=== PATIENT | female | born 1985 | race Caucasian/White ===

== ENCOUNTER 2022-05-12 16:43 | Emergency (ER) | payer OTHER, SELFPAY ==
[2022-05-12 16:43] VITALS: BP 129/74; PULSE 103; RESP 17; TEMP 36.9; O2SAT 97
--- NOTE | 2022-05-12 16:49 | ED.EXTPRO ---
HPI - Extremity Problem General Chief complaint: Extremity Problem,Nontraumatic Stated complaint: right leg pain Time Seen by Provider: 05/12/22 16:48 Source: patient and RN notes reviewed Mode of arrival: ambulatory Limitations: no limitations History of Present Illness HPI Narrative: patient states pain started on Wednesday when she was getting out of the car at [email or web address]. Also happened again yesterday her right calf became very tight and then she felt a pop while she was walking. She denies any numbness or tingling. She denies any swelling in her right leg. She denies any chest pain or shortness of breath. MD Complaint: extremity pain Onset (ago): day(s) (4) Pain Consistency: constant Location: right and lower extremity Quality: stabbing, aching and sharp Radiation: none Relieving factors: rest Exacerbating factors: walking Associated symptoms: denies other symptoms Related Data Home Medications Medication Instructions Recorded Confirmed atorvastatin 20 mg tablet 20 mg PO DAILY 05/12/22 05/12/22 cyanocobalamin (vitamin B-12) 1,000 mcg IM WEEKLY 05/12/22 05/12/22 1,000 mcg/mL injection solution fluticasone propionate 50 2 spray intranasal DAILY 05/12/22 05/12/22 mcg/actuation nasal spray,suspension insulin glargine 100 unit/mL (3 48 unit subcut HS 05/12/22 05/12/22 mL) subcutaneous pen (Lantus Solostar U-100 Insulin) insulin lispro 200 unit/mL (3 mL) See Rx Instructions .Route .COMPLEX 05/12/22 05/12/22 subcutaneous pen (Humalog KwikPen U-200 Insulin) losartan 100 mg tablet 100 mg PO DAILY 05/12/22 05/12/22 metformin 500 mg tablet,extended 1,000 mg PO BID 05/12/22 05/12/22 release 24 hr omeprazole 20 mg capsule,delayed 20 mg PO DAILY 05/12/22 05/12/22 release prazosin 1 mg capsule 1 mg PO DAILY 05/12/22 05/12/22 trazodone 150 mg tablet 150 mg PO HS 05/12/22 05/12/22 Allergies Allergy/AdvReac Type Severity Reaction Status Date / Time topiramate [From Topamax] Allergy Severe Vomiting Verified 05/12/22 16:59 latex Allergy Unknown Rash Verified 05/12/22 16:59 morphine Allergy Unknown Rash Verified 05/12/22 16:59 Review of Systems Review of Systems: All systems reviewed & are unremarkable except as noted in HPI and below PMFSH Past Medical History Medical History (Updated 05/12/22 @ 17:43 by Alexis Gutierrez MD) Anxiety and depression Morbid obesity Type 2 diabetes mellitus Surgical History Surgical History (Updated 05/12/22 @ 17:03 by Alexis Gutierrez MD) H/O knee surgery Exam Const: General: healthy appearing, no acute distress and alert Nutritional Appearance: well nourished and obese Orientation/consciousness: patient oriented x3 Limitations: no limitations HENMT: Head: normal to inspection Ears: external ears normal Face/Nose/Sinus: Normal external nose present Eyes: Conjunctivae: conjunctivae normal Pupils: Equal, round and reactive pupils present EOM: EOMs intact bilaterally Neck: Neck: normal visual inspection Resp: Effort & Inspection: normal respiratory effort Auscultation: clear to auscultation bilaterally Cardio: Rate: regular rate Rhythm: regular rhythm GI: GI Palp: Yes Soft to palpation and No Tenderness to palpation present (GI) Auscultation: normal bowel sounds Back/Spine/Pelvis: Cervical Spine: cervical ROM normal Thoracic/Lumbar Spine: thoraco-lumbar ROM normal Skin: General skin exam: normal color Rashes: no rashes Neuro: General: patient oriented x3, moves all extremities, no focal motor deficits and CN's II-XI intact bilaterally Speech: normal speech Extrem: General: normal exam except as noted and no clubbing, cyanosis or edema Right lower extremity: lower leg Details: tenderness Location: of the posterior calf and other ( Guajardo's test is normal bilaterally); no erythema, no palpable cords and edema noted Psych: Mental Status: mental status grossly normal Affect: normal affect Attitude: cooperative Course Vital Signs Vital
[2022-05-12 16:53] VITALS: BP 129/74; PULSE 103; RESP 17; TEMP 36.9; O2SAT 97
[2022-05-12 17:18] LABS: Basophils Absolute Auto 0.06 K/mm3 (0.00-0.10); Basophils Percent Auto 0.5 % (0.0-1.0); Eosinophils Absolute Auto 0.13 K/mm3 (0.02-0.50); Hematocrit 32.3 % (35.0-49.0); Hemoglobin 9.6 g/dL (12.0-15.0); Immature Granulocyte Absolute 0.05 K/mm3 (0.00-0.00); Immature Granulocyte Percent A 0.4 % (0.0-0.0); Lymphocytes Absolute Auto 3.73 K/mm3 (1.10-4.50); Lymphocytes Percent Auto 29.9 % (18.0-42.0); Mean Corpuscular HGB Conc 29.7 g/dL (32.0-36.0); Mean Corpuscular Hemoglobin 21.7 pg (27.0-31.0); Mean Corpuscular Volume 72.9 fL (78.0-102.0); Mean Platelet Volume 8.9 fl (9.2-11.8); Monocytes Absolute Auto 0.72 K/mm3 (0.10-0.90); Monocytes Percent Auto 5.8 % (2.0-11.0); Neutrophils Absolute Auto 7.8 K/mm3 (1.7-7.2); Neutrophils Percent Auto 62.4 % (50.0-70.0); Platelet Count Result 466 K/mm3 (150-420); Red Blood Count 4.43 M/mm3 (4.20-5.40); Red Cell Distribution Width 18.8 % (11.6-14.4); White Blood Count 12.5 K/mm3 (4.8-10.8)
[2022-05-12 17:32] LABS: D Dimer 0.28 mg/L (0.19-0.50)
[2022-05-12 17:34] LABS: Alanine Aminotransferase 45 U/L (14-59); Albumin Level 3.5 g/dL (3.4-5.0); Alkaline Phosphatase 68 U/L (46-116); Anion Gap 9 mmol/L (8-16); Aspartate Amino Transferase 27 U/L (15-37); Bilirubin,Total 0.3 mg/dL (0.00-1.00); Blood Urea Nitrogen 12 mg/dL (7-18); Calcium 9.5 mg/dL (8.5-10.1); Carbon Dioxide 28 mmol/L (21-32); Chloride 102 mmol/L (98-108); Estimated CRCL calculation 106 ml/min; Estimated Glomerular Filt Rate > 60; Glucose 71 mg/dL (70-99); Osmolality Calculated 285 mOsm/kg (285-295); Potassium 3.6 mmol/L (3.5-5.1); Sodium 139 mmol/L (136-145); Total Protein 8.2 g/dL (6.4-8.2)
[2022-05-12 17:54] VITALS: BP 152/89; PULSE 89; RESP 16; TEMP 36.9; O2SAT 100
== END 2022-05-12 17:56 | disposition home or self-care (01) ==
PROVIDERS: Emergency Provider Emergency Medicine
DX: S86.111A Strain of other muscle(s) and tendon(s) of posterior muscle group at lower leg level, right leg, initial encounter (principal); E11.9 Type 2 diabetes mellitus without complications; Z79.4 Long term (current) use of insulin; X58.XXXA Exposure to other specified factors, initial encounter; Y92.512 Supermarket, store or market as the place of occurrence of the external cause
CPT/HCPCS: 36415; 80053; 85025; 85380; 99283

== ENCOUNTER 2022-05-28 16:53 | Outpatient (RCR) | payer OTHER, SELFPAY ==
--- NOTE | 2022-05-28 18:01 | PTOPEVAL1 ---
Assessment and note entered by Ashli Tejada, PT Evaluation Information Assessment Status Evaluation Diagnosis R knee pain Subjective Information Deepa Steve reports she tore her right ACL and MCL in high school and underwent surgery. She did not heal correctly from the surgery and she was unable to regain full range of motion in it. About 3 weeks ago, she states she had been in the car a lot and when she got out, her right hamstring cramped up and she had trouble walking. She went to the ER a couple days later because she still could not walk. She had x-rays that showed bone on bone deformity in the right knee. 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 She notes the injection has decreased pain so that she can walk easier. She continues to feel tight in her hamstring. Reported Pain Level Pain Score 4: Self Report Assessment PT Clinical Summary Deepa Steve presents with right knee pain. She has difficulty with walking, stairs, and extending the right knee which leads to deficits in standing tolerance for work and navigating her home. She objectively demonstrates decreased right knee flexion and extension AROM, decreased right > left hamstring flexibility, tenderness in the right semitendonosus muscle and tendon, decreased right knee and hip strength, impaired gait, and impaired functional abilities. She will benefit from skilled PT to address these physical and functional limitations and return her to her PLOF. Plan of Care Interventions Electrical Stimulation,Hot Pack/Cold Pack, Intermittent Compression,Manual Therapy,Neuro Re- education,Patient/Caregiver Educati,Therapeutic Activities,Therapeutic Exercise PT Services Indicated Yes Treatment Frequency and 2 times a week for 12 visits. Duration These treatments will address the objective and functional deficits as defined above. The patient will be advanced safely and appropriately in order for the patient to progress towards his/her prior level of function. Additional exercises will be introduced and as well as a comprehensive home exercise program upon discharge, if needed, ?to ensure carryover of functional gains achieved in the clinic. This treatment plan has been reviewed and agreement upon by the patient.
--- NOTE | 2022-07-07 17:32 | PTOPDC ---
Assessment and note entered by Ashli Tejada, PT Evaluation Information Assessment Status Discharge Diagnosis R knee pain Subjective Information Deepa Steve reports her right knee is improved overall. 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 She does have arthritis and feels part of the pain is from that. She rates pain at worst a 5/10. She feels she has improved 80% overall since initiating PT. Reported Pain Level Pain Score 0: Self Report Assessment PT Clinical Summary Deepa Steve has completed 10 skilled PT visits for right knee pain. She is reporting an 80% overall improvement since initiating PT. She still gets some pain with repetitive lifting and squatting. She demonstrates improved right knee and hip strength, improved right hamstring flexibility and less palpable tenderness, improved gait, and improved functional abilities. She will be discharged to an independent home program. Plan of Care PT Services Indicated Yes
== END 2022-07-07 13:47 | disposition home or self-care (01) ==
LOC: CHSPT 16:53
PROVIDERS: Visit Provider Orthopaedic Surgery
DX: M17.31 Unilateral post-traumatic osteoarthritis, right knee (principal); M25.361 Other instability, right knee; M76.891 Other specified enthesopathies of right lower limb, excluding foot
CPT/HCPCS: 97110; 97140; 97161; 97530

== ENCOUNTER 2023-02-24 20:37 | Emergency (ER) | payer OTHER, SELFPAY ==
[2023-02-24 20:41] VITALS: BP 170/92; PULSE 111; RESP 18; TEMP 37.6; O2SAT 99
[2023-02-24 20:48] VITALS: BP 170/92; PULSE 111; RESP 20; TEMP 37.6; O2SAT 96
--- NOTE | 2023-02-24 20:48 | ED.ABDPAIN ---
HPI - Abdominal Pain General Chief Complaint: Nausea/Vomiting/Diarrhea Stated Complaint: abdominal pain Time Seen by Provider: 02/24/23 20:47 Source: patient Mode of arrival: ambulatory Limitations: no limitations History of Present Illness HPI narrative: 27-year-old female with obesity, MARY on CPAPanxiety / depression, hypertension, diabetes mellitus, dyslipidemia, kidney stones presents to the ER with a 5 hour history of -- lower abdominal pain which is nonradiating. No exacerbating or relieving factors .-- Nausea with multiple episodes of vomiting. Vomitus is brown in color .-- Multiple episodes of loose stools. The patient has chronic diarrhea secondary to metformin. No fever or chills. MD elicited complaint: abdominal pain Pertinent past history: kidney stones Onset (ago): hour(s) ( Started 5 hours ago) Pain Consistency: constant and intermittent Location: suprapubic Severity: moderate Quality: aching Radiation: none Migration to: no migration Exacerbating factors: nothing Relieving factors: nothing Associated symptoms: denies other symptoms, nausea, vomiting and diarrhea Related Data Date of Last Menstrual Period: 02/10/23 Home Medications Medication Instructions Recorded Confirmed atorvastatin 20 mg tablet 20 mg PO DAILY 05/12/22 05/12/22 cyanocobalamin (vitamin B-12) 1,000 mcg IM WEEKLY 05/12/22 05/12/22 1,000 mcg/mL injection solution fluticasone propionate 50 2 spray intranasal DAILY 05/12/22 05/12/22 mcg/actuation nasal spray,suspension insulin glargine 100 unit/mL (3 48 unit subcut HS 05/12/22 05/12/22 mL) subcutaneous pen (Lantus Solostar U-100 Insulin) insulin lispro 200 unit/mL (3 mL) See Rx Instructions .Route .COMPLEX 05/12/22 05/12/22 subcutaneous pen (Humalog KwikPen U-200 Insulin) losartan 100 mg tablet 100 mg PO DAILY 05/12/22 05/12/22 metformin 500 mg tablet,extended 1,000 mg PO BID 05/12/22 05/12/22 release 24 hr omeprazole 20 mg capsule,delayed 20 mg PO DAILY 05/12/22 05/12/22 release prazosin 1 mg capsule 1 mg PO DAILY 05/12/22 05/12/22 trazodone 150 mg tablet 150 mg PO HS 05/12/22 05/12/22 Allergies Allergy/AdvReac Type Severity Reaction Status Date / Time topiramate [From Topamax] Allergy Severe Vomiting Verified 02/24/23 20:45 latex Allergy Unknown Rash Verified 02/24/23 20:45 morphine Allergy Unknown Rash Verified 02/24/23 20:45 Review of Systems Review of Systems: All systems reviewed & are unremarkable except as noted in HPI and below Constitutional: Constitutional: Reports as per HPI and Reports no additional constitutional complaints Eyes: Eyes: Reports as per HPI and Reports no additional eye complaints ENT: Reports system reviewed and no additional complaints, except as documented and Reports as per HPI Cardiovascular: Cardiovascular: Reports as per HPI and Reports no additional cardiovascular complaints Respiratory: Respiratory: Reports as per HPI and Reports no additional respiratory complaints Gastrointestinal: Gastrointestinal: Reports as per HPI, Reports no additional gastrointestinal complaints, Reports abdominal pain, Reports diarrhea, Reports nausea and Reports vomiting Genitourinary: Genitourinary: Reports no additional female genitourinary complaints and Reports as per HPI Musculoskeletal: Musculoskeletal: Reports no additional musculoskeletal complaints and Reports as per HPI Integumentary/Breasts: Skin/Breast: Reports system reviewed and no additional complaints, except as docu and Reports as per HPI Neurologic: Reports system reviewed and no additional complaints, except as documented and Reports as per HPI Psychiatric: Psychiatric: Reports no additional psychiatric complaints and Reports as per HPI Endocrine: Endocrine: Reports no additional endocrine complaints and Reports as per HPI Hematologic/Lymphatic: Hematologic/Lymphatic: Reports no additional hematologic/lymphatic complaints and Reports as per HPI Allergic/Immunolo
[2023-02-24 21:12] LABS: Basophils Absolute Auto 0.01 K/mm3 (0.00-0.10); Basophils Percent Auto 0.1 % (0.0-1.0); Eosinophils Absolute Auto 0.07 K/mm3 (0.02-0.50); Eosinophils Percent Auto 0.7 % (1.0-6.0); Hematocrit 38.2 % (35.0-49.0); Hemoglobin 11.9 g/dL (12.0-15.0); Immature Granulocyte Absolute 0.04 K/mm3 (0.00-0.00); Immature Granulocyte Percent A 0.4 % (0.0-0.0); Lymphocytes Absolute Auto 0.78 K/mm3 (1.10-4.50); Lymphocytes Percent Auto 8.1 % (18.0-42.0); Mean Corpuscular HGB Conc 31.2 g/dL (32.0-36.0); Mean Corpuscular Hemoglobin 23.3 pg (27.0-31.0); Mean Corpuscular Volume 74.8 fL (78.0-102.0); Mean Platelet Volume 9.3 fl (9.2-11.8); Monocytes Absolute Auto 0.45 K/mm3 (0.10-0.90); Monocytes Percent Auto 4.7 % (2.0-11.0); Neutrophils Absolute Auto 8.3 K/mm3 (1.7-7.2); Platelet Count Result 394 K/mm3 (150-420); Red Blood Count 5.11 M/mm3 (4.20-5.40); Red Cell Distribution Width 17.8 % (11.6-14.4); White Blood Count 9.7 K/mm3 (4.8-10.8)
[2023-02-24 21:25] LABS: Appearance Urine Clear (Clear); Bilirubin Urine Negative (Negative); Blood Urine 1+ (Negative); Color Urine Light Yellow (Yellow); Glucose Urine UA 3+ (Negative); Ketones Urine 2+ (Negative); Leukocyte Esterase Ur Negative LEU/UL (Negative); Nitrate Urine Negative (Negative); Protein Urine 3+ (Negative); Specific Grav Ur >= 1.030 (1.010-1.020); Urobilinogen Urine 0.2 mg/dL (0.2-1.0)
[2023-02-24 21:26] LABS: Partial Thromboplastin Time 24.7 SEC (23.90-30.70); Prothrombin Time 10.7 Seconds (9.50-12.10)
[2023-02-24 21:27] LABS: Alanine Aminotransferase 40 U/L (14-59); Albumin Level 3.4 g/dL (3.4-5.0); Alkaline Phosphatase 69 U/L (46-116); Anion Gap 5 mmol/L (8-16); Aspartate Amino Transferase 18 U/L (15-37); Bilirubin,Total 0.6 mg/dL (0.00-1.00); Blood Urea Nitrogen 15 mg/dL (7-18); Calcium 9.1 mg/dL (8.5-10.1); Carbon Dioxide 30 mmol/L (21-32); Chloride 97 mmol/L (98-108); Estimated CRCL calculation 92 ml/min; Estimated Glomerular Filt Rate > 60; Glucose 301 mg/dL (70-99); Lipase 39 U/L (16-77); Osmolality Calculated 285 mOsm/kg (285-295); Sodium 132 mmol/L (136-145); Total Protein 7.9 g/dL (6.4-8.2)
[2023-02-24 21:31] LABS: Add Urine Microscopic? YES; Squamous Epithelial Cell Urine Few /hpf (Few); WBC Urine 0-3 /hpf (0-3)
[2023-02-24 21:32] LABS: Bacteria Urine 1+ /hpf
[2023-02-24 21:32] LABS: Lactic Acid Reflex 1.6 mmol/L (0.4-2.0)
[2023-02-24 21:33] LABS: Pregnancy On Board Control Positive; Urine Pregnancy Test Negative
[2023-02-24 22:02] VITALS: BP 156/84; PULSE 96; RESP 18; O2SAT 97
--- NOTE | 2023-03-03 12:26 | PC.NURSE ---
FINAL BLOOD CULTURE RESULTS X2: NO GROWTH AFTER 5 DAYS
== END 2023-02-24 22:10 | disposition left against medical advice (07) ==
PROVIDERS: Emergency Provider Internal Medicine Critical Care Medicine; PCP Family Medicine
DX: K52.9 Noninfective gastroenteritis and colitis, unspecified (principal); I10 Essential (primary) hypertension; E11.9 Type 2 diabetes mellitus without complications; E78.5 Hyperlipidemia, unspecified; F41.9 Anxiety disorder, unspecified; F32.A Depression, unspecified
CPT/HCPCS: 36415; 80053; 81001; 81025; 83605; 83690; 85025; 85610; 85730; 99283

== ENCOUNTER 2023-02-24 23:23 | Emergency (ER) | payer OTHER, SELFPAY ==
--- NOTE | ~2023-02-24 | CT_ITS ---
EXAMINATION: CT abdomen pelvis wo con DATE: 02/24/2023 23:49 INDICATION: Lt. sided abdominal pain/nausea/vomiting/hematuria x1 day TECHNIQUE: Computed tomography (CT) of the abdomen and pelvis was performed without intravenous contr ast. Automated exposure control and iterative reconstruction technique were employed. The dose-length product was 1345.60 mGy-cm. COMPARISON: None. FINDINGS: Lower thorax: Unremarkable Liver: Normal. Biliary/Gallbladder: Gallbladder is normal. No bile duct dilation. Pancreas: No mass or duct dilation. Spleen: Normal. Adrenals:No mass. Kidneys: No suspicious mass, obstructing stone, or hydronephrosis. Nonobstructing 3 and 4 mm right mi dpole stones. GI tract: No small or large bowel dilation. Normal appendix. Mesentery/Peritoneum: No ascites, mass, or free air. Retroperitoneum: No mass. Pelvis: Fibroid uterus. Normal ovaries. 2.7 cm left ovarian cyst which requires no additional evaluat ion. Tiny 1 mm hyperdensity at the entrance of the left UVJ may represent a punctate stone at the qureshi its of detectability. Soft Tissues: Soft tissues and body wall unremarkable. Bones: No acute osseous finding. IMPRESSION: Possible 1 mm left UPJ stone. No significant obstructive uropathy. Right nephrolithiasis. No left renal stones detected. Fibroid uterus. Reviewed, dictated and finalized at location [facility]. 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
[2023-02-24 23:26] VITALS: BP 184/89; PULSE 118; RESP 18; O2SAT 94
[2023-02-24 23:27] VITALS: BP 184/89; PULSE 106; RESP 20; TEMP 37.5; O2SAT 95
--- NOTE | 2023-02-25 00:12 | ED.ABDPAIN ---
HPI - Abdominal Pain General Chief Complaint: Abdominal Pain Stated Complaint: abdominal pain Source: patient Mode of arrival: ambulatory Limitations: no limitations History of Present Illness HPI narrative: 37-year-old female with a history of anxiety / depression, morbid obesity, MARY, diabetes mellitus type 2, kidney stones presented to the ER at 8 40 8:00 p.m. for nausea/vomiting/ diarrhea along with abdominal pain. The patient was noted to have tenderness in the suprapubic region. The patient was afebrile. The patient was worked up and noted to have a normal white cell count. She had blood and red blood cells in the urine for which she was advised a CT of the abdomen and pelvis. The patient left AMA. She return to the ER with worsening left lower quadrant and suprapubic abdominal pain. MD elicited complaint: abdominal pain Pertinent past history: kidney stones Onset (ago): hour(s) ( Pain started 9 hours ago.) Pain Consistency: intermittent Location: LLQ and suprapubic Severity: severe Quality: aching Radiation: none Migration to: no migration Exacerbating factors: nothing Relieving factors: nothing Associated symptoms: denies other symptoms ( On the previous visit 4 hours ago the patient had nausea/ vomiting and diarrhea. Currently the patient does not have any of the symptoms.) Related Data Patient : No Home Medications Medication Instructions Recorded Confirmed atorvastatin 20 mg tablet 20 mg PO DAILY 05/12/22 05/12/22 cyanocobalamin (vitamin B-12) 1,000 mcg IM WEEKLY 05/12/22 05/12/22 1,000 mcg/mL injection solution fluticasone propionate 50 2 spray intranasal DAILY 05/12/22 05/12/22 mcg/actuation nasal spray,suspension insulin glargine 100 unit/mL (3 48 unit subcut HS 05/12/22 05/12/22 mL) subcutaneous pen (Lantus Solostar U-100 Insulin) insulin lispro 200 unit/mL (3 mL) See Rx Instructions .Route .COMPLEX 05/12/22 05/12/22 subcutaneous pen (Humalog KwikPen U-200 Insulin) losartan 100 mg tablet 100 mg PO DAILY 05/12/22 05/12/22 metformin 500 mg tablet,extended 1,000 mg PO BID 05/12/22 05/12/22 release 24 hr omeprazole 20 mg capsule,delayed 20 mg PO DAILY 05/12/22 05/12/22 release prazosin 1 mg capsule 1 mg PO DAILY 05/12/22 05/12/22 trazodone 150 mg tablet 150 mg PO HS 05/12/22 05/12/22 Allergies Allergy/AdvReac Type Severity Reaction Status Date / Time topiramate [From Topamax] Allergy Severe Vomiting Verified 02/25/23 00:33 latex Allergy Unknown Rash Verified 02/25/23 00:33 morphine Allergy Unknown Rash Verified 02/25/23 00:33 Review of Systems Review of Systems: All systems reviewed & are unremarkable except as noted in HPI and below Constitutional: Constitutional: Reports as per HPI and Reports no additional constitutional complaints Eyes: Eyes: Reports as per HPI and Reports no additional eye complaints ENT: Reports system reviewed and no additional complaints, except as documented and Reports as per HPI Cardiovascular: Cardiovascular: Reports as per HPI and Reports no additional cardiovascular complaints Respiratory: Respiratory: Reports as per HPI and Reports no additional respiratory complaints Gastrointestinal: Gastrointestinal: Reports as per HPI, Reports no additional gastrointestinal complaints and Reports abdominal pain Genitourinary: Genitourinary: Reports no additional female genitourinary complaints Musculoskeletal: Musculoskeletal: Reports no additional musculoskeletal complaints and Reports as per HPI Integumentary/Breasts: Skin/Breast: Reports system reviewed and no additional complaints, except as docu and Reports as per HPI Neurologic: Reports system reviewed and no additional complaints, except as documented and Reports as per HPI Psychiatric: Psychiatric: Reports no additional psychiatric complaints and Reports as per HPI Endocrine: Endocrine: Reports no additional endocrine complaints and Reports as per HPI Hematologic/Lymphatic: Hemat
[2023-02-25] MEDS: SODIUM CHLORIDE 0.9% IV 1,000 ML 999 ML (00:17)
[2023-02-25] MEDS: KETOROLAC 30 MG/ML VIAL (*BKC) (00:17)
[2023-02-25] MEDS: TAMSULOSIN HCL 0.4 MG CAPSULE (00:18)
[2023-02-25 00:53] VITALS: TEMP 37.7
[2023-02-25] MEDS: ONDANSETRON INJ 4 MG/2 ML VIAL IV PUSH (01:06)
[2023-02-25] MEDS: fentaNYL CITRATE INJ (*CRX) 100 MCG/2 ML VIAL 50 MCG IV PUSH (01:06)
[2023-02-25 01:19] VITALS: BP 139/75; PULSE 106; RESP 18; O2SAT 94
[2023-02-25 01:54] VITALS: TEMP 37.2
[2023-02-25 02:14] VITALS: BP 137/69; PULSE 111; RESP 16; TEMP 37.2; O2SAT 93
== END 2023-02-25 02:18 | disposition home or self-care (01) ==
PROVIDERS: Emergency Provider Internal Medicine Critical Care Medicine
DX: N20.0 Calculus of kidney (principal); E11.9 Type 2 diabetes mellitus without complications
CPT/HCPCS: 74176; 87040; 96361; 96374; 96375; 99284; A9270; J1885; J2405; J3010; J7030

== ENCOUNTER 2023-04-06 06:52 | Emergency (ER) | payer OTHER, SELFPAY ==
--- NOTE | ~2023-04-06 | US_ITS ---
Pelvic ultrasound. Clinical History: Left lower quadrant pain Technique: Realtime transabdominal and transvaginal scanning of the pelvis was performed. Color flow Doppler and Doppler spectral analysis were performed. Findings: The uterus is anteverted. The endometrial stripe has a thickness of 7 mm. No focal mass is identified. The right ovary measures 3.1 x 2.8 x 1.8 cm. There is a 3.6 cm right adnexal cyst with single thin se ptation, possibly paraovarian cyst. The left ovary measures 2.7 x 1.5 x 1.7 cm. No significant left ovarian or adnexal mass is seen. Vascular flow present in both ovaries on Doppler spectral analysis. There is no evidence of free fluid in the cul de sac. Impression: 3.6 cm right adnexal cyst, possibly paraovarian, with single thin septation. Reviewed, dictated and finalized at [facility]. 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
--- NOTE | ~2023-04-06 | CT_ITS ---
EXAMINATION: CT abdomen pelvis w con DATE: 04/06/2023 08:44 INDICATION: Left lower quadrant pain, nausea and vomiting for 2 months TECHNIQUE: Computed tomography (CT) of the abdomen and pelvis was performed with 100 cc Omnipaque 350 intravenous contrast. The dose-length product was 1335.63 mGy-cm. Automated exposure control and ite rative reconstruction technique were employed. COMPARISON: CT dated 02/24/2023. FINDINGS: There are groundglass opacities of the lower lungs. Borderline heart size. No significant p leural or pericardial effusion. There is subcutaneous infiltration/edema in the periumbilical abdomin al soft tissues. Fatty infiltration of the liver. The spleen, pancreas, adrenal glands are unremarkable. There are low density lesions in both kidneys, most likely benign cysts. There are nonobstructing right renal ston es. Gallbladder is present. There are air-fluid levels with fluid throughout the small bowel. No obst ruction. Findings suspicious for enteritis. There is 3.2 x 2 cm right adnexal cyst, likely ovarian. N o significant vascular abnormality. No lymphadenopathy. Mild lumbar spondylosis. IMPRESSION: 1. Groundglass opacities of the lower lungs, suspicious for pneumonia. 2: Right nephrolithiasis. 3: Fluid throughout the small bowel with air-fluid levels, suspicious for enteritis. No obstruction. Reviewed, dictated and finalized at location [facility]. D EFFECTS SUPERVISOR IMPRESSION: 1. Groundglass opacities of the lower lungs, suspicious for pneumonia. 2: Right nephrolithiasis. 3: Fluid throughout the small bowel with air-fluid levels, suspicious for enter itis. No obstruction.
[2023-04-06 06:52] VITALS: BP 123/75; PULSE 108; RESP 18; TEMP 36.6; O2SAT 96
--- NOTE | 2023-04-06 07:14 | ED.GENADULT ---
HPI - General Adult General Chief complaint: Abdominal Pain Stated complaint: vomiting; abdominal pain Time Seen by Provider: 04/06/23 07:11 History of Present Illness HPI narrative: 37yo woman presents with acute left lower quad abd pain, onset last night, with nausea and nonbilious vomiting. No fevers, chills, diarrhea, black or bloody stools. Had same symptoms 2 months ago and it lasted several days. Related Data Home Medications Medication Instructions Recorded Confirmed cyanocobalamin (vitamin B-12) 1,000 mcg IM WEEKLY 05/12/22 04/06/23 1,000 mcg/mL injection solution insulin glargine 100 unit/mL (3 48 unit subcut HS 05/12/22 04/06/23 mL) subcutaneous pen (Lantus Solostar U-100 Insulin) insulin lispro 200 unit/mL (3 mL) See Rx Instructions .Route .COMPLEX 05/12/22 04/06/23 subcutaneous pen (Humalog KwikPen U-200 Insulin) metformin 500 mg tablet,extended 1,000 mg PO BID 05/12/22 04/06/23 release 24 hr omeprazole 20 mg capsule,delayed 20 mg PO DAILY 05/12/22 04/06/23 release prazosin 1 mg capsule 1 mg PO DAILY 05/12/22 04/06/23 trazodone 150 mg tablet 150 mg PO HS 05/12/22 04/06/23 amlodipine 2.5 mg tablet 2.5 mg PO DAILY 04/06/23 04/06/23 atorvastatin 20 mg tablet 20 mg PO DAILY 04/06/23 04/06/23 hydrochlorothiazide 12.5 mg capsule 12.5 mg PO DAILY 04/06/23 04/06/23 hydroxyzine HCl 10 mg tablet 10 mg PO TID 04/06/23 04/06/23 lamotrigine 200 mg tablet 200 mg PO DAILY 04/06/23 04/06/23 losartan 100 mg tablet 100 mg PO DAILY 04/06/23 04/06/23 lurasidone 20 mg tablet 20 mg PO DAILY 04/06/23 04/06/23 montelukast 10 mg tablet 10 mg PO DAILY 04/06/23 04/06/23 oxybutynin chloride 10 mg 10 mg PO DAILY 04/06/23 04/06/23 tablet,extended release 24 hr vilazodone 40 mg tablet 40 mg PO DAILY 04/06/23 04/06/23 Allergies Allergy/AdvReac Type Severity Reaction Status Date / Time topiramate [From Topamax] Allergy Severe Vomiting Verified 04/06/23 07:11 latex Allergy Unknown Rash Verified 04/06/23 07:11 morphine Allergy Unknown Rash Verified 04/06/23 07:11 Review of Systems Review of Systems: All systems reviewed & are unremarkable except as noted in HPI and below Constitutional: Constitutional: Denies fever(s) ENT: Denies dysphagia Cardiovascular: Cardiovascular: Denies chest pain Respiratory: Respiratory: Denies dyspnea Gastrointestinal: Gastrointestinal: Reports abdominal pain PMFSH Past Medical History Medical History Anxiety and depression Morbid obesity MARY (obstructive sleep apnea) Type 2 diabetes mellitus Surgical History Surgical History H/O knee surgery Exam Const: General: healthy appearing and no acute distress Nutritional Appearance: well nourished Orientation/consciousness: patient oriented x3 Eyes: Conjunctivae: conjunctivae normal Resp: Effort & Inspection: normal respiratory effort Cardio: Rate: regular rate GI: Inspection: non-distended GI Palp: Yes Soft to palpation and No Tenderness to palpation present (GI) Skin: General skin exam: normal color, no jaundice and no pallor Neuro: General: patient oriented x3 Gait exam (Neuro): Normal gait present Extrem: General: no clubbing, cyanosis or edema Course Vital Signs Vital signs: Vital Signs Temperature 36.6 C 04/06/23 06:52 Pulse Rate 108 H 04/06/23 06:52 Respiratory Rate 18 04/06/23 06:52 Blood Pressure 123/75 04/06/23 06:52 Pulse Oximetry 96 04/06/23 06:52 Oxygen Delivery Room Air 04/06/23 06:52 Temperature 36.6 C 04/06/23 06:52 Pulse Rate 108 H 04/06/23 06:52 Respiratory Rate 18 04/06/23 06:52 Blood Pressure 123/75 04/06/23 06:52 Pulse Oximetry 96 04/06/23 06:52 Oxygen Delivery Room Air 04/06/23 06:52 Medical Decision Making MDM Narrative Medical decision making narrative: Acute LLQ pain DDx enteritis, gastroenteritis, coliti
[2023-04-06 07:32] LABS: Basophils Absolute Auto 0.01 K/mm3 (0.00-0.10); Basophils Percent Auto 0.1 % (0.0-1.0); Eosinophils Absolute Auto 0.04 K/mm3 (0.02-0.50); Eosinophils Percent Auto 0.5 % (1.0-6.0); Hematocrit 39.2 % (35.0-49.0); Hemoglobin 11.9 g/dL (12.0-15.0); Immature Granulocyte Absolute 0.02 K/mm3 (0.00-0.00); Immature Granulocyte Percent A 0.2 % (0.0-0.0); Lymphocytes Absolute Auto 0.64 K/mm3 (1.10-4.50); Lymphocytes Percent Auto 7.5 % (18.0-42.0); Mean Corpuscular HGB Conc 30.4 g/dL (32.0-36.0); Mean Corpuscular Hemoglobin 23.4 pg (27.0-31.0); Mean Corpuscular Volume 77.2 fL (78.0-102.0); Mean Platelet Volume 9.6 fl (9.2-11.8); Monocytes Absolute Auto 0.29 K/mm3 (0.10-0.90); Monocytes Percent Auto 3.4 % (2.0-11.0); Neutrophils Absolute Auto 7.5 K/mm3 (1.7-7.2); Neutrophils Percent Auto 88.3 % (50.0-70.0); Platelet Count Result 280 K/mm3 (150-420); Red Blood Count 5.08 M/mm3 (4.20-5.40); Red Cell Distribution Width 17.7 % (11.6-14.4); White Blood Count 8.5 K/mm3 (4.8-10.8)
[2023-04-06 07:34] LABS: Appearance Urine Clear (Clear); Bilirubin Urine Negative (Negative); Blood Urine 2+ (Negative); Color Urine Yellow (Yellow); Glucose Urine UA 3+ (Negative); Ketones Urine Trace (Negative); Leukocyte Esterase Ur Negative LEU/UL (Negative); Nitrate Urine Negative (Negative); Protein Urine 2+ (Negative); Specific Grav Ur 1.025 (1.010-1.020); Urobilinogen Urine 0.2 mg/dL (0.2-1.0)
[2023-04-06 07:42] LABS: Add Urine Microscopic? YES; Bacteria Urine Trace /hpf; Mucus Urine Moderate /lpf; Squamous Epithelial Cell Urine Moderate /hpf (Few); WBC Urine 0-3 /hpf (0-3)
[2023-04-06] MEDS: METOCLOPRAMIDE HCL INJ 10 MG/2 ML VIAL IV PUSH (07:47)
[2023-04-06] MEDS: KETOROLAC 30 MG/ML VIAL (*BKC) IV PUSH (07:47)
[2023-04-06] MEDS: diphenhydrAMINE HCl INJ 50 MG/ML VIAL IV PUSH (07:47)
[2023-04-06] MEDS: SODIUM CHLORIDE 0.9% IV 1,000 ML 999 ML IV CONT ×2 (07:48→09:03)
[2023-04-06 07:50] LABS: Alanine Aminotransferase 29 U/L (14-59); Albumin Level 3.1 g/dL (3.4-5.0); Alkaline Phosphatase 60 U/L (46-116); Anion Gap 11 mmol/L (8-16); Aspartate Amino Transferase 18 U/L (15-37); Bilirubin,Total 0.6 mg/dL (0.00-1.00); Blood Urea Nitrogen 13 mg/dL (7-18); Calcium 8.1 mg/dL (8.5-10.1); Carbon Dioxide 26 mmol/L (21-32); Chloride 97 mmol/L (98-108); Estimated CRCL calculation 103 ml/min; Estimated Glomerular Filt Rate > 60; Glucose 236 mg/dL (70-99); Osmolality Calculated 286 mOsm/kg (285-295); Potassium 4.2 mmol/L (3.5-5.1); Sodium 134 mmol/L (136-145); Total Protein 7.5 g/dL (6.4-8.2)
[2023-04-06 07:53] LABS: Lactic Acid Reflex 2.7 mmol/L (0.4-2.0)
[2023-04-06 07:58] LABS: Lipase 23 U/L (16-77); Magnesium 1.4 mg/dL (1.8-2.4)
--- NOTE | 2023-04-06 08:14 | PC.NURSE ---
PT IS LYING ON STRETCHER IN EXAM ROOM AT THIS TIME WITH AT BEDSIDE. NAD NOTED. IVF INFUSING AT ORDERED WITHOUT DIFFICULTY. WILL CONTINUE TO MONITOR. PT DENIES ANY NEEDS OR COMPLAINTS.
[2023-04-06 08:24] LABS: Pregnancy On Board Control Positive; Urine Pregnancy Test Negative
[2023-04-06] MEDS: MAGNESIUM SULF 2 GM/WATER 50ML 2 GM/50 ML BAG IVPB (09:05)
--- NOTE | 2023-04-06 09:22 | PC.NURSE ---
PT IS SLEEPING ON STRETCHER IN EXAM ROOM WITH AT BEDSIDE. IV MEDICATION AND FLUIDS ARE INFUSING ORDERED WITHOUT DIFFICULTY. PT REPORTS SHE IS FEELING MUCH BETTER, PAIN FREE AT THIS TIME. WILL CONTINUE TO MONITOR.
[2023-04-06 10:09] VITALS: BP 164/91; PULSE 82; RESP 20; TEMP 36.8; O2SAT 98
[2023-04-06 10:30] LABS: Reflex Lactic Acid Yes or No Add Lactic
== END 2023-04-06 10:05 | disposition home or self-care (01) ==
PROVIDERS: Emergency Provider Emergency Medicine
DX: K52.9 Noninfective gastroenteritis and colitis, unspecified (principal); E11.9 Type 2 diabetes mellitus without complications; F32.A Depression, unspecified; F41.9 Anxiety disorder, unspecified; Z79.899 Other long term (current) drug therapy; Z79.4 Long term (current) use of insulin
CPT/HCPCS: 36415; 74177; 76830; 80053; 81001; 81025; 83605; 83690; 83735; 85025; 96361; 96365; 96375; 99284; J1200; J1885; J2765; J3475; J7030; Q9967

== ENCOUNTER 2023-09-03 20:36 | Emergency (ER) | payer OTHER, SELFPAY ==
--- NOTE | ~2023-09-03 | CT_ITS ---
CT abdomen pelvis w con Ordering provider: Misael Adhikari MD History: . n/v/d. bariatric surgery 6 WEEKS AGO. UPPER ABD PAIN. . Comparison: April 06, 2023 Technique: CT abdomen with IV and without oral contrast. Radiation reduction technique utilized. DLP is 941.77 mGy. 100 mL Omnipaque 350 was given. Findings: VISUALIZED LOWER CHEST: Dependent atelectatic changes. UPPER ABDOMINAL ORGANS: Liver: Tiny hypodensity in segment #8 most likely a tiny cyst. Mild hepatomegaly with The liver measu res 19.8. Gallbladder: Normal. Spleen: Normal. Stomach/duodenum: Postoperative changes in the stomach. Pancreas: Normal. Adrenals: Normal. Kidneys: Too small stones are seen adjacent in the midpole which measures 4 mm. Tiny stone also seen in the lower pole. A small cyst is seen in the right kidney right lower pole and mid pole. No hydrone phrotic changes. A small cyst in the left kidney midpole measuring 1 cm. Left kidney lower pole cyst is seen measuring 1 cm. Urinary bladder: Normal. Right ovarian cyst measuring 2.8 cm.Hypodensity in the uterus which may indicate a fibroid.measuring 2.2 cm. VISUALIZED BOWEL AND MESENTERY: No evidence of diverticulitis. Normal appendix. Postoperative changes seen in the proximal jejunal loops. The bowel is otherwise normal. No free air or free fluid. No mes enteric lymphadenopathy. RETROPERITONEUM: Normal aorta. No retroperitoneal lymphadenopathy. Small para-aortic lymph nodes are noted. MUSCULOSKELETAL: The superficial soft tissues are normal. Age appropriate degenerative changes of the spine. IMPRESSION: Hepatomegaly. 2 small stones in the right kidney midpole and one in the lower pole. Bilateral small renal cysts. Postoperative changes in the stomach and small bowel. Hypodensity in the uterus which may indicate a fibroid. Reviewed, dictated and finalized at location A.
[2023-09-03 20:38] VITALS: BP 127/71; PULSE 70; RESP 18; TEMP 36.8; O2SAT 98
[2023-09-03 21:26] LABS: Basophils Absolute Auto 0.03 K/mm3 (0.00-0.10); Basophils Percent Auto 0.3 % (0.0-1.0); Eosinophils Absolute Auto 0.11 K/mm3 (0.02-0.50); Eosinophils Percent Auto 1.1 % (1.0-6.0); Hematocrit 33.5 % (35.0-49.0); Hemoglobin 10.7 g/dL (12.0-15.0); Immature Granulocyte Absolute 0.03 K/mm3 (0.00-0.00); Immature Granulocyte Percent A 0.3 % (0.0-0.0); Lymphocytes Absolute Auto 4.04 K/mm3 (1.10-4.50); Lymphocytes Percent Auto 39.2 % (18.0-42.0); Mean Corpuscular HGB Conc 31.9 g/dL (32-36); Mean Corpuscular Hemoglobin 25.7 pg (27.0-31.0); Mean Corpuscular Volume 80.3 fL (78.0-102.0); Mean Platelet Volume 9.7 fl (9.2-11.8); Monocytes Absolute Auto 0.65 K/mm3 (0.10-0.90); Monocytes Percent Auto 6.3 % (2.0-11.0); Neutrophils Absolute Auto 5.45 K/mm3 (1.70-7.20); Neutrophils Percent Auto 52.8 % (50.0-70.0); Platelet Count Result 355 K/mm3 (150-420); Red Blood Count 4.17 M/mm3 (4.20-5.40); Red Cell Distribution Width 16.8 % (11.6-14.4); White Blood Count 10.3 K/mm3 (4.8-10.8)
[2023-09-03 21:33] LABS: Alanine Aminotransferase 24 U/L (14-59); Albumin Level 3.1 g/dL (3.4-5.0); Alkaline Phosphatase 61 U/L (46-116); Anion Gap 7 mmol/L (4-12); Aspartate Amino Transferase 18 U/L (15-37); Bilirubin,Total 0.3 mg/dL (0.00-1.00); Blood Urea Nitrogen 12 mg/dL (7-18); Calcium 8.6 mg/dL (8.5-10.1); Carbon Dioxide 27 mmol/L (21-32); Chloride 105 mmol/L (98-108); Estimated CRCL calculation 96 ml/min; Estimated Glomerular Filt Rate > 60; Glucose 81 mg/dL (70-99); Lipase 24 U/L (16-77); Osmolality Calculated 286 mOsm/kg (285-295); Potassium 3.7 mmol/L (3.5-5.1); Sodium 139 mmol/L (136-145); Total Protein 7.1 g/dL (6.4-8.2)
[2023-09-03] MEDS: ONDANSETRON INJ 4 MG/2 ML VIAL IV PUSH (21:41)
[2023-09-03] MEDS: FAMOTIDINE 20 MG/2 ML VIAL IV PUSH (21:41)
[2023-09-03] MEDS: SODIUM CHLORIDE 0.9% IV 2,000 ML 999 ML IV CONT (21:41)
[2023-09-03 21:48] LABS: Pregnancy On Board Control Positive; Urine Pregnancy Test Negative
--- NOTE | 2023-09-03 21:49 | PC.NURSE ---
patient reports that her glucose on her cgm is 72. ER provider notified. juice given per instructions
--- NOTE | 2023-09-03 21:55 | PC.NURSE ---
patient transported to ct via wheelchair
--- NOTE | 2023-09-03 22:09 | ED.GENADULT ---
HPI - General Adult General Chief complaint: Abdominal Pain Time Seen by Provider: 09/03/23 20:45 History of Present Illness HPI narrative: this is a 38-year-old female with a history of bariatric surgery presenting 2 months after operation with nausea vomiting diarrhea. Her symptoms started 5 days ago. There is associated with some epigastric discomfort. She denies fevers, URI symptoms chest pain difficulty breathing or urinary symptoms. She has seen her primary care physician received some IV fluids. She has been taking Zofran with relief. Related Data Home Medications Medication Instructions Recorded Confirmed cyanocobalamin (vitamin B-12) 1,000 mcg IM WEEKLY 05/12/22 04/06/23 1,000 mcg/mL injection solution insulin glargine 100 unit/mL (3 48 unit subcut HS 05/12/22 04/06/23 mL) subcutaneous pen (Lantus Solostar U-100 Insulin) insulin lispro 200 unit/mL (3 mL) See Rx Instructions .Route .COMPLEX 05/12/22 04/06/23 subcutaneous pen (Humalog KwikPen U-200 Insulin) metformin 500 mg tablet,extended 1,000 mg PO BID 05/12/22 04/06/23 release 24 hr omeprazole 20 mg capsule,delayed 20 mg PO DAILY 05/12/22 04/06/23 release prazosin 1 mg capsule 1 mg PO DAILY 05/12/22 04/06/23 trazodone 150 mg tablet 150 mg PO HS 05/12/22 04/06/23 amlodipine 2.5 mg tablet 2.5 mg PO DAILY 04/06/23 04/06/23 atorvastatin 20 mg tablet 20 mg PO DAILY 04/06/23 04/06/23 hydrochlorothiazide 12.5 mg capsule 12.5 mg PO DAILY 04/06/23 04/06/23 hydroxyzine HCl 10 mg tablet 10 mg PO TID 04/06/23 04/06/23 lamotrigine 200 mg tablet 200 mg PO DAILY 04/06/23 04/06/23 losartan 100 mg tablet 100 mg PO DAILY 04/06/23 04/06/23 lurasidone 20 mg tablet 20 mg PO DAILY 04/06/23 04/06/23 montelukast 10 mg tablet 10 mg PO DAILY 04/06/23 04/06/23 oxybutynin chloride 10 mg 10 mg PO DAILY 04/06/23 04/06/23 tablet,extended release 24 hr vilazodone 40 mg tablet 40 mg PO DAILY 04/06/23 04/06/23 Allergies Allergy/AdvReac Type Severity Reaction Status Date / Time topiramate [From Topamax] Allergy Severe Vomiting Verified 04/06/23 07:11 latex Allergy Unknown Rash Verified 04/06/23 07:11 morphine Allergy Unknown Rash Verified 04/06/23 07:11 [facility] Past Medical History Medical History Anxiety and depression Morbid obesity MARY (obstructive sleep apnea) Type 2 diabetes mellitus Surgical History Surgical History H/O knee surgery Exam Narrative: APPEARANCE: No apparent distress. Head: atraumatic. EYES: EOMI, NOSE: Atraumatic NECK: Trachea midline RESPIRATORY: No increased rate of breathing, CTAB CARDIOVASCULAR: RRR, ABDOMINAL: Non-distended Soft nontender CVA tenderness MUSCULOSKELETAl: No obvious deformities NEURO: Alert. Moving 4/4 extremities SKIN:: Warm, dry. Normal color PSYCHIATRIC: Normal affect Course Vital Signs Vital signs: Vital Signs Temperature 98.2 F 09/03/23 20:38 Pulse Rate 70 09/03/23 20:38 Respiratory Rate 18 09/03/23 20:38 Blood Pressure 127/71 09/03/23 20:38 Pulse Oximetry 98 09/03/23 20:38 Oxygen Delivery Room Air 09/03/23 20:38 Temperature 98.2 F 09/03/23 20:38 Pulse Rate 70 09/03/23 20:38 Respiratory Rate 18 09/03/23 20:38 Blood Pressure 127/71 09/03/23 20:38 Pulse Oximetry 98 09/03/23 20:38 Oxygen Delivery Room Air 09/03/23 20:38 Medical Decision Making MDM Narrative Medical decision making narrative: -Course: 38-year-old female presenting with 5 days of nausea vomiting and diarrhea. VS Stable. Abdominal exam benign. Laboratory studies reviewed and within normal limits. CT abdomen pelvis unremarkable. Patient has been able to tolerate p.o. in the emergency department. Vital signs stable and she is well-appearing. She has been sipping juice throughout her stay here without nausea and vomiting. Patient will be discharged follow-up with her primary
[2023-09-03 22:13] LABS: Influenza A QL RT-PCR Negative (Negative); Influenza B QL RT-PCR Negative (Negative); RSV RNA, RT-PCR Negative (Negative); SARS-CoV-2 RNA PCR Negative (Negative)
--- NOTE | 2023-09-03 22:41 | PC.NURSE ---
resting on stretcher. denies any needs at this time. sipping on juice. no vomiting at this time. call light in reach
--- NOTE | 2023-09-03 23:13 | PC.NURSE ---
patient ambulated to the bathroom. encouraged patient to keep right arm straight so iv fluids could infuse. patient verbalized understanding.
[2023-09-04] VITALS: BP 127/66; PULSE 56; RESP 18; O2SAT 97
== END 2023-09-04 00:02 | disposition home or self-care (01) ==
PROVIDERS: Emergency Provider Emergency Medicine; PCP Registered Nurse
DX: K52.9 Noninfective gastroenteritis and colitis, unspecified (principal); E11.9 Type 2 diabetes mellitus without complications; Z20.822 Contact with and (suspected) exposure to COVID-19; Z98.84 Bariatric surgery status
CPT/HCPCS: 36415; 74177; 80053; 81025; 83690; 85025; 87637; 96361; 96374; 96375; 99284; J2405; J7030; Q9967

== ENCOUNTER 2024-06-24 14:21 | Emergency (ER) | payer OTHER, SELFPAY ==
--- NOTE | ~2024-06-24 | CT_ITS ---
CT cervical spine wo con Ordering provider: Ronni Ellis MD History: . headache/ cervical pain x1 week, NKI . Comparison: None. Technique: CT of the cervical spine was performed without contrast. Sagittal and coronal reformatted images were also obtained and reviewed. Automated exposure control and iterative reconstruction melinda hnique were employed. The dose-length product was 303.73 mGy-cm. FINDINGS: VERTEBRAE: No subluxation or acute fracture. The occipital condyles are intact. Degenerative changes of the spine. DISC SPACES: Normal. PARASPINOUS SOFT TISSUES: Normal. Small hypodensity in the right lobe of the thyroid suggestive of ti ny cyst. Bilateral parapharyngeal lymph nodes are noted with the largest measures 1 cm. IMPRESSION: No acute osseous abnormality cervical spine. Reviewed, dictated and finalized at location A.
--- NOTE | ~2024-06-24 | CT_ITS ---
CT brain wo con Ordering provider: Ronni Ellis MD History: 39 years Female with . headache/ cervical pain x1 week, NKI . Comparison: March 26, 2015 Technique: CT of the head without contrast. Radiation reduction technique utilized.The dose-length pr oduct was 605.33 mGy-cm. FINDINGS: BRAIN PARENCHYMA AND CSF SPACES: No midline shift, mass effect or hemorrhage. The brain parenchyma a nd CSF spaces are otherwise normal. VISUALIZED PARANASAL SINUSES: Well aerated. MASTOIDS: Well aerated. BONES: The bones appear intact. SOFT TISSUES: Visualized nasopharynx is normal. Superficial soft tissues are normal. IMPRESSION: No acute intracranial findings. Reviewed, dictated and finalized at location A.
[2024-06-24 14:23] VITALS: BP 131/85; PULSE 89; RESP 18; TEMP 36.8; O2SAT 96
--- OUTSIDE RECORDS SUMMARY | 2024-06-24 14:24 | XMS_ITS ---
Author Organization Unknown Address [address] [place] [address] [phone] Phone Care Team Providers Care Sales Service Executive Name Role Phone HI BEDOYA CNP PHYSICAL EDUCATION SPECIALIST Attending Unavailable JOSÉ LUIS DELCID Primary Unavailable Immunization Immunization Date Status Additional Notes Code Code System Influenza, split virus, trivalent, PF 12/09/2014 Completed 140 CVX Influenza, split virus, trivalent, preservative 12/10/2017 Completed 141 CVX COVID-19, mRNA, LNP-S, PF, 3 0 mcg/0.3 mL dose 05/30/2020 Completed 208 CVX Social History Type Status Start Date End Date Code Code Syst em Smoking History Never smoker (Never Smoked) 499545430 SNOMED CT Sex Female Vital Signs Vital Sign Value Unit [place] [facility] [place] Date/Time Recent/Initial? Code Code System Body Mass Index 31.71 kg/m2 03/27/2024 10:45 Initial 42068 -5 LOINC Systolic Blood Pressure 95 mm[Hg] 03/27/2024 10:44 Initial 8480- 6 LOINC Diastolic Blood Pressure 63 mm[Hg] 03/27/2024 10:44 Initial 8462- 4 LOINC Body Surface Area 1.90 m2 03/27/2024 10:45 Initial 3140- 1 LOINC Height 160.020 0 cm 63.00 in 03/27/2024 10:45 Initial 8302- 2 LOINC O2 Saturation 99 % 2024 10:44 Initial 45578 -5 LOINC Pulse 68.0 /min 03/27/2024 10:44 Initial 8867- 4 LOINC Respiration 22 /min 03/27/19 25 10:44 Initial 9279- 1 LOINC Temperature 35.8 Gema 96.4 F 03/27/19 10:44 Initial 8310- 5 [facility] Weight 81.19 kg 179.00 lbs 03/27/2024 10:45 Initial 22503 -7 [facility] Medications Medication Start Date End Date Route Frequency Dose Code Code System Medication Instructions Home Meds vilazodone hydrochloride 10MG Oral Tablet 04/30/2022 Unknown ORAL ONCE A DAY 10 MILLIGRAMS 5043796 RxNorm TAKE 10 MILLIGRAMS ORAL ONCE A DAY HumaLOG 100U/1ML Injection Solution 04/30/2022 Unknown INJECT ION 1 unit(s) 422375 RxNorm 1 EACH INJECTION Cozaar 100MG Oral Tablet 04/30/2022 Unknown ORAL ONCE A DAY 100 MILLIGRAMS 657897 RxNorm TAKE 100 MILLIGRAMS ORAL ONCE A DAY Lantus 100U/1ML Subcutaneous Solution 04/30/2022 Unknown SUBCUT ANEOUS AT BEDTIM E 48 unit(s) 702020 RxNorm INJECT INTO 48 EACH SUBCUTANEOUS AT BEDTIME Lipitor 20MG Oral Tablet 04/30/2022 Unknown ORAL ONCE A DAY 20 MILLIGRAMS 831933 RxNorm TAKE 20 MILLIGRAMS ORAL ONCE A DAY Omeprazole 20MG Oral Capsule, Delayed Release 04/30/2022 Unknown ORAL ONCE A DAY 20 MILLIGRAMS 594444 RxNorm TAKE 20 MILLIGRAMS ORAL ONCE A DAY Oxybutynin Chloride 5MG Oral Tablet, Extended Release 04/30/2022 Unknown ORAL ONCE A DAY 5 MILLIGRAMS 260598 RxNorm TAKE 5 MILLIGRAMS ORAL ONCE A DAY ProAir HFA 0.09MG/1Actuatio n Inhalation Suspension 04/30/2022 Unknown INHALA TION NEEDED EVERY 4 HOURS 1 unit(s) 194231 RxNorm 1 EACH INHALATION NEEDED EVERY 4 HOURS Singulair 10MG Oral Tablet 04/30/2022 Unknown ORAL AT BEDTIM E 10 MILLIGRAMS 632034 RxNorm TAKE 10 MILLIGRAMS ORAL AT BEDTIME ZyrTEC 10MG Oral Tablet 04/30/2022 Unknown ORAL ONCE A DAY 10 MILLIGRAMS RxNorm TAKE 10 MILLIGRAMS ORAL ONCE A DAY hydroCHLOROthiaz zulema 12.5MG Oral Tablet 04/30/2022 Unknown ORAL ONCE A DAY 12.5 MILLIGRAMS 296271 RxNorm TAKE 12.5 MILLIGRAMS ORAL ONCE A DAY metFORMIN HCl 500MG Oral Tablet 04/30/2022 Unknown ORAL TWICE A DAY 1000 MILLIGRAMS 411525 RxNorm TAKE 1000 MILLIGRAMS ORAL TWICE A DAY traZODone hydrochloride 150MG Oral Tablet 04/30/2022 Unknown ORAL AT BEDTIM E 150 MILLIGRAMS 739298 RxNorm TAKE 150 MILLIGRAMS ORAL AT BEDTIME LAMOTRIGINE 04/30/2022 Unknown BY MOUTH 1 RxNorm TAKE 1 BY MOUTH Assessment You had the following problems:SECONDARY AMENORRHEAIRON DEFICIENCY ANEMIA, UNSPECIFIEDDIARRHEAGERDENCOUNTER FOR GYNECOLOGICAL EXAMINATION (GENERAL) (ROUTINE) WITHOUT ABNORMAL FINHIGH RISK HETEROSEXUAL BEHAVIORBARIATRIC SURGERY STATUS Hospital Discharge Instructions Should you have any questions prior to discharge, please contact a member of your healthcare team. If you have left the hospital and have any questions, please contact your primary care physician. Reason For Referral No Data Found Problems Problem Start Date Resolved Date Status Code Code System SECONDARY AMENORRHEA active 05158208 SNOMED-CT IRON DEFICIENCY ANEMIA, UNSPECIFIED active 95869905 SNOMED-CT DIARRHEA active 55011666 SNOMED-CT GERD active 426782246 SNOMED-CT ENCOUNTER FOR GYNECOLOGICAL EXAMINATION (GENERAL) (ROUTINE) WITHOUT ABNORMAL FIN active 14901269 SNOMED- CT HIGH RISK HETEROSEXUAL BEHAVIOR active 946263765773237 SNOMED-CT BARIATRIC SURGERY STATUS active 97702 8006 SNOMED-CT Allergies and Adverse Reactions Allergy Substance Reaction Severity Start Date Concern Status Co de Code System MORPHINE Active 7052 RxNorm ADHESIVE Active LATEX Active 3149636 RxNorm HUMALOG Active 253635 RxNorm Plan of Treatment Split Night, CPAP/BIPAP/ASV (05707) EGD/Colonoscopy 04/30/2022 US Pelvis/Transvaginal (68626) 04/06/19 24 Pharynx Esophagus Cine 04/01/2023 Encounters Encounter Diagnosis Start Date Code Code Sys tem Dehydration 03/27/2024 SNOMED-CT Personal Care Team Section Performer Name Performer Role Active Date Inactive SHAHEED Patricia PCP - Primary care physician 8 2021-07-04 Jean-Pierre Ferrari PCP - Primary care physician 2022-03-13
--- OUTSIDE RECORDS SUMMARY | 2024-06-24 14:24 | XMS_ITS ---
Author Organization Unknown Address [address] [place] [address] [phone] Phone Care Team Providers Care Steel Erecting Pusher Name Role Phone TERRI BEDOYA Attending Unavailable JOSÉ LUIS DELCID Primary Unavailable [...] em Smoking History Never smoker (Never Smoked) 082420730 SNOMED CT Sex Female Medications Medication Start Date End Date Route Frequency Dose Code Code System Medication Instructions Home Meds vilazodone hydrochloride 10MG Oral Tablet 04/30/2022 Unknown ORAL ONCE A DAY 10 MILLIGRAMS 4867500 RxNorm TAKE 10 MILLIGRAMS ORAL ONCE A DAY HumaLOG 100U/1ML Injection Solution 04/30/2022 Unknown INJECT ION 1 unit(s) 113778 RxNorm 1 EACH INJECTION Cozaar 100MG Oral Tablet 04/30/2022 Unknown ORAL ONCE A DAY 100 MILLIGRAMS 062862 RxNorm TAKE 100 MILLIGRAMS ORAL ONCE A DAY Lantus 100U/1ML Subcutaneous Solution 04/30/2022 Unknown SUBCUT ANEOUS AT BEDTIM E 48 unit(s) 640961 RxNorm INJECT INTO 48 EACH SUBCUTANEOUS AT BEDTIME Lipitor 20MG Oral Tablet 04/30/2022 Unknown ORAL ONCE A DAY 20 MILLIGRAMS 673008 RxNorm TAKE 20 MILLIGRAMS ORAL ONCE A DAY Omeprazole 20MG Oral Capsule, Delayed Release 04/30/2022 Unknown ORAL ONCE A DAY 20 MILLIGRAMS 705393 RxNorm TAKE 20 MILLIGRAMS ORAL ONCE A DAY Oxybutynin Chloride 5MG Oral Tablet, Extended Release 04/30/2022 Unknown ORAL ONCE A DAY 5 MILLIGRAMS 594507 RxNorm TAKE 5 MILLIGRAMS ORAL ONCE A DAY ProAir HFA 0.09MG/1Actuatio n Inhalation Suspension 04/30/2022 Unknown INHALA TION NEEDED EVERY 4 HOURS 1 unit(s) 373860 RxNorm 1 EACH INHALATION NEEDED EVERY 4 HOURS Singulair 10MG Oral Tablet 04/30/2022 Unknown ORAL AT BEDTIM E 10 MILLIGRAMS 006293 RxNorm TAKE 10 MILLIGRAMS ORAL AT BEDTIME ZyrTEC 10MG Oral Tablet 04/30/2022 Unknown ORAL ONCE A DAY 10 MILLIGRAMS RxNorm TAKE 10 MILLIGRAMS ORAL ONCE A DAY hydroCHLOROthiaz zulema 12.5MG Oral Tablet 04/30/2022 Unknown ORAL ONCE A DAY 12.5 MILLIGRAMS 276293 RxNorm TAKE 12.5 MILLIGRAMS ORAL ONCE A DAY metFORMIN HCl 500MG Oral Tablet 04/30/2022 Unknown ORAL TWICE A DAY 1000 MILLIGRAMS 716356 RxNorm TAKE 1000 MILLIGRAMS ORAL TWICE A DAY traZODone hydrochloride 150MG Oral Tablet 04/30/2022 Unknown ORAL AT BEDTIM E 150 MILLIGRAMS 685303 RxNorm TAKE 150 MILLIGRAMS ORAL AT BEDTIME [...] Status Code Code System SECONDARY AMENORRHEA active 51196951 SNOMED-CT IRON DEFICIENCY ANEMIA, UNSPECIFIED active 63277792 SNOMED-CT DIARRHEA active 73995813 SNOMED-CT GERD active 806553045 SNOMED-CT ENCOUNTER FOR GYNECOLOGICAL EXAMINATION (GENERAL) (ROUTINE) WITHOUT ABNORMAL FIN active 26812381 SNOMED- CT HIGH RISK HETEROSEXUAL BEHAVIOR active 835558545890838 SNOMED-CT BARIATRIC SURGERY STATUS active 85364 8826 SNOMED-CT Allergies and Adverse Reactions Allergy Substance Reaction Severity Start Date Concern Status Co de Code System MORPHINE Active 7052 RxNorm ADHESIVE Active LATEX Active 0754448 RxNorm HUMALOG Active 229529 RxNorm Plan of Treatment Split Night, CPAP/BIPAP/ASV (81388) EGD/Colonoscopy 04/30/2022 US Pelvis/Transvaginal (22138) 04/06/19 24 Pharynx Esophagus Cine 04/01/2023 Encounters Encounter Diagnosis Start Date Code Code Sys tem Painful micturition, unspecified 08/21/2023 SNOMED-CT Personal Care Team Section Performer Name Performer Role Active Date Inactive SHAHEED Patricia PCP - Primary care physician 8 2021-07-04 Jean-Pierre Ferrari PCP - Primary care physician 2022-03-13
--- OUTSIDE RECORDS SUMMARY | 2024-06-24 14:25 | XMS_ITS ---
Author Organization Unknown Address [address] [place] [address] [phone] Phone Care Team Providers Care Manager Servicing Name Role Phone JOSÉ LUIS DELCID Attending Unavailable Immunization Immunization Date Status Additional Notes Code Code System Influenza, split virus, trivalent, PF 12/09/2014 Completed 140 CVX Influenza, split virus, trivalent, preservative 12/10/2017 Completed 141 CVX COVID-19, mRNA, LNP-S, PF, 3 0 mcg/0.3 mL dose 05/30/2020 Completed 208 CVX Social History Type Status Start Date End Date Code Code Syst em Smoking History Never smoker (Never Smoked) 742248564 SNOMED CT Sex Female Vital Signs Vital Sign Value Unit [place] Value [place] [facility] Date/Time Recent/Initial? Code Code System Body Mass Index 33.48 kg/m2 11/09/2023 13:36 Initial 67579 -5 LOINC Systolic Blood Pressure 111 mm[Hg] 11/09/2023 13:36 Initial 8480- 6 LOINC Diastolic Blood Pressure 73 mm[Hg] 11/09/2023 13:36 Initial 8462- 4 LOINC Body Surface Area 1.95 m2 11/09/2023 13:36 Initial 3140- 1 LOINC Height 160.020 0 cm 63.00 in 11/09/2023 13:36 Initial 8302- 2 LOINC O2 Saturation 95 % 2023 13:36 Initial 63988 -5 LOINC Pulse 68.0 /min 11/09/2023 13:36 Initial 8867- 4 LOINC Respiration 22 /min 11/09/19 13:36 Initial 9279- 1 LOINC Temperature 37.0 Gema 98.6 F 11/09/19 13:36 Initial 8310- 5 [facility] Weight 85.73 kg 189.00 lbs 11/09/2023 13:36 Initial 51664 -7 [facility] Medications Medication Start Date End Date Route Frequency Dose Code Code System Medication Instructions Home Meds vilazodone hydrochloride 10MG Oral Tablet 04/30/2022 Unknown ORAL ONCE A DAY 10 MILLIGRAMS 7107660 RxNorm TAKE 10 MILLIGRAMS ORAL ONCE A DAY HumaLOG 100U/1ML Injection Solution 04/30/2022 Unknown INJECT ION 1 unit(s) 007838 RxNorm 1 EACH INJECTION Cozaar 100MG Oral Tablet 04/30/2022 Unknown ORAL ONCE A DAY 100 MILLIGRAMS 834712 RxNorm TAKE 100 MILLIGRAMS ORAL ONCE A DAY Lantus 100U/1ML Subcutaneous Solution 04/30/2022 Unknown SUBCUT ANEOUS AT BEDTIM E 48 unit(s) 761239 RxNorm INJECT INTO 48 EACH SUBCUTANEOUS AT BEDTIME Lipitor 20MG Oral Tablet 04/30/2022 Unknown ORAL ONCE A DAY 20 MILLIGRAMS 070217 RxNorm TAKE 20 MILLIGRAMS ORAL ONCE A DAY Omeprazole 20MG Oral Capsule, Delayed Release 04/30/2022 Unknown ORAL ONCE A DAY 20 MILLIGRAMS 298928 RxNorm TAKE 20 MILLIGRAMS ORAL ONCE A DAY Oxybutynin Chloride 5MG Oral Tablet, Extended Release 04/30/2022 Unknown ORAL ONCE A DAY 5 MILLIGRAMS 319113 RxNorm TAKE 5 MILLIGRAMS ORAL ONCE A DAY ProAir HFA 0.09MG/1Actuatio n Inhalation Suspension 04/30/2022 Unknown INHALA TION NEEDED EVERY 4 HOURS 1 unit(s) 519888 RxNorm 1 EACH INHALATION NEEDED EVERY 4 HOURS Singulair 10MG Oral Tablet 04/30/2022 Unknown ORAL AT BEDTIM E 10 MILLIGRAMS 388529 RxNorm TAKE 10 MILLIGRAMS ORAL AT BEDTIME ZyrTEC 10MG Oral Tablet 04/30/2022 Unknown ORAL ONCE A DAY 10 MILLIGRAMS RxNorm TAKE 10 MILLIGRAMS ORAL ONCE A DAY hydroCHLOROthiaz zulema 12.5MG Oral Tablet 04/30/2022 Unknown ORAL ONCE A DAY 12.5 MILLIGRAMS 920018 RxNorm TAKE 12.5 MILLIGRAMS ORAL ONCE A DAY metFORMIN HCl 500MG Oral Tablet 04/30/2022 Unknown ORAL TWICE A DAY 1000 MILLIGRAMS 957592 RxNorm TAKE 1000 MILLIGRAMS ORAL TWICE A DAY traZODone hydrochloride 150MG Oral Tablet 04/30/2022 Unknown ORAL AT BEDTIM E 150 MILLIGRAMS 019847 RxNorm TAKE 150 MILLIGRAMS ORAL AT BEDTIME [...] Status Code Code System SECONDARY AMENORRHEA active 55003284 SNOMED-CT IRON DEFICIENCY ANEMIA, UNSPECIFIED active 33523739 SNOMED-CT DIARRHEA active 78913799 SNOMED-CT GERD active 167943783 SNOMED-CT ENCOUNTER FOR GYNECOLOGICAL EXAMINATION (GENERAL) (ROUTINE) WITHOUT ABNORMAL FIN active 89908889 SNOMED- CT HIGH RISK HETEROSEXUAL BEHAVIOR active 151401908380594 SNOMED-CT BARIATRIC SURGERY STATUS active 37967 8006 SNOMED-CT Allergies and Adverse Reactions Allergy Substance Reaction Severity Start Date Concern Status Co de Code System MORPHINE Active 7052 RxNorm ADHESIVE Active LATEX Active 4602670 RxNorm HUMALOG Active 135432 RxNorm Plan of Treatment Split Night, CPAP/BIPAP/ASV (72161) EGD/Colonoscopy 04/30/2022 US Pelvis/Transvaginal (75251) 04/06/19 24 Pharynx Esophagus Cine 04/01/2023 Encounters Encounter Diagnosis Start Date Code Code Sys tem Bariatric surgery status 11/09/2023 SNO MED-CT Personal Care Team Section Performer Name Performer Role Active Date Inactive SHAHEED Patricia PCP - Primary care physician 8 2021-07-04 Jean-Pierre Ferrari PCP - Primary care physician 2022-03-13
--- OUTSIDE RECORDS SUMMARY | 2024-06-24 14:25 | XMS_ITS ---
Author Organization Unknown Address [address] [place] [address] [phone] Phone Care Team Providers Care Thrill Performer Name Role Phone RAYMOND TOMAS Attending Unavailable JOSÉ LUIS DELCID Primary Unavailable [...] em Smoking History Never smoker (Never Smoked) 684214867 SNOMED CT Sex Female Medications Medication Start Date End Date Route Frequency Dose Code Code System Medication Instructions Home Meds vilazodone hydrochloride 10MG Oral Tablet 04/30/2022 Unknown ORAL ONCE A DAY 10 MILLIGRAMS 4300941 RxNorm TAKE 10 MILLIGRAMS ORAL ONCE A DAY HumaLOG 100U/1ML Injection Solution 04/30/2022 Unknown INJECT ION 1 unit(s) 864640 RxNorm 1 EACH INJECTION Cozaar 100MG Oral Tablet 04/30/2022 Unknown ORAL ONCE A DAY 100 MILLIGRAMS 871474 RxNorm TAKE 100 MILLIGRAMS ORAL ONCE A DAY Lantus 100U/1ML Subcutaneous Solution 04/30/2022 Unknown SUBCUT ANEOUS AT BEDTIM E 48 unit(s) 725729 RxNorm INJECT INTO 48 EACH SUBCUTANEOUS AT BEDTIME Lipitor 20MG Oral Tablet 04/30/2022 Unknown ORAL ONCE A DAY 20 MILLIGRAMS 728601 RxNorm TAKE 20 MILLIGRAMS ORAL ONCE A DAY Omeprazole 20MG Oral Capsule, Delayed Release 04/30/2022 Unknown ORAL ONCE A DAY 20 MILLIGRAMS 450229 RxNorm TAKE 20 MILLIGRAMS ORAL ONCE A DAY Oxybutynin Chloride 5MG Oral Tablet, Extended Release 04/30/2022 Unknown ORAL ONCE A DAY 5 MILLIGRAMS 953329 RxNorm TAKE 5 MILLIGRAMS ORAL ONCE A DAY ProAir HFA 0.09MG/1Actuatio n Inhalation Suspension 04/30/2022 Unknown INHALA TION NEEDED EVERY 4 HOURS 1 unit(s) 770078 RxNorm 1 EACH INHALATION NEEDED EVERY 4 HOURS Singulair 10MG Oral Tablet 04/30/2022 Unknown ORAL AT BEDTIM E 10 MILLIGRAMS 992078 RxNorm TAKE 10 MILLIGRAMS ORAL AT BEDTIME ZyrTEC 10MG Oral Tablet 04/30/2022 Unknown ORAL ONCE A DAY 10 MILLIGRAMS RxNorm TAKE 10 MILLIGRAMS ORAL ONCE A DAY hydroCHLOROthiaz zulema 12.5MG Oral Tablet 04/30/2022 Unknown ORAL ONCE A DAY 12.5 MILLIGRAMS 717250 RxNorm TAKE 12.5 MILLIGRAMS ORAL ONCE A DAY metFORMIN HCl 500MG Oral Tablet 04/30/2022 Unknown ORAL TWICE A DAY 1000 MILLIGRAMS 562660 RxNorm TAKE 1000 MILLIGRAMS ORAL TWICE A DAY traZODone hydrochloride 150MG Oral Tablet 04/30/2022 Unknown ORAL AT BEDTIM E 150 MILLIGRAMS 413004 RxNorm TAKE 150 MILLIGRAMS ORAL AT BEDTIME [...] Status Code Code System SECONDARY AMENORRHEA active 98423663 SNOMED-CT IRON DEFICIENCY ANEMIA, UNSPECIFIED active 83838032 SNOMED-CT DIARRHEA active 60568810 SNOMED-CT GERD active 247541577 SNOMED-CT ENCOUNTER FOR GYNECOLOGICAL EXAMINATION (GENERAL) (ROUTINE) WITHOUT ABNORMAL FIN active 61131549 SNOMED- CT HIGH RISK HETEROSEXUAL BEHAVIOR active 354951449654416 SNOMED-CT BARIATRIC SURGERY STATUS active 04309 8306 SNOMED-CT Allergies and Adverse Reactions Allergy Substance Reaction Severity Start Date Concern Status Co de Code System MORPHINE Active 7052 RxNorm ADHESIVE Active LATEX Active 7348215 RxNorm HUMALOG Active 118026 RxNorm Plan of Treatment Split Night, CPAP/BIPAP/ASV (59316) EGD/Colonoscopy 04/30/2022 US Pelvis/Transvaginal (08942) 04/06/19 24 Pharynx Esophagus Cine 04/01/2023 Encounters Encounter Diagnosis Start Date Code Code Sys tem Urinary tract infectious disease 11/09/2023 06879952 SNOMED-CT Personal Care Team Section Performer Name Performer Role Active Date Inactive SHAHEED Patricia PCP - Primary care physician 8 2021-07-04 Jean-Pierre Ferrari PCP - Primary care physician 2022-03-13
--- OUTSIDE RECORDS SUMMARY | 2024-06-24 14:25 | XMS_ITS ---
Author Organization Unknown Address [address] [place] [address] [phone] Phone Care Team Providers Care Electronic Induction Hardener Name Role Phone SAIDA MARIO Attending Unavailable JOSÉ LUIS DELCID Primary Unavailable Immunization Immunization Date Status Additional Notes Code Code System Influenza, split virus, trivalent, PF 12/09/2014 Completed 140 CVX Influenza, split virus, trivalent, preservative 12/10/2017 Completed 141 CVX COVID-19, mRNA, LNP-S, PF, 3 0 mcg/0.3 mL dose 05/30/2020 Completed 208 CVX Results LIPID PANEL - Collect Date/T douglas: 10/11/2023 10:21 [facility] ID: [id number] [place] [address], [phone] LOINC: 13836-2 Test Value Unit Reference Range Code Code System Flag FASTING YES CHOLESTEROL 101 mg/dL L=0 H=200 2093-3 LOINC TRIGLYCERIDE 117 mg/dL L=0 H=150 2571-8 LOINC HDL 34 mg/dL L=40 H=60 2085-9 LOINC L LDL 54 mg/dL 9-1 LOINC Social History Type Status Start Date End Date Code Code Syst em Smoking History Never smoker (Never Smoked) 839470714 SNOMED CT Sex Female Medications Medication Start Date End Date Route Frequency Dose Code Code System Medication Instructions Home Meds vilazodone hydrochloride 10MG Oral Tablet 04/30/2022 Unknown ORAL ONCE A DAY 10 MILLIGRAMS 3009096 RxNorm TAKE 10 MILLIGRAMS ORAL ONCE A DAY HumaLOG 100U/1ML Injection Solution 04/30/2022 Unknown INJECT ION 1 unit(s) 003850 RxNorm 1 EACH INJECTION Cozaar 100MG Oral Tablet 04/30/2022 Unknown ORAL ONCE A DAY 100 MILLIGRAMS 690204 RxNorm TAKE 100 MILLIGRAMS ORAL ONCE A DAY Lantus 100U/1ML Subcutaneous Solution 04/30/2022 Unknown SUBCUT ANEOUS AT BEDTIM E 48 unit(s) 514321 RxNorm INJECT INTO 48 EACH SUBCUTANEOUS AT BEDTIME Lipitor 20MG Oral Tablet 04/30/2022 Unknown ORAL ONCE A DAY 20 MILLIGRAMS 845453 RxNorm TAKE 20 MILLIGRAMS ORAL ONCE A DAY Omeprazole 20MG Oral Capsule, Delayed Release 04/30/2022 Unknown ORAL ONCE A DAY 20 MILLIGRAMS 562136 RxNorm TAKE 20 MILLIGRAMS ORAL ONCE A DAY Oxybutynin Chloride 5MG Oral Tablet, Extended Release 04/30/2022 Unknown ORAL ONCE A DAY 5 MILLIGRAMS 687839 RxNorm TAKE 5 MILLIGRAMS ORAL ONCE A DAY ProAir HFA 0.09MG/1Actuatio n Inhalation Suspension 04/30/2022 Unknown INHALA TION NEEDED EVERY 4 HOURS 1 unit(s) 992368 RxNorm 1 EACH INHALATION NEEDED EVERY 4 HOURS Singulair 10MG Oral Tablet 04/30/2022 Unknown ORAL AT BEDTIM E 10 MILLIGRAMS 005529 RxNorm TAKE 10 MILLIGRAMS ORAL AT BEDTIME ZyrTEC 10MG Oral Tablet 04/30/2022 Unknown ORAL ONCE A DAY 10 MILLIGRAMS RxNorm TAKE 10 MILLIGRAMS ORAL ONCE A DAY hydroCHLOROthiaz zulema 12.5MG Oral Tablet 04/30/2022 Unknown ORAL ONCE A DAY 12.5 MILLIGRAMS 964541 RxNorm TAKE 12.5 MILLIGRAMS ORAL ONCE A DAY metFORMIN HCl 500MG Oral Tablet 04/30/2022 Unknown ORAL TWICE A DAY 1000 MILLIGRAMS 919314 RxNorm TAKE 1000 MILLIGRAMS ORAL TWICE A DAY traZODone hydrochloride 150MG Oral Tablet 04/30/2022 Unknown ORAL AT BEDTIM E 150 MILLIGRAMS 946021 RxNorm TAKE 150 MILLIGRAMS ORAL AT BEDTIME [...] Status Code Code System SECONDARY AMENORRHEA active 45139598 SNOMED-CT IRON DEFICIENCY ANEMIA, UNSPECIFIED active 46686134 SNOMED-CT DIARRHEA active 40750048 SNOMED-CT GERD active 480700184 SNOMED-CT ENCOUNTER FOR GYNECOLOGICAL EXAMINATION (GENERAL) (ROUTINE) WITHOUT ABNORMAL FIN active 91480801 SNOMED- CT HIGH RISK HETEROSEXUAL BEHAVIOR active 248943358368459 SNOMED-CT BARIATRIC SURGERY STATUS active 97839 8006 SNOMED-CT Allergies and Adverse Reactions Allergy Substance Reaction Severity Start Date Concern Status Co de Code System MORPHINE Active 7052 RxNorm ADHESIVE Active LATEX Active 2080518 RxNorm HUMALOG Active 059086 RxNorm Plan of Treatment Split Night, CPAP/BIPAP/ASV (78012) EGD/Colonoscopy 04/30/2022 US Pelvis/Transvaginal (64497) 04/06/19 24 Pharynx Esophagus Cine 04/01/2023 Encounters Encounter Diagnosis Start Date Code Code Sys tem Hyperlipidemia, unspecified 10/11/2023 SNOMED-CT Personal Care Team Section Performer Name Performer Role Active Date Inactive SHAHEED Patricia PCP - Primary care physician 8 2021-07-04 Jean-Pierre Ferrari PCP - Primary care physician 2022-03-13
--- OUTSIDE RECORDS SUMMARY | 2024-06-24 14:25 | XMS_ITS ---
Author Organization Unknown Address [address] [place] [address] [phone] Phone Care Team Providers Care Turner Machine Operator Name Role Phone YECENIA OLIVIA Attending Unavailable JOSÉ LUIS DELCID Primary Unavailable [...] em Smoking History Never smoker (Never Smoked) 441849779 SNOMED CT Sex Female Medications Medication Start Date End Date Route Frequency Dose Code Code System Medication Instructions Home Meds vilazodone hydrochloride 10MG Oral Tablet 04/30/2022 Unknown ORAL ONCE A DAY 10 MILLIGRAMS 5094813 RxNorm TAKE 10 MILLIGRAMS ORAL ONCE A DAY HumaLOG 100U/1ML Injection Solution 04/30/2022 Unknown INJECT ION 1 unit(s) 766383 RxNorm 1 EACH INJECTION Cozaar 100MG Oral Tablet 04/30/2022 Unknown ORAL ONCE A DAY 100 MILLIGRAMS 657207 RxNorm TAKE 100 MILLIGRAMS ORAL ONCE A DAY Lantus 100U/1ML Subcutaneous Solution 04/30/2022 Unknown SUBCUT ANEOUS AT BEDTIM E 48 unit(s) 121057 RxNorm INJECT INTO 48 EACH SUBCUTANEOUS AT BEDTIME Lipitor 20MG Oral Tablet 04/30/2022 Unknown ORAL ONCE A DAY 20 MILLIGRAMS 526611 RxNorm TAKE 20 MILLIGRAMS ORAL ONCE A DAY Omeprazole 20MG Oral Capsule, Delayed Release 04/30/2022 Unknown ORAL ONCE A DAY 20 MILLIGRAMS 709705 RxNorm TAKE 20 MILLIGRAMS ORAL ONCE A DAY Oxybutynin Chloride 5MG Oral Tablet, Extended Release 04/30/2022 Unknown ORAL ONCE A DAY 5 MILLIGRAMS 094920 RxNorm TAKE 5 MILLIGRAMS ORAL ONCE A DAY ProAir HFA 0.09MG/1Actuatio n Inhalation Suspension 04/30/2022 Unknown INHALA TION NEEDED EVERY 4 HOURS 1 unit(s) 605619 RxNorm 1 EACH INHALATION NEEDED EVERY 4 HOURS Singulair 10MG Oral Tablet 04/30/2022 Unknown ORAL AT BEDTIM E 10 MILLIGRAMS 223842 RxNorm TAKE 10 MILLIGRAMS ORAL AT BEDTIME ZyrTEC 10MG Oral Tablet 04/30/2022 Unknown ORAL ONCE A DAY 10 MILLIGRAMS RxNorm TAKE 10 MILLIGRAMS ORAL ONCE A DAY hydroCHLOROthiaz zulema 12.5MG Oral Tablet 04/30/2022 Unknown ORAL ONCE A DAY 12.5 MILLIGRAMS 529858 RxNorm TAKE 12.5 MILLIGRAMS ORAL ONCE A DAY metFORMIN HCl 500MG Oral Tablet 04/30/2022 Unknown ORAL TWICE A DAY 1000 MILLIGRAMS 252605 RxNorm TAKE 1000 MILLIGRAMS ORAL TWICE A DAY traZODone hydrochloride 150MG Oral Tablet 04/30/2022 Unknown ORAL AT BEDTIM E 150 MILLIGRAMS 313200 RxNorm TAKE 150 MILLIGRAMS ORAL AT BEDTIME [...] Status Code Code System SECONDARY AMENORRHEA active 97259606 SNOMED-CT IRON DEFICIENCY ANEMIA, UNSPECIFIED active 67542715 SNOMED-CT DIARRHEA active 09902935 SNOMED-CT GERD active 652128581 SNOMED-CT ENCOUNTER FOR GYNECOLOGICAL EXAMINATION (GENERAL) (ROUTINE) WITHOUT ABNORMAL FIN active 57303161 SNOMED- CT HIGH RISK HETEROSEXUAL BEHAVIOR active 245762801352345 SNOMED-CT BARIATRIC SURGERY STATUS active 65287 7786 SNOMED-CT Allergies and Adverse Reactions Allergy Substance Reaction Severity Start Date Concern Status Co de Code System MORPHINE Active 7052 RxNorm ADHESIVE Active LATEX Active 5341605 RxNorm HUMALOG Active 053028 RxNorm Plan of Treatment Split Night, CPAP/BIPAP/ASV (21176) EGD/Colonoscopy 04/30/2022 US Pelvis/Transvaginal (06180) 04/06/19 Pharynx Esophagus Cine 04/01/2023 Encounters Encounter Diagnosis Start Date Code Code Sys tem Frequency of micturition 01/06/2024 [facility]-CT Personal Care Team Section Performer Name Performer Role Active Date Inactive SHAHEED Patricia PCP - Primary care physician 8 2021-07-04 Jean-Pierre Ferrari PCP - Primary care physician 2022-03-13
--- OUTSIDE RECORDS SUMMARY | 2024-06-24 14:25 | XMS_ITS ---
Author Organization Unknown Address [address] [place] [address] [phone] Phone Care Team Providers Care Pool Manager Name Role Phone JOSÉ LUIS DELCID Attending Unavailable Immunization Immunization Date Status Additional Notes Code Code System Influenza, split virus, trivalent, PF 12/09/2014 Completed 140 CVX Influenza, split virus, trivalent, preservative 12/10/2017 Completed 141 CVX COVID-19, mRNA, LNP-S, PF, 3 0 mcg/0.3 mL dose 05/30/2020 Completed 208 CVX Results LIPID PANEL - Collect Date/T douglas: 12/30/2023 09:32 [facility] ID: [id number] [place] [address], [phone] LOINC: 51931-5 Test Value Unit Reference Range Code Code System Flag FASTING YES CHOLESTEROL 122 mg/dL L=0 H=200 2093-3 LOINC TRIGLYCERIDE 103 mg/dL L=0 H=150 2571-8 LOINC HDL 41 mg/dL L=40 H=60 2085-9 LOINC LDL 58 mg/dL 9-1 INC COMPREHENSIVE METABOLIC PANE L - Collect Date/Time: 12/30/2023 09:32 [facility] ID: [id number] [place] [address], [phone] LOINC: 64853-4 Test Value Unit Reference Range Code Code System Flag FASTING YES BUN 8 mg/dL L=7 H=20 3094-0 LOINC CREATININE 0.60 mg/dL L=0.52 H=1.04 2160-0 LOINC GLUCOSE 110 mg/dL L=74 H=106 2345-7 LOINC H SODIUM 138 mmol/L L=132 H=144 2951-2 LOINC POTASSIUM 4.4 mmol/L L=3.5 H=5.1 2823-3 LOINC CHLORIDE 100 mmol/L L=98 H=107 2075-0 LOINC CO2 28.0 mmol/L L=22.0 H=30.0 2028-9 LOINC ANION GAP 14 L=10 H=20 38129-5 LOINC OSMOLALITY 285 mOs/kG L=280 H=296 67318-0 LOINC BUN/CREAT 13.3 3097-3 LOINC CALCIUM 10.1 mg/dL L=8.3 H=10.5 82332-4 LOINC AST 27 U/L L=15 H=46 1920-8 LOINC ALT 24 U/L L=9 H=72 1742-6 LOINC ALKALINE PHOS 89 U/L L=38 H=126 6768-6 LOINC TOTAL BILI 0.6 mg/dL L=0.2 H=1.3 1975-2 LOINC ALBUMIN 4.3 G/dL L=3.5 H=5.0 1751-7 LOINC TOTAL PROTEIN 8.2 g/L L=6.3 H=8.2 2885-2 LOINC A/G RATIO 1.1 78965-5 LOINC AGE 38 16078-0 LOINC eGFR NON-AFR 118 ml/min eGFR AFR AMER 143 ml/min HEMOGLOBIN A1C WITH eAG - Co llect Date/Time: 12/30/2023 09:32 [facility] ID: [id number] [address] [place], [place], [phone] LOINC: 4548-4 Test Value Unit Reference Range Code Code System Flag HGBA1C 6.3 % 4548-4 LOINC eAG 134.1 mg/dL 4548-4 LOINC Social History Type Status Start Date End Date Code Code Syst em Smoking History Never smoker (Never Smoked) 271001640 SNOMED CT Sex Female Medications Medication Start Date End Date Route Frequency Dose Code Code System Medication Instructions Home Meds vilazodone hydrochloride 10MG Oral Tablet 04/30/2022 Unknown ORAL ONCE A DAY 10 MILLIGRAMS 1447345 RxNorm TAKE 10 MILLIGRAMS ORAL ONCE A DAY HumaLOG 100U/1ML Injection Solution 04/30/2022 Unknown INJECT ION 1 unit(s) 280068 RxNorm 1 EACH INJECTION Cozaar 100MG Oral Tablet 04/30/2022 Unknown ORAL ONCE A DAY 100 MILLIGRAMS 663024 RxNorm TAKE 100 MILLIGRAMS ORAL ONCE A DAY Lantus 100U/1ML Subcutaneous Solution 04/30/2022 Unknown SUBCUT ANEOUS AT BEDTIM E 48 unit(s) 868011 RxNorm INJECT INTO 48 EACH SUBCUTANEOUS AT BEDTIME Lipitor 20MG Oral Tablet 04/30/2022 Unknown ORAL ONCE A DAY 20 MILLIGRAMS 948911 RxNorm TAKE 20 MILLIGRAMS ORAL ONCE A DAY Omeprazole 20MG Oral Capsule, Delayed Release 04/30/2022 Unknown ORAL ONCE A DAY 20 MILLIGRAMS 621244 RxNorm TAKE 20 MILLIGRAMS ORAL ONCE A DAY Oxybutynin Chloride 5MG Oral Tablet, Extended Release 04/30/2022 Unknown ORAL ONCE A DAY 5 MILLIGRAMS 191153 RxNorm TAKE 5 MILLIGRAMS ORAL ONCE A DAY ProAir HFA 0.09MG/1Actuatio n Inhalation Suspension 04/30/2022 Unknown INHALA TION NEEDED EVERY 4 HOURS 1 unit(s) 940303 RxNorm 1 EACH INHALATION NEEDED EVERY 4 HOURS Singulair 10MG Oral Tablet 04/30/2022 Unknown ORAL AT BEDTIM E 10 MILLIGRAMS 479946 RxNorm TAKE 10 MILLIGRAMS ORAL AT BEDTIME ZyrTEC 10MG Oral Tablet 04/30/2022 Unknown ORAL ONCE A DAY 10 MILLIGRAMS RxNorm TAKE 10 MILLIGRAMS ORAL ONCE A DAY hydroCHLOROthiaz zulema 12.5MG Oral Tablet 04/30/2022 Unknown ORAL ONCE A DAY 12.5 MILLIGRAMS 716648 RxNorm TAKE 12.5 MILLIGRAMS ORAL ONCE A DAY metFORMIN HCl 500MG Oral Tablet 04/30/2022 Unknown ORAL TWICE A DAY 1000 MILLIGRAMS 776336 RxNorm TAKE 1000 MILLIGRAMS ORAL TWICE A DAY traZODone hydrochloride 150MG Oral Tablet 04/30/2022 Unknown ORAL AT BEDTIM E 150 MILLIGRAMS 426631 RxNorm TAKE 150 MILLIGRAMS ORAL AT BEDTIME [...] Status Code Code System SECONDARY AMENORRHEA active 42812451 SNOMED-CT IRON DEFICIENCY ANEMIA, UNSPECIFIED active 35112538 SNOMED-CT DIARRHEA active 77846323 SNOMED-CT GERD active 880824204 SNOMED-CT ENCOUNTER FOR GYNECOLOGICAL EXAMINATION (GENERAL) (ROUTINE) WITHOUT ABNORMAL FIN active 16463133 SNOMED- CT HIGH RISK HETEROSEXUAL BEHAVIOR active 402563915464892 SNOMED-CT BARIATRIC SURGERY STATUS active 73546 8006 SNOMED-CT Allergies and Adverse Reactions Allergy Substance Reaction Severity Start Date Concern Status Co de Code System MORPHINE Active 7052 RxNorm ADHESIVE Active LATEX Active 8033127 RxNorm HUMALOG Active 279658 RxNorm Plan of Treatment Split Night, CPAP/BIPAP/ASV (61372) EGD/Colonoscopy 04/30/2022 US Pelvis/Transvaginal (57567) 04/06/19 24 Pharynx Esophagus Cine 04/01/2023 Encounters Encounter Diagnosis Start Date Code Code Sys tem Type 2 diabetes mellitus without complications 024 SNOMED-CT Personal Care Team Section Performer Name Performer Role Active Date Inactive SHAHEED Patricia PCP - Primary care physician 8 2021-07-04 Jean-Pierre Ferrari PCP - Primary care physician 2022-03-13
--- OUTSIDE RECORDS SUMMARY | 2024-06-24 14:25 | XMS_ITS ---
Author Organization Unknown Address [address] [place] [address] [phone] Phone Care Team Providers Care Nurse Instructor Name Role Phone AWAIS PALMA APRN Attending Unavailable JOSÉ LUIS DELCID Primary Unavailable Immunization Immunization Date Status Additional Notes Code Code System Influenza, split virus, trivalent, PF 12/09/2014 Completed 140 CVX Influenza, split virus, trivalent, preservative 12/10/2017 Completed 141 CVX COVID-19, mRNA, LNP-S, PF, 3 0 mcg/0.3 mL dose 05/30/2020 Completed 208 CVX Results COPPER PLASMA - Collect Date /Time: 12/30/2023 09:59 [facility] ID: [id number] [place] [address], [phone] LOINC: 5631-7 Test Value Unit Reference Range Code Code System Flag Copper, Serum or Plasma 114 80-158 5631-7 LOINC IRON PANEL - Collect Date/Ti me: 12/30/2023 09:59 [facility] ID: [id number] [place] [address], [phone] LOINC: Test Value Unit Reference Range Code Code System Flag IRON 51 ug/dL L=37 H=170 2498-4 LOINC TIBC 428 ug/dL L=265 H=497 2500-7 LOINC %SATURATION 12 % L=13 H=45 2708-6 LOINC L ZINC PLASMA OR SERUM - Colle ct Date/Time: 12/30/2023 09:59 [facility] ID: [id number] [address] [place], [place], [phone] LOINC: 5763-8 Test Value Unit Reference Range Code Code System Flag Zinc, Plasma or Serum 68 44-329 5763-8 LOINC Social History Type Status Start Date End Date Code Code Syst em Smoking History Never smoker (Never Smoked) 679042378 SNOMED CT Sex Female Medications Medication Start Date End Date Route Frequency Dose Code Code System Medication Instructions Home Meds vilazodone hydrochloride 10MG Oral Tablet 04/30/2022 Unknown ORAL ONCE A DAY 10 MILLIGRAMS 7578158 RxNorm TAKE 10 MILLIGRAMS ORAL ONCE A DAY HumaLOG 100U/1ML Injection Solution 04/30/2022 Unknown INJECT ION 1 unit(s) 350098 RxNorm 1 EACH INJECTION Cozaar 100MG Oral Tablet 04/30/2022 Unknown ORAL ONCE A DAY 100 MILLIGRAMS 367331 RxNorm TAKE 100 MILLIGRAMS ORAL ONCE A DAY Lantus 100U/1ML Subcutaneous Solution 04/30/2022 Unknown SUBCUT ANEOUS AT BEDTIM E 48 unit(s) 191351 RxNorm INJECT INTO 48 EACH SUBCUTANEOUS AT BEDTIME Lipitor 20MG Oral Tablet 04/30/2022 Unknown ORAL ONCE A DAY 20 MILLIGRAMS 445875 RxNorm TAKE 20 MILLIGRAMS ORAL ONCE A DAY Omeprazole 20MG Oral Capsule, Delayed Release 04/30/2022 Unknown ORAL ONCE A DAY 20 MILLIGRAMS 514538 RxNorm TAKE 20 MILLIGRAMS ORAL ONCE A DAY Oxybutynin Chloride 5MG Oral Tablet, Extended Release 04/30/2022 Unknown ORAL ONCE A DAY 5 MILLIGRAMS 568063 RxNorm TAKE 5 MILLIGRAMS ORAL ONCE A DAY ProAir HFA 0.09MG/1Actuatio n Inhalation Suspension 04/30/2022 Unknown INHALA TION NEEDED EVERY 4 HOURS 1 unit(s) 135033 RxNorm 1 EACH INHALATION NEEDED EVERY 4 HOURS Singulair 10MG Oral Tablet 04/30/2022 Unknown ORAL AT BEDTIM E 10 MILLIGRAMS 641574 RxNorm TAKE 10 MILLIGRAMS ORAL AT BEDTIME ZyrTEC 10MG Oral Tablet 04/30/2022 Unknown ORAL ONCE A DAY 10 MILLIGRAMS RxNorm TAKE 10 MILLIGRAMS ORAL ONCE A DAY hydroCHLOROthiaz zulema 12.5MG Oral Tablet 04/30/2022 Unknown ORAL ONCE A DAY 12.5 MILLIGRAMS 340993 RxNorm TAKE 12.5 MILLIGRAMS ORAL ONCE A DAY metFORMIN HCl 500MG Oral Tablet 04/30/2022 Unknown ORAL TWICE A DAY 1000 MILLIGRAMS 021744 RxNorm TAKE 1000 MILLIGRAMS ORAL TWICE A DAY traZODone hydrochloride 150MG Oral Tablet 04/30/2022 Unknown ORAL AT BEDTIM E 150 MILLIGRAMS 995287 RxNorm TAKE 150 MILLIGRAMS ORAL AT BEDTIME [...] Status Code Code System SECONDARY AMENORRHEA active 28636725 SNOMED-CT IRON DEFICIENCY ANEMIA, UNSPECIFIED active 02929642 SNOMED-CT DIARRHEA active 31757106 SNOMED-CT GERD active 412144438 SNOMED-CT ENCOUNTER FOR GYNECOLOGICAL EXAMINATION (GENERAL) (ROUTINE) WITHOUT ABNORMAL FIN active 88171506 SNOMED- CT HIGH RISK HETEROSEXUAL BEHAVIOR active 332525309706378 SNOMED-CT BARIATRIC SURGERY STATUS active 65409168 4017 SNOMED-CT Allergies and Adverse Reactions Allergy Substance Reaction Severity Start Date Concern Status Co de Code System MORPHINE Active 7052 RxNorm ADHESIVE Active LATEX Active 4151988 RxNorm HUMALOG Active 693092 RxNorm Plan of Treatment Split Night, CPAP/BIPAP/ASV (73321) EGD/Colonoscopy 04/30/2022 US Pelvis/Transvaginal (50139) 04/06/19 24 Pharynx Esophagus Cine 04/01/2023 Encounters Encounter Diagnosis Start Date Code Code Sys tem Encounter for general adult medical examination without abnormal findings 12/30/2023 SNOMED-CT Personal Care Team Section Performer Name Performer Role Active Date Inactive SHAHEED Patricia PCP - Primary care physician 8 2021-07-04 Jean-Pierre Ferrari PCP - Primary care physician 2022-03-13
--- OUTSIDE RECORDS SUMMARY | 2024-06-24 14:26 | XMS_ITS ---
Author Organization Unknown Address [address] [place] [phone] Phone Care Team Providers Care Security Inspector Name Role Phone GISELL CALDWELL Attending Unavailable JOSÉ LUIS DELCID Primary Unavailable Immunization Immunization Date Status Additional Notes Code Code System Influenza, split virus, trivalent, PF 12/09/2014 Completed 140 CVX Influenza, split virus, trivalent, preservative 12/10/2017 Completed 141 CVX COVID-19, mRNA, LNP-S, PF, 3 0 mcg/0.3 mL dose 05/30/2020 Completed 208 CVX Results MAGNESIUM - Collect Date/Ronnie e: 01/25/2024 09:45 [facility] ID: [id number] [place] [address], [phone] LOINC: 41308-4 Test Value Unit Reference Range Code Code System Flag MAGNESIUM 1.8 mg/dL L=1.6 H=2.3 99843-0 LOINC 25 HYDROXY VITAMIN D - Colle ct Date/Time: 01/25/2024 09:45 [facility] ID: [id number] [place] [address], [phone] LOINC: Test Value Unit Reference Range Code Code System Flag VITAMIN D 37.9 ng/ml L=30.0 H=100 84140-4 LOINC VITAMIN B-12 - Collect Date/ Time: 01/25/2024 09:45 [facility] ID: [id number] [place] [address], [phone] LOINC: 2132-9 Test Value Unit Reference Range Code Code System Flag VITAMIN B12 245 pq/mL L=239 H=931 IRON PANEL - Collect Date/Ti me: 01/25/2024 09:45 [facility] ID: [id number] [address] [place], [place], [phone] LOINC: Test Value Unit Reference Range Code Code System Flag IRON 44 ug/dL L=37 H=170 2498-4 LOINC TIBC 402 ug/dL L=265 H=497 2500-7 LOINC %SATURATION 11 % L=13 H=45 2708-6 LOINC L FERRITIN - Collect Date/Time : 01/25/2024 09:45 [facility] ID: [id number] [address] [place], [place], [phone] LOINC: 2276-4 Test Value Unit Reference Range Code Code System Flag FERRITIN 5.0 ng/mL L=6.2 H=137 2276-4 LOINC L CBC W/ DIFF - Collect Date/T douglas: 01/25/2024 09:45 [facility] ID: [id number] [address] [place], [place], [phone] LOINC: 75886-2 Test Value Unit Reference Range Code Code System Flag WBC 5.9 10^3uL L=4.8 H=10.8 RBC 4.45 10^6uL L=4.20 H=5.40 HEMOGLOBIN 10.3 g/dL L=12.0 H=16.0 718-7 LOINC L HEMATOCRIT 35.0 VOL% L=37.0 H=47.0 4544-3 LOINC L MCV 78.7 fL L=81.0 H=99.0 L MCH 23.1 pg L=27.0 H=32.0 L MCHC 29.4 g/dL L=32.0 H=36.0 L PLATELETS 416 10^3uL L=100 H=400 11407-4 LOINC H RDW 14.2 % L=11.7 H=15.5 %GRAN 47.2 % L=40.0 H=70.0 44519-8 LOINC %LYMPH 44.2 % L=20.0 H=45.0 736-9 LOINC %MONO 6.5 % L=2.0 H=10.0 28279-4 LOINC %EOS 1.2 % L=0.0 H=6.0 713-8 LOINC %BASO 0.7 % L=0.0 H=3.0 706-2 LOINC #NEUT 2.8 10^3uL L=1.9 H=7.6 42331-9 LOINC #LYMPH 2.6 10^3uL L=0.9 H=4.9 18349-8 LOINC #MONO 0.4 10^3uL L=0.1 H=0.9 51025-9 LOINC #EOS 0.1 10^3uL L=0.0 H=0.6 712-0 LOINC #BASO 0.04 10^3uL L=0.00 H=0.10 24307-3 LOINC #IM GRANS 0.0 10^3uL L=0.0 H=7.0 56960-7 LOINC %IM GRANS 0.2 % L=0.0 H=5.0 55051-5 LOINC %NRB 0.0 L=0.0 H=0.2 50760-7 LOINC #NRB 0.000 L=0.000 H=0.012 08218-2 LOINC MANUAL DIFF NOT INDICATED RBC MORPH NOT INDICATED COMPREHENSIVE METABOLIC PANE L - Collect Date/Time: 01/25/2024 09:45 [facility] ID: [id number] [address] [place], [place], [phone] LOINC: 33122-9 Test Value Unit Reference Range Code Code System Flag FASTING NO BUN 8 mg/dL L=7 H=20 3094-0 LOINC CREATININE 0.60 mg/dL L=0.52 H=1.04 2160-0 LOINC GLUCOSE 95 mg/dL L=74 H=106 2345-7 LOINC SODIUM 140 mmol/L L=132 H=144 2951-2 LOINC POTASSIUM 4.6 mmol/L L=3.5 H=5.1 2823-3 LOINC CHLORIDE 102 mmol/L L=98 H=107 2075-0 LOINC CO2 27.0 mmol/L L=22.0 H=30.0 2028-9 LOINC ANION GAP 16 L=10 H=20 86965-6 LOINC OSMOLALITY 288 mOs/kG L=280 H=296 64704-3 LOINC BUN/CREAT 13.3 3097-3 LOINC CALCIUM 9.6 mg/dL L=8.3 H=10.5 72245-3 LOINC AST 26 U/L L=15 H=46 1920-8 LOINC ALT 17 U/L L=9 H=72 1742-6 LOINC ALKALINE PHOS 83 U/L L=38 H=126 6768-6 LOINC TOTAL BILI 0.7 mg/dL L=0.2 H=1.3 1975-2 LOINC ALBUMIN 4.3 G/dL L=3.5 H=5.0 1751-7 LOINC TOTAL PROTEIN 7.7 g/L L=6.3 H=8.2 2885-2 LOINC A/G RATIO 1.3 87303-3 LOINC AGE 38 66048-6 LOINC eGFR NON-AFR 118 ml/min eGFR AFR AMER 143 ml/min TSH / REFLEX FT4 - Collect D ate/Time: 01/25/2024 09:45 [facility] ID: [id number] [address] [place], [place], [phone] LOINC: Test Value Unit Reference Range Code Code System Flag TSH 0.654 uIU/L L=0.470 H=4.680 89373-3 LOINC Social History Type Status Start Date End Date Code Code Syst em Smoking History Never smoker (Never Smoked) 874771579 SNOMED CT Sex Female Medications Medication Start Date End Date Route Frequency Dose Code Code System Medication Instructions Home Meds vilazodone hydrochloride 10MG Oral Tablet 04/30/2022 Unknown ORAL ONCE A DAY 10 MILLIGRAMS 1070393 RxNorm TAKE 10 MILLIGRAMS ORAL ONCE A DAY HumaLOG 100U/1ML Injection Solution 04/30/2022 Unknown INJECT ION 1 unit(s) 830271 RxNorm 1 EACH INJECTION Cozaar 100MG Oral Tablet 04/30/2022 Unknown ORAL ONCE A DAY 100 MILLIGRAMS 297649 RxNorm TAKE 100 MILLIGRAMS ORAL ONCE A DAY Lantus 100U/1ML Subcutaneous Solution 04/30/2022 Unknown SUBCUT ANEOUS AT BEDTIM E 48 unit(s) 126736 RxNorm INJECT INTO 48 EACH SUBCUTANEOUS AT BEDTIME Lipitor 20MG Oral Tablet 04/30/2022 Unknown ORAL ONCE A DAY 20 MILLIGRAMS 815150 RxNorm TAKE 20 MILLIGRAMS ORAL ONCE A DAY Omeprazole 20MG Oral Capsule, Delayed Release 04/30/2022 Unknown ORAL ONCE A DAY 20 MILLIGRAMS 076693 RxNorm TAKE 20 MILLIGRAMS ORAL ONCE A DAY Oxybutynin Chloride 5MG Oral Tablet, Extended Release 04/30/2022 Unknown ORAL ONCE A DAY 5 MILLIGRAMS 336489 RxNorm TAKE 5 MILLIGRAMS ORAL ONCE A DAY ProAir HFA 0.09MG/1Actuatio n Inhalation Suspension 04/30/2022 Unknown INHALA TION NEEDED EVERY 4 HOURS 1 unit(s) 143514 RxNorm 1 EACH INHALATION NEEDED EVERY 4 HOURS Singulair 10MG Oral Tablet 04/30/2022 Unknown ORAL AT BEDTIM E 10 MILLIGRAMS 175933 RxNorm TAKE 10 MILLIGRAMS ORAL AT BEDTIME ZyrTEC 10MG Oral Tablet 04/30/2022 Unknown ORAL ONCE A DAY 10 MILLIGRAMS RxNorm TAKE 10 MILLIGRAMS ORAL ONCE A DAY hydroCHLOROthiaz zulema 12.5MG Oral Tablet 04/30/2022 Unknown ORAL ONCE A DAY 12.5 MILLIGRAMS 338417 RxNorm TAKE 12.5 MILLIGRAMS ORAL ONCE A DAY metFORMIN HCl 500MG Oral Tablet 04/30/2022 Unknown ORAL TWICE A DAY 1000 MILLIGRAMS 841168 RxNorm TAKE 1000 MILLIGRAMS ORAL TWICE A DAY traZODone hydrochloride 150MG Oral Tablet 04/30/2022 Unknown ORAL AT BEDTIM E 150 MILLIGRAMS 581124 RxNorm TAKE 150 MILLIGRAMS ORAL AT BEDTIME [...] Status Code Code System SECONDARY AMENORRHEA active 91165228 SNOMED-CT IRON DEFICIENCY ANEMIA, UNSPECIFIED active 55412370 SNOMED-CT DIARRHEA active 78937633 SNOMED-CT GERD active 432358236 SNOMED-CT ENCOUNTER FOR GYNECOLOGICAL EXAMINATION (GENERAL) (ROUTINE) WITHOUT ABNORMAL FIN active 09090928 SNOMED- CT HIGH RISK HETEROSEXUAL BEHAVIOR active 822175588418691 SNOMED-CT BARIATRIC SURGERY STATUS active 15490 8006 SNOMED-CT Allergies and Adverse Reactions Allergy Substance Reaction Severity Start Date Concern Status Co de Code System MORPHINE Active 7052 RxNorm ADHESIVE Active LATEX Active 4749772 RxNorm HUMALOG Active 015537 RxNorm Plan of Treatment Split Night, CPAP/BIPAP/ASV (14197) EGD/Colonoscopy 04/30/2022 US Pelvis/Transvaginal (56235) 04/06/19 24 Pharynx Esophagus Cine 04/01/2023 Encounters Encounter Diagnosis Start Date Code Code Sys tem Iron deficiency anemia, unspecified 01/25/2024 SNOMED-CT Personal Care Team Section Performer Name Performer Role Active Date Inactive SHAHEED Patricia PCP - Primary care physician 8 2021-07-04 Jean-Pierre Ferrari PCP - Primary care physician 2022-03-13
--- OUTSIDE RECORDS SUMMARY | 2024-06-24 14:26 | XMS_ITS ---
Author Organization Unknown Address [address] [place] [phone] Phone Care Team Providers Care Electric Motor Tester Name Role Phone LOGAN OLGUIN Attending Unavailable JOSÉ LUIS DELCID Primary Unavailable Immunization Immunization Date Status Additional Notes Code Code System Influenza, split virus, trivalent, PF 12/09/2014 Completed 140 CVX Influenza, split virus, trivalent, preservative 12/10/2017 Completed 141 CVX COVID-19, mRNA, LNP-S, PF, 3 0 mcg/0.3 mL dose 05/30/2020 Completed 208 CVX Results URINALYSIS w/Microscopy/C&S if indicated - Collect Date/Time: 01/26/2024 12:[address] [facility] ID: [id number] [place] [address], [phone] LOINC: 16372-1 Test Value Unit Reference Range Code Code System Flag UR SOURCE VOIDED 71546-3 LOINC COLOR YELLOW YELLOW 5778-6 LOINC CLARITY SL CLOUDY CLEAR 94448-7 LOINC SPEC GRAVITY >=1.030 1.000-1.030 5811-5 LOINC A PH 6.0 5.0 - 6.5 5803-2 LOINC LEUK EST NEGATIVE NEGATIVE 5799-2 LOINC NITRATE NEGATIVE NEGATIVE PROTEIN 2+ NEGATIVE 5804-0 LOINC A GLUCOSE 1+ NEGATIVE 20793-7 LOINC KETONES NEGATIVE NEGATIVE 64747-1 LOINC UROBILINOGEN 1.0 NEGATIVE 5818-0 LOINC BILIRUBIN NEGATIVE NEGATIVE 17779-7 LOINC BLOOD TRACE-INT NEGATIVE 44089-3 LOINC WBC 0-2 0 - 2 76998-4 LOINC RBC 2-5 0 - 2 49360-8 LOINC EPITHELIAL OCCASIONA RARE-FEW 80586-9 LOINC BACTERIA NONE SEEN NONE SEEN 57024-6 LOINC MUCUS 1+ NONE SEEN 8247-9 LOINC YEAST NOT PRESENT NOT PRESENT 03422-0 LOINC CASTS NONE SEEN 83926-9 LOINC CRYSTALS SEE BELOW 18742-1 LOINC CULTURE? NO 8251-1 LOINC DIAGNOSIS N/A Social History Type Status Start Date End Date Code Code Syst em Smoking History Never smoker (Never Smoked) 554385541 SNOMED CT Sex Female Medications Medication Start Date End Date Route Frequency Dose Code Code System Medication Instructions Home Meds vilazodone hydrochloride 10MG Oral Tablet 04/30/2022 Unknown ORAL ONCE A DAY 10 MILLIGRAMS 5282797 RxNorm TAKE 10 MILLIGRAMS ORAL ONCE A DAY HumaLOG 100U/1ML Injection Solution 04/30/2022 Unknown INJECT ION 1 unit(s) 353218 RxNorm 1 EACH INJECTION Cozaar 100MG Oral Tablet 04/30/2022 Unknown ORAL ONCE A DAY 100 MILLIGRAMS 497632 RxNorm TAKE 100 MILLIGRAMS ORAL ONCE A DAY Lantus 100U/1ML Subcutaneous Solution 04/30/2022 Unknown SUBCUT ANEOUS AT BEDTIM E 48 unit(s) 658752 RxNorm INJECT INTO 48 EACH SUBCUTANEOUS AT BEDTIME Lipitor 20MG Oral Tablet 04/30/2022 Unknown ORAL ONCE A DAY 20 MILLIGRAMS 112779 RxNorm TAKE 20 MILLIGRAMS ORAL ONCE A DAY Omeprazole 20MG Oral Capsule, Delayed Release 04/30/2022 Unknown ORAL ONCE A DAY 20 MILLIGRAMS 126076 RxNorm TAKE 20 MILLIGRAMS ORAL ONCE A DAY Oxybutynin Chloride 5MG Oral Tablet, Extended Release 04/30/2022 Unknown ORAL ONCE A DAY 5 MILLIGRAMS 423089 RxNorm TAKE 5 MILLIGRAMS ORAL ONCE A DAY ProAir HFA 0.09MG/1Actuatio n Inhalation Suspension 04/30/2022 Unknown INHALA TION NEEDED EVERY 4 HOURS 1 unit(s) 436647 RxNorm 1 EACH INHALATION NEEDED EVERY 4 HOURS Singulair 10MG Oral Tablet 04/30/2022 Unknown ORAL AT BEDTIM E 10 MILLIGRAMS 802764 RxNorm TAKE 10 MILLIGRAMS ORAL AT BEDTIME ZyrTEC 10MG Oral Tablet 04/30/2022 Unknown ORAL ONCE A DAY 10 MILLIGRAMS RxNorm TAKE 10 MILLIGRAMS ORAL ONCE A DAY hydroCHLOROthiaz zulema 12.5MG Oral Tablet 04/30/2022 Unknown ORAL ONCE A DAY 12.5 MILLIGRAMS 522216 RxNorm TAKE 12.5 MILLIGRAMS ORAL ONCE A DAY metFORMIN HCl 500MG Oral Tablet 04/30/2022 Unknown ORAL TWICE A DAY 1000 MILLIGRAMS 586412 RxNorm TAKE 1000 MILLIGRAMS ORAL TWICE A DAY traZODone hydrochloride 150MG Oral Tablet 04/30/2022 Unknown ORAL AT BEDTIM E 150 MILLIGRAMS 081197 RxNorm TAKE 150 MILLIGRAMS ORAL AT BEDTIME [...] Status Code Code System SECONDARY AMENORRHEA active 04135787 SNOMED-CT IRON DEFICIENCY ANEMIA, UNSPECIFIED active 04793838 SNOMED-CT DIARRHEA active 90191535 SNOMED-CT GERD active 363772563 SNOMED-CT ENCOUNTER FOR GYNECOLOGICAL EXAMINATION (GENERAL) (ROUTINE) WITHOUT ABNORMAL FIN active 27420063 SNOMED- CT HIGH RISK HETEROSEXUAL BEHAVIOR active 258654108574673 SNOMED-CT BARIATRIC SURGERY STATUS active 73561 8006 SNOMED-CT Allergies and Adverse Reactions Allergy Substance Reaction Severity Start Date Concern Status Co de Code System MORPHINE Active 7052 RxNorm ADHESIVE Active LATEX Active 0689094 RxNorm HUMALOG Active 723601 RxNorm Plan of Treatment Split Night, CPAP/BIPAP/ASV (47282) EGD/Colonoscopy 04/30/2022 US Pelvis/Transvaginal (04125) 04/06/19 24 Pharynx Esophagus Cine 04/01/2023 Encounters Encounter Diagnosis Start Date Code Code Sys tem Urinary tract infection, site not specified 01/26/2024 SNOMED-CT Personal Care Team Section Performer Name Performer Role Active Date Inactive SHAHEED Patricia PCP - Primary care physician 8 2021-07-04 Jean-Pierre Ferrari PCP - Primary care physician 2022-03-13
--- OUTSIDE RECORDS SUMMARY | 2024-06-24 14:26 | XMS_ITS ---
Author Organization Unknown Address [address] [place] [phone] Phone Care Team Providers Care Crane Hoist Or Lift Operator Name Role Phone PORFIRIO CLARKE Attending Unavailable JOSÉ LUIS DELCID Primary Unavailable Immunization Immunization Date Status Additional Notes Code Code System Influenza, split virus, trivalent, PF 12/09/2014 Completed 140 CVX Influenza, split virus, trivalent, preservative 12/10/2017 Completed 141 CVX COVID-19, mRNA, LNP-S, PF, 3 0 mcg/0.3 mL dose 05/30/2020 Completed 208 CVX Results CBC W/ DIFF - Collect Date/T douglas: 03/16/2023 10:28 [facility] ID: [id number] [place] [address], [phone] LOINC: 22487-6 Test Value Unit Reference Range Code Code System Flag WBC 9.0 10^3uL L=4.8 H=10.8 RBC 4.80 10^6uL L=4.20 H=5.40 HEMOGLOBIN 10.8 g/dL L=12.0 H=16.0 718-7 LOINC L HEMATOCRIT 36.2 VOL% L=37.0 H=47.0 4544-3 LOINC L MCV 75.4 fL L=81.0 H=99.0 L MCH 22.5 pg L=27.0 H=32.0 L MCHC 29.8 g/dL L=32.0 H=36.0 L PLATELETS 404 10^3uL L=100 H=400 67072-4 LOINC H RDW 17.2 % L=11.7 H=15.5 H %GRAN 53.6 % L=40.0 H=70.0 53710-1 LOINC %LYMPH 38.6 % L=20.0 H=45.0 736-9 LOINC %MONO 5.9 % L=2.0 H=10.0 04049-6 LOINC %EOS 1.2 % L=0.0 H=6.0 713-8 LOINC %BASO 0.4 % L=0.0 H=3.0 706-2 LOINC #NEUT 4.8 10^3uL L=1.9 H=7.6 86560-9 LOINC #LYMPH 3.5 10^3uL L=0.9 H=4.9 28878-5 LOINC #MONO 0.5 10^3uL L=0.1 H=0.9 48676-7 LOINC #EOS 0.1 10^3uL L=0.0 H=0.6 712-0 LOINC #BASO 0.04 10^3uL L=0.00 H=0.10 05291-2 LOINC #IM GRANS 0.0 10^3uL L=0.0 H=7.0 80640-7 LOINC %IM GRANS 0.3 % L=0.0 H=5.0 13189-9 LOINC %NRB 0.0 L=0.0 H=0.2 04416-9 LOINC #NRB 0.000 L=0.000 H=0.012 11567-5 LOINC MANUAL DIFF NOT INDICATED RBC MORPH NOT INDICATED COMPREHENSIVE METABOLIC PANE L - Collect Date/Time: 03/16/2023 10:28 [facility] ID: [id number] [address] [place], [place], [phone] LOINC: 96953-2 Test Value Unit Reference Range Code Code System Flag FASTING NO BUN 11 mg/dL L=7 H=20 3094-0 LOINC CREATININE 0.60 mg/dL L=0.52 H=1.04 2160-0 LOINC GLUCOSE 177 mg/dL L=74 H=106 2345-7 LOINC H SODIUM 139 mmol/L L=132 H=144 2951-2 LOINC POTASSIUM 4.1 mmol/L L=3.5 H=5.1 2823-3 LOINC CHLORIDE 102 mmol/L L=98 H=107 2075-0 LOINC CO2 27.0 mmol/L L=22.0 H=30.0 2028-9 LOINC ANION GAP 14 L=10 H=20 60744-0 LOINC OSMOLALITY 292 mOs/kG L=280 H=296 06928-7 LOINC BUN/CREAT 18.3 3097-3 LOINC CALCIUM 9.6 mg/dL L=8.3 H=10.5 36296-0 LOINC AST 25 U/L L=15 H=46 1920-8 LOINC ALT 28 U/L L=9 H=72 1742-6 LOINC ALKALINE PHOS 61 U/L L=38 H=126 6768-6 LOINC TOTAL BILI 0.4 mg/dL L=0.2 H=1.3 1975-2 LOINC ALBUMIN 4.2 G/dL L=3.5 H=5.0 1751-7 LOINC TOTAL PROTEIN 8.1 g/L L=6.3 H=8.2 2885-2 LOINC A/G RATIO 1.1 81218-2 LOINC AGE 37 33500-2 LOINC eGFR NON-AFR 118 ml/min eGFR AFR AMER 143 ml/min Social History Type Status Start Date End Date Code Code Syst em Smoking History Never smoker (Never Smoked) 736933865 SNOMED CT Sex Female Medications Medication Start Date End Date Route Frequency Dose Code Code System Medication Instructions Home Meds vilazodone hydrochloride 10MG Oral Tablet 04/30/2022 Unknown ORAL ONCE A DAY 10 MILLIGRAMS 7495998 RxNorm TAKE 10 MILLIGRAMS ORAL ONCE A DAY HumaLOG 100U/1ML Injection Solution 04/30/2022 Unknown INJECT ION 1 unit(s) 363043 RxNorm 1 EACH INJECTION Cozaar 100MG Oral Tablet 04/30/2022 Unknown ORAL ONCE A DAY 100 MILLIGRAMS 517492 RxNorm TAKE 100 MILLIGRAMS ORAL ONCE A DAY Lantus 100U/1ML Subcutaneous Solution 04/30/2022 Unknown SUBCUT ANEOUS AT BEDTIM E 48 unit(s) 867524 RxNorm INJECT INTO 48 EACH SUBCUTANEOUS AT BEDTIME Lipitor 20MG Oral Tablet 04/30/2022 Unknown ORAL ONCE A DAY 20 MILLIGRAMS 698192 RxNorm TAKE 20 MILLIGRAMS ORAL ONCE A DAY Omeprazole 20MG Oral Capsule, Delayed Release 04/30/2022 Unknown ORAL ONCE A DAY 20 MILLIGRAMS 174962 RxNorm TAKE 20 MILLIGRAMS ORAL ONCE A DAY Oxybutynin Chloride 5MG Oral Tablet, Extended Release 04/30/2022 Unknown ORAL ONCE A DAY 5 MILLIGRAMS 715043 RxNorm TAKE 5 MILLIGRAMS ORAL ONCE A DAY ProAir HFA 0.09MG/1Actuatio n Inhalation Suspension 04/30/2022 Unknown INHALA TION NEEDED EVERY 4 HOURS 1 unit(s) 738595 RxNorm 1 EACH INHALATION NEEDED EVERY 4 HOURS Singulair 10MG Oral Tablet 04/30/2022 Unknown ORAL AT BEDTIM E 10 MILLIGRAMS 235484 RxNorm TAKE 10 MILLIGRAMS ORAL AT BEDTIME ZyrTEC 10MG Oral Tablet 04/30/2022 Unknown ORAL ONCE A DAY 10 MILLIGRAMS RxNorm TAKE 10 MILLIGRAMS ORAL ONCE A DAY hydroCHLOROthiaz zulema 12.5MG Oral Tablet 04/30/2022 Unknown ORAL ONCE A DAY 12.5 MILLIGRAMS 503656 RxNorm TAKE 12.5 MILLIGRAMS ORAL ONCE A DAY metFORMIN HCl 500MG Oral Tablet 04/30/2022 Unknown ORAL TWICE A DAY 1000 MILLIGRAMS 751088 RxNorm TAKE 1000 MILLIGRAMS ORAL TWICE A DAY traZODone hydrochloride 150MG Oral Tablet 04/30/2022 Unknown ORAL AT BEDTIM E 150 MILLIGRAMS 541548 RxNorm TAKE 150 MILLIGRAMS ORAL AT BEDTIME [...] Status Code Code System SECONDARY AMENORRHEA active 41229633 SNOMED-CT IRON DEFICIENCY ANEMIA, UNSPECIFIED active 53576029 SNOMED-CT DIARRHEA active 76671490 SNOMED-CT GERD active 321713397 SNOMED-CT ENCOUNTER FOR GYNECOLOGICAL EXAMINATION (GENERAL) (ROUTINE) WITHOUT ABNORMAL FIN active 47112183 SNOMED- CT HIGH RISK HETEROSEXUAL BEHAVIOR active 001235856940613 SNOMED-CT BARIATRIC SURGERY STATUS active 99120 8006 SNOMED-CT Allergies and Adverse Reactions Allergy Substance Reaction Severity Start Date Concern Status Co de Code System MORPHINE Active 7052 RxNorm ADHESIVE Active LATEX Active 9484838 RxNorm HUMALOG Active 499023 RxNorm Plan of Treatment Split Night, CPAP/BIPAP/ASV (23339) EGD/Colonoscopy 04/30/2022 US Pelvis/Transvaginal (23283) 04/06/19 24 Pharynx Esophagus Cine 04/01/2023 Encounters Encounter Diagnosis Start Date Code Code Sys tem Left lower quadrant pain 03/16/2023 [facility] MED-CT Personal Care Team Section Performer Name Performer Role Active Date Inactive SHAHEED Patricia PCP - Primary care physician 8 2021-07-04 Jean-Pierre Ferrari PCP - Primary care physician 2022-03-13
--- OUTSIDE RECORDS SUMMARY | 2024-06-24 14:27 | XMS_ITS ---
Author Organization Unknown Address [address] [place] [phone] Phone Care Team Providers Care Flag Maker Name Role Phone RAFAELA Larry Attending Unavailable JOSÉ LUIS DELCID Primary Unavailable Immunization Immunization Date Status Additional Notes Code Code System Influenza, split virus, trivalent, PF 12/09/2014 Completed 140 CVX Influenza, split virus, trivalent, preservative 12/10/2017 Completed 141 CVX COVID-19, mRNA, LNP-S, PF, 3 0 mcg/0.3 mL dose 05/30/2020 Completed 208 CVX Results RESPIRATORY 4 PLEX COVID FLU RSV PCR - Collect Date/Time: 01/11/2023 15:35 [facility] ID: [id number] [address] [place] [address], [phone] LOINC: 68898-1 Test Value Unit Reference Range Code Code System Flag SARS CoV2 PCR NEGATIVE FLU A PCR NEGATIVE FLU B PCR NEGATIVE RSV PCR NEGATIVE SEND TO [facility]? YES A Social History Type Status Start Date End Date Code Code Syst em Smoking History Never smoker (Never Smoked) 666070242 SNOMED CT Sex Female Medications Medication Start Date End Date Route Frequency Dose Code Code System Medication Instructions Home Meds vilazodone hydrochloride 10MG Oral Tablet 04/30/2022 Unknown ORAL ONCE A DAY 10 MILLIGRAMS 5527051 RxNorm TAKE 10 MILLIGRAMS ORAL ONCE A DAY HumaLOG 100U/1ML Injection Solution 04/30/2022 Unknown INJECT ION 1 unit(s) 507691 RxNorm 1 EACH INJECTION Cozaar 100MG Oral Tablet 04/30/2022 Unknown ORAL ONCE A DAY 100 MILLIGRAMS 043424 RxNorm TAKE 100 MILLIGRAMS ORAL ONCE A DAY Lantus 100U/1ML Subcutaneous Solution 04/30/2022 Unknown SUBCUT ANEOUS AT BEDTIM E 48 unit(s) 201211 RxNorm INJECT INTO 48 EACH SUBCUTANEOUS AT BEDTIME Lipitor 20MG Oral Tablet 04/30/2022 Unknown ORAL ONCE A DAY 20 MILLIGRAMS 714089 RxNorm TAKE 20 MILLIGRAMS ORAL ONCE A DAY Omeprazole 20MG Oral Capsule, Delayed Release 04/30/2022 Unknown ORAL ONCE A DAY 20 MILLIGRAMS 919382 RxNorm TAKE 20 MILLIGRAMS ORAL ONCE A DAY Oxybutynin Chloride 5MG Oral Tablet, Extended Release 04/30/2022 Unknown ORAL ONCE A DAY 5 MILLIGRAMS 645765 RxNorm TAKE 5 MILLIGRAMS ORAL ONCE A DAY ProAir HFA 0.09MG/1Actuatio n Inhalation Suspension 04/30/2022 Unknown INHALA TION NEEDED EVERY 4 HOURS 1 unit(s) 547303 RxNorm 1 EACH INHALATION NEEDED EVERY 4 HOURS Singulair 10MG Oral Tablet 04/30/2022 Unknown ORAL AT BEDTIM E 10 MILLIGRAMS 666774 RxNorm TAKE 10 MILLIGRAMS ORAL AT BEDTIME ZyrTEC 10MG Oral Tablet 04/30/2022 Unknown ORAL ONCE A DAY 10 MILLIGRAMS RxNorm TAKE 10 MILLIGRAMS ORAL ONCE A DAY hydroCHLOROthiaz zulema 12.5MG Oral Tablet 04/30/2022 Unknown ORAL ONCE A DAY 12.5 MILLIGRAMS 681555 RxNorm TAKE 12.5 MILLIGRAMS ORAL ONCE A DAY metFORMIN HCl 500MG Oral Tablet 04/30/2022 Unknown ORAL TWICE A DAY 1000 MILLIGRAMS [id number] RxNorm TAKE 1000 MILLIGRAMS ORAL TWICE A DAY traZODone hydrochloride 150MG Oral Tablet 04/30/2022 Unknown ORAL AT BEDTIM E 150 MILLIGRAMS [id number] RxNorm TAKE 150 MILLIGRAMS ORAL AT BEDTIME [...] Status Code Code System SECONDARY AMENORRHEA active 28713554 SNOMED-CT IRON DEFICIENCY ANEMIA, UNSPECIFIED active 48060894 SNOMED-CT DIARRHEA active 87221923 SNOMED-CT GERD active 418633284 SNOMED-CT ENCOUNTER FOR GYNECOLOGICAL EXAMINATION (GENERAL) (ROUTINE) WITHOUT ABNORMAL FIN active 58802575 SNOMED- CT HIGH RISK HETEROSEXUAL BEHAVIOR active 323055318164241 SNOMED-CT BARIATRIC SURGERY STATUS active 97031 8006 SNOMED-CT Allergies and Adverse Reactions Allergy Substance Reaction Severity Start Date Concern Status Co de Code System MORPHINE Active 7052 RxNorm ADHESIVE Active LATEX Active 9377906 RxNorm HUMALOG Active 774022 RxNorm Plan of Treatment Split Night, CPAP/BIPAP/ASV (83024) EGD/Colonoscopy 04/30/2022 US Pelvis/Transvaginal (21025) 04/06/19 24 Pharynx Esophagus Cine 04/01/2023 Encounters Encounter Diagnosis Start Date Code Code Sys tem Allergic rhinitis, unspecified 01/11/2023 SNOMED-CT Personal Care Team Section Performer Name Performer Role Active Date Inactive SHAHEED Patricia PCP - Primary care physician 8 2021-07-04 Jean-Pierre Ferrari PCP - Primary care physician 2022-03-13
--- OUTSIDE RECORDS SUMMARY | 2024-06-24 14:27 | XMS_ITS ---
Author Organization Unknown Address [address] [place] [address] [phone] Phone Care Team Providers Care Cabinet Maker Name Role Phone RAFAELA Larry Attending [...] em Smoking History Never smoker (Never Smoked) [id number] SNOMED CT Sex Female Medications Medication Start Date End Date Route Frequency Dose Code Code System Medication Instructions Home Meds vilazodone hydrochloride 10MG Oral Tablet 04/30/2022 Unknown ORAL ONCE A DAY 10 MILLIGRAMS 5861277 RxNorm TAKE 10 MILLIGRAMS ORAL ONCE A DAY HumaLOG 100U/1ML Injection Solution 04/30/2022 Unknown INJECT ION 1 unit(s) 522643 RxNorm 1 EACH INJECTION Cozaar 100MG Oral Tablet 04/30/2022 Unknown ORAL ONCE A DAY 100 MILLIGRAMS 611438 RxNorm TAKE 100 MILLIGRAMS ORAL ONCE A DAY Lantus 100U/1ML Subcutaneous Solution 04/30/2022 Unknown SUBCUT ANEOUS AT BEDTIM E 48 unit(s) 841769 RxNorm INJECT INTO 48 EACH SUBCUTANEOUS AT BEDTIME Lipitor 20MG Oral Tablet 04/30/2022 Unknown ORAL ONCE A DAY 20 MILLIGRAMS 481467 RxNorm TAKE 20 MILLIGRAMS ORAL ONCE A DAY Omeprazole 20MG Oral Capsule, Delayed Release 04/30/2022 Unknown ORAL ONCE A DAY 20 MILLIGRAMS 356558 RxNorm TAKE 20 MILLIGRAMS ORAL ONCE A DAY Oxybutynin Chloride 5MG Oral Tablet, Extended Release 04/30/2022 Unknown ORAL ONCE A DAY 5 MILLIGRAMS 945044 RxNorm TAKE 5 MILLIGRAMS ORAL ONCE A DAY ProAir HFA 0.09MG/1Actuatio n Inhalation Suspension 04/30/2022 Unknown INHALA TION NEEDED EVERY 4 HOURS 1 unit(s) 889630 RxNorm 1 EACH INHALATION NEEDED EVERY 4 HOURS Singulair 10MG Oral Tablet 04/30/2022 Unknown ORAL AT BEDTIM E 10 MILLIGRAMS 593442 RxNorm TAKE 10 MILLIGRAMS ORAL AT BEDTIME ZyrTEC 10MG Oral Tablet 04/30/2022 Unknown ORAL ONCE A DAY 10 MILLIGRAMS RxNorm TAKE 10 MILLIGRAMS ORAL ONCE A DAY hydroCHLOROthiaz zulema 12.5MG Oral Tablet 04/30/2022 Unknown ORAL ONCE A DAY 12.5 MILLIGRAMS 013867 RxNorm TAKE 12.5 MILLIGRAMS ORAL ONCE A DAY metFORMIN HCl 500MG Oral Tablet 04/30/2022 Unknown ORAL TWICE A DAY 1000 MILLIGRAMS 678056 RxNorm TAKE 1000 MILLIGRAMS ORAL TWICE A DAY traZODone hydrochloride 150MG Oral Tablet 04/30/2022 Unknown ORAL AT BEDTIM E 150 MILLIGRAMS 113501 RxNorm TAKE 150 MILLIGRAMS ORAL AT BEDTIME [...] Status Code Code System SECONDARY AMENORRHEA active 72260336 SNOMED-CT IRON DEFICIENCY ANEMIA, UNSPECIFIED active 89951375 SNOMED-CT DIARRHEA active 39637481 SNOMED-CT GERD active 869766748 SNOMED-CT ENCOUNTER FOR GYNECOLOGICAL EXAMINATION (GENERAL) (ROUTINE) WITHOUT ABNORMAL FIN active 18351134 SNOMED- CT HIGH RISK HETEROSEXUAL BEHAVIOR active 508403018694802 SNOMED-CT BARIATRIC SURGERY STATUS active 78126 6276 SNOMED-CT Allergies and Adverse Reactions Allergy Substance Reaction Severity Start Date Concern Status Co de Code System MORPHINE Active 7052 RxNorm ADHESIVE Active LATEX Active 8951497 RxNorm HUMALOG Active 371806 RxNorm Plan of Treatment Split Night, CPAP/BIPAP/ASV (51310) EGD/Colonoscopy 04/30/2022 US Pelvis/Transvaginal (57086) 04/06/19 24 Pharynx Esophagus Cine 04/01/2023 Encounters Encounter Diagnosis Start Date Code Code Sys tem Frequency of micturition 09/27/2023 [facility] MED-CT Personal Care Team Section Performer Name Performer Role Active Date Inactive SHAHEED Patricia PCP - Primary care physician 8 2021-07-04 Jean-Pierre Ferrari PCP - Primary care physician 2022-03-13
--- OUTSIDE RECORDS SUMMARY | 2024-06-24 14:27 | XMS_ITS ---
Author Organization Unknown Address [address] [place] [address] [phone] Phone Care Team Providers Care Ad Trafficker Name Role Phone JOSÉ LUIS DELCID Attending Unavailable Immunization Immunization Date Status Additional Notes Code Code System Influenza, split virus, trivalent, PF 12/09/2014 Completed 140 CVX Influenza, split virus, trivalent, preservative 12/10/2017 Completed 141 CVX COVID-19, mRNA, LNP-S, PF, 3 0 mcg/0.3 mL dose 05/30/2020 Completed 208 CVX Results MICROALBUMIN - Collect Date/ Time: 06/24/2023 10:20 [facility] ID: [id number] [address] [place] [address], [phone] LOINC: 17630-4 Test Value Unit Reference Range Code Code System Flag MICROALBUMIN 368.5 mg/L L=0.0 H=16.7 60538-3 LOINC H UR CREATININE 90.00 mg/dL L=30.00 H=125 2161-8 LOINC MA/CR 409.4 mg/gCR HEMOGLOBIN A1C WITH eAG - Co llect Date/Time: 06/24/2023 10:16 [facility] ID: [id number] [address] [place] [address], [id number] LOINC: 4548-4 Test Value Unit Reference Range Code Code System Flag HGBA1C 6.8 % 4548-4 LOINC eAG 148.5 mg/dL 4548-4 LOINC LIPID PANEL - Collect Date/T douglas: 06/24/2023 10:16 [facility] ID: [id number] [address] [place], [place], [phone] LOINC: 02732-9 Test Value Unit Reference Range Code Code System Flag FASTING NO CHOLESTEROL 102 mg/dL L=0 H=200 3-3 LOINC TRIGLYCERIDE 156 mg/dL L=0 H=150 2571-8 LOINC H HDL 32 mg/dL L=40 H=60 5-9 LOINC L LDL 52 mg/dL 2088-1 LOINC CBC W/ DIFF - Collect Date/T douglas: 06/24/2023 10:16 [facility] ID: [id number] [address] [place], [place], [phone] LOINC: 33063-6 Test Value Unit Reference Range Code Code System Flag WBC 6.9 10^3uL L=4.8 H=10.8 RBC 5.02 10^6uL L=4.20 H=5.40 HEMOGLOBIN 12.1 g/dL L=12.0 H=16.0 718-7 LOINC HEMATOCRIT 38.9 VOL% L=37.0 H=47.0 4544-3 LOINC MCV 77.5 fL L=81.0 H=99.0 L MCH 24.1 pg L=27.0 H=32.0 L MCHC 31.1 g/dL L=32.0 H=36.0 L PLATELETS 376 10^3uL L=100 H=400 52867-1 LOINC RDW 15.9 % L=11.7 H=15.5 H %GRAN 50.6 % L=40.0 H=70.0 27138-5 LOINC %LYMPH 43.2 % L=20.0 H=45.0 736-9 LOINC %MONO 5.1 % L=2.0 H=10.0 90411-4 LOINC %EOS 0.6 % L=0.0 H=6.0 713-8 LOINC %BASO 0.4 % L=0.0 H=3.0 706-2 LOINC #NEUT 3.5 10^3uL L=1.9 H=7.6 95194-3 LOINC #LYMPH 3.0 10^3uL L=0.9 H=4.9 10461-5 LOINC #MONO 0.4 10^3uL L=0.1 H=0.9 49735-8 LOINC #EOS 0.0 10^3uL L=0.0 H=0.6 712-0 LOINC #BASO 0.03 10^3uL L=0.00 H=0.10 28069-3 LOINC #IM GRANS 0.0 10^3uL L=0.0 H=7.0 70151-1 LOINC %IM GRANS 0.1 % L=0.0 H=5.0 70177-8 LOINC %NRB 0.0 L=0.0 H=0.2 01770-6 LOINC #NRB 0.000 L=0.000 H=0.012 64472-7 LOINC MANUAL DIFF NOT INDICATED RBC MORPH NOT INDICATED COMPREHENSIVE METABOLIC PANE L - Collect Date/Time: 06/24/2023 10:16 [facility] ID: [id number] [address] [place], [place], [id number] LOINC: 19994-1 Test Value Unit Reference Range Code Code System Flag FASTING NO BUN 11 mg/dL L=7 H=20 3094-0 LOINC CREATININE 0.70 mg/dL L=0.52 H=1.04 2160-0 LOINC GLUCOSE 63 mg/dL L=74 H=106 2345-7 LOINC L SODIUM 143 mmol/L L=132 H=144 2951-2 LOINC POTASSIUM 3.6 mmol/L L=3.5 H=5.1 2823-3 LOINC CHLORIDE 103 mmol/L L=98 H=107 2075-0 LOINC CO2 29.0 mmol/L L=22.0 H=30.0 8-9 LOINC ANION GAP 15 L=10 H=20 10216-6 LOINC OSMOLALITY 293 mOs/kG L=280 H=296 13714-5 LOINC BUN/CREAT 15.7 3097-3 LOINC CALCIUM 10.0 mg/dL L=8.3 H=10.5 97637-1 LOINC AST 40 U/L L=15 H=46 1920-8 LOINC ALT 39 U/L L=9 H=72 1742-6 LOINC ALKALINE PHOS 62 U/L L=38 H=126 6768-6 LOINC TOTAL BILI 0.5 mg/dL L=0.2 H=1.3 1975-2 LOINC ALBUMIN 4.4 G/dL L=3.5 H=5.0 1751-7 LOINC TOTAL PROTEIN 9.0 g/L L=6.3 H=8.2 2885-2 LOINC H A/G RATIO 1.0 48175-4 LOINC AGE 38 67020-5 LOINC eGFR NON-AFR 99 ml/min eGFR AFR AMER 120 ml/min TSH / REFLEX FT4 - Collect D ate/Time: 06/24/2023 10:16 [facility] ID: [id number] [address] [place], [place], [phone] LOINC: Test Value Unit Reference Range Code Code System Flag TSH 1.540 uIU/L L=0.470 H=4.680 34501-0 LOINC Social History Type Status Start Date End Date Code Code Syst em Smoking History Never smoker (Never Smoked) [id number] SNOMED CT Sex Female Medications Medication Start Date End Date Route Frequency Dose Code Code System Medication Instructions Home Meds vilazodone hydrochloride 10MG Oral Tablet 04/30/2022 Unknown ORAL ONCE A DAY 10 MILLIGRAMS 0267097 RxNorm TAKE 10 MILLIGRAMS ORAL ONCE A DAY HumaLOG 100U/1ML Injection Solution 04/30/2022 Unknown INJECT ION 1 unit(s) 752816 RxNorm 1 EACH INJECTION Cozaar 100MG Oral Tablet 04/30/2022 Unknown ORAL ONCE A DAY 100 MILLIGRAMS 648478 RxNorm TAKE 100 MILLIGRAMS ORAL ONCE A DAY Lantus 100U/1ML Subcutaneous Solution 04/30/2022 Unknown SUBCUT ANEOUS AT BEDTIM E 48 unit(s) 975193 RxNorm INJECT INTO 48 EACH SUBCUTANEOUS AT BEDTIME Lipitor 20MG Oral Tablet 04/30/2022 Unknown ORAL ONCE A DAY 20 MILLIGRAMS 285748 RxNorm TAKE 20 MILLIGRAMS ORAL ONCE A DAY Omeprazole 20MG Oral Capsule, Delayed Release 04/30/2022 Unknown ORAL ONCE A DAY 20 MILLIGRAMS 040148 RxNorm TAKE 20 MILLIGRAMS ORAL ONCE A DAY Oxybutynin Chloride 5MG Oral Tablet, Extended Release 04/30/2022 Unknown ORAL ONCE A DAY 5 MILLIGRAMS 684655 RxNorm TAKE 5 MILLIGRAMS ORAL ONCE A DAY ProAir HFA 0.09MG/1Actuatio n Inhalation Suspension 04/30/2022 Unknown INHALA TION NEEDED EVERY 4 HOURS 1 unit(s) 870173 RxNorm 1 EACH INHALATION NEEDED EVERY 4 HOURS Singulair 10MG Oral Tablet 04/30/2022 Unknown ORAL AT BEDTIM E 10 MILLIGRAMS 069372 RxNorm TAKE 10 MILLIGRAMS ORAL AT BEDTIME ZyrTEC 10MG Oral Tablet 04/30/2022 Unknown ORAL ONCE A DAY 10 MILLIGRAMS RxNorm TAKE 10 MILLIGRAMS ORAL ONCE A DAY hydroCHLOROthiaz zulema 12.5MG Oral Tablet 04/30/2022 Unknown ORAL ONCE A DAY 12.5 MILLIGRAMS 870536 RxNorm TAKE 12.5 MILLIGRAMS ORAL ONCE A DAY metFORMIN HCl 500MG Oral Tablet 04/30/2022 Unknown ORAL TWICE A DAY 1000 MILLIGRAMS 678508 RxNorm TAKE 1000 MILLIGRAMS ORAL TWICE A DAY traZODone hydrochloride 150MG Oral Tablet 04/30/2022 Unknown ORAL AT BEDTIM E 150 MILLIGRAMS 276567 RxNorm TAKE 150 MILLIGRAMS ORAL AT BEDTIME [...] Status Code Code System SECONDARY AMENORRHEA active 26446904 SNOMED-CT IRON DEFICIENCY ANEMIA, UNSPECIFIED active 10887041 SNOMED-CT DIARRHEA active 89217281 SNOMED-CT GERD active 139482284 SNOMED-CT ENCOUNTER FOR GYNECOLOGICAL EXAMINATION (GENERAL) (ROUTINE) WITHOUT ABNORMAL FIN active 55795362 SNOMED- CT HIGH RISK HETEROSEXUAL BEHAVIOR active 004095799915270 SNOMED-CT BARIATRIC SURGERY STATUS active 21178 8006 SNOMED-CT Allergies and Adverse Reactions Allergy Substance Reaction Severity Start Date Concern Status Co de Code System MORPHINE Active 7052 RxNorm ADHESIVE Active LATEX Active 5953321 RxNorm HUMALOG Active 787737 RxNorm Plan of Treatment Split Night, CPAP/BIPAP/ASV (50020) EGD/Colonoscopy 04/30/2022 US Pelvis/Transvaginal (74695) 04/06/19 24 Pharynx Esophagus Cine 04/01/2023 Encounters Encounter Diagnosis Start Date Code Code Sys tem Type 2 diabetes mellitus without complications 024 SNOMED-CT Personal Care Team Section Performer Name Performer Role Active Date Inactive SHAHEED Patricia PCP - Primary care physician 8 2021-07-04 Jean-Pierre Ferrari PCP - Primary care physician 2022-03-13
--- OUTSIDE RECORDS SUMMARY | 2024-06-24 14:27 | XMS_ITS ---
Author Organization Unknown Address [address] [place] [address] [phone] Phone Care Team Providers Care Senior Chemical Engineer Name Role Phone BLU Estrada Attending Unavailable JOSÉ LUIS DELCID Primary Unavailable [...] em Smoking History Never smoker (Never Smoked) [id number] SNOMED CT Sex Female Medications Medication Start Date End Date Route Frequency Dose Code Code System Medication Instructions Home Meds vilazodone hydrochloride 10MG Oral Tablet 04/30/2022 Unknown ORAL ONCE A DAY 10 MILLIGRAMS 0383894 RxNorm TAKE 10 MILLIGRAMS ORAL ONCE A DAY HumaLOG 100U/1ML Injection Solution 04/30/2022 Unknown INJECT ION 1 unit(s) 348903 RxNorm 1 EACH INJECTION Cozaar 100MG Oral Tablet 04/30/2022 Unknown ORAL ONCE A DAY 100 MILLIGRAMS 496082 RxNorm TAKE 100 MILLIGRAMS ORAL ONCE A DAY Lantus 100U/1ML Subcutaneous Solution 04/30/2022 Unknown SUBCUT ANEOUS AT BEDTIM E 48 unit(s) 425982 RxNorm INJECT INTO 48 EACH SUBCUTANEOUS AT BEDTIME Lipitor 20MG Oral Tablet 04/30/2022 Unknown ORAL ONCE A DAY 20 MILLIGRAMS 601474 RxNorm TAKE 20 MILLIGRAMS ORAL ONCE A DAY Omeprazole 20MG Oral Capsule, Delayed Release 04/30/2022 Unknown ORAL ONCE A DAY 20 MILLIGRAMS 916688 RxNorm TAKE 20 MILLIGRAMS ORAL ONCE A DAY Oxybutynin Chloride 5MG Oral Tablet, Extended Release 04/30/2022 Unknown ORAL ONCE A DAY 5 MILLIGRAMS 746339 RxNorm TAKE 5 MILLIGRAMS ORAL ONCE A DAY ProAir HFA 0.09MG/1Actuatio n Inhalation Suspension 04/30/2022 Unknown INHALA TION NEEDED EVERY 4 HOURS 1 unit(s) 037005 RxNorm 1 EACH INHALATION NEEDED EVERY 4 HOURS Singulair 10MG Oral Tablet 04/30/2022 Unknown ORAL AT BEDTIM E 10 MILLIGRAMS 019512 RxNorm TAKE 10 MILLIGRAMS ORAL AT BEDTIME ZyrTEC 10MG Oral Tablet 04/30/2022 Unknown ORAL ONCE A DAY 10 MILLIGRAMS RxNorm TAKE 10 MILLIGRAMS ORAL ONCE A DAY hydroCHLOROthiaz zulema 12.5MG Oral Tablet 04/30/2022 Unknown ORAL ONCE A DAY 12.5 MILLIGRAMS 497172 RxNorm TAKE 12.5 MILLIGRAMS ORAL ONCE A DAY metFORMIN HCl 500MG Oral Tablet 04/30/2022 Unknown ORAL TWICE A DAY 1000 MILLIGRAMS 422938 RxNorm TAKE 1000 MILLIGRAMS ORAL TWICE A DAY traZODone hydrochloride 150MG Oral Tablet 04/30/2022 Unknown ORAL AT BEDTIM E 150 MILLIGRAMS 724590 RxNorm TAKE 150 MILLIGRAMS ORAL AT BEDTIME [...] Status Code Code System SECONDARY AMENORRHEA active 57171388 SNOMED-CT IRON DEFICIENCY ANEMIA, UNSPECIFIED active 87810550 SNOMED-CT DIARRHEA active 02103365 SNOMED-CT GERD active 373185659 SNOMED-CT ENCOUNTER FOR GYNECOLOGICAL EXAMINATION (GENERAL) (ROUTINE) WITHOUT ABNORMAL FIN active 13031135 SNOMED- CT HIGH RISK HETEROSEXUAL BEHAVIOR active 677057043805555 SNOMED-CT BARIATRIC SURGERY STATUS active 27450 2146 SNOMED-CT Allergies and Adverse Reactions Allergy Substance Reaction Severity Start Date Concern Status Co de Code System MORPHINE Active 7052 RxNorm ADHESIVE Active LATEX Active 2609018 RxNorm HUMALOG Active 186306 RxNorm Plan of Treatment Split Night, CPAP/BIPAP/ASV (30310) EGD/Colonoscopy 04/30/2022 US Pelvis/Transvaginal (45784) 04/06/19 24 Pharynx Esophagus Cine 04/01/2023 Encounters Encounter Diagnosis Start Date Code Code Sys tem Gastro-esophageal reflux disease without esophagitis 0 06/28/2023 SNOMED-CT Personal Care Team Section Performer Name Performer Role Active Date Inactive SHAHEED Patricia PCP - Primary care physician 8 2021-07-04 Jean-Pierre Ferrari PCP - Primary care physician 2022-03-13
--- OUTSIDE RECORDS SUMMARY | 2024-06-24 14:27 | XMS_ITS ---
Author Organization Unknown Address [address] [place] [address] [phone] Phone Care Team Providers Care Computer Information Science Professor Name Role Phone TERRI BEDOYA Attending Unavailable JOSÉ LUIS DELCID Primary Unavailable Immunization Immunization Date Status Additional Notes Code Code System Influenza, split virus, trivalent, PF 12/09/2014 Completed 140 CVX Influenza, split virus, trivalent, preservative 12/10/2017 Completed 141 CVX COVID-19, mRNA, LNP-S, PF, 3 0 mcg/0.3 mL dose 05/30/2020 Completed 208 CVX Results URINALYSIS w/Microscopy/C&S if indicated - Collect Date/Time: 04/02/2024 09:18 [facility] ID: [id number] [place] [address], [phone] LOINC: 12775-1 Test Value Unit Reference Range Code Code System Flag UR SOURCE VOIDED 48179-0 LOINC COLOR YELLOW YELLOW 5778-6 LOINC CLARITY CLOUDY CLEAR 42617-3 LOINC SPEC GRAVITY 1.025 1.000-1.030 5811-5 LOINC PH 6.5 5.0 - 6.5 5803-2 LOINC LEUK EST NEGATIVE NEGATIVE 5799-2 LOINC NITRATE NEGATIVE NEGATIVE PROTEIN 2+ NEGATIVE 5804-0 LOINC A GLUCOSE NEGATIVE NEGATIVE 60507-3 LOINC KETONES NEGATIVE NEGATIVE 34237-3 LOINC UROBILINOGEN 1.0 0.2 - 1.0 5818-0 LOINC BILIRUBIN NEGATIVE NEGATIVE 59375-1 LOINC BLOOD NEGATIVE NEGATIVE 86436-1 LOINC WBC 0-2 0 - 2 25712-0 LOINC RBC 0-2 0 - 2 00462-8 LOINC SQ EPITHELIAL MODERATE RARE-FEW BACTERIA NONE SEEN NONE SEEN 82979-1 LOINC MUCUS 2+ NONE SEEN 8247-9 LOINC A YEAST NOT PRESENT NOT PRESENT 90596-7 LOINC TRICHOMONAS NOT PRESENT NOT PRESENT 54924-6 LOINC SPERMATOZOA NOT PRESENT NOT PRESENT 97703-2 LOINC CASTS NOT PRESENT 67934-0 LOINC CRYSTALS PRESENT 06671-3 LOINC AMORPH URATE NONE SEEN 43952-5 LOINC AMORPH PHOS NONE SEEN 68079-2 LOINC CA OXALATE 1+ NONE SEEN 90224-6 LOINC TRIPLE PHOS NONE SEEN 42490-4 LOINC URIC ACID NONE SEEN 5817-2 LOINC AMM BIURATE NONE SEEN 5766-1 LOINC CA CARBONATE NONE SEEN 35856-9 LOINC CA PHOSPHATE NONE SEEN 93499-8 LOINC CULTURE? NO 8251-1 LOINC DIAGNOSIS N/A BASIC METABOLIC PANEL - Thanh ect Date/Time: 04/02/2024 09:15 [facility] ID: [id number] [address] [place], [place], [phone] LOINC: 45166-0 Test Value Unit Reference Range Code Code System Flag FASTING YES BUN 6 mg/dL L=7 H=20 3094-0 LOINC L CREATININE 0.60 mg/dL L=0.52 H=1.04 2160-0 LOINC GLUCOSE 120 mg/dL L=74 H=106 2345-7 LOINC H CALCIUM 9.1 mg/dL L=8.3 H=10.5 10941-6 LOINC SODIUM 139 mmol/L L=132 H=144 2951-2 LOINC POTASSIUM 4.0 mmol/L L=3.5 H=5.1 2823-3 LOINC CHLORIDE 103 mmol/L L=98 H=107 2075-0 LOINC CO2 28.0 mmol/L L=22.0 H=30.0 2028-9 LOINC ANION GAP 12 L=10 H=20 29554-6 LOINC BUN/CREAT 10.0 3097-3 LOINC AGE 38 92020-6 LOINC eGFR NON-AFR 118 ml/min eGFR AFR AMER 143 ml/min CBC W/ DIFF - Collect Date/T douglas: 04/02/2024 09:15 [facility] ID: [id number] [address] [place], [place], [phone] LOINC: 55816-2 Test Value Unit Reference Range Code Code System Flag WBC 6.5 10^3uL L=4.8 H=10.8 RBC 4.34 10^6uL L=4.20 H=5.40 HEMOGLOBIN 9.5 g/dL L=12.0 H=16.0 718-7 LOINC L HEMATOCRIT 32.7 VOL% L=37.0 H=47.0 4544-3 LOINC L MCV 75.3 fL L=81.0 H=99.0 L MCH 21.9 pg L=27.0 H=32.0 L MCHC 29.1 g/dL L=32.0 H=36.0 L PLATELETS 376 10^3uL L=100 H=400 32711-6 LOINC RDW 15.7 % L=11.7 H=15.5 H %GRAN L=40.0 H=70.0 32082-0 LOINC %LYMPH L=20.0 H=45.0 736-9 LOINC %MONO L=2.0 H=10.0 54493-1 LOINC %EOS L=0.0 H=6.0 713-8 LOINC %BASO L=0.0 H=3.0 706-2 LOINC #NEUT L=1.9 H=7.6 78371-1 LOINC #LYMPH L=0.9 H=4.9 84667-5 LOINC #MONO L=0.1 H=0.9 78542-5 LOINC #EOS L=0.0 H=0.6 712-0 LOINC #BASO L=0.00 H=0.10 65732-8 LOINC #IM GRANS L=0.0 H=7.0 56928-4 LOINC %IM GRANS L=0.0 H=5.0 87364-5 LOINC %NRB L=0.0 H=0.2 58418-2 LOINC #NRB L=0.000 H=0.012 38596-0 LOINC MANUAL DIFF SEE BELOW A SEG 40 % L=40 H=70 BANDS 0 % L=0 H=6 LYMPH 54 % L=20 H=45 H MONO 4.0 % L=2.0 H=10.0 EOS 2 % L=0 H=6 713-8 LOINC BASO 0 % L=0 H=3 IM GRANS 0 % L=0 H=5 METAS 0 % L=0 H=0 MYELOS 0 % L=0 H=0 PROMYELOS 0 % L=0 H=0 BLASTS L=0 H=0 28650-5 LOINC THAIS LYMPHS 0 % L=0.00 H=5.00 SMUDGE CELLS L=0 H=0 NRBC L=0.0 H=0.0 PLTS APPEAR NORMAL NEUT # 2.6 10^3uL L=1.9 H=7.6 LYMPH # 3.5 10^3uL L=0.9 H=4.9 MONO # 0.3 10^3uL L=0.1 H=0.9 EOS # 0.1 10^3uL L=0.0 H=0.6 712-0 LOINC BASO # 0.0 10^3uL L=0.0 H=0.1 71586-1 LOINC RBC MORPH NOT INDICATED Social History Type Status Start Date End Date Code Code Syst em Smoking History Never smoker (Never Smoked) 850756735 SNOMED CT Sex Female Medications Medication Start Date End Date Route Frequency Dose Code Code System Medication Instructions Home Meds vilazodone hydrochloride 10MG Oral Tablet 04/30/2022 Unknown ORAL ONCE A DAY 10 MILLIGRAMS 7003116 RxNorm TAKE 10 MILLIGRAMS ORAL ONCE A DAY HumaLOG 100U/1ML Injection Solution 04/30/2022 Unknown INJECT ION 1 unit(s) 451783 RxNorm 1 EACH INJECTION Cozaar 100MG Oral Tablet 04/30/2022 Unknown ORAL ONCE A DAY 100 MILLIGRAMS 380544 RxNorm TAKE 100 MILLIGRAMS ORAL ONCE A DAY Lantus 100U/1ML Subcutaneous Solution 04/30/2022 Unknown SUBCUT ANEOUS AT BEDTIM E 48 unit(s) 222656 RxNorm INJECT INTO 48 EACH SUBCUTANEOUS AT BEDTIME Lipitor 20MG Oral Tablet 04/30/2022 Unknown ORAL ONCE A DAY 20 MILLIGRAMS 540919 RxNorm TAKE 20 MILLIGRAMS ORAL ONCE A DAY Omeprazole 20MG Oral Capsule, Delayed Release 04/30/2022 Unknown ORAL ONCE A DAY 20 MILLIGRAMS 188372 RxNorm TAKE 20 MILLIGRAMS ORAL ONCE A DAY Oxybutynin Chloride 5MG Oral Tablet, Extended Release 04/30/2022 Unknown ORAL ONCE A DAY 5 MILLIGRAMS 908239 RxNorm TAKE 5 MILLIGRAMS ORAL ONCE A DAY ProAir HFA 0.09MG/1Actuatio n Inhalation Suspension 04/30/2022 Unknown INHALA TION NEEDED EVERY 4 HOURS 1 unit(s) 995188 RxNorm 1 EACH INHALATION NEEDED EVERY 4 HOURS Singulair 10MG Oral Tablet 04/30/2022 Unknown ORAL AT BEDTIM E 10 MILLIGRAMS 141065 RxNorm TAKE 10 MILLIGRAMS ORAL AT BEDTIME ZyrTEC 10MG Oral Tablet 04/30/2022 Unknown ORAL ONCE A DAY 10 MILLIGRAMS RxNorm TAKE 10 MILLIGRAMS ORAL ONCE A DAY hydroCHLOROthiaz zulema 12.5MG Oral Tablet 04/30/2022 Unknown ORAL ONCE A DAY 12.5 MILLIGRAMS 070593 RxNorm TAKE 12.5 MILLIGRAMS ORAL ONCE A DAY metFORMIN HCl 500MG Oral Tablet 04/30/2022 Unknown ORAL TWICE A DAY 1000 MILLIGRAMS 155843 RxNorm TAKE 1000 MILLIGRAMS ORAL TWICE A DAY traZODone hydrochloride 150MG Oral Tablet 04/30/2022 Unknown ORAL AT BEDTIM E 150 MILLIGRAMS 367813 RxNorm TAKE 150 MILLIGRAMS ORAL AT BEDTIME [...] Status Code Code System SECONDARY AMENORRHEA active 04509237 SNOMED-CT IRON DEFICIENCY ANEMIA, UNSPECIFIED active 47276854 SNOMED-CT DIARRHEA active 87250829 SNOMED-CT GERD active 457557935 SNOMED-CT ENCOUNTER FOR GYNECOLOGICAL EXAMINATION (GENERAL) (ROUTINE) WITHOUT ABNORMAL FIN active 03306065 SNOMED- CT HIGH RISK HETEROSEXUAL BEHAVIOR active 809486267297514 SNOMED-CT BARIATRIC SURGERY STATUS active 36890 8006 SNOMED-CT Allergies and Adverse Reactions Allergy Substance Reaction Severity Start Date Concern Status Co de Code System MORPHINE Active 7052 RxNorm ADHESIVE Active LATEX Active 7225210 RxNorm HUMALOG Active 774471 RxNorm Plan of Treatment Split Night, CPAP/BIPAP/ASV (96150) EGD/Colonoscopy 04/30/2022 US Pelvis/Transvaginal (33045) 04/06/19 24 Pharynx Esophagus Cine 04/01/2023 Encounters Encounter Diagnosis Start Date Code Code Sys tem Essential (primary) hypertension 04/02/2024 SNOMED-CT Personal Care Team Section Performer Name Performer Role Active Date Inactive SHAHEED Patricia PCP - Primary care physician 8 2021-07-04 Jean-Pierre Ferrari PCP - Primary care physician 2022-03-13
--- OUTSIDE RECORDS SUMMARY | 2024-06-24 14:27 | XMS_ITS | Clinical Summary ---
Author Organization [facility] Address [address] [place] [address] Care Team Providers Care Director Business Travel Name Role Phone KarleecelesteJean-Pierre Primary Care Provider [phone] Allergies Active Allergy Reactions Criticality Noted Date Comments Tape Rash Low 07/07/2023 Latex Rash Low 07/07/2023 Morphine Rash Low 07/07/2023 Dulaglutide Nausea and Vomiting 07/07/2023 Medications montelukast (SINGULAIR) 10 MG tablet Take 1 tablet (10 mg total) by mouth nightly at bedtime. Active insulin lispro (HUMALOG) 100 UNIT/ML injection (VIAL) Inject into the skin 3 (three) times daily before meals. Active insulin glargine (LANTUS SOLOSTAR) 100 UNIT/ML injection (PEN) Inject 30 Units into the skin nightly at bedtime. Active cetirizine (ZYRTEC) 10 MG tablet Take 1 tablet (10 mg total) by mouth daily. Active albuterol sulfate HFA (PROAIR HFA) 108 (90 Base) MCG/ACT inhaler Inhale 2 puffs into the lungs every 6 (six) hours as needed for Wheezing. Active ferrous sulfate, 65 mg elemental, 325 (65 FE) MG tablet Take 1 tablet (325 mg total) by mouth daily with breakfast. Active omeprazole (PRILOSEC) 20 MG capsule Take 1 capsule (20 mg total) by mouth daily. Active sulfamethoxazole-tr imethoprim (BACTRIM DS) 800-160 MG tablet take 1 tablet by mouth once daily for 90 days Active metoclopramide (REGLAN) 10 MG tablet Take 1 tablet (10 mg total) by mouth 2 (two) times daily as needed. 4 Active sucralfate (CARAFATE) 1 GM/10ML suspension TAKE 5ML BY MOUTH 4 TIMES DAILY 30 MINUTES PRIOR TO EACH MEAL AND 30 MINUTES PRIOR TO BEDTIME Active ondansetron (ZOFRAN-ODT) 4 MG disintegrating tablet Take 1 tablet (4 mg total) by mouth every 8 (eight) hours as needed for Nausea. 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 Diarrhea 09/06/2023 ADHD 09/06/2023 PTSD (post-traumatic stress disorder) 09/06/2023 Anxiety 09/06/2023 LLQ abdominal pain 09/06/2023 Left ovarian cyst 09/06/2023 Bladder spasms 09/06/2023 Folliculitis 09/06/2023 Chronic allergic rhinitis 09/06/2023 Eustachian tube dysfunction 09/06/2023 MARY on CPAP 09/06/2023 Panic attack 09/06/2023 Obesity, morbid 09/06/2023 Iron deficiency 09/06/2023 Anemia 09/06/2023 Type 2 diabetes mellitus ([facility]) 07/06 Hypertension 07/07/2023 Hyperlipidemia 07/07/2023 Proteinuria 07/07/2023 Iron deficiency anemia, unspecified 07/07/2023 Vitamin D deficiency 07/07/2023 Encounters Date Type Department Care Team Description 04/19/2024 Orders Only [facility] [address] [place] [address] Nelson Vivar MD 04/17/2024 2:00 PM SUPERVISOR BROADLOOM Office Visit [facility] [place] [address] Nelson Vivar MD Kidney Stones 04/17/2024 1:10 PM SUPERVISOR BROADLOOM - 04/17/2024 11:59 PM SUPERVISOR BROADLOOM Hospital Encounter [facility] [address] [place] [address] Nelson Vivar MD Discharge Disposition: Home or Self Care (Routine Discharge) 04/17/2024 Travel from Last 3 Months Social History Tobacco Use Types Packs/Day Years Used Date Smoking Tobacco: Never Smokeless Tobacco: Never Tobacco Cessation:Counseling Given: Not Answered Alcohol Use Standard Drinks/Week Comments Never 0 (1 standard drink = 0.6 oz pur e alcohol) Comments No Sex and Gender Information Value Date Recorded Sex Assigned at Female 04/17/2024 1:10 PM SUPERVISOR BROADLOOM Legal Sex Female 7:17 PM CDT Gender Identity Not on file Sexual Orientation Not on file Last Filed Vital Signs Vital Sign Reading Time Taken Comments Blood Pressure 119/76 04/17/2024 1:49 PM SUPERVISOR BROADLOOM Pulse 74 04/17/2024 1:49 PM SUPERVISOR BROADLOOM Temperature 36.4 C (97.5 F) 03/14/2024 12:39 PM SUPERVISOR BROADLOOM Respiratory Rate 16 03/14/2024 1:36 PM SUPERVISOR BROADLOOM Oxygen Saturation 94% 03/14/2024 3:00 PM SUPERVISOR BROADLOOM Inhaled Oxygen Concentration - - Weight 82.1 kg (181 lb) 04/17/2024 1:49 PM SUPERVISOR BROADLOOM Height 162.6 cm (5' 4 ) 04/17/2024 1:49 PM SUPERVISOR BROADLOOM Body Mass Index 31.07 04/17/2024 1:49 PM SUPERVISOR BROADLOOM Plan of Treatment Upcoming Encounters Date Type Department Care Team (Late st Contact Info) Description 08/14/2024 1:30 PM CDT Office Visit [facility] [address] [place] [address] Nelson Vivar MD [address] [place] [address] Health Maintenance Due Date Last Done Comments Cervical Cancer Screening Pap Smear (Age 30 to 64) Every 3 Years 1983 Kidney Health Evaluation 1983 Annual Physical 1986 Pneumococcal Vaccine: Pediatrics (0 to 5 Years) and At-Risk Patients (6 to 64 Years) (1 of 2 - PCV) 1989 Diabetes: Retinopathy Eye Exam 2001 DTaP, Tdap and Td Vaccines (1 - Tdap) 2002 Hepatitis B Vaccines (1 of 3 - 19+ 3-dose series) 2002 Cervical Cancer Screening Pap with HPV Testing (Age 30 to 64) Every 5 Years 2013 Cervical Cancer Screening with HPV 2013 Lipid Panel 07/10/2018 07/10/2017, 07/10/2017 Hemoglobin A1C 10/28/2021 07/28/2021, 01/13, 07/10/2017, Additional history exists Mammogram Screening 2023 COVID-19 Vaccine ( season) 2023 05/30/2020 Hepatitis C Completed 09/13/2023 HPV Vaccines Aged Out No longer eligi ble based on patient's age to complete this topic Meningococcal B Vaccine Aged Out No l onger eligible based on patient's age to complete this topic Meningococcal Vaccine Aged Out No yaritza keegan eligible based on patient's age to complete this topic RSV Immunizations Under 20 Months Aged Out No longer eligible based on patient's age to complete this topic Procedures Procedure Name Priority Date/Time Associated Diagnosis Comments HC URINALYSIS AUTO W/MICRO Routine 04/17/2024 1:39 PM SUPERVISOR BROADLOOM Proteinuria, unspecified type Hypertension, essential CKD (chronic kidney disease) stage 1, GFR 90 ml/min or greater PROTEIN TOTAL URINE RANDOM Routine 04/17/2024 1:39 PM SUPERVISOR BROADLOOM Proteinuria, unspecified type Hypertension, essential CKD (chronic kidney disease) stage 1, GFR 90 ml/min or greater CREATININE URINE RANDOM Routine 04/17/2024 1:39 PM SUPERVISOR BROADLOOM Proteinuria, unspecified type Hypertension, essential CKD (chronic kidney disease) stage 1, GFR 90 ml/min or greater RENAL FUNCTION PANEL Routine 04/17/2024 1:37 PM SUPERVISOR BROADLOOM Proteinuria, unspecified type Hypertension, essential CKD (chronic kidney disease) stage 1, GFR 90 ml/min or greater CBC W/DIFF AUTOMATED Routine 04/17/2024 1:37 PM SUPERVISOR BROADLOOM Proteinuria, unspecified type Hypertension, essential CKD (chronic kidney disease) stage 1, GFR 90 ml/min or greater HEPATITIS PANEL,ACUTE Routine 09/13/2023 3:12 PM CDT Primary hypertension Fatigue, unspecified type Proteinuria, unspecified type CKD (chronic kidney disease) stage 1, GFR 90 ml/min or greater LIPID PANEL Routine 07/10/2017 7:02 AM CDT HEMOGLOBIN, GLYCOSYLATED Routine 07/10/2017 7:02 AM CDT from Last 3 Months or Most Recently Relevant to Health Maintenance Results * (ABNORMAL) PROTEIN TOTAL URINE RANDOM (04/17/2024 1:39 PM SUPERVISOR BROADLOOM) PROTEIN URINE TOTAL RANDOM 245.0(H) <11.9 MG/DL 04/17/2024 1:57 PM SUPERVISOR BROADLOOM [facility] URINE SPECIMEN / Unknown 04/17/2024 1:39 PM SUPERVISOR BROADLOOM us Nelson Vivar MD URINE ORDERABLES Final Result Performing Organization Address [facility]/ZIP Co de Phone Number [facility] [address] [place] [address], * CREATININE URINE RANDOM (04/17/2024 1:39 PM SUPERVISOR BROADLOOM) CREATININE RANDOM (U) 163.6 MG/DL 04/17/2024 1:57 PM SUPERVISOR BROADLOOM [facility] Comment:REFERENCE RANGE NOT ESTABLISHED URINE SPECIMEN / Unknown 04/17/2024 1:39 PM SUPERVISOR BROADLOOM us Nelson Vivar MD URINE ORDERABLES Final Result Performing Organization Address [facility] Co de Phone Number [facility] [address] [place] [address], * (ABNORMAL) URINALYSIS (04/17/2024 1:39 PM SUPERVISOR BROADLOOM) COLOR (U) YELLOW 04/17/2024 1:55 PM SUPERVISOR BROADLOOM [facility] TRANSPARENCY SLIGHTLY CLOUDY 04/17/2024 1:55 PM SUPERVISOR BROADLOOM [facility] SPECIFIC GRAVITY (U) 1.030(H) 1.000 - 1.025 04/17/2024 1:55 PM SUPERVISOR BROADLOOM [facility] Comment:EQUAL TO OR GREATER THAN U PH 7.0 5.0 - 8.0 04/17/2024 1:55 PM SUPERVISOR BROADLOOM [facility] LEUKOCYTES (U) 1+(A) NEGATIVE 04/17/2024 1:55 PM SUPERVISOR BROADLOOM [facility] NITRITES NEGATIVE NEGATIVE 04/17/2024 1:55 PM SUPERVISOR BROADLOOM [facility] PROTEIN RANDOM (U) 3+(A) NEGATIVE 04/17/2024 1:55 PM SUPERVISOR BROADLOOM [facility] GLUCOSE (U) TRACE(A) NEGATIVE 04/17/2024 1:55 PM SUPERVISOR BROADLOOM [facility] KETONES MG/DL (U) NEGATIVE NEGATIVE 04/17/2024 1:55 PM SUPERVISOR BROADLOOM [facility] UROBILINOGEN 0.2 <1.0 EU/DL 04/17/2024 1:55 PM SUPERVISOR BROADLOOM [facility] BILIRUBIN (U) NEGATIVE NEGATIVE 04/17/2024 1:55 PM SUPERVISOR BROADLOOM [facility] BLOOD (U) 3+(A) NEGATIVE 04/17/2024 1:55 PM SUPERVISOR BROADLOOM [facility] WBC/HPF 50-100(A) 0 - 5 /HPF 04/17/2024 1:55 PM SUPERVISOR BROADLOOM [facility] RBC/HPF FILLED FIELD(A) 0 - 5 /HPF 04/17/2024 1:55 PM SUPERVISOR BROADLOOM [facility] EPI/LPF RARE /LPF 04/17/2024 1:55 PM SUPERVISOR BROADLOOM [facility] BACTERIA (U) 3+ /HPF 04/17/2024 1:55 PM SUPERVISOR BROADLOOM [facility] MUCUS PRESENT 04/17/2024 1:55 PM SUPERVISOR BROADLOOM [facility] URINE SPECIMEN OBTAINED BY CLEAN CATCH PROCEDURE / Unknown 04/17/2024 1:39 PM SUPERVISOR BROADLOOM us Nelson Vivar MD URINE ORDERABLES Final Result [facility] [address] [place] [address], * (ABNORMAL) RENAL FUNCTION PANEL (04/17/2024 1:37 PM SUPERVISOR BROADLOOM) SODIUM S/P/B 140 136 - 145 MMOL/L 04/17/2024 1:58 PM [facility] POTASSIUM S/P/B 3.9 3.5 - 5.1 MMOL/L 04/17/2024 1:58 PM [facility] CHLORIDE S/P/B 105 98 - 107 MMOL/L 04/17/2024 1:58 PM [facility] CO2 25.2 21.0 - 32.0 MMOL/L 04/17/2024 1:58 PM [facility] GLUCOSE 93 70 - 99 MG/DL 04/17/2024 1:58 PM [facility] Comment: FASTING GLUCOSE 100 TO 125 MG/DL IS CONSISTENT WITH IMPAIRED FASTING GLUCOSE. FASTING GLUCOSE >125 MG/DL IS CONSISTENT WITH DIABETES. RANDOM GLUCOSE >200 MG/DL WITH HYPERGLYCEMIC SYMPTOMS IS CONSISTENT WITH DIABETES. PER ADA GUIDELINES BUN 10 6 - 24 MG/DL 04/17/2024 1:58 PM [facility] CREATININE S/P/B 0.72 0.55 - 1.02 MG/DL 04/17/2024 1:58 PM [facility] CALCIUM S/P/B 8.7 8.4 - 10.5 MG/DL 04/17/2024 1:58 PM [facility] ALBUMIN S/P/B 3.2(L) 3.4 - 5.0 G/DL 04/17/2024 1:58 PM [facility] PHOSPHORUS 3.2 2.6 - 4.7 MG/DL 04/17/2024 1:58 PM [facility] ANION GAP 9.8 5.0 - 15.0 MMOL/L 04/17/2024 1:58 PM [facility] OSMOLALITY (CALC) 289 MOSM/KG 025 1:58 PM [facility] Comment:REFERENCE RANGE NOT ESTABLISHED GFR ESTIMATE >90 >89 ML/MIN/1. 73 M2 04/17/2024 1:58 PM SUPERVISOR BROADLOOM [facility] GFR NOTES GFR REFERENCE S: 04/17/2024 1:58 PM SUPERVISOR BROADLOOM [facility] Comment: THE ESTIMATED GFR IS CALCULATED USING THE 2020 CKD-EPI EQUATION. THE FOLLOWING CATEGORIES FOR GRADING RENAL FUNCTION ARE RECOMMENDED BY THE INTERNATIONAL SOCIETY OF NEPHROLOGY (KDIGO 2012 CLINICAL PRACTICE GUIDELINE). G1,NORMAL OR HIGH: >89 ml/min/1.73 m2 G2,MILDLY DECREASED: 60-89 ml/min/1.73 m2 G3A,MILDLY TO MODERATELY DECREASED: 45-59 ml/min/1.73 m2 G3B,MODERATELY TO SEVERELY DECREASED: 30-44 ml/min/1.73 m2 G4,SEVERELY DECREASED: 15-29 ml/min/1.73 m2 G5,KIDNEY FAILURE: <15 ml/min/1.73 m2 04/17/2024 1:37 PM SUPERVISOR BROADLOOM us Nelson Vivar MD LABORATORY Final Result [facility] [place] [address], * (ABNORMAL) CBC W/DIFF AUTOMATED (04/17/2024 1:37 PM SUPERVISOR BROADLOOM) WBC 8.87 4.00 - 10.80 x10'3/uL 04/17/2024 1:45 PM SUPERVISOR BROADLOOM [facility] RBC 4.19 4.10 - 5.40 x10'6/uL 04/17/2024 1:45 PM SUPERVISOR BROADLOOM [facility] HGB 9.3(L) 12.0 - 16.0 G/DL 04/17/2024 1:45 PM SUPERVISOR BROADLOOM [facility] HCT 30.8(L) 36.0 - 47.0 % 04/17/2024 1:45 PM SUPERVISOR BROADLOOM [facility] MCV 73.5(L) 78.0 - 100.0 FL 04/17/2024 1:45 PM SUPERVISOR BROADLOOM [facility] MCH 22.2(L) 27.0 - 31.0 PG 04/17/2024 1:45 PM SUPERVISOR BROADLOOM [facility] MCHC 30.2(L) 33.0 - 36.0 G/DL 04/17/2024 1:45 PM SUPERVISOR BROADLOOM [facility] RDW 16.2(H) 11.5 - 14.5 % 04/17/2024 1:45 PM [facility] PLT 420(H) 150 - 350 x10'3/uL 04/17/2024 1:45 PM [facility] MPV 9.0 7.4 - 10.4 FL 04/17/2024 1:45 PM SUPERVISOR BROADLOOM [facility] CBC COMMENT NORMAL REFERENCE RANGE NOT ESTABLISHED FOR THE PROPORTIONAL LEUKOCYTE DIFFERENTIAL. 04/17/2024 1:45 PM SUPERVISOR BROADLOOM [facility] NEUTROPHILS % 52.0 % 04/17/2024 1:45 PM [facility] LYMPHOCYTES % 36.8 % 04/17/2024 1:45 PM [facility] MONOCYTES % 8.1 % 04/17/2024 1:45 PM SUPERVISOR BROADLOOM [facility] EOSINOPHILS % 2.5 % 04/17/2024 1:45 PM SUPERVISOR BROADLOOM [facility] BASOPHILS % 0.5 % 04/17/2024 1:45 PM SUPERVISOR BROADLOOM [facility] IMMATURE GRANS % 0.1 % 04/17/19 1:45 PM SUPERVISOR BROADLOOM [facility] NRBC % 0.0 % 04/17/2024 1:45 PM SUPERVISOR BROADLOOM [facility] ABS. NEUTROPHILS 4.62 1.60 - 8.30 x10'3/uL 04/17/2024 1:45 PM SUPERVISOR BROADLOOM [facility] ABS. LYMPHOCYTES 3.26 0.80 - 4.70 x10'3/uL 04/17/2024 1:45 PM SUPERVISOR BROADLOOM [facility] ABS. MONOCYTES 0.72 0.00 - 1.50 x10'3/uL 04/17/2024 1:45 PM SUPERVISOR BROADLOOM [facility] ABS. EOSINOPHILS 0.22 0.00 - 0.40 x10'3/uL 04/17/2024 1:45 PM SUPERVISOR BROADLOOM [facility] ABS. BASOPHILS 0.04 0.00 - 0.20 x10'3/uL 04/17/2024 1:45 PM SUPERVISOR BROADLOOM [facility] ABS. IMMATURE GRANULOCYTES 0.01 0.00 - 0.03 x10'3/uL 04/17/2024 1:45 PM SUPERVISOR BROADLOOM [facility] ABS. NUCLEATED RBC'S 0.00 0.00 - 0.01 x10'3/uL 04/17/2024 1:45 PM SUPERVISOR BROADLOOM [facility] 04/17/2024 1:37 PM SUPERVISOR BROADLOOM us Nelson Vivar MD LABORATORY Final Result [facility] [address] [employer] [place] [address], * HEPATITIS PANEL,ACUTE (09/13/2023 3:12 PM CDT) HEPATITIS B SURFACE AG NON-REACT DE NON-REACT ED 09/15/2023 12:39 AM CDT [facility] Comment:HBsAg NOT DETECTED. HEP B CORE IGM NON-REACT DE NON-REACT DE 09/15/2023 12:39 AM CDT [facility] Comment: IgM ANTI HBc NOT DETECTED. DOES NOT EXCLUDE THE POSSIBILITY OF EXPOSURE TO OR INFECTION WITH HBV. NO RETEST REQUIRED. HIGH DOSES OF BIOTIN MAY INTERFERE WITH THIS TEST RESULT. CORRELATION TO CLINICAL HISTORY AND PRESENTATION RECOMMENDED. HAV IGM NON-REACT DE NON-REACT DE 09/15/2023 12:39 AM CDT [facility] Comment: IgM ANTI HAV NOT DETECTED. DOES NOT EXCLUDE THE POSSIBILITY OF EXPOSURE TO OR INFECTION WITH HAV. LEVELS OF IgM ANTI HAV MAY BE BELOW THE CUTOFF IN EARLY INFECTION. HEPATITIS C AB NON-REACT DE NON-REACT DE 09/15/2023 12:39 AM CDT [facility] Comment: ANTIBODIES TO HCV NOT DETECTED. DOES NOT EXCLUDE THE POSSIBILITY OF EXPOSURE TO HCV. 09/13/2023 3:12 PM CDT us Nelson Vivar MD LABORATORY Final Result [facility] [address] [place] [address], [place] [phone] [id number] * (ABNORMAL) HEMOGLOBIN, GLYCOSYLATED (07/10/2017 7:02 AM CDT) HGB A1C 9.9(H) 4.5 - 6.0 % 07/10/2017 7:18 AM CDT [facility] Comment: ADA GUIDELINES 16814.7 TO 6.4% INCREASED RISK OF DIABETES> OR = 6.5% CONSISTENT WITH DIABETES ESTIMATED AVG GLUCOSE 237(H) 70 - 99 MG/DL 07/10/2017 7:18 AM CDT [facility] 07/10/2017 7:02 AM CDT 07/10/2017 7:04 AM CDT us Generic Conversion Md [facility] LABORAT[facility] Final R esult Performing Organization Address City/[facility]/ZIP Co de Phone Number [facility] [address] [place] [address], [place] [phone] * (ABNORMAL) LIPID PANEL (07/10/2017 7:02 AM CDT) CHOLESTEROL 232(H) <200 MG/DL 07/10/2017 7:25 AM CDT [facility] TRIGLYCERIDES 395(H) <150 MG/DL 07/10/2017 7:25 AM CDT [facility] HDL 42 >40 MG/DL 07/10/2017 7:25 AM CDT [facility] LDL (CALCULATED) TRIGLYCERIDES >200 MG/DL, SEE DIRECT LDL REPORT <130 MG/DL 07/10/2017 7:25 AM CDT [facility] Comment: AN LDL OF <100 IS OPTIMAL; HOWEVER, ELEVATED IS DEFINED >130.BY ATP III GUIDELINES, LDL GOALS ARE DEPENDENT UPON THE PATIENT'S OTHER RISK FACTORS. CHOL/HDL RATIO 5.5(H) 0.0 - 5.0 07/10/2017 7:25 AM CDT [facility] OTHER (type in comments) 07/10/2017 7:02 AM CDT 07/10/2017 7:04 AM CDT Comment:SERUM SPECIMEN~ACELL ULAR BLOOD (SERUM OR PLASMA) SPECIMEN us Generic Conversion Md [facility] Final R esult [facility] [address] [employer] [place] [address], from Last 3 Months or Most Recently Relevant to Health Maintenance Insurance [facility] Care Teams Director Business Travel Relationship Specialty [place] [address] [place] [address] PCP - General FAMILY PRACTICE 07/06/23
--- OUTSIDE RECORDS SUMMARY | 2024-06-24 14:27 | XMS_ITS | Encounter Summary ---
Author Organization [facility] Address [address] [place] [address] Care Team Providers Care Stone Derrickman And Rigger Name Role Phone Jean-Pierre Ferrari DO Primary Care Provider [phone] Encounter Details Date Type Department Care Team (Late st Contact Info) Description 08/20/2018 Abstract [facility] [place] [address] , Generic ConversionMD Social History Tobacco Use Types Packs/Day Years Used Date Smoking Tobacco: Never Assessed Comments Unknown Sex and Gender Information Value Date Recorded Sex Assigned at Female 04/17/2024 1:10 PM CLIENT SALES AND SERVICE OFFICER Legal Sex Female 7:17 PM CDT Gender Identity Not on file Sexual Orientation Not on file documented as of this encounter Plan of Treatment Upcoming Encounters Date Type Department Care Team (Late Contact Info) Description 08/14/2024 1:30 PM CDT Office Visit [facility] [address] [place] [address] [place] [address] [place] [address] [phone] documented as of this encounter Visit Diagnoses Not on filedocumented in this encounter Additional Health Concerns Infection Onset Date Last Indicated Resolved Time COVID-19 Rule Out 03/14/2024 03/14/2024 03/14/2024 1:37 PM CLIENT SALES AND SERVICE OFFICER documented as of this encounter Care Teams Stone Derrickman And Rigger Relationship Specialty [place] [address] [place] [phone] PCP - General FAMILY PRACTICE 07/06/23 documented as of this encounter
--- OUTSIDE RECORDS SUMMARY | 2024-06-24 14:28 | XMS_ITS ---
Author Organization Unknown Address [address] [place] [address] [phone] Phone Care Team Providers Care Geotechnical Field Technician Name Role Phone YECENIA OLIVIA Attending Unavailable [...] em Smoking History Never smoker (Never Smoked) 787047324 SNOMED CT Sex Female Medications Medication Start Date End Date Route Frequency Dose Code Code System Medication Instructions Home Meds vilazodone hydrochloride 10MG Oral Tablet 04/30/2022 Unknown ORAL ONCE A DAY 10 MILLIGRAMS 6044096 RxNorm TAKE 10 MILLIGRAMS ORAL ONCE A DAY HumaLOG 100U/1ML Injection Solution 04/30/2022 Unknown INJECT ION 1 unit(s) 432006 RxNorm 1 EACH INJECTION Cozaar 100MG Oral Tablet 04/30/2022 Unknown ORAL ONCE A DAY 100 MILLIGRAMS 286256 RxNorm TAKE 100 MILLIGRAMS ORAL ONCE A DAY Lantus 100U/1ML Subcutaneous Solution 04/30/2022 Unknown SUBCUT ANEOUS AT BEDTIM E 48 unit(s) 124202 RxNorm INJECT INTO 48 EACH SUBCUTANEOUS AT BEDTIME Lipitor 20MG Oral Tablet 04/30/2022 Unknown ORAL ONCE A DAY 20 MILLIGRAMS 285243 RxNorm TAKE 20 MILLIGRAMS ORAL ONCE A DAY Omeprazole 20MG Oral Capsule, Delayed Release 04/30/2022 Unknown ORAL ONCE A DAY 20 MILLIGRAMS 099284 RxNorm TAKE 20 MILLIGRAMS ORAL ONCE A DAY Oxybutynin Chloride 5MG Oral Tablet, Extended Release 04/30/2022 Unknown ORAL ONCE A DAY 5 MILLIGRAMS 925468 RxNorm TAKE 5 MILLIGRAMS ORAL ONCE A DAY ProAir HFA 0.09MG/1Actuatio n Inhalation Suspension 04/30/2022 Unknown INHALA TION NEEDED EVERY 4 HOURS 1 unit(s) 868730 RxNorm 1 EACH INHALATION NEEDED EVERY 4 HOURS Singulair 10MG Oral Tablet 04/30/2022 Unknown ORAL AT BEDTIM E 10 MILLIGRAMS 117104 RxNorm TAKE 10 MILLIGRAMS ORAL AT BEDTIME ZyrTEC 10MG Oral Tablet 04/30/2022 Unknown ORAL ONCE A DAY 10 MILLIGRAMS RxNorm TAKE 10 MILLIGRAMS ORAL ONCE A DAY hydroCHLOROthiaz zulema 12.5MG Oral Tablet 04/30/2022 Unknown ORAL ONCE A DAY 12.5 MILLIGRAMS 244736 RxNorm TAKE 12.5 MILLIGRAMS ORAL ONCE A DAY metFORMIN HCl 500MG Oral Tablet 04/30/2022 Unknown ORAL TWICE A DAY 1000 MILLIGRAMS 665397 RxNorm TAKE 1000 MILLIGRAMS ORAL TWICE A DAY traZODone hydrochloride 150MG Oral Tablet 04/30/2022 Unknown ORAL AT BEDTIM E 150 MILLIGRAMS 295544 RxNorm TAKE 150 MILLIGRAMS ORAL AT BEDTIME [...] Status Code Code System SECONDARY AMENORRHEA active 88642375 SNOMED-CT IRON DEFICIENCY ANEMIA, UNSPECIFIED active 25496924 SNOMED-CT DIARRHEA active 78216201 SNOMED-CT GERD active 623137131 SNOMED-CT ENCOUNTER FOR GYNECOLOGICAL EXAMINATION (GENERAL) (ROUTINE) WITHOUT ABNORMAL FIN active 17226923 SNOMED- CT HIGH RISK HETEROSEXUAL BEHAVIOR active [id number] SNOMED-CT BARIATRIC SURGERY STATUS active 19183 3906 SNOMED-CT Allergies and Adverse Reactions Allergy Substance Reaction Severity Start Date Concern Status Co de Code System MORPHINE Active 7052 RxNorm ADHESIVE Active LATEX Active 2800061 RxNorm HUMALOG Active 184308 RxNorm Plan of Treatment Split Night, CPAP/BIPAP/ASV (59135) EGD/Colonoscopy 04/30/2022 US Pelvis/Transvaginal (96101) 04/06/19 24 Pharynx Esophagus Cine 04/01/2023 Encounters Encounter Diagnosis Start Date Code Code Sys tem Dysuria 01/02/2023 [id number] SNOMED-CT Personal Care Team Section Performer Name Performer Role Active Date Inactive SHAHEED Patricia PCP - Primary care physician 8 2021-07-04 Jean-Pierre Ferrari PCP - Primary care physician 2022-03-13
--- OUTSIDE RECORDS SUMMARY | 2024-06-24 14:28 | XMS_ITS ---
Author Organization Unknown Address [address] [place] [phone] Phone Care Team Providers Care Library Serials Assistant Name Role Phone KATHERYN Raquel FITO Attending Unavailable JOSÉ LUIS DELCID Primary Unavailable Immunization Immunization Date Status Additional Notes Code Code System Influenza, split virus, trivalent, PF 12/09/2014 Completed 140 CVX Influenza, split virus, trivalent, preservative 12/10/2017 Completed 141 CVX COVID-19, mRNA, LNP-S, PF, 3 0 mcg/0.3 mL dose 05/30/2020 Completed 208 CVX Results CBC W/ DIFF - Collect Date/T douglas: 01/10/2024 14:20 [facility] ID: [id number] [place] [address], [id number] LOINC: 55764-5 Test Value Unit Reference Range Code Code System Flag WBC 10.0 10^3uL L=4.8 H=10.8 RBC 4.55 10^6uL L=4.20 H=5.40 HEMOGLOBIN 10.9 g/dL L=12.0 H=16.0 718-7 LOINC L HEMATOCRIT 35.4 VOL% L=37.0 H=47.0 4544-3 LOINC L MCV 77.8 fL L=81.0 H=99.0 L MCH 24.0 pg L=27.0 H=32.0 L MCHC 30.8 g/dL L=32.0 H=36.0 L PLATELETS 398 10^3uL L=100 H=400 35335-6 LOINC RDW 13.6 % L=11.7 H=15.5 %GRAN 63.5 % L=40.0 H=70.0 77734-1 LOINC %LYMPH 31.0 % L=20.0 H=45.0 736-9 LOINC %MONO 4.5 % L=2.0 H=10.0 26401-9 LOINC %EOS 0.4 % L=0.0 H=6.0 713-8 LOINC %BASO 0.3 % L=0.0 H=3.0 706-2 LOINC #NEUT 6.3 10^3uL L=1.9 H=7.6 07667-1 LOINC #LYMPH 3.1 10^3uL L=0.9 H=4.9 78730-3 LOINC #MONO 0.5 10^3uL L=0.1 H=0.9 48821-8 LOINC #EOS 0.0 10^3uL L=0.0 H=0.6 712-0 LOINC #BASO 0.03 10^3uL L=0.00 H=0.10 67708-6 LOINC #IM GRANS 0.0 10^3uL L=0.0 H=7.0 79445-3 LOINC %IM GRANS 0.3 % L=0.0 H=5.0 27116-7 LOINC %NRB 0.0 L=0.0 H=0.2 61881-2 LOINC #NRB 0.000 L=0.000 H=0.012 74419-8 LOINC MANUAL DIFF NOT INDICATED RBC MORPH NOT INDICATED COMPREHENSIVE METABOLIC PANE L - Collect Date/Time: 01/10/2024 14:20 [facility] ID: [id number] [address] [place], [place], [id number] LOINC: 19359-1 Test Value Unit Reference Range Code Code System Flag FASTING UNKNOWN BUN 8 mg/dL L=7 H=20 3094-0 LOINC CREATININE 0.60 mg/dL L=0.52 H=1.04 2160-0 LOINC GLUCOSE 85 mg/dL L=74 H=106 2345-7 LOINC SODIUM 140 mmol/L L=132 H=144 2951-2 LOINC POTASSIUM 3.6 mmol/L L=3.5 H=5.1 2823-3 LOINC CHLORIDE 104 mmol/L L=98 H=107 2075-0 LOINC CO2 24.0 mmol/L L=22.0 H=30.0 8-9 LOINC ANION GAP 16 L=10 H=20 81043-4 LOINC OSMOLALITY 288 mOs/kG L=280 H=296 29971-0 LOINC BUN/CREAT 13.3 3097-3 LOINC CALCIUM 9.6 mg/dL L=8.3 H=10.5 43522-0 LOINC AST 26 U/L L=15 H=46 1920-8 LOINC ALT 19 U/L L=9 H=72 1742-6 LOINC ALKALINE PHOS 90 U/L L=38 H=126 6768-6 LOINC TOTAL BILI 0.5 mg/dL L=0.2 H=1.3 1975-2 LOINC ALBUMIN 4.6 G/dL L=3.5 H=5.0 1751-7 LOINC TOTAL PROTEIN 8.7 g/L L=6.3 H=8.2 2885-2 LOINC H A/G RATIO 1.1 80848-1 LOINC AGE 38 09795-3 LOINC eGFR NON-AFR 118 ml/min eGFR AFR AMER 143 ml/min LIPASE - Collect Date/Time: 01/10/2024 14:20 [facility] ID: [id number] [place], [place], [phone] LOINC: 3040-3 Test Value Unit Reference Range Code Code System Flag LIPASE 55 U/L L=23 H=300 3040-3 LOINC URINALYSIS w/Microscopy/C&S if indicated - Collect Date/Time: 01/10/2024 13:55 [facility] ID: [id number] [place], [place], [id number] LOINC: 24834-6 Test Value Unit Reference Range Code Code System Flag UR SOURCE VOIDED 39249-6 LOINC COLOR LT YELLOW YELLOW 5778-6 LOINC CLARITY CLEAR CLEAR 14933-4 LOINC SPEC GRAVITY <=1.005 1.000-1.030 5811-5 LOINC PH 7.0 5.0 - 6.5 5803-2 LOINC LEUK EST NEGATIVE NEGATIVE 5799-2 LOINC NITRATE NEGATIVE NEGATIVE PROTEIN NEGATIVE NEGATIVE 5804-0 LOINC GLUCOSE NEGATIVE NEGATIVE 74685-0 LOINC KETONES NEGATIVE NEGATIVE 52786-1 LOINC UROBILINOGEN 0.2 NEGATIVE 5818-0 LOINC BILIRUBIN NEGATIVE NEGATIVE 84912-5 LOINC BLOOD NEGATIVE NEGATIVE 21419-7 LOINC WBC 0-2 0 - 2 92222-8 LOINC RBC 0-2 0 - 2 38970-5 LOINC EPITHELIAL FEW RARE-FEW 16742-6 LOINC BACTERIA FEW NONE SEEN 64047-6 LOINC MUCUS NONE SEEN NONE SEEN 8247-9 LOINC YEAST NOT PRESENT NOT PRESENT 63947-4 LOINC CASTS NONE SEEN 90429-7 LOINC CRYSTALS NONE SEEN 97492-1 LOINC CULTURE? 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 Reconstructed coronal and sagittal MPR images reviewed. All images stored on PACS. Automated exposure control was used as a dose optimization technique for this examination. COMPARISON: CT dated July 04, 2021 FINDINGS: The sensitivity for detection of visceral lesions is diminished without the use of intravenous contrast. LOWER CHEST: No significant pulmonary abnormalities. No effusion. LIVER: Normal size. No identified cystic or solid masses. GALLBLADDER: Choose 1 BILE DUCTS: No intrahepatic or extrahepatic ductal dilatation. SPLEEN: Normal size. No focal lesions. PANCREAS: No identified cystic or solid masses. No significant calcifications. No adjacent inflammation or peripancreatic fluid collections. Pancreatic duct not dilated. ADRENALS: Normal. KIDNEYS/URINARY TRACT: No identified significant cystic or solid masses. 0.5 cm stone is present within the lower pole right kidney. There is a 0.5 cm stone is present within the right kidney lower pole alexia. No hydronephrosis or hydroureter. Urinary bladder is unremarkable. GI: No dilated bowel loops. No obvious wall thickening. Postsurgical changes along the greater curvature of the stomach and duodenum likely related to the patient's duodenal switch procedure.. PERITONEUM: No ascites or free air. RETROPERITONEUM: No mass or adenopathy. REPRODUCTIVE: No significant abnormality. VASCULATURE: No abdominal aortic aneurysm. MUSCULOSKELETAL: No significant abnormality. Nonspecific cutaneous thickening and subcutaneous stranding anterior abdomen surrounding the umbilicus. OTHER: No other abnormality. IMPRESSION: ? ? Right kidney stones as above. No ureteral stones.. ? ? 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 THIS IS AN ELECTRONICALLY VERIFIED FINAL REPORT 01/10/2024 2:47 PM - Electronically signed by Layton Antunez M.D. JA: ARIAS Report ID: [id number] Reading Location: [place] [address] Social History Type Status Start Date End Date Code Code Syst em Smoking History Never smoker (Never Smoked) 447873146 SNOMED CT Sex Female Medications Medication Start Date End Date Route Frequency Dose Code Code System Medication Instructions Home Meds vilazodone hydrochloride 10MG Oral Tablet 04/30/2022 Unknown ORAL ONCE A DAY 10 MILLIGRAMS 2117481 RxNorm TAKE 10 MILLIGRAMS ORAL ONCE A DAY HumaLOG 100U/1ML Injection Solution 04/30/2022 Unknown INJECT ION 1 unit(s) 928057 RxNorm 1 EACH INJECTION Cozaar 100MG Oral Tablet 04/30/2022 Unknown ORAL ONCE A DAY 100 MILLIGRAMS 308974 RxNorm TAKE 100 MILLIGRAMS ORAL ONCE A DAY Lantus 100U/1ML Subcutaneous Solution 04/30/2022 Unknown SUBCUT ANEOUS AT BEDTIM E 48 unit(s) 189616 RxNorm INJECT INTO 48 EACH SUBCUTANEOUS AT BEDTIME Lipitor 20MG Oral Tablet 04/30/2022 Unknown ORAL ONCE A DAY 20 MILLIGRAMS 598151 RxNorm TAKE 20 MILLIGRAMS ORAL ONCE A DAY Omeprazole 20MG Oral Capsule, Delayed Release 04/30/2022 Unknown ORAL ONCE A DAY 20 MILLIGRAMS 249028 RxNorm TAKE 20 MILLIGRAMS ORAL ONCE A DAY Oxybutynin Chloride 5MG Oral Tablet, Extended Release 04/30/2022 Unknown ORAL ONCE A DAY 5 MILLIGRAMS 421091 RxNorm TAKE 5 MILLIGRAMS ORAL ONCE A DAY ProAir HFA 0.09MG/1Actuatio n Inhalation Suspension 04/30/2022 Unknown INHALA TION NEEDED EVERY 4 HOURS 1 unit(s) 026675 RxNorm 1 EACH INHALATION NEEDED EVERY 4 HOURS Singulair 10MG Oral Tablet 04/30/2022 Unknown ORAL AT BEDTIM E 10 MILLIGRAMS 637852 RxNorm TAKE 10 MILLIGRAMS ORAL AT BEDTIME ZyrTEC 10MG Oral Tablet 04/30/2022 Unknown ORAL ONCE A DAY 10 MILLIGRAMS RxNorm TAKE 10 MILLIGRAMS ORAL ONCE A DAY hydroCHLOROthiaz zulema 12.5MG Oral Tablet 04/30/2022 Unknown ORAL ONCE A DAY 12.5 MILLIGRAMS 334540 RxNorm TAKE 12.5 MILLIGRAMS ORAL ONCE A DAY metFORMIN HCl 500MG Oral Tablet 04/30/2022 Unknown ORAL TWICE A DAY 1000 MILLIGRAMS 321424 RxNorm TAKE 1000 MILLIGRAMS ORAL TWICE A DAY traZODone hydrochloride 150MG Oral Tablet 04/30/2022 Unknown ORAL AT BEDTIM E 150 MILLIGRAMS 694808 RxNorm TAKE 150 MILLIGRAMS ORAL AT BEDTIME [...] Status Code Code System SECONDARY AMENORRHEA active 23244704 SNOMED-CT IRON DEFICIENCY ANEMIA, UNSPECIFIED active 15490713 SNOMED-CT DIARRHEA active 16780179 SNOMED-CT GERD active 625296960 SNOMED-CT ENCOUNTER FOR GYNECOLOGICAL EXAMINATION (GENERAL) (ROUTINE) WITHOUT ABNORMAL FIN active 34352075 SNOMED- CT HIGH RISK HETEROSEXUAL BEHAVIOR active 528295617986064 SNOMED-CT BARIATRIC SURGERY STATUS active 62256 8006 SNOMED-CT Allergies and Adverse Reactions Allergy Substance Reaction Severity Start Date Concern Status Co de Code System MORPHINE Active 7052 RxNorm ADHESIVE Active LATEX Active 1123248 RxNorm HUMALOG Active 211217 RxNorm Plan of Treatment Split Night, CPAP/BIPAP/ASV (14118) EGD/Colonoscopy 04/30/2022 US Pelvis/Transvaginal (11868) 04/06/19 Pharynx Esophagus Cine 04/01/2023 Encounters Encounter Diagnosis Start Date Code Code Sys tem Calculus of kidney 01/10/2024 SNOMED-CT Personal Care Team Section Performer Name Performer Role Active Date Inactive SHAHEED Patricia PCP - Primary care physician 8 2021-07-04 Jean-Pierre Ferrari PCP - Primary care physician 2022-03-13 Imaging Narrative Notes
--- OUTSIDE RECORDS SUMMARY | 2024-06-24 14:28 | XMS_ITS | Data Portability ---
Author Organization [facility], [address] [facility] ([place]) Address [address] 4th [place] [address] Care Team Providers Care Economic Developer Name Role Phone FARHANA ORDONEZ Primary Care Provider [phone] SHARIF FORD Urologist Assessment Encounter Date Assessment Date Assessment LastModified by Organization Details LastModified Time 01/26/2024 01/26/2024 IMPRESSION: 1. Three right renal stones. Will proceed with right ureteroscopy, laser lithotripsy, stone extraction. I carefully discussed the risks of sepsis and the importance of a negative culture 2 weeks prior. 2. Recurrent urinary tract infections. 3. Recurrent stone disease. PLAN: Litholink, daily Macrodantin. Will treat the stones. Cultures every 2 weeks. Macrodantin 50 mg a day. I spent an extended amount of time with this patient. Complications of ureteroscopy: We discussed the treatment options for nephrolithiasis , specifically the risks of ureteroscopy discussed including bleeding, infection, injury to the ureter, ureteral stricture formation, ureteral avulsion, injury to adjacent structures. We also discussed the need for a stent and risks associated with stent placement and cystoscopy (urethral stricture, stent discomfort, reflux, retained stent). ils lsines Not available 01/26/2024 15:22:47 05/02/2024 05/02/2024 HISTORY OF PRESENT ILLNESS: A 39-year-old who underwent right ureteroscopy for 3 mm and 4 mm upper and lower pole stones. Stones were 90% calcium oxalate monohydrate, 10% calcium oxalate dihydrate. She has been on Macrodantin for recurrent UTI. She comes in to discuss Litholink. LITHOLINK RESULT: 1. Urine Volume (L/day): 1.14 [Nl: 0.5-4] 2. SS CaOx: 16.1 [Nl: 6-10] 3. Urine Calcium (mg/day): 207 [Nl: Male <250, Female <200] 4. UrineOxalate (mg/day): 60 [Nl: 20-40] 5. Urine Citrate (mg/day): 1140 [Nl: Male >450, Female >550] 6. SS CaP: 3.01 [Nl: 0.5-2] 7. 24 Hr Urine pH: 6.4 [Nl: 5.8-6.2] 8. SS UricAcid: 0.47 [Nl: 0-1] 9. Urine Uric Acid (g/day): [Nl: Male <0.8, Female <0.75] 10. Urine Na: 187 [Nl 50-150, ideal <100] IMPRESSION: Recommended high fluid, low salt, low oxalate diet. Macrodantin for recurrent UTIs. With the sleeve, it is hard for her to take fluid. PLAN: Return to clinic in [address] and Litholink. ils lsines Not available 05/05/2024 16:17:30 Plan of Treatment Reminders Order Date Submit Date Provider Last Modified By Organization Details Last Modified Time Details Appointments Establish ed Patient 20.EST 2024 02:00P M Joie Gloria Not available Not available Not available Lab kidney stone, 24-hour urine panel - 24 hour litholink 2023 024 [facility], [address], [id number], 01/26/2024 15:18:37 urinalysi s complete, reflex culture [address] Lab, [address] [place], [address], 02/23/2024 15:25:25 urinalysi s complete, reflex culture [address] [facility] [place] [facility] - Lab, [address] [place], [address], 01/26/2024 15:29:37 urinalysi s complete, reflex culture [address] Lab, [address] [place] [address], [id number], 02/23/2024 15:22:23 urinalysi s complete, reflex culture [address] [facility] [place] [facility] - Lab, [address] [place] [address], [id number], 03/03/2024 16:10:10 urinalysi s complete, reflex culture [address] Lab, [address] [place] [address], [id number], 03/20/2024 20:30:50 urinalysi s complete, reflex culture [address] Lab, [address] [place] [address], [id number], 04/03/2024 11:55:27 urinalysi s complete, reflex culture [address] Lab, [address] [place] [address], [address], 04/19/2024 08:53:00 urinalysi s complete, reflex culture [address] - Lab, [address] [place] [address], [id number], 05/03/2024 14:09:32 urinalysi s complete, reflex culture [address] Lab, [address] [place] [address], [id number], 05/19/2024 08:33:23 urinalysi s complete, reflex culture [address] - Lab, [address] [place] [address], [id number], 06/07/2024 07:40:43 urinalysi s complete, reflex culture [address] Lab, [address] [place] [address], [address], 06/22/2024 09:48:51 urinalysi s complete, reflex culture [address] Lab, [address] [place] [address], [id number], 06/22/2024 09:48:51 Referral None recorded. Procedures None recorded. Surgeries None recorded. Imaging None recorded. Medication Orders Bactrim DS 800 mg-160 mg tablet [address] [facility], [address] [place], [address], 05/02/2024 21:53:12 Macrodant in 50 mg capsule 2023 024 [facility], [address] [place], [address], 02/14/2024 15:42:36 Patient TargetsNo targets recorded. Patient InstructionsNo instructions recorded. Reason for Referral None Reported. Results Created Date Observation Date Name Description Value Unit Range Abnormal Flag Note LastModifiedBy Organization Detail LastModifiedTime 01/26/20 24 01/26/2024 kidne y stone , 24-ho ur urine panel stonerisk diagnostic prof Not Available [facility] [address] [place] [address], [id number], 01/26/2024 15:18:37 01/26/20 24 01/26/2024 kidne y stone , 24-ho ur urine panel comments (sr) * Kit krissy d to patie nt home. Resul ts will be scann ed into chart when compl eted. Not Available Md Only - [facility] [address] [place] [address], [id number], 01/26/2024 15:18:37 04/10/19 25 04/14/2024 STONE composition See Note Calcu li compo sed prima rily of: 90% calci um oxala te monoh ydrat e, and 10% calci um oxala te dihyd rate. INTER PRETI VE INFOR MATIO N: Calcu li (Ston e) kiah sis Calcu li are the produ cts of physi ologi bianka proce sses that yield cryst allin e compo unds in a matri x of biolo gical compo unds and blood . Matri x compo nents are not repor chari. The clini trina signi fican t cryst allin e compo nents ident ified in calcu li speci mens are repor chari. Gross descr iptio n may not be consi stent with compo sitio n deter mined by FTIR kiah sis. Perfo rmed By: [facility] [address] [place] [address] Labor atory Dire tor: Batsheva delgado MD, PhD GUS Evangelista r: [id number] Not Available Md Only - [facility] [address] [place] [address], [id number], 04/14/2024 13:48:47 04/10/19 25 04/14/2024 STONE mass 3 mg Not Available Md Only - [facility] [address] [place] [address], [address], 04/14/2024 13:48:47 04/10/19 25 04/14/2024 STONE calculi description See Note Speci men consi sts of two brown and navarro calcu li fragm ents. The total weigh t is 3 mg. Not Available Md Only - [facility] [address] [place] [address], [address], 04/14/2024 13:48:47 Result Notes None recorded. Problems Name Problem SNOMED Code Status Onset Date Resolution Date Notes Provider Name and Address Organization Details Recorded Time Recurrent urinary tract infection 938988141 Active 024 Caitlyn Piña [facility] 4 13:23:14 Kidney stone 68527449 Active 024 Makayla Albrecht [facility] 4 15:45:12 Problem Notes None recorded. Procedures Surgical History Date Name Laterality Status Provider Name and Address Organization Details Recorded Time Colonoscopy with biopsy completed Not Available Health Note 02/23/2024 17:21:18 Imaging Results None recorded. Procedure Notes None recorded. Medical Equipment None Reported. Allergies Allergen ID Allergen Name Allergen Category Reaction Reaction Severity Criticality Documentation Date Start Date Code Code System Note Provider Name and Address Organization Details Recorded Time 1543846 insulin lispro medicatio n rash Not available Not available 12/22/20232019 30751 RxNorm React ion: Rash; Not Available Not Available Not Available 262844 Product containin g penicilli n (product) medicatio n Not available Not available Not available 04/12/20232006 96680 8001 SNOMED Not Available Not Available Not Available 422823 morphine medicatio n rash Not available Not available 04/12/20232016 7052 RxNorm React ion: Rash; Not Available Not Available Not Available 419339 latex gloves medicatio n rash Not available Not available 04/12/20232016 52055 UNK React ion: Rash; Not Available Not Available Not Available 612180 adhesive tape environme nt,medica tion rash Not available Not available 04/12/20232020 40687 UNK React ion: Rash; Comme nt: Adhes radha Tape ; Not Available Not Available Not Available Medications Name Sig Start Date Stop Date Status Note LastModified by Organization Details LastModified Time losartan 50 mg tablet active Not Available Not Available Not Available celecoxib 200 mg capsule TAKE 1 CAPSULE BY MOUTH ONCE DAILY 02/06 completed Not Available Not Available Not Available cyclobenz aprine 10 mg tablet TAKE 1 TABLET BY MOUTH TWICE DAILY NEEDED FOR PAIN active Not Available Not Available No t Available amoxicill in 500 mg capsule TAKE 1 CAPSULE BY MOUTH THREE TIMES DAILY FOR 10 DAYS 02/06 completed Not Available Not Available Not Available nitrofura ntoin macrocrys kaur 50 mg capsule TAKE 1 CAPSULE BY MOUTH ONCE DAILY FOR PROPHYLA CTIC FOR UTI 02/13 completed changing to Bactrim as cannot take capsule form Not Available Not Available Not Available atorvasta tin 20 mg tablet TAKE 1 TABLET BY MOUTH ONCE DAILY active Not Available Not Available No t Available lamotrigi ne 200 mg tablet TAKE 1 TABLET BY MOUTH ONCE DAILY active Not Available Not Available No t Available tizanidin e 2 mg tablet TAKE 1 TABLET BY MOUTH TWICE DAILY NEEDED FOR MUSCLE SPASM active Not Available Not Available No t Available oxybutyni n chloride ER 10 mg tablet,ex tended release 24 hr TAKE 1 TABLET BY MOUTH ONCE DAILY active Not Available Not Available No t Available azithromy kalin 250 mg tablet TAKE 2 TABLETS BY MOUTH ON DAY 1, AND THEN TAKE 1 TABLET BY MOUTH ONCE A DAY ON DAY 2 THROUGH DAY 5 02/06 completed Not Available Not Available Not Available fluconazo le 150 mg tablet TAKE ONE TALBET BY MOUTH AFTER ANTIBIOT ICS FINISHES THEN ANOTHER 72 HOURS LATER active Not Available Not Available No t Available hydrocodo ne 5 mg-acetam inophen 325 mg tablet TAKE 1 TABLET BY MOUTH EVERY 8 HOURS NEEDED FOR PAIN active Not Available Not Available No t Available prazosin 1 mg capsule TAKE 1 CAPSULE BY MOUTH AT BEDTIME active Not Available Not Available No t Available sucralfat e 100 mg/mL oral suspensio n TAKE 5ML BY MOUTH 4 TIMES DAILY 30 MINUTES PRIOR TO EACH MEAL AND 30 MINUTES PRIOR TO BEDTIME active Not Available Not Available No t Available fluconazo le 200 mg tablet TAKE 1 TABLET BY MOUTH ON DAY 1, THEN REPEAT IN 4 DAYS active Not Available Not Available No t Available sucralfat e 1 gram tablet TAKE 1/2 (ONE-OBEY F) TABLET BY MOUTH 4 TIMES DAILY 30 MINUTES BEFORE EACH MEAL AND 30 MINUTES BEFORE BEDTIME. MIX WITH ONE OUNCE WATER TO MAKE A SLURRY active Not Available Not Available No t Available venlafaxi ne 25 mg tablet TAKE 1 TABLET BY MOUTH THREE TIMES DAILY active Not Available Not Available No t Available ondansetr on HCl 4 mg tablet TAKE 1 TABLET BY MOUTH EVERY 8 HOURS NEEDED FOR NAUSEA active Not Available Not Available No t Available amlodipin e 2.5 mg tablet TAKE 1 TABLET BY MOUTH ONCE DAILY active Not Available Not Available No t Available metronida zole 500 mg tablet TAKE 1 TABLET BY MOUTH THREE TIMES DAILY 02/06 completed Not Available Not Available Not Available ciproflox acin 500 mg tablet TAKE 1 TABLET BY MOUTH TWICE DAILY 02/06 completed Not Available Not Available Not Available triamcino lone acetonide 0.1 % topical cream APPLY CREAM EXTERNAL LY TO AFFECTED AREA TWICE DAILY NEEDED active Not Available Not Available No t Available ketorolac 10 mg tablet TAKE 1 TABLET BY MOUTH 4 TIMES DAILY NEEDED FOR SEVERE PAIN FOR 5 DAYS active Not Available Not Available No t Available ofloxacin 0.3 % ear drops INSTILL 2 DROPS INTO THE AFFECTED EAR(S) 2 TIMES DAILY FOR 7 DAYS active Not Available Not Available No t Available metoclopr amide 5 mg tablet TAKE 1 TABLET BY MOUTH EVERY 8 HOURS NEEDED FOR NAUSEA AND VOMITING active Not Available Not Available No t Available tamsulosi n 0.4 mg capsule Take 1 capsule every day by oral route for 30 days. 04/13 completed will use oxybutin instead, due to needing to crush med. Not Available Not Available Not Available phenazopy ridine 100 mg tablet TAKE 1 TABLET BY MOUTH THREE TIMES DAILY FOR 3 DAYS active Not Available Not Available No t Available cephalexi n 500 mg capsule TAKE 1 CAPSULE BY MOUTH TWICE DAILY FOR 7 DAYS 02/06 completed Not Available Not Available Not Available Humulin R Regular U-100 Insulin 100 unit/mL injection solution active Not Available Not Available Not Available pantopraz ole 40 mg tablet,de layed release TAKE 1 TABLET BY MOUTH ONCE DAILY active Not Available Not Available No t Available cyanocoba cristian (vit B-12) 1,000 mcg/mL injection solution INJECT 1 ML INTRAMUS CULARLY ONCE EVERY MONTH active Not Available Not Available No t Available trazodone 150 mg tablet TAKE 1 TABLET BY MOUTH AT BEDTIME active Not Available Not Available No t Available nitrofura ntoin macrocrys kaur 100 mg capsule TAKE 1 CAPSULE BY MOUTH TWICE DAILY WITH FOOD 02/06 completed Not Available Not Available Not Available dexametha sone 4 mg tablet TAKE 2 TABLETS BY MOUTH A ONE TIME DOSE active Not Available Not Available No t Available Concerta 36 mg tablet,ex tended release TAKE 1 TABLET BY MOUTH ONCE DAILY active Not Available Not Available No t Available promethaz ine 25 mg tablet TAKE 1 TABLET BY MOUTH EVERY 6 HOURS NEEDED FOR NAUSEA/A BDOMINAL PAIN active Not Available Not Available No t Available hydrochlo rothiazid e 12.5 mg capsule TAKE 1 CAPSULE BY MOUTH ONCE DAILY active Not Available Not Available No t Available BD Luer-Drew Syringe 3 mL 25 gauge x 1 DIRECTED FOR MONTHLY B-12 INJECTIO NS active Not Available Not Available No t Available buspirone 7.5 mg tablet TAKE 1 TABLET BY MOUTH ONCE DAILY 02/06 completed Not Available Not Available Not Available omeprazol e 20 mg capsule,d elayed release TAKE 1 CAPSULE BY MOUTH TWICE DAILY active Not Available Not Available No t Available monteluka st 10 mg tablet TAKE 1 TABLET BY MOUTH AT BEDTIME active Not Available Not Available No t Available levofloxa kalin 500 mg tablet TAKE 1 TABLET BY MOUTH ONCE DAILY FOR 5 DAYS active Not Available Not Available No t Available albuterol sulfate HFA 90 mcg/actua tion aerosol inhaler INHALE 2 PUFFS BY MOUTH EVERY 4 HOURS NEEDED active Not Available Not Available No t Available oxybutyni n chloride 5 mg tablet TAKE 1 TABLET BY MOUTH THREE TIMES DAILY NEEDED FOR URINARY DISCOMFO RT active Not Available Not Available No t Available hydroxyzi ne HCl 10 mg tablet TAKE 1 TABLET BY MOUTH THREE TIMES DAILY NEEDED FOR ANXIETY active Not Available Not Available No t Available ondansetr on 4 mg disintegr ating tablet DISSOLVE 1 TABLET IN MOUTH EVERY 8 HOURS NEEDED FOR NAUSEA active Not Available Not Available No t Available losartan 100 mg tablet TAKE 1 TABLET BY MOUTH ONCE DAILY active Not Available Not Available No t Available fluticaso ne propionat e 50 mcg/actua tion nasal spray,yumiko pension USE 1 TO 2 SPRAY(S) IN EACH NOSTRIL TWICE DAILY NEEDED FOR 7 DAYS active Not Available Not Available No t Available metformin ER 500 mg tablet,ex tended release 24 hr TAKE TWO TABLETS BY MOUTH WITH BREAKFAS T AND TAKE TWO TABLETS BY MOUTH WITH SUPPER active Not Available Not Available No t Available clotrimaz ole 1 % topical cream APPLY A THIN FILM OF CREAM TO AFFECTED AREA THREE TIMES DAILY NEEDED. active Not Available Not Available No t Available metoclopr amide 10 mg tablet TAKE 1 TABLET BY MOUTH TWICE DAILY NEEDED active Not Available Not Available No t Available Concerta 27 mg tablet,ex tended release TAKE 1 TABLET BY MOUTH ONCE DAILY active Not Available Not Available No t Available Bactrim DS 800 mg-160 mg tablet just 1 pill prophyla ctic after procedur e 2024 active Not Available Not Available Not Avai lable enoxapari n 40 mg/0.4 mL subcutane ous syringe INJECT 40MG SUBCUTAN EOUSLY DAILY FOR 7 DAYS active Not Available Not Available No t Available insulin lispro (U-100) 100 unit/mL subcutane ous pen INJECT UNITS SUBCUTAN EOUSLY THREE TIMES DAILY PER SLIDING SCALE WITH MEALS, INJECT 1 UNIT PER EVERY 2 CARBS-MA X OF 40 UNITS PER MEAL THREE TIMES DAILY. active Not Available Not Available No t Available cholestyr amine (with sugar) 4 gram powder for susp in a packet MIX THE CONTENTS OF 1 POWDER PACKET WITH 2 TO 6 OUNCES OF NONCARBO NATED BEVERAGE AND DRINK 3 TIMES DAILY active Not Available Not Available No t Available hydrochlo rothiazid e 12.5 mg tablet TAKE 1 TABLET BY MOUTH ONCE DAILY active Not Available Not Available No t Available Vyvanse 30 mg capsule TAKE 1 CAPSULE BY MOUTH ONCE DAILY active Not Available Not Available No t Available Vyvanse 50 mg capsule TAKE 1 CAPSULE BY MOUTH ONCE DAILY active Not Available Not Available No t Available Lantus Solostar U-100 Insulin 100 unit/mL (3 mL) subcutane ous pen INJECT 50 UNITS SUBCUTAN EOUSLY AT BEDTIME active Not Available Not Available No t Available Vyvanse 40 mg capsule TAKE 1 CAPSULE BY MOUTH ONCE DAILY active Not Available Not Available No t Available lurasidon e 40 mg tablet TAKE 1 TABLET BY MOUTH ONCE DAILY WITH FOOD OR AT LEAST 350 CALORIES active Not Available Not Available No t Available vilazodon e 40 mg tablet TAKE 1 TABLET BY MOUTH ONCE DAILY active Not Available Not Available No t Available vilazodon e 20 mg tablet TAKE 1 TABLET BY MOUTH ONCE DAILY active Not Available Not Available No t Available lurasidon e 20 mg tablet TAKE 1 TABLET BY MOUTH ONCE DAILY WITH FOOD OR AT LEAST 350 CALORIES active Not Available Not Available No t Available TRUEplus Insulin 0.3 mL 31 gauge x 516 syringe active Not Available Not Available Not Available desvenlaf axine ER 50 mg tablet,ex tended release 24 hr TAKE 1 TABLET BY MOUTH IN THE MORNING active Not Available Not Available No t Available Humalog KwikPen U-200 Insulin 200 unit/mL (3 mL) subcutane ous INJECT INSULIN WITH MEALS AT AN ICR OF 1:1 FOR BREAKFAS T, LUNCH, AND DINNER MAXIMUM DAILY DOSE 120 active Not Available Not Available No t Available TRUEplus Pen Needle 32 gauge x 5/32 USE ONE PEN NEEDLE DAILY active Not Available Not Available No t Available Dexcom G6 Sensor device CHANGE SENSOR EVERY 10 DAYS active Not Available Not Available No t Available Dexcom G6 Transmitt er device CHANGE TRANSMIT TER EVERY 3 MONTHS active Not Available Not Available No t Available Rybelsus 14 mg tablet TAKE 1 TABLET BY MOUTH ONCE DAILY active Not Available Not Available No t Available Rybelsus 3 mg tablet TAKE 1 TABLET BY MOUTH ONCE DAILY active Not Available Not Available No t Available Vitals Date Recorded Body height Body mass index (BMI) Body weight Body temperature Heart rate Respiratory rate Oxygen saturation Oxygen saturation in Arterial blood by Pulse oximetry Provider Name and Address Organization Details Last Updated DateTime 4 160.02 cm 32.8 kg/m2 90677.5 9 g 97.7 [degF] 83 /min 18 /min 98 % 98 % Caitlyn Wang [facility] 4 12:56:07 Date Recorded Body height Provider Name an d Address Organization Details Last Updated DateTime 05/02/2024 [address] [facility] 05/02/2024 14:46:48 Social History Question Answer Notes LastModified by Organizat ion Details LastModified Time Tobacco Smoking Status Never Smoker Not Available Health Note 02/23/2024 17:21:19 Do You Have An Advance Directive? No [email or web address] Information not available 02/23/2024 What Is Your Level Of Alcohol Consumption? None [email or web address] Information not available 02/23/2024 What Is Your Level Of Caffeine Consumption? Occasional [email or web address] Information not available 02/23/2024 Are You Currently Employed? 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 3-4 Times Per Week [email or web address] Information not available 02/23/2024 What Was The Date Of Your Most Recent Tobacco Screening? 02/28/2024 [email or web address] Information not available 02/23/2024 What Is Your Relationship Status? [email or web address] Information not available 02/23/2024 Do You Use Any Illicit Or Recreational Drugs? No [email or web address] Information not available 02/23/2024 Sex: Unknown Functional Status Question Answer Note LastModified by Organization D etails LastModified Time What is your exercise level? Moderate [email or web address] Information not available 02/23/2024 Mental Status None recorded. Family History Relationship Description Onset Age of this Age Resolved Age Notes LastModified by Organization Details LastModified Time Sister Attention deficit hyperactivit y disorder [email or web address] Not available 02/22 17:21:17 Sister Asthma [email or web address] Not available 17:21:17 Sister Diabetes mellitus [email or web address] Not available 2023 17:21:17 Sister Hypertensive disorder [email or web address] Not available 2023 17:21:17 Brother Attention deficit hyperactivit y disorder [email or web address] Not available 02/22 17:21:17 Brother Asthma [email or web address] Not available 1 2023 17:21:17 Brother Diabetes mellitus [email or web address] Not available 2023 17:21:17 Brother Hypertensive disorder [email or web address] Not available 2023 17:21:17 Mother Arthritis [email or web address] Not available 02/23/2024 17:21:17 Mother Diabetes mellitus [email or web address] Not available 2023 17:21:17 Mother Hypertensive disorder [email or web address] Not available 2023 17:21:17 Mother Kidney disease [email or web address] Not available 2023 17:21:17 Maternal Grandfather Family history of malignant neoplasm [email or web address] Not available 2023 17:21:17 Maternal Grandfather Diabetes mellitus [email or web address] Not available 2023 17:21:17 Maternal Grandfather Hypertensive disorder [email or web address] Not available 2023 17:21:17 Father Heart disease [email or web address] Not available 2023 17:21:17 Father Hypertensive disorder [email or web address] Not available 2023 17:21:17 Paternal Grandfather Heart disease [email or web address] Not available 2023 17:21:17 Paternal Grandfather Hypertensive disorder [email or web address] Not available 2023 17:21:17 Medical History Condition Response Diabetes Y Anxiety Disorder Y Bleeding Disorder N Attention-deficit Hyperactivity Disorder N High Blood Pressure N Arthritis N Hyperlipidemia N Cancer N Stroke N Thyroid Problems N Asthma N Depression Y COPD N Anemia N Seizures N Heart Disease N Fibromyalgia N Osteoporosis N Kidney Disease N Gynecological HistoryNo gynecological history recorded. Obstetrics History GPAL:G 0 P 0 0 0 0 Past Encounters Encounter ID Performer Location Encounter Start Date Encounter Closed Date Diagnosis/Indication Diagnosis SNOMED-CT Code Diagnosis ICD10 Code Diagnosis Note [id number] Sharif Ford MD [facility] ([place]) [address] [place] [address] 01/26/2024 12:18:34 01/26/2024 13:38:58 Recurrent urinary tract infection 616431253 N39.0 Kidney stone 68170183 N2 0.0 [id number] Sharif Ford MD [address] [facility] ([place]) [address] [place] [address] 05/02/2024 14:10:38 05/02/2024 15:00:20 Kidney stone 60090734 N20.0 Health Concerns Section Related Observation LastModified by Organization Detai ls LastModified Time None Recorded Concern Status LastModified by Organization Details LastModified Time None Recorded Advance Directives Directive N: Payers Encounter Date Sequence Insurance Name Policy Number Policy Hernandez Covered Member ID Hernandez Member ID Guarantor Name 01/26/2024 1 [employer] [facility] ON OR AFTER 02/13/2020 (MEDICAID REPLACEMENT - HMO) Deepa Steve [id number] Deepa Duran 05/02/2024 1 [facility] [employer]EFITS [employer]NAGEMENT [id number] Deepa Duran [id number] Deepa Duran 05/02/2024 2 [place] DEPARTMENT OF PUBLIC AID Deepa Steve [id number] Deepa Duran Notes Date Note Type Note Provider Name and Address Organization Details Recorded Time 01/26/2024 text/html A 38-year-old previously followed at [facility] with recurrent stones, recurrent UTIs, diabetes, obesity. She underwent a gastric sleeve earlier this year and has lost 75 pounds. Past medical history: Morbid obesity status post gastric sleeve, hyperlipidemia, hypertension, polycystic ovarian syndrome, obstructive sleep apnea, fibromyalgia, end-stage renal disease, recurrent urinary tract infections. Recurrent urinary tract infections, E. coli 01/06/2024, pansensitive; Enterococcus faecalis 11/09/2023; Enterococcus faecalis 09/27/2023; Enterococcus faecalis 08/21/2023. I reviewed CT from the recent ER visit which showed 3 stones in the right kidney, 3 to 4 mm each. One sort of interpolar, second interpolar and other lower pole. These should be amenable to ureteroscopy with laser lithotripsy and stone extraction.[facility] Sharif Ford MD [address] [facility], [place], [address], [facility] 01/31/2024 11:04:46 OBGyn Episode No OBEpisode recorded.
--- OUTSIDE RECORDS SUMMARY | 2024-06-24 14:28 | XMS_ITS | Clinical Summary ---
Author Organization [facility] Address [address] [place] [id number] Care Team Providers Care Watch And Clock Repair Clerk Name Role Phone Destini Dexter MD Unavailable [phone] Jean-Pierre Ferrari DO Primary Care Provider [phone] Allergies Active Allergy Reactions Criticality Noted Date Comments Adhesive Unknown 10/12/2023 Adhesive Tape-Silicones Rash,Blisters Reaction: Rash, Blisters, Insulin Lispro Rash,Other (See comments) Medium 11/06/2019 Pt has some burning when taking the Rx -she does not want to use humalog. Latex Rash Reaction: Rash, , , Reaction: Rash, Morphine Rash Reaction: Rash, Opioids - Morphine Analogues Rash Reaction: Rash, Topiramate Vomiting Medium 05/13/2018 Medications lancets (ONETOUCH DELICA LANCETS) 33 gauge misc Use to check glucose 4 X daily 200 each 02/25/20 17 Active pen needle, diabetic (BD ULTRA-FINE JAVAN PEN NEEDLES) 32 gauge x 5/32 needle Use with insulin 1 x daily 100 each 02/25/20 17 Active insulin syringe-needle U-100 (BD INSULIN SYRINGE ULTRA-FINE) 0.5 mL 31 gauge x 5/16 syringe Use with 3 x daily 300 each 3 03/09/20 17 Active PROAIR HFA 90 mcg/actuation inhaler TAKE 2 PUFFS BY MOUTH EVERY 4 HOURS NEEDED 5 03/23/19 19 Active metFORMIN (GLUCOPHAGE) 500 mg tablet Take 1 tablet (500 mg total) by mouth daily 2 03/23/19 19 Active blood-glucose sensor device Use one sensor every 10 day 9 Device 3 10/04/19 19 Active blood-glucose meter,continuous (DEXCOM G6 FISH CLEANER MACHINE TENDER) [facility] [place] Use to test blood glucose 1 each 10/04/19 Active DEXCOM G6 TRANSMITTER device USE 1 TRANSMITTER EVERY 90 DAYS 3 10/05/19 19 Active blood glucose diagnostic (CONTOUR NEXT TEST STRIPS) strip Check sugars 6 x per day 200 each 5 11/12/19 19 Active traZODone (DESYREL) 50 mg tablet TAKE 2 TABLETS BY MOUTH NEEDED FOR INSOMNIA AT BEDTIME. 0 12/01/19 19 Active insulin glargine (Lantus Solostar U-100 Insulin) 100 unit/mL (3 mL) insulin pen Inject 48 Units under the skin daily 15 mL 5 03/27/19 Active Apidra SoloStar U-100 Insulin 100 unit/mL inj syringe 10/30/[address] (CYMBALTA) 60 mg capsule Take 1 capsule (60 mg total) by mouth daily Active losartan (COZAAR) 50 mg tablet Take 1 tablet (50 mg total) by mouth daily Active montelukast (SINGULAIR) 10 mg tablet Take 1 tablet (10 mg total) by mouth nightly Active oxybutynin (DITROPAN) 5 mg tablet Take 1 tablet (5 mg total) by mouth 3 (three) times a day as needed (bladder spasms) 30 tablet 04/12/19 21 Active tamsulosin (FLOMAX) 0.4 mg extended release capsule Take 1 capsule (0.4 mg total) by mouth daily 30 capsule 04/12/19 21 Active phenazopyridine (Pyridium) 100 mg tablet Take 1 tablet (100 mg total) by mouth 3 (three) times a day as needed for urinary pain 10 tablet 04/12/19 21 Active Additional Information Patient not taking.Reported on 05/26/2022 docusate sodium (DOK) 100 mg tabletIndications :constipation Take 1 tablet (100 mg total) by mouth 2 (two) times a day as needed for constipation 30 tablet 04/12/19 21 Active Additional Information Patient not taking.Reported on 05/26/2022 HYDROcodone-aceta minophen (NORCO) 5-325 mg per tabletIndications :Pain Take 1 tablet by mouth every 6 (six) hours as needed for pain for up to 12 doses 12 tablet 04/16/19 21 Active Additional Information Patient not taking.Reported on 05/26/2022 ondansetron (ZOFRAN) 4 mg tablet Take 1 tablet (4 mg total) by mouth every 6 (six) hours 12 tablet 05/24/19 23 Active vilazodone (VIIBRYD) 10 mg tabletIndications :major depressive disorder Take 1 tablet (10 mg total) by mouth daily Active amLODIPine (NORVASC) 2.5 mg tablet Take 1 tablet (2.5 mg total) by mouth daily 09/27/19 24 Active Lipitor 20 mg tablet Take by mouth 04/30/19 23 Active azithromycin (ZITHROMAX) 250 mg tablet TAKE 2 TABLETS BY MOUTH ON DAY 1, AND THEN TAKE 1 TABLET BY MOUTH ONCE A DAY ON DAY 2 THROUGH DAY 5 08/15/19 24 Active busPIRone (BUSPAR) 7.5 mg tablet Take 1 tablet (7.5 mg total) by mouth 2 (two) times a day as needed 08/04/19 24 Active cephalexin (KEFLEX) 500 mg capsule 08/23/19 24 Active cyanocobalamin (Vitamin B-12) 1,000 mcg/mL injection INJECT 1 ML INTRAMUSCULARLY ONCE EVERY MONTH 08/23/19 24 Active enoxaparin (LOVENOX) 40 mg/0.4 mL syringe INJECT 40MG SUBCUTANEOUSLY DAILY FOR 7 DAYS 07/06/19 24 Active fluconazole (DIFLUCAN) 150 mg tablet TAKE ONE TALBET BY MOUTH AFTER ANTIBIOTICS FINISHES THEN ANOTHER 72 HOURS LATER 07/29/19 24 Active fluconazole (DIFLUCAN) 200 mg tablet TAKE 1 TABLET BY MOUTH ON DAY 1, THEN REPEAT IN 4 DAYS 09/27/19 24 Active hydroCHLOROthiazi de 12.5 mg tablet Take 1 tablet (12.5 mg total) by mouth daily Active HumuLIN R 100 unit/mL vial for injection 07/06/19 24 Active lamoTRIgine (LaMICtal) 200 mg tablet Take 1 tablet (200 mg total) by mouth daily 08/01/19 24 Active levoFLOXacin (LEVAQUIN) 500 mg tablet TAKE 1 TABLET BY MOUTH ONCE DAILY FOR 5 DAYS 09/30/19 24 Active Vyvanse 30 mg capsule Take 1 capsule (30 mg total) by mouth daily 09/15/19 24 Active lurasidone (LATUDA) 40 mg tablet TAKE 1 TABLET BY MOUTH ONCE DAILY WITH FOOD OR AT LEAST 350 CALORIES 07/19/19 24 Active omeprazole (PriLOSEC) 20 mg capsule 10/08/19 24 Active ondansetron ODT (ZOFRAN-ODT) 4 mg disintegrating tablet DISSOLVE 1 TABLET IN MOUTH EVERY 8 HOURS NEEDED FOR NAUSEA AND VOMITING 09/04/[address] (PROTONIX) 40 mg EC tablet Take 1 tablet (40 mg total) by mouth daily 08/01/19 24 Active sucralfate (CARAFATE) 1 gram tablet TAKE 1/2 (ONE-HALF) TABLET BY MOUTH 4 TIMES DAILY 30 MINUTES BEFORE EACH MEAL AND 30 MINUTES BEFORE BEDTIME. MIX WITH ONE OUNCE WATER TO MAKE A SLURRY 07/29/19 24 Active sucralfate (CARAFATE) suspension 1 gram/10 mL TAKE 5 ML BY MOUTH 4 TIMES DAILY 10/06/19 24 Active sulfamethoxazole- trimethoprim (BACTRIM DS) 800-160 mg per tablet Take 1 tablet by mouth 2 (two) times a day 09/27/19 24 Active BD Luer-Drew Syringe 3 mL 25 gauge x 1 syringe 09/11/19 24 Active TRUEplus Insulin 0.3 mL 31 gauge x 5/16 syringe 07/07/19 24 Active ondansetron ODT (ZOFRAN-ODT) 4 mg disintegrating tablet Take 1 tablet (4 mg total) by mouth every 8 (eight) hours as needed for nausea or vomiting 20 tablet 10/30/19 24 Active Active Problems Problem Noted Date Diagnosed Date Anemia 04/15/2020 Complicated UTI (urinary tract infection) 2020 Tonsillitis 02/20/2019 Acute infective otitis externa of right ear 06/2018 Acute maxillary sinusitis 10/28/2018 Acute otalgia, bilateral 10/28/2018 Complete tear of right ACL, sequela 04/29/2018 Acute bronchitis 03/19/2018 Acute right otitis media 03/19/2018 Complex tear of medial menis cus of right knee as current injury 12/31/2017 Patellar instability of right knee 12/31/2017 Post-traumatic osteoarthritis of right knee 03/2016 Hamstring tendinitis of right thigh 11/13/2016 Increased frequency of urination 06/12/2016 Hirsutism 07/29/2013 Overview (06/18/2016): HIRSUTISM Benign hypertension 07/29/2013 Overview (06/18/2016): BENIGN HYPERTENSION Type 2 diabetes mellitus wit hout complication, with long-term current use of insulin 07/29/2013 Overview (06/19/2016): DMII WO CMP UNCNTRLD Urolithiasis 06/10/2012 Left lower quadrant pain Irritable bowel syndrome Resolved Problems Problem Noted Date Diagnosed Date Resolved Date Left renal stone 04/10/2020 05/22/2020 Overview (04/10/2020): Added automatically from request for surgery [id number] Surgical History Surgery Date Site/Laterality Comments ANTERIOR CRUCIATE LIGAMENT REPAIR Right LITHOTRIPSY 10 x CYSTOSCOPY W/ URETERAL STENT PLACEMENT COLONOSCOPY 03/15/2015 - 03/14/2016 DILATION AND CURETTAGE OF UTERUS 05/19/2018 Proliferative endometrium (disordered). No hyperplasia or malignancy LAPAROSCOPY 05/19/2018 Filmy adnexal adhesions, lysed. Normal fimbria. Pelvic peritoneal bx (-) for endometriosis. HYSTEROSCOPY 05/19/2018 Polypoid endometrium at hysteroscopy. Proliferative endpmetrium on pathology. CYSTOSCOPY 05/19/2018 Bladder capacity 600 mL. Few submucosal hemorrhages suggestive of interstitial cystitis. Medical History Medical History Date Comments Calculus of kidney 2005 Nephrolithias is Hypertension Hypertension Sleep apnea PONV (postoperative nausea a nd vomiting) Motion sickness Delayed emergence from gener al anesthesia Hyperlipidemia Diverticulitis of colon Irritable bowel syndrome More co stipation now Type 2 diabetes mellitus (HCC) Night terrors Anxiety PCOS (polycystic ovarian syndrome) Pelvic pain Menstrual cycle problem Left renal stone 04/10/2020 Added automatic ally from request for surgery [id number] Family History * Patient is adopted Medical History Relation Name Comments Diabetes Mother Heart disease Mother Hypertension Mother Relation Name Status Comments Mother Alive Social History Tobacco Use Types Packs/Day Years Used Date Smoking Tobacco: Never Smokeless Tobacco: Never Alcohol Use Standard Drinks/Week Comments Yes 0 (1 standard drink = 0.6 oz pur e alcohol) rarely, rum PHQ-2 Answer Date Recorded PHQ-2 Total Score (If total score is 3 or more points, staff should administer the PHQ-9) 0 11/06/2019 Personal Safety Answer Date Recorded Have you ever been in or are you currently in a harmful physical or emotional relationship or is someone making you feel afraid or unsafe? 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 Works at a [employer]. Previously at [employer]. Not on file Not on file Not on file Obstetrics History Para Term AB IAB SAB Ectopic Multiple Livin g Live Births 0 0 0 0 0 0 0 0 0 0 0 Last Filed Vital Signs Vital Sign Reading Time Taken Comments Blood Pressure 136/63 10/30/2023 2:30 PM CDT Pulse 75 10/30/2023 2:30 PM CDT Temperature 36.4 C (97.6 F) 10/30/2023 9:37 AM CDT Respiratory Rate 15 10/30/2023 1:45 PM CDT Oxygen Saturation 97% 10/30/2023 2:30 PM CDT Inhaled Oxygen Concentration - - Weight 85.7 kg (189 lb) 10/30/2023 9:38 AM CDT Height 160 cm (5' 2.99 ) 11/16/2023 3:17 PM CDT Body Mass Index 33.48 10/30/2023 9:38 AM CDT Plan of Treatment Health Maintenance Due Date Last Done Comments Albumin Creatinine Ratio, Urine 1985 Breast Cancer Screening-Mammogram 1985 Hepatitis C Screening 1985 DTaP/Tdap/Td Vaccine (1 - Tdap) 1994 Varicella Vaccines (1 of 2 - 13+ 2-dose series) 1996 Hepatitis B Screening 2001 Pneumococcal vaccine <65 (1 of 2 - PCV) 2002 Dilated Eye Exam 12/17/2018 12/17/2017 Foot Exam 08/06/2019 08/05/2018, 11/19/2016 Lipid Panel 03/23/2020 03/23/2019, 1007/2017, 12/17/2017, Additional history exists Cervical Cancer Screening 11/05/2020 11/06/2019 Depression Screening 11/05/2020 11/06/2019, 02/07/2018, 02/07/2018, Additional history exists Regular Well Visit/Exam 18-64 11/05/2020 11/06/2019, 02/07/2018 Hemoglobin A1C 01/28/2022 07/28/2021, 01/13, 03/23/2019, Additional history exists Covid-19 Vaccine ( season) 2023 06/20/2020, 05/30/2020 Influenza Vaccine (#1) 2023 12/10/2017, 2014 eGFR 10/29/2024 10/30/2023, 05/13, 07/28/2021, Additional history exists HPV Vaccines Aged Out No longer eligi ble based on patient's age to complete this topic Medical Devices Explanted Type Area Sap Technical Architect Device Identifier Shelf Expiration Date Model / Serial / Lot Bard Inlay Ureteral Stent Implanted:Qty: 1 on 04/12/2020 by Duarte Whiting DO at [facility] Explanted:Qty: 1 on 04/24/2020 by Duarte Whiting DO Left: Ureter [facility] 07/21/2023 [id number] / / [id number] Procedures Procedure Name Priority Date/Time Associated Diagnosis Comments EGFR STAT 10/30/2023 10:37 AM CDT HEMOGLOBIN A1C Routine 07/28/2021 7:31 PM CDT PAP WITH REFLEX TO HIGH RISK HPV Routine 11/06/2019 11:04 AM CDT LIPID PANEL Routine 03/23/2019 2:04 PM PULPWOOD DEALER Type 2 diabetes mellitus with hyperglycemia, with long-term current use of insulin (HCC) DIABETES EYE EXAM Routine 12/17/2017 DIABETES FOOT EXAM Routine 11/19/2016 from Last 3 Months or Most Recently Relevant to Health Maintenance Results * eGFR (10/30/2023 10:37 AM CDT) eGFR >90 >=60 mL/min/1. 73 m2 Comment: Interpretive Data Reference Interval Normal >/= 90 mL/min/1.73m2 Mildly decreased* 60 - 89 mL/min/1.73m2 Mildly to moderately decreased 45 - 59 mL/min/1.73m2 Moderately to severely decreased 30 - 44 mL/min/1.73m2 Severely decreased 15 - 29 mL/min/1.73m2 Kidney Failure < 15 mL/min/1.73m2 *Relative to young adult level Estimated glomerular filtration rate is determined by the 2020 CKD-EPI equation recommended by the National Kidney Foundation (A Unifying Approach to GFR Estimation: Recommendations of the NKF-ASK Task Force on Reassessing the Inclusion of Race in Diagnosing Kidney Disease, JASN 2020). The CKD-EPI equation should not be used for patients with unstable renal function and has not been validated in children and those over 70. Current interpretive data was last reviewed 2021. Blood 10/30/2023 10:3 7 AM CDT 10/30/2023 10:39 AM CDT us Kushal Mello MD LAB BLOOD ORDERABLE S Final Result Performing Organization Address [facility] Co de Phone Number [facility] [address] [place] [address] Department [place] [address] * (ABNORMAL) Hemoglobin A1c (07/28/2021 7:31 PM CDT) Hgb A1C 11.4(H) 4.0 - 5.6 % [facility] Estimated Average Glucose 280 mg/dL [facility] Comment: The ADA recommends reporting an estimated Average Glucose (eAG) with all Hemoglobin A1c results using the equation derived from a study of 507 normal and diabetic adults. Minority populations were underrepresented and children were not included. (Diabetes Care 31:3930-5603, 2008). The eAG is not equivalent to a fasting glucose. Blood 07/28/2021 7:31 PM CDT 07/28/2021 7:40 PM CDT us Meera Smith MD LAB BLOOD ORDERABLES Fin al Result [facility]) [address] [facility] Department [place] [address] * (ABNORMAL) Pap w/reflex to High Risk HPV if ASCUS and patient 21-29 years old (11/06/2019 11:04 AM CDT) 11/06/2019 11:0 4 AM CDT 11/06/2019 11:04 AM CDT Narrative 11/09/2019 1:31 PM CDT [facility] Department of Pathology [address] [place] [id number] Final Report with Addendum Patient Name: DEEPA SINGLETON Address: [address] [place] [address] Gender: F : 1985 (Age: 34) Service: Laboratory Location: Lab Hospital #: [id number] Patient Type: Ref Lab Taken: 11/06/2019 Received: 11/06/2019 Accessioned:: 11/07/2019 Reported: 11/09/2019 Physician(s): Breann Connors Diagnosis: Source of Specimen: Imaged Thinprep Pap Test plus HPV - Light Bulb Replacer Cytologic Material Specimen Adequacy: - Satisfactory for evaluation; endocervical/transformation zone component present General Category: - Epithelial cell abnormality Interpretation/Results: - Atypical squamous cells of undetermined significance ARACELI Handley(ASCP) Kenneth Roberts M.D. Report Electronically Reviewed and Signed Out By Kenneth Roberts M.D. 11/09/2019 13:31:36 Addenda: HPV RNA Test Interpretation NEGATIVE for types 16, 18, 31, 33, 35, 39, 45, 51, 52, 56, 58, 59, 66 and 68. Test performed utilizing Gen-Probe Aptima assay. ARACELI Handley(ASCP) Report Electronically Reviewed and Signed Out By JEANNIE HandleyASCP) 11/07/2019 16:27:20 Specimen(s) Received: A: Imaged Thinprep Pap Test plus HPV - Light Bulb Replacer Cytologic Material Clinical History: Last Menstrual Period: 06/02/19 Menstrual History: Irregular Cycles The Pap test is a screening test used to aid in the detection of cervical cancer and its precursors. It should not be the sole means by which malignant and premalignant lesions are diagnosed. Both false negative and false positive results may occur. It also has poor sensitivity for the detection of endometrial lesions and should not be used to evaluate suspected endometrial abnormalities. For these reasons it is most important to obtain Pap tests at regular intervals. The performance characteristics of some immunohistochemical stains, fluorescence in-situ hybridization tests and immunophenotyping by flow cytometry cited in this report (if any) were determined by the Surgical Pathology Department at [facility] as part of an ongoing senior manager quality assurance program and in compliance with federally mandated regulations drawn from the Clinical Laboratory Improvement Act of 1988 (CLIA '88). Some of these tests rely on the use of analyte specific reagents and are subject to specific labeling requirements by the US Food and Drug Administration. Such diagnostic tests may only be performed in a facility that is certified by the Department of Health and Human Services as a high complexity laboratory under CLIA '88. The FDA has determined that such clearance or approval is not necessary. This test is used for clinical purposes. It should not be regarded as investigational or for research. Nevertheless, federal rules concerning the medical use of analyte specific reagents require that the following disclaimer be attached to the report: This test was developed and its performance characteristics determined by the Surgical Pathology Department [facility]. It has not been cleared or approved by the U. S. Food and Drug Administration. Breann Connors MD LAB CYTOLOGY ORDERABLES Final Result * (ABNORMAL) Lipid panel (03/23/2019 2:04 PM PULPWOOD DEALER) Cholesterol 93 30 - 199 mg/dL [facility] ([place]) Comment: Interpretive Data Ages < or = 19 years Acceptable: <170 mg/dL Borderline high: 170-199 mg/dL High: >or= 200 mg/dL Ages > or = 20 years Desirable: <200 mg/dL Borderline high: 200-239 mg/dL High: >or= 240 mg/dL Literature References: 1. Expert Panel on Integrated Guidelines for Cardiovascular Health and Risk Reduction in Children and Adolescents. Pediatrics 2011;128:S213 2. NCEP Expert Panel. Circulation 2004;110:227 Current Interpretive Data was last revised on 2017. Triglycerides 185(H) <=149 mg/dL [facility] ([place]) Comment: Interpretive Data Ages < or = 9 years Acceptable: <75 mg/dL Borderline high: 75-99 mg/dL High: >or= 100 mg/dL Ages 10 to 20 years Acceptable: <90 mg/dL Borderline high: 90-129 mg/dL High: >or= 130 mg/dL Ages > or = 20 years Desirable: <150 mg/dL Borderline high: 150-199 mg/dL High: 200-499 mg/dL Very high: >or= 499 mg/dL Literature References: 1. Expert Panel on Integrated Guidelines for Cardiovascular Health and Risk Reduction in Children and Adolescents. Pediatrics 2011;128:S213 2. NCEP Expert Panel. Circulation 2004;110:227 Current Interpretive Data was last revised on 2017. HDL 30(L) >=40 mg/dL [facility] ([place]) Comment: Interpretive Data Ages < or = 19 years Acceptable: >45 mg/dL Borderline low: 40-45 mg/dL Low: <40 mg/dL Ages > or = 20 years Desirable: >or= 60 mg/dL Low: <40 mg/dL Literature References: 1. Expert Panel on Integrated Guidelines for Cardiovascular Health and Risk Reduction in Children and Adolescents. Pediatrics 2011;128:S213 2. NCEP Expert Panel. Circulation 2004;110:227 Current Interpretive Data was last revised on 2017. LDL, calculated 26 <=129 mg/dL [facility] ([place]) Comment: Interpretive Data Ages < or = 19 years Acceptable: <110 mg/dL Borderline high: 110-129 mg/dL High: >or= 130 mg/dL Ages > or = 20 years Optimal: <100 mg/dL Near optimal: 100-129 mg/dL Borderline high: 130-159 mg/dL High: >160 mg/dL Literature References: 1. Expert Panel on Integrated Guidelines for Cardiovascular Health and Risk Reduction in Children and Adolescents. Pediatrics 2011;128:S213 2. NCEP Expert Panel. Circulation 2004;110:227 Current Interpretive Data was last revised on 2017. Non-HDL Cholesterol 63 mg/dL [facility] Comment: Interpretive Data Ages < or = 19 years Acceptable: <120 mg/dL Borderline high: 120-144 mg/dL High: >145 mg/dL Ages > or = 20 years When triglycerides are >200 mg/dL, Non-HDL cholesterol is a secondary target of therapy with treatment goals that are 30 mg/dL greater than the LDL cholesterol target. Literature References: 1. Expert Panel on Integrated Guidelines for Cardiovascular Health and Risk Reduction in Children and Adolescents. Pediatrics 2011;128:S213 2. NCEP Expert Panel. Circulation 2004;110:227 Current Interpretive Data was last revised on 2017. Chol/HDL ratio 3 [facility] [facility] Blood specimen (specimen) 03/23/2019 2:04 PM PULPWOOD DEALER 03/23/2019 5:24 PM PULPWOOD DEALER Sara Banuelos MD LAB BLOOD ORDERABLES Final Res ult [facility] [place] [address] * DIABETES EYE EXAM (12/17/2017) Diabetic Eye Exam Abnormal Historical Provider HEALTH MAINTENANCE Final Result * DIABETES FOOT EXAM (11/19/2016) Diabetic Foot Exam Unknown Historical Provider HEALTH MAINTENANCE Final Result from Last 3 Months or Most Recently Relevant to Health Maintenance Insurance [facility] [employer] [facility] [employer]NA [employer] [facility] Advance Directives For more information, please contact: [phone] * Full Code (Latest Code Status on File) Date Activated Date Inactivated Comments 04/14/2020 6:50 PM 04/16/2020 6:08 PM * Full Code Date Activated Date Inactivated Comments 05/09/2017 10:16 AM 05/11/2017 7:36 PM Care Teams Watch And Clock Repair Clerk Relationship Specialty Start [place] [address] [place] [address] PCP - General Family Medicine 05/13/22 Destini Dexter MD Consulting Physician Gastroenterology 05/11/17
--- OUTSIDE RECORDS SUMMARY | 2024-06-24 14:28 | XMS_ITS | Referral Summary ---
Author Organization [facility] Address [address] [place] [id number] Care Team Providers Care Video Production Intern Name Role Phone Destini Dexter MD Unavailable [phone] Jean-Pierre Ferrari DO Primary Care Provider [phone] Allergies Active Allergy Reactions Criticality Noted Date [...] 10/04/19 19 Active blood-glucose meter,continuous (DEXCOM G6 ROD PILER) [facility] Use to test blood [...] (04/10/2020): Added automatically from request for surgery [id number] Social History Tobacco Use Types Packs/Day Years [...] on file 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 Works at a [employer]. Previously at [employer]. Not on file Not on file Not on file Last Filed Vital Signs [...] 10/30/2023 9:38 AM CDT Plan of Treatment Not on file Medical Devices Explanted Type Area Electronic Data Processing Auditor Device Identifier Shelf Expiration Date Model / Serial / Lot Bard Inlay Ureteral Stent Implanted:Qty: 1 on 04/12/2020 by Duarte Whiting DO at [facility] Explanted:Qty: 1 on 04/24/2020 by Duarte Whiting DO Left: Ureter [employer] 07/21/2023 [id number] / / [id number] Procedures Procedure Name Priority Date/Time Associated Diagnosis Comments EGFR STAT 10/30/2023 10:37 AM CDT HEMOGLOBIN A1C Routine 07/28/2021 7:31 PM CDT PAP WITH REFLEX TO HIGH RISK HPV Routine 11/06/2019 11:04 AM CDT LIPID PANEL Routine 03/23/2019 2:04 PM CARRIAGE OPERATOR Type 2 diabetes mellitus with hyperglycemia, with [...] of Race in Diagnosing Kidney Disease, JASN 2021). The CKD-EPI equation should not be used for patients with unstable renal function and has not been validated in children and those over 70. Current interpretive data was last reviewed 2021. Blood 10/30/2023 10:3 7 AM CDT 10/30/2023 10:39 AM CDT Kushal Mello MD LAB BLOOD ORDERABLE S Final Result Performing Organization Address [facility] Co de Phone Number [facility] ([place]) [address] [facility] [place] [address] * (ABNORMAL) Hemoglobin A1c (07/28/2021 7:31 PM CDT) Hgb A1C 11.4(H) 4.0 - 5.6 % [facility] ([place] Estimated Average Glucose 280 mg/dL [facility] ([place]) Comment: The ADA recommends reporting an estimated Average Glucose (eAG) with all Hemoglobin A1c results using the equation derived from a study of 507 normal and diabetic adults. Minority populations were underrepresented and children were not included. (Diabetes Care 31:7005-7033, 2008). The eAG is not equivalent to a fasting glucose. Blood 07/28/2021 7:31 PM CDT 07/28/2021 7:40 PM CDT Meera Smith MD LAB BLOOD ORDERABLES Fin al Result Performing Organization Address [facility] Co de Phone Number [facility] ([place]) [address] [facility] [place] [address] * (ABNORMAL) Pap w/reflex to High Risk HPV if ASCUS and patient 21-29 years old (11/06/2019 11:04 AM CDT) 11/06/2019 11:0 4 AM CDT 11/06/2019 11:04 AM CDT Narrative 11/09/2019 1:31 PM CDT [facility] Department of Pathology [address] [place], [place] [id number] Final Report with Addendum Patient Name: DEEPA SINGLETON Address: [address] [place] [address] Gender: F : 1985 (Age: 34) Service: Laboratory Location: Lab Hospital #: [id number] Patient Type: Ref Lab Taken: 11/06/2019 Received: 11/06/2019 Accessioned:: 11/07/2019 Reported: 11/09/2019 Physician(s): Breann Connors Diagnosis: Source of Specimen: Imaged Thinprep Pap Test plus HPV - Globe Cleaner Cytologic Material Specimen Adequacy: - Satisfactory for evaluation; endocervical/transformation zone component present General Category: - Epithelial cell abnormality Interpretation/Results: - Atypical squamous cells of undetermined significance ARACELI Handley([facility]) Kenneth Roberts M.D. Report Electronically Reviewed and Signed Out By Kenneth Roberts M.D. 11/09/2019 13:31:36 Addenda: HPV RNA Test Interpretation NEGATIVE for types 16, 18, 31, 33, 35, 39, 45, 51, 52, 56, 58, 59, 66 and 68. Test performed utilizing Gen-Probe Aptima assay. ARACELI Handley([facility]) Report Electronically Reviewed and Signed Out By JEANNIE [facility]) 11/07/2019 16:27:20 Specimen(s) Received: A: Imaged Thinprep Pap Test plus HPV - Globe Cleaner Cytologic Material Clinical History: Last Menstrual Period: [...] determined by the Surgical Pathology Department at [facility] as part of an ongoing quality assurance test program manager program and in compliance with federally mandated [...] characteristics determined by the Surgical Pathology Department [facility]. It has not been cleared or approved by the U. S. Food and Drug Administration. Breann Connors MD LAB CYTOLOGY ORDERABLES Final Result * (ABNORMAL) Lipid panel (03/23/2019 2:04 PM CARRIAGE OPERATOR) Cholesterol 93 30 - 199 mg/dL [facility] ([place]) Comment: Interpretive Data [...] 2017. Non-HDL Cholesterol 63 mg/dL [facility] ([place]) Comment: Interpretive Data [...] last revised on 2017. Chol/HDL ratio 3 [facility] ([place]) Blood specimen (specimen) 03/23/2019 2:04 PM CARRIAGE OPERATOR 03/23/2019 5:24 PM CARRIAGE OPERATOR Sara Banuelos MD LAB BLOOD ORDERABLES Final Res ult [facility] ([place]) 1 [facility] [place] [address] * DIABETES EYE EXAM (12/17/2017) Diabetic Eye Exam Abnormal Historical Provider HEALTH MAINTENANCE Final Result * DIABETES FOOT EXAM (11/19/2016) Diabetic Foot Exam Unknown Annabella Provider HEALTH MAINTENANCE Final Result from Last 3 Months or Most Recently Relevant to Health Maintenance Insurance A[facility]NA [facility] AETNA BETTER [facility] AETNA BETTER [facility] [place] Advance Directives For more information, please contact: [phone] * Full Code (Latest Code Status on File) Date Activated Date Inactivated Comments 04/14/2020 6:50 PM 04/16/2020 6:08 PM * Full Code Date Activated Date Inactivated Comments 05/09/2017 10:16 AM 05/11/2017 7:36 PM Care Teams Video Production Intern Relationship Specialty Start [place] [address] [place] [address] PCP - General Family Medicine 05/13/22 Destini Dexter MD Consulting Physician Gastroenterology 05/11/17
--- NOTE | 2024-06-24 14:41 | ED_ITS ---
HPI - General Adult General Chief complaint: Headache Stated complaint: nausea, dizzy, & headache Time Seen by Provider: 06/24/24 14:40 Source: patient Mode of arrival: ambulatory Limitations: no limitations History of Present Illness HPI narrative: 39-year-old white female complains of a headache that started 7 days ago started as a frontal headache that radiated to the right side into her neck. She has had the headache for the past 7 days and then this morning she woke up with neck pain worse with movement she denies any history of trauma. 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 Her headache started on Wednesday she thought was a sinus headache as she had some sinus drainage at that time. [facility] and lost about 82 lb in the last year nurse practitioner said she needed a banana bag but there was no way to get this done she was called Dr. Farley's office to try to get this done. She was off on on Wednesday her headache was not as intense she called [facility] they would get her a banana bag the following Wednesday. On Wednesday today she awoke woke up with the neck pain it has persisted she has had some dizziness and spinning sensation moving makes it worse. She took 1 of her nausea pills. She has had a history of 6 months of nausea and vomiting associated with her bariatric surgery. They are considering revising her surgery they are going to do a EGD on July 25 her nausea vomiting has not changed since she had her headache today she called the [facility] they told her to go the emergency room or urgent care center. She says her headache is in the back of her head and frontal sharp 7/10 is constant waxes and wanes in severity worse with movement. She is walking talking seeing and hearing okay no changes in her nausea vomiting she is taking Zofran ODT during the day and Compazine at night. She takes is sucralfate for her GERD and omeprazole 3 times a day. Denies any fever cough sore throat earache rash. She has itching all over she says is a associated with her anxiety she has a little bit of a runny nose she is depressed but not having any suicidal or homicidal ideations. Denies any bleeding or bruising weakness or numbness or trauma she is currently on her period. 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 Related Data Home Medications ?Medication ?Instructions ?Recorded ?Confirmed ?Last Taken ?Type cyanocobalamin (vitamin B-12) 1,000 mcg IM WEEKLY 05/12/22 04/06/23 Unknown History 1,000 mcg/mL injection solution insulin glargine 100 unit/mL (3 48 unit subcut HS 05/12/22 04/06/23 Unknown History mL) subcutaneous pen (Lantus Solostar U-100 Insulin) insulin lispro 200 unit/mL (3 mL) See Rx Instructions .Route .COMPLEX 05/12/22 04/06/23 Unknown History subcutaneous pen (Humalog KwikPen U-200 Insulin) metformin 500 mg tablet,extended 1,000 mg PO BID 05/12/22 04/06/23 Unknown History release 24 hr omeprazole 20 mg capsule,delayed 20 mg PO DAILY 05/12/22 04/06/23 Unknown History release prazosin 1 mg capsule 1 mg PO DAILY 05/12/22 04/06/23 Unknown History trazodone 150 mg tablet 150 mg PO HS 05/12/22 04/06/23 Unknown History amlodipine 2.5 mg tablet 2.5 mg PO DAILY 04/06/23 04/06/23 Unknown History atorvastatin 20 mg tablet 20 mg PO DAILY 04/06/23 04/06/23 Unknown History hydrochlorothiazide 12.5 mg capsule 12.5 mg PO DAILY 04/06/23 04/06/23 Unknown History hydroxyzine HCl 10 mg tablet 10 mg PO TID 04/06/23 04/06/23 Unknown History lamotrigine 200 mg tablet 200 mg PO DAILY 04/06/23 04/06/23 Unknown History losartan 100 mg tablet 100 mg PO DAILY 04/06/23 04/06/23 Unknown History lurasidone 20 mg tablet 20 mg PO DAILY 04/06/23 04/06/23 Unknown History montelukast 10 mg tablet 10 mg PO DAILY 04/06/23 04/06/23 Unknown History oxybutynin chloride 10 mg 10 mg PO DAILY 04/06/23 04/06/23 Unknown History tablet,extended release 24 hr vilazodone 40 mg tablet 40 mg PO DAILY 01/23/24 01/23/24 Unknown History Allergies Allergy/AdvReac Type Severity Reaction Status Date / Time topiramate (From Topamax) Allergy Severe Vomiting Verified 06/24/24 14:24 dulaglutide (From Trulicity) Allergy Intermediate Unknown Verified 06/24/24 14:24 adhesive tape Allergy Mild Unknown Verified 06/24/24 14:24 latex Allergy Unknown Rash Verified 06/24/24 14:24 morphine Allergy Unknown Rash Verified 06/24/24 14:24 Review of Systems Review of Systems: All systems reviewed & are unremarkable except as noted in HPI and below PMFSH Past Medical History Medical History MARY (obstructive sleep apnea) Morbid obesity Anxiety and depression Type 2 diabetes mellitus Surgical History Surgical History H/O knee surgery Exam Narrative: White female patient with no apparent distress.? normal vital signs. Head normocephalic, atraumatic.? Eyes conjunctiva pink sclera nonicteric.? Extraocular movements are intact.? Ears externally normal.? TMs are normal. ?Oropharynx is clear with moist mucous membranes without exudates.? Neck pain with any range of motion. her neck hurts to lay down. negative Kernig sign negative Brudzinski sign. She has no lymphadenopathy.? Back is nontender.? Lungs are clear.? Heart is regular rate and rhythm without murmurs gallops or rubs.? Chest wall nontender. Abdomen is soft and nontender no hepatosplenomegaly or masses no CVA tenderness no abdominal bruits.? Extremities no cyanosis clubbing or edema.? Skin is warm and dry without rashes or lesions.? Neurological patient is alert and oriented x4.? Motor and sensory grossly intact.? Gait is normal. Course Vital Signs Vital signs: Vital Signs Temperature 36.8 C 06/24/24 14:23 Pulse Rate 89 06/24/24 14:23 Respiratory Rate 18 06/24/24 14:23 Blood Pressure 131/85 06/24/24 14:23 Pulse Oximetry 96 06/24/24 14:23 Oxygen Delivery Room Air 06/24/24 14:23 Temperature 36.8 C 06/24/24 14:23 Pulse Rate 89 06/24/24 14:23 Respiratory Rate 18 06/24/24 14:23 Blood Pressure 131/85 06/24/24 14:23 Pulse Oximetry 96 06/24/24 14:23 Oxygen Delivery Room Air 06/24/24 14:23 Medical Decision Making MDM Narrative Medical decision making narrative: Patient was placed in Room # Two History and physical was performed. CT of the head Negative CT cervical spine negative CRP 1.3 PTT 21.4 with a normal INR PT. Lactic acid is normal.? CMP was unremarkable. Hemoglobin 9.7 hematocrit 34 August last year H&H was 10.7 and 33.5 WBC 12.8 with 550 platelets, magnesium 1.7 Sed rate: 31 patient had 1 week of headache she is under lot of stress with 6 weeks of nausea vomiting and me go through a revision of her bariatric surgery. She says she is depressed and she does not think her Effexor is working. She has periods when she is crying because the nausea is so bad. I do not think this patient has meningitis she got some relief with the pain her neck is much more supple and she is able to move better her pain is a 4/10. She needs a follow-up with her psychiatrist and get adjustment of her Effexor follow-up with her primary care for further evaluation and treatment. She is going to be on Tylenol and tramadol 50 3 times a day as needed she can use some ice packs and her low heating pad for 20 minutes as needed for pain. She was instructed to return if she got worse or develops any new symptoms. Her CT of her neck showed degenerative changes. CT head was negative. Independent Historian: patient External Source Review: Differential Dx includes but not limited to: Infectious cerebral hemorrhage cervical spine disease cervical genic headache tension-type headache migraine cervical strain occipital neuralgia Medications were Reviewed: home med reviewed Independently Interpreted by me: labs independently interpreted by me Meds, treatment, ED course: banana bag fentanyl 50 mcg IV this improved her pain her she was down to 4 she was feeling much better her she was moving her neck much better Social Situation Impacting Patients Care: chronic nausea vomiting from side effects complications related to her bariatric surgery Shared decision Making: evaluation was discussed all questions were asked and answered patient agreed with the plan. DISCHARGE DIAGNOSIS: Headache neck pain DISPOSITION: discharge home CONDITION AT DISCHARGE: stable Vital Signs Vital Signs: Vital Signs Temperature 36.8 C 06/24/24 14:23 Pulse Rate 89 06/24/24 14:23 Respiratory Rate 18 06/24/24 14:23 Blood Pressure 131/85 06/24/24 14:23 Pulse Oximetry 96 06/24/24 14:23 Oxygen Delivery Room Air 06/24/24 14:23 Temperature 36.8 C 06/24/24 14:23 Pulse Rate 89 06/24/24 14:23 Respiratory Rate 18 06/24/24 14:23 Blood Pressure 131/85 06/24/24 14:23 Pulse Oximetry 96 06/24/24 14:23 Oxygen Delivery Room Air 06/24/24 14:23 Discharge Plan Discharge Clinical Impression: Headache, Acute neck pain, Degenerative arthritis of cervical spine Patient Disposition: Home Condition: Stable Instructions: Antibiotic Form, Tension Headache (ED), Acute Neck Pain (ED) Additional Instructions: Tylenol and/or tramadol 50 mg 3 times a day as needed for pain. Low heating pad or ice packs for 20 minutes as needed for pain. Follow-up with your Psychiatrist to discuss your depression and your medication and adjustments of your medication. follow-up with your primary care provider to discuss further evaluation of your Headache and further pain medications. Return if you get worse or develops any new symptoms. Patient Language: Croatian Prescriptions: New tramadol 50 mg tablet 50 mg PO TID PRN (Reason: pain) Qty: 12 0RF No Action prazosin 1 mg capsule 1 mg PO DAILY cyanocobalamin (vitamin B-12) 1,000 mcg/mL solution 1,000 mcg IM WEEKLY trazodone 150 mg tablet 150 mg PO HS omeprazole 20 mg capsule,delayed release(DR/EC) 20 mg PO DAILY metformin 500 mg tablet extended release 24 hr 1,000 mg PO BID insulin glargine [Lantus Solostar U-100 Insulin] 100 unit/mL (3 mL) insulin pen 48 unit SUBCUT HS Humalog KwikPen Insulin 200 unit/mL (3 mL) insulin pen See Rx Instructions .ROUTE .COMPLEX Rx Instructions: take per sliding scale amlodipine 2.5 mg tablet 2.5 mg PO DAILY atorvastatin 20 mg tablet 20 mg PO DAILY lamotrigine 200 mg tablet 200 mg PO DAILY oxybutynin chloride 10 mg tablet extended release 24hr 10 mg PO DAILY hydrochlorothiazide 12.5 mg capsule 12.5 mg PO DAILY montelukast 10 mg tablet 10 mg PO DAILY hydroxyzine HCl 10 mg tablet 10 mg PO TID losartan 100 mg tablet 100 mg PO DAILY vilazodone 40 mg tablet 40 mg PO DAILY lurasidone 20 mg tablet 20 mg PO DAILY promethazine 25 mg tablet 25 mg PO Q6H PRN (Reason: nausea, abdominal pain) Qty: 20 0RF ondansetron 4 mg tablet,disintegrating 4 mg PO Q6H PRN (Reason: nausea and vomiting) Qty: 20 0RF ondansetron 4 mg tablet,disintegrating 4 mg PO Q8H PRN (Reason: nausea and vomiting) Qty: 30 0RF ondansetron HCl 4 mg tablet 4 mg PO Q8H PRN (Reason: nausea and vomiting) 4 Days Qty: 10 0RF Follow-up/Referrals: Miguelito,Bev Pabon NP [Primary Care Provider] - Time of Disposition: 17:53
--- OUTSIDE RECORDS SUMMARY | 2024-06-24 14:45 | XMS_ITS ---
Author Organization Unknown Address [address] [place] [phone] Phone Care Team Providers Care Oncology Radiation Physician Name Role Phone TERRI BEDOYA Attending Unavailable [...] em Smoking History Never smoker (Never Smoked) [id number] SNOMED CT Sex Female Medications Medication Start Date End Date Route Frequency Dose Code Code System Medication Instructions Home Meds vilazodone hydrochloride 10MG Oral Tablet 04/30/2022 Unknown ORAL ONCE A DAY 10 MILLIGRAMS 1865990 RxNorm TAKE 10 MILLIGRAMS ORAL ONCE A DAY HumaLOG 100U/1ML Injection Solution 04/30/2022 Unknown INJECT ION 1 unit(s) 548923 RxNorm 1 EACH INJECTION Cozaar 100MG Oral Tablet 04/30/2022 Unknown ORAL ONCE A DAY 100 MILLIGRAMS 456863 RxNorm TAKE 100 MILLIGRAMS ORAL ONCE A DAY Lantus 100U/1ML Subcutaneous Solution 04/30/2022 Unknown SUBCUT ANEOUS AT BEDTIM E 48 unit(s) 837971 RxNorm INJECT INTO 48 EACH SUBCUTANEOUS AT BEDTIME Lipitor 20MG Oral Tablet 04/30/2022 Unknown ORAL ONCE A DAY 20 MILLIGRAMS 060868 RxNorm TAKE 20 MILLIGRAMS ORAL ONCE A DAY Omeprazole 20MG Oral Capsule, Delayed Release 04/30/2022 Unknown ORAL ONCE A DAY 20 MILLIGRAMS 821850 RxNorm TAKE 20 MILLIGRAMS ORAL ONCE A DAY Oxybutynin Chloride 5MG Oral Tablet, Extended Release 04/30/2022 Unknown ORAL ONCE A DAY 5 MILLIGRAMS 622321 RxNorm TAKE 5 MILLIGRAMS ORAL ONCE A DAY ProAir HFA 0.09MG/1Actuatio n Inhalation Suspension 04/30/2022 Unknown INHALA TION NEEDED EVERY 4 HOURS 1 unit(s) 707099 RxNorm 1 EACH INHALATION NEEDED EVERY 4 HOURS Singulair 10MG Oral Tablet 04/30/2022 Unknown ORAL AT BEDTIM E 10 MILLIGRAMS 344705 RxNorm TAKE 10 MILLIGRAMS ORAL AT BEDTIME ZyrTEC 10MG Oral Tablet 04/30/2022 Unknown ORAL ONCE A DAY 10 MILLIGRAMS RxNorm TAKE 10 MILLIGRAMS ORAL ONCE A DAY hydroCHLOROthiaz zulema 12.5MG Oral Tablet 04/30/2022 Unknown ORAL ONCE A DAY 12.5 MILLIGRAMS 713216 RxNorm TAKE 12.5 MILLIGRAMS ORAL ONCE A DAY metFORMIN HCl 500MG Oral Tablet 04/30/2022 Unknown ORAL TWICE A DAY 1000 MILLIGRAMS 435754 RxNorm TAKE 1000 MILLIGRAMS ORAL TWICE A DAY traZODone hydrochloride 150MG Oral Tablet 04/30/2022 Unknown ORAL AT BEDTIM E 150 MILLIGRAMS 442127 RxNorm TAKE 150 MILLIGRAMS ORAL AT BEDTIME [...] Status Code Code System SECONDARY AMENORRHEA active [id number] SNOMED-CT IRON DEFICIENCY ANEMIA, UNSPECIFIED active 19120220 SNOMED-CT DIARRHEA active 47496430 SNOMED-CT GERD active 081440839 SNOMED-CT ENCOUNTER FOR GYNECOLOGICAL EXAMINATION (GENERAL) (ROUTINE) WITHOUT ABNORMAL FIN active 38730135 SNOMED- CT HIGH RISK HETEROSEXUAL BEHAVIOR active 148659565600763 SNOMED-CT BARIATRIC SURGERY STATUS active 62706 2926 SNOMED-CT Allergies and Adverse Reactions Allergy Substance Reaction Severity Start Date Concern Status Co de Code System MORPHINE Active 7052 RxNorm ADHESIVE Active LATEX Active 3471594 RxNorm HUMALOG Active 938381 RxNorm Plan of Treatment Split Night, CPAP/BIPAP/ASV (73992) EGD/Colonoscopy 04/30/2022 US Pelvis/Transvaginal (19980) 04/06/19 24 Pharynx Esophagus Cine 04/01/2023 Encounters Encounter Diagnosis Start Date Code Code Sys tem Painful micturition, unspecified 08/21/2023 SNOMED-CT Personal Care Team Section Performer Name Performer Role Active Date Inactive SHAHEED Patricia PCP - Primary care physician 8 2021-07-04 Jean-Pierre Ferrari PCP - Primary care physician 2022-03-13
--- OUTSIDE RECORDS SUMMARY | 2024-06-24 14:45 | XMS_ITS ---
Author Organization Unknown Address [place], [place] [phone] Phone Care Team Providers Care Jive Developer Name Role Phone SAIDA MARIO Attending Unavailable JOSÉ LUIS DELCID Primary Unavailable Immunization Immunization Date Status Additional Notes Code Code System Influenza, split virus, trivalent, PF 12/09/2014 Completed 140 CVX Influenza, split virus, trivalent, preservative 12/10/2017 Completed 141 CVX COVID-19, mRNA, LNP-S, PF, 3 0 mcg/0.3 mL dose 05/30/2020 Completed 208 CVX Results LIPID PANEL - Collect Date/T douglas: 10/11/2023 10:21 [facility] ID: [id number] [place] [address], [phone] LOINC: 41958-9 Test Value Unit Reference Range Code Code System Flag FASTING YES CHOLESTEROL 101 mg/dL L=0 H=200 2093-3 LOINC TRIGLYCERIDE 117 mg/dL L=0 H=150 2571-8 LOINC HDL 34 mg/dL L=40 H=60 2085-9 LOINC L LDL 54 mg/dL 9-1 LOINC Social History Type Status Start Date End Date Code Code Syst em Smoking History Never smoker (Never Smoked) 722917859 SNOMED CT Sex Female Medications Medication Start Date End Date Route Frequency Dose Code Code System Medication Instructions Home Meds vilazodone hydrochloride 10MG Oral Tablet 04/30/2022 Unknown ORAL ONCE A DAY 10 MILLIGRAMS 5867983 RxNorm TAKE 10 MILLIGRAMS ORAL ONCE A DAY HumaLOG 100U/1ML Injection Solution 04/30/2022 Unknown INJECT ION 1 unit(s) 398387 RxNorm 1 EACH INJECTION Cozaar 100MG Oral Tablet 04/30/2022 Unknown ORAL ONCE A DAY 100 MILLIGRAMS 188488 RxNorm TAKE 100 MILLIGRAMS ORAL ONCE A DAY Lantus 100U/1ML Subcutaneous Solution 04/30/2022 Unknown SUBCUT ANEOUS AT BEDTIM E 48 unit(s) 293694 RxNorm INJECT INTO 48 EACH SUBCUTANEOUS AT BEDTIME Lipitor 20MG Oral Tablet 04/30/2022 Unknown ORAL ONCE A DAY 20 MILLIGRAMS 049633 RxNorm TAKE 20 MILLIGRAMS ORAL ONCE A DAY Omeprazole 20MG Oral Capsule, Delayed Release 04/30/2022 Unknown ORAL ONCE A DAY 20 MILLIGRAMS 394717 RxNorm TAKE 20 MILLIGRAMS ORAL ONCE A DAY Oxybutynin Chloride 5MG Oral Tablet, Extended Release 04/30/2022 Unknown ORAL ONCE A DAY 5 MILLIGRAMS 738100 RxNorm TAKE 5 MILLIGRAMS ORAL ONCE A DAY ProAir HFA 0.09MG/1Actuatio n Inhalation Suspension 04/30/2022 Unknown INHALA TION NEEDED EVERY 4 HOURS 1 unit(s) 829338 RxNorm 1 EACH INHALATION NEEDED EVERY 4 HOURS Singulair 10MG Oral Tablet 04/30/2022 Unknown ORAL AT BEDTIM E 10 MILLIGRAMS 466204 RxNorm TAKE 10 MILLIGRAMS ORAL AT BEDTIME ZyrTEC 10MG Oral Tablet 04/30/2022 Unknown ORAL ONCE A DAY 10 MILLIGRAMS RxNorm TAKE 10 MILLIGRAMS ORAL ONCE A DAY hydroCHLOROthiaz zulema 12.5MG Oral Tablet 04/30/2022 Unknown ORAL ONCE A DAY 12.5 MILLIGRAMS 883524 RxNorm TAKE 12.5 MILLIGRAMS ORAL ONCE A DAY metFORMIN HCl 500MG Oral Tablet 04/30/2022 Unknown ORAL TWICE A DAY 1000 MILLIGRAMS 017796 RxNorm TAKE 1000 MILLIGRAMS ORAL TWICE A DAY traZODone hydrochloride 150MG Oral Tablet 04/30/2022 Unknown ORAL AT BEDTIM E 150 MILLIGRAMS 920322 RxNorm TAKE 150 MILLIGRAMS ORAL AT BEDTIME [...] Status Code Code System SECONDARY AMENORRHEA active 60660357 SNOMED-CT IRON DEFICIENCY ANEMIA, UNSPECIFIED active 02463843 SNOMED-CT DIARRHEA active 12677140 SNOMED-CT GERD active 654559441 SNOMED-CT ENCOUNTER FOR GYNECOLOGICAL EXAMINATION (GENERAL) (ROUTINE) WITHOUT ABNORMAL FIN active 08528557 SNOMED- CT HIGH RISK HETEROSEXUAL BEHAVIOR active 815518827664988 SNOMED-CT BARIATRIC SURGERY STATUS active 19978 8006 SNOMED-CT Allergies and Adverse Reactions Allergy Substance Reaction Severity Start Date Concern Status Co de Code System MORPHINE Active 7052 RxNorm ADHESIVE Active LATEX Active 0979382 RxNorm HUMALOG Active 816351 RxNorm Plan of Treatment Split Night, CPAP/BIPAP/ASV (51371) EGD/Colonoscopy 04/30/2022 US Pelvis/Transvaginal (28170) 04/06/19 24 Pharynx Esophagus Cine 04/01/2023 Encounters Encounter Diagnosis Start Date Code Code Sys tem Hyperlipidemia, unspecified 10/11/2023 SNOMED-CT Personal Care Team Section Performer Name Performer Role Active Date Inactive SHAHEED Patricia PCP - Primary care physician 8 2021-07-04 Jean-Pierre Ferrari PCP - Primary care physician 2022-03-13
--- OUTSIDE RECORDS SUMMARY | 2024-06-24 14:45 | XMS_ITS ---
Author Organization Unknown Address [address] [place] [phone] Phone Care Team Providers Care Speedboat Driver Name Role Phone RAYMOND TOMAS Attending Unavailable [...] em Smoking History Never smoker (Never Smoked) 891441411 SNOMED CT Sex Female Medications Medication Start Date End Date Route Frequency Dose Code Code System Medication Instructions Home Meds vilazodone hydrochloride 10MG Oral Tablet 04/30/2022 Unknown ORAL ONCE A DAY 10 MILLIGRAMS 7704950 RxNorm TAKE 10 MILLIGRAMS ORAL ONCE A DAY HumaLOG 100U/1ML Injection Solution 04/30/2022 Unknown INJECT ION 1 unit(s) 108860 RxNorm 1 EACH INJECTION Cozaar 100MG Oral Tablet 04/30/2022 Unknown ORAL ONCE A DAY 100 MILLIGRAMS 369664 RxNorm TAKE 100 MILLIGRAMS ORAL ONCE A DAY Lantus 100U/1ML Subcutaneous Solution 04/30/2022 Unknown SUBCUT ANEOUS AT BEDTIM E 48 unit(s) 340431 RxNorm INJECT INTO 48 EACH SUBCUTANEOUS AT BEDTIME Lipitor 20MG Oral Tablet 04/30/2022 Unknown ORAL ONCE A DAY 20 MILLIGRAMS 472691 RxNorm TAKE 20 MILLIGRAMS ORAL ONCE A DAY Omeprazole 20MG Oral Capsule, Delayed Release 04/30/2022 Unknown ORAL ONCE A DAY 20 MILLIGRAMS 465745 RxNorm TAKE 20 MILLIGRAMS ORAL ONCE A DAY Oxybutynin Chloride 5MG Oral Tablet, Extended Release 04/30/2022 Unknown ORAL ONCE A DAY 5 MILLIGRAMS 182403 RxNorm TAKE 5 MILLIGRAMS ORAL ONCE A DAY ProAir HFA 0.09MG/1Actuatio n Inhalation Suspension 04/30/2022 Unknown INHALA TION NEEDED EVERY 4 HOURS 1 unit(s) 118556 RxNorm 1 EACH INHALATION NEEDED EVERY 4 HOURS Singulair 10MG Oral Tablet 04/30/2022 Unknown ORAL AT BEDTIM E 10 MILLIGRAMS 816467 RxNorm TAKE 10 MILLIGRAMS ORAL AT BEDTIME ZyrTEC 10MG Oral Tablet 04/30/2022 Unknown ORAL ONCE A DAY 10 MILLIGRAMS RxNorm TAKE 10 MILLIGRAMS ORAL ONCE A DAY hydroCHLOROthiaz zulema 12.5MG Oral Tablet 04/30/2022 Unknown ORAL ONCE A DAY 12.5 MILLIGRAMS 582270 RxNorm TAKE 12.5 MILLIGRAMS ORAL ONCE A DAY metFORMIN HCl 500MG Oral Tablet 04/30/2022 Unknown ORAL TWICE A DAY 1000 MILLIGRAMS 653454 RxNorm TAKE 1000 MILLIGRAMS ORAL TWICE A DAY traZODone hydrochloride 150MG Oral Tablet 04/30/2022 Unknown ORAL AT BEDTIM E 150 MILLIGRAMS 614790 RxNorm TAKE 150 MILLIGRAMS ORAL AT BEDTIME [...] Status Code Code System SECONDARY AMENORRHEA active 64088469 SNOMED-CT IRON DEFICIENCY ANEMIA, UNSPECIFIED active 68095079 SNOMED-CT DIARRHEA active 46498667 SNOMED-CT GERD active 434369188 SNOMED-CT ENCOUNTER FOR GYNECOLOGICAL EXAMINATION (GENERAL) (ROUTINE) WITHOUT ABNORMAL FIN active 38947119 SNOMED- CT HIGH RISK HETEROSEXUAL BEHAVIOR active 308711458112353 SNOMED-CT BARIATRIC SURGERY STATUS active 35915 0256 SNOMED-CT Allergies and Adverse Reactions Allergy Substance Reaction Severity Start Date Concern Status Co de Code System MORPHINE Active 7052 RxNorm ADHESIVE Active LATEX Active 3682687 RxNorm HUMALOG Active 708376 RxNorm Plan of Treatment Split Night, CPAP/BIPAP/ASV (77466) EGD/Colonoscopy 04/30/2022 US Pelvis/Transvaginal (47785) 04/06/19 24 Pharynx Esophagus Cine 04/01/2023 Encounters Encounter Diagnosis Start Date Code Code Sys tem Urinary tract infectious disease 11/09/2023 02147017 SNOMED-CT Personal Care Team Section Performer Name Performer Role Active Date Inactive SHAHEED Patricia PCP - Primary care physician 8 2021-07-04 Jean-Pierre Ferrari PCP - Primary care physician 2022-03-13
--- OUTSIDE RECORDS SUMMARY | 2024-06-24 14:45 | XMS_ITS ---
Author Organization Unknown Address [address] [place] [phone] Phone Care Team Providers Care Shift Supervisor Melting Name Role Phone HI BEDOYA CNP NAIL ARTIST Attending Unavailable JOSÉ LUIS DELCID Primary Unavailable [...] em Smoking History Never smoker (Never Smoked) 605986201 SNOMED CT Sex Female Vital Signs Vital Sign Value Unit Largo Value Largo Unit Date/Time Recent/Initial? Code Code System Body Mass Index 31.71 kg/m2 03/27/2024 10:45 Initial 46632 -5 LOINC Systolic Blood Pressure 95 mm[Hg] 03/27/2024 10:44 Initial 8480- 6 LOINC Diastolic Blood Pressure 63 mm[Hg] 03/27/2024 10:44 Initial 8462- 4 LOINC Body Surface Area 1.90 m2 03/27/2024 10:45 Initial 3140- 1 LOINC Height 160.020 0 cm 63.00 in 03/27/2024 10:45 Initial 8302- 2 LOINC O2 Saturation 99 % 2024 10:44 Initial 87863 -5 LOINC Pulse 68.0 /min 03/27/2024 10:44 Initial 8867- 4 LOINC Respiration 22 /min 03/27/19 25 10:44 Initial 9279- 1 LOINC Temperature 35.8 Gema 96.4 F 03/27/19 10:44 Initial 8310- 5 [facility] Weight 81.19 kg 179.00 lbs 03/27/2024 10:45 Initial 17904 -7 [facility] Medications Medication Start Date End Date Route Frequency Dose Code Code System Medication Instructions Home Meds vilazodone hydrochloride 10MG Oral Tablet 04/30/2022 Unknown ORAL ONCE A DAY 10 MILLIGRAMS 4083485 RxNorm TAKE 10 MILLIGRAMS ORAL ONCE A DAY HumaLOG 100U/1ML Injection Solution 04/30/2022 Unknown INJECT ION 1 unit(s) 236282 RxNorm 1 EACH INJECTION Cozaar 100MG Oral Tablet 04/30/2022 Unknown ORAL ONCE A DAY 100 MILLIGRAMS 371232 RxNorm TAKE 100 MILLIGRAMS ORAL ONCE A DAY Lantus 100U/1ML Subcutaneous Solution 04/30/2022 Unknown SUBCUT ANEOUS AT BEDTIM E 48 unit(s) 270532 RxNorm INJECT INTO 48 EACH SUBCUTANEOUS AT BEDTIME Lipitor 20MG Oral Tablet 04/30/2022 Unknown ORAL ONCE A DAY 20 MILLIGRAMS 419221 RxNorm TAKE 20 MILLIGRAMS ORAL ONCE A DAY Omeprazole 20MG Oral Capsule, Delayed Release 04/30/2022 Unknown ORAL ONCE A DAY 20 MILLIGRAMS 021335 RxNorm TAKE 20 MILLIGRAMS ORAL ONCE A DAY Oxybutynin Chloride 5MG Oral Tablet, Extended Release 04/30/2022 Unknown ORAL ONCE A DAY 5 MILLIGRAMS 138341 RxNorm TAKE 5 MILLIGRAMS ORAL ONCE A DAY ProAir HFA 0.09MG/1Actuatio n Inhalation Suspension 04/30/2022 Unknown INHALA TION NEEDED EVERY 4 HOURS 1 unit(s) 647892 RxNorm 1 EACH INHALATION NEEDED EVERY 4 HOURS Singulair 10MG Oral Tablet 04/30/2022 Unknown ORAL AT BEDTIM E 10 MILLIGRAMS 094138 RxNorm TAKE 10 MILLIGRAMS ORAL AT BEDTIME ZyrTEC 10MG Oral Tablet 04/30/2022 Unknown ORAL ONCE A DAY 10 MILLIGRAMS RxNorm TAKE 10 MILLIGRAMS ORAL ONCE A DAY hydroCHLOROthiaz zulema 12.5MG Oral Tablet 04/30/2022 Unknown ORAL ONCE A DAY 12.5 MILLIGRAMS 222819 RxNorm TAKE 12.5 MILLIGRAMS ORAL ONCE A DAY metFORMIN HCl 500MG Oral Tablet 04/30/2022 Unknown ORAL TWICE A DAY 1000 MILLIGRAMS 022830 RxNorm TAKE 1000 MILLIGRAMS ORAL TWICE A DAY traZODone hydrochloride 150MG Oral Tablet 04/30/2022 Unknown ORAL AT BEDTIM E 150 MILLIGRAMS 504657 RxNorm TAKE 150 MILLIGRAMS ORAL AT BEDTIME [...] Status Code Code System SECONDARY AMENORRHEA active 59388144 SNOMED-CT IRON DEFICIENCY ANEMIA, UNSPECIFIED active 65479975 SNOMED-CT DIARRHEA active 53470851 SNOMED-CT GERD active 443337473 SNOMED-CT ENCOUNTER FOR GYNECOLOGICAL EXAMINATION (GENERAL) (ROUTINE) WITHOUT ABNORMAL FIN active 10855147 SNOMED- CT HIGH RISK HETEROSEXUAL BEHAVIOR active 186192421406436 SNOMED-CT BARIATRIC SURGERY STATUS active 81764 8006 SNOMED-CT Allergies and Adverse Reactions Allergy Substance Reaction Severity Start Date Concern Status Co de Code System MORPHINE Active 7052 RxNorm ADHESIVE Active LATEX Active 0256154 RxNorm HUMALOG Active 897253 RxNorm Plan of Treatment Split Night, CPAP/BIPAP/ASV (23877) EGD/Colonoscopy 04/30/2022 US Pelvis/Transvaginal (51379) 04/06/19 24 Pharynx Esophagus Cine 04/01/2023 Encounters Encounter Diagnosis Start Date Code Code Sys tem Dehydration 03/27/2024 SNOMED-CT Personal Care Team Section Performer Name Performer Role Active Date Inactive SHAHEED Patricia PCP - Primary care physician 8 2021-07-04 Jean-Pierre Ferrari PCP - Primary care physician 2022-03-13
--- OUTSIDE RECORDS SUMMARY | 2024-06-24 14:46 | XMS_ITS ---
Author Organization Unknown Address [address] [place] [phone] Phone Care Team Providers Care Executive Compensation Analyst Name Role Phone GISELL CALDWELL Attending Unavailable JOSÉ LUIS DELCID Primary Unavailable Immunization Immunization Date Status Additional Notes Code Code System Influenza, split virus, trivalent, PF 12/09/2014 Completed 140 CVX Influenza, split virus, trivalent, preservative 12/10/2017 Completed 141 CVX COVID-19, mRNA, LNP-S, PF, 3 0 mcg/0.3 mL dose 05/30/2020 Completed 208 CVX Results MAGNESIUM - Collect Date/Ronnie e: 01/25/2024 09:45 [facility] ID: [id number] [place] [address], [phone] LOINC: 80278-4 Test Value Unit Reference Range Code Code System Flag MAGNESIUM 1.8 mg/dL L=1.6 H=2.3 89878-3 LOINC 25 HYDROXY VITAMIN D - Colle ct Date/Time: 01/25/2024 09:45 [facility] ID: [id number] [place] [address], [phone] LOINC: Test Value Unit Reference Range Code Code System Flag VITAMIN D 37.9 ng/ml L=30.0 H=100 14475-5 LOINC VITAMIN B-12 - Collect Date/ Time: 01/25/2024 09:45 [facility] ID: [id number] [place] [address], [phone] LOINC: 2132-9 Test Value Unit Reference Range Code Code System Flag VITAMIN B12 245 pq/mL L=239 H=931 IRON PANEL - Collect Date/Ti me: 01/25/2024 09:45 [facility] ID: [id number] [place] [address], [phone] LOINC: Test Value Unit Reference Range Code Code System Flag IRON 44 ug/dL L=37 H=170 2498-4 LOINC TIBC 402 ug/dL L=265 H=497 2500-7 LOINC %SATURATION 11 % L=13 H=45 2708-6 LOINC L FERRITIN - Collect Date/Time : 01/25/2024 09:45 [facility] ID: [id number] [address] [place] [address], [phone] LOINC: 2276-4 Test Value Unit Reference Range Code Code System Flag FERRITIN 5.0 ng/mL L=6.2 H=137 2276-4 LOINC L CBC W/ DIFF - Collect Date/T douglas: 01/25/2024 09:45 [facility] ID: [id number] [place] [address], [phone] LOINC: 42698-2 Test Value Unit Reference Range Code Code System Flag WBC 5.9 10^3uL L=4.8 H=10.8 RBC 4.45 10^6uL L=4.20 H=5.40 HEMOGLOBIN 10.3 g/dL L=12.0 H=16.0 718-7 LOINC L HEMATOCRIT 35.0 VOL% L=37.0 H=47.0 4544-3 LOINC L MCV 78.7 fL L=81.0 H=99.0 L MCH 23.1 pg L=27.0 H=32.0 L MCHC 29.4 g/dL L=32.0 H=36.0 L PLATELETS 416 10^3uL L=100 H=400 89098-6 LOINC H RDW 14.2 % L=11.7 H=15.5 %GRAN 47.2 % L=40.0 H=70.0 89216-7 LOINC %LYMPH 44.2 % L=20.0 H=45.0 736-9 LOINC %MONO 6.5 % L=2.0 H=10.0 03649-5 LOINC %EOS 1.2 % L=0.0 H=6.0 713-8 LOINC %BASO 0.7 % L=0.0 H=3.0 706-2 LOINC #NEUT 2.8 10^3uL L=1.9 H=7.6 39673-8 LOINC #LYMPH 2.6 10^3uL L=0.9 H=4.9 13317-0 LOINC #MONO 0.4 10^3uL L=0.1 H=0.9 40635-8 LOINC #EOS 0.1 10^3uL L=0.0 H=0.6 712-0 LOINC #BASO 0.04 10^3uL L=0.00 H=0.10 61628-5 LOINC #IM GRANS 0.0 10^3uL L=0.0 H=7.0 69384-8 LOINC %IM GRANS 0.2 % L=0.0 H=5.0 94292-1 LOINC %NRB 0.0 L=0.0 H=0.2 72331-5 LOINC #NRB 0.000 L=0.000 H=0.012 59806-7 LOINC MANUAL DIFF NOT INDICATED RBC MORPH NOT INDICATED COMPREHENSIVE METABOLIC PANE L - Collect Date/Time: 01/25/2024 09:45 [facility] ID: [id number] [address] [place], [place], [phone] LOINC: 41901-7 Test Value Unit Reference Range Code Code [...] 2028-9 LOINC ANION GAP 16 L=10 H=20 07698-0 LOINC OSMOLALITY 288 mOs/kG L=280 H=296 14709-2 LOINC BUN/CREAT 13.3 3097-3 LOINC CALCIUM 9.6 mg/dL L=8.3 H=10.5 87762-6 LOINC AST 26 U/L L=15 H=46 1920-8 LOINC ALT 17 U/L L=9 H=72 1742-6 LOINC ALKALINE PHOS 83 U/L L=38 H=126 6768-6 LOINC TOTAL BILI 0.7 mg/dL L=0.2 H=1.3 1975-2 LOINC ALBUMIN 4.3 G/dL L=3.5 H=5.0 1751-7 LOINC TOTAL PROTEIN 7.7 g/L L=6.3 H=8.2 2885-2 LOINC A/G RATIO 1.3 22286-2 LOINC AGE 38 12483-3 LOINC eGFR NON-AFR 118 ml/min eGFR AFR AMER 143 ml/min TSH / REFLEX FT4 - Collect D ate/Time: 01/25/2024 09:45 [facility] ID: [id number] [address] [place], [place], [phone] LOINC: Test Value Unit Reference Range Code Code System Flag TSH 0.654 uIU/L L=0.470 H=4.680 96147-6 LOINC Social History Type Status Start Date End Date Code Code Syst em Smoking History Never smoker (Never Smoked) 101332831 SNOMED CT Sex Female Medications Medication Start Date End Date Route Frequency Dose Code Code System Medication Instructions Home Meds vilazodone hydrochloride 10MG Oral Tablet 04/30/2022 Unknown ORAL ONCE A DAY 10 MILLIGRAMS 6195869 RxNorm TAKE 10 MILLIGRAMS ORAL ONCE A DAY HumaLOG 100U/1ML Injection Solution 04/30/2022 Unknown INJECT ION 1 unit(s) 537664 RxNorm 1 EACH INJECTION Cozaar 100MG Oral Tablet 04/30/2022 Unknown ORAL ONCE A DAY 100 MILLIGRAMS 186474 RxNorm TAKE 100 MILLIGRAMS ORAL ONCE A DAY Lantus 100U/1ML Subcutaneous Solution 04/30/2022 Unknown SUBCUT ANEOUS AT BEDTIM E 48 unit(s) 415003 RxNorm INJECT INTO 48 EACH SUBCUTANEOUS AT BEDTIME Lipitor 20MG Oral Tablet 04/30/2022 Unknown ORAL ONCE A DAY 20 MILLIGRAMS 467789 RxNorm TAKE 20 MILLIGRAMS ORAL ONCE A DAY Omeprazole 20MG Oral Capsule, Delayed Release 04/30/2022 Unknown ORAL ONCE A DAY 20 MILLIGRAMS 472710 RxNorm TAKE 20 MILLIGRAMS ORAL ONCE A DAY Oxybutynin Chloride 5MG Oral Tablet, Extended Release 04/30/2022 Unknown ORAL ONCE A DAY 5 MILLIGRAMS 223500 RxNorm TAKE 5 MILLIGRAMS ORAL ONCE A DAY ProAir HFA 0.09MG/1Actuatio n Inhalation Suspension 04/30/2022 Unknown INHALA TION NEEDED EVERY 4 HOURS 1 unit(s) 017281 RxNorm 1 EACH INHALATION NEEDED EVERY 4 HOURS Singulair 10MG Oral Tablet 04/30/2022 Unknown ORAL AT BEDTIM E 10 MILLIGRAMS 969214 RxNorm TAKE 10 MILLIGRAMS ORAL AT BEDTIME ZyrTEC 10MG Oral Tablet 04/30/2022 Unknown ORAL ONCE A DAY 10 MILLIGRAMS RxNorm TAKE 10 MILLIGRAMS ORAL ONCE A DAY hydroCHLOROthiaz zulema 12.5MG Oral Tablet 04/30/2022 Unknown ORAL ONCE A DAY 12.5 MILLIGRAMS 707752 RxNorm TAKE 12.5 MILLIGRAMS ORAL ONCE A DAY metFORMIN HCl 500MG Oral Tablet 04/30/2022 Unknown ORAL TWICE A DAY 1000 MILLIGRAMS 353850 RxNorm TAKE 1000 MILLIGRAMS ORAL TWICE A DAY traZODone hydrochloride 150MG Oral Tablet 04/30/2022 Unknown ORAL AT BEDTIM E 150 MILLIGRAMS 888011 RxNorm TAKE 150 MILLIGRAMS ORAL AT BEDTIME [...] Status Code Code System SECONDARY AMENORRHEA active 70186932 SNOMED-CT IRON DEFICIENCY ANEMIA, UNSPECIFIED active 62324840 SNOMED-CT DIARRHEA active 97481558 SNOMED-CT GERD active 899270130 SNOMED-CT ENCOUNTER FOR GYNECOLOGICAL EXAMINATION (GENERAL) (ROUTINE) WITHOUT ABNORMAL FIN active 09705832 SNOMED- CT HIGH RISK HETEROSEXUAL BEHAVIOR active 213009821567735 SNOMED-CT BARIATRIC SURGERY STATUS active 75572 8006 SNOMED-CT Allergies and Adverse Reactions Allergy Substance Reaction Severity Start Date Concern Status Co de Code System MORPHINE Active 7052 RxNorm ADHESIVE Active LATEX Active 1662988 RxNorm HUMALOG Active 396985 RxNorm Plan of Treatment Split Night, CPAP/BIPAP/ASV (54454) EGD/Colonoscopy 04/30/2022 US Pelvis/Transvaginal (12339) 04/06/19 24 Pharynx Esophagus Cine 04/01/2023 Encounters Encounter Diagnosis Start Date Code Code Sys tem Iron deficiency anemia, unspecified 01/25/2024 SNOMED-CT Personal Care Team Section Performer Name Performer Role Active Date Inactive SHAHEED Patricia PCP - Primary care physician 8 2021-07-04 Jean-Pierre Ferrari PCP - Primary care physician 2022-03-13
--- OUTSIDE RECORDS SUMMARY | 2024-06-24 14:46 | XMS_ITS ---
Author Organization Unknown Address [address] [place] [phone] Phone Care Team Providers Care Wind Farm Engineer Name Role Phone AWAIS PALMA APRN Attending Unavailable JOSÉ LUIS DELCID Primary Unavailable Immunization Immunization Date Status Additional Notes Code Code System Influenza, split virus, trivalent, PF 12/09/2014 Completed 140 CVX Influenza, split virus, trivalent, preservative 12/10/2017 Completed 141 CVX COVID-19, mRNA, LNP-S, PF, 3 0 mcg/0.3 mL dose 05/30/2020 Completed 208 CVX Results COPPER PLASMA - Collect Date /Time: 12/30/2023 09:59 [facility] ID: [id number] [place], [place], [phone] LOINC: 5631-7 Test Value Unit Reference Range Code Code System Flag Copper, Serum or Plasma 114 80-158 5631-7 LOINC IRON PANEL - Collect Date/Ti me: 12/30/2023 09:59 [facility] ID: [id number] [place], [place], [phone] LOINC: Test Value Unit Reference Range Code Code System Flag IRON 51 ug/dL L=37 H=170 2498-4 LOINC TIBC 428 ug/dL L=265 H=497 2500-7 LOINC %SATURATION 12 % L=13 H=45 2708-6 LOINC L ZINC PLASMA OR SERUM - Colle ct Date/Time: 12/30/2023 09:59 [facility] ID: [id number] [id number] [place], [place], [phone] LOINC: 5763-8 Test Value Unit Reference Range Code Code System Flag Zinc, Plasma or Serum 68 44-115 5763-8 LOINC Social History Type Status Start Date End Date Code Code Syst em Smoking History Never smoker (Never Smoked) 991394143 SNOMED CT Sex Female Medications Medication Start Date End Date Route Frequency Dose Code Code System Medication Instructions Home Meds vilazodone hydrochloride 10MG Oral Tablet 04/30/2022 Unknown ORAL ONCE A DAY 10 MILLIGRAMS 8605415 RxNorm TAKE 10 MILLIGRAMS ORAL ONCE A DAY HumaLOG 100U/1ML Injection Solution 04/30/2022 Unknown INJECT ION 1 unit(s) 809909 RxNorm 1 EACH INJECTION Cozaar 100MG Oral Tablet 04/30/2022 Unknown ORAL ONCE A DAY 100 MILLIGRAMS 617469 RxNorm TAKE 100 MILLIGRAMS ORAL ONCE A DAY Lantus 100U/1ML Subcutaneous Solution 04/30/2022 Unknown SUBCUT ANEOUS AT BEDTIM E 48 unit(s) 420044 RxNorm INJECT INTO 48 EACH SUBCUTANEOUS AT BEDTIME Lipitor 20MG Oral Tablet 04/30/2022 Unknown ORAL ONCE A DAY 20 MILLIGRAMS 642190 RxNorm TAKE 20 MILLIGRAMS ORAL ONCE A DAY Omeprazole 20MG Oral Capsule, Delayed Release 04/30/2022 Unknown ORAL ONCE A DAY 20 MILLIGRAMS 099302 RxNorm TAKE 20 MILLIGRAMS ORAL ONCE A DAY Oxybutynin Chloride 5MG Oral Tablet, Extended Release 04/30/2022 Unknown ORAL ONCE A DAY 5 MILLIGRAMS 405110 RxNorm TAKE 5 MILLIGRAMS ORAL ONCE A DAY ProAir HFA 0.09MG/1Actuatio n Inhalation Suspension 04/30/2022 Unknown INHALA TION NEEDED EVERY 4 HOURS 1 unit(s) 014413 RxNorm 1 EACH INHALATION NEEDED EVERY 4 HOURS Singulair 10MG Oral Tablet 04/30/2022 Unknown ORAL AT BEDTIM E 10 MILLIGRAMS 142208 RxNorm TAKE 10 MILLIGRAMS ORAL AT BEDTIME ZyrTEC 10MG Oral Tablet 04/30/2022 Unknown ORAL ONCE A DAY 10 MILLIGRAMS RxNorm TAKE 10 MILLIGRAMS ORAL ONCE A DAY hydroCHLOROthiaz zulema 12.5MG Oral Tablet 04/30/2022 Unknown ORAL ONCE A DAY 12.5 MILLIGRAMS 938203 RxNorm TAKE 12.5 MILLIGRAMS ORAL ONCE A DAY metFORMIN HCl 500MG Oral Tablet 04/30/2022 Unknown ORAL TWICE A DAY 1000 MILLIGRAMS 720826 RxNorm TAKE 1000 MILLIGRAMS ORAL TWICE A DAY traZODone hydrochloride 150MG Oral Tablet 04/30/2022 Unknown ORAL AT BEDTIM E 150 MILLIGRAMS [id number] RxNorm TAKE 150 MILLIGRAMS ORAL AT BEDTIME [...] Status Code Code System SECONDARY AMENORRHEA active 41277368 SNOMED-CT IRON DEFICIENCY ANEMIA, UNSPECIFIED active 90445567 SNOMED-CT DIARRHEA active 42968235 SNOMED-CT GERD active 011158691 SNOMED-CT ENCOUNTER FOR GYNECOLOGICAL EXAMINATION (GENERAL) (ROUTINE) WITHOUT ABNORMAL FIN active 40174805 SNOMED- CT HIGH RISK HETEROSEXUAL BEHAVIOR active 840526960658911 SNOMED-CT BARIATRIC SURGERY STATUS active 68784 6691 SNOMED-CT Allergies and Adverse Reactions Allergy Substance Reaction Severity Start Date Concern Status Co de Code System MORPHINE Active 7052 RxNorm ADHESIVE Active LATEX Active 5157051 RxNorm HUMALOG Active 014154 RxNorm Plan of Treatment Split Night, CPAP/BIPAP/ASV (29881) EGD/Colonoscopy 04/30/2022 US Pelvis/Transvaginal (17827) 04/06/19 24 Pharynx Esophagus Cine 04/01/2023 Encounters Encounter Diagnosis Start Date Code Code Sys tem Encounter for general adult medical examination without abnormal findings 12/30/2023 SNOMED-CT Personal Care Team Section Performer Name Performer Role Active Date Inactive Da SHAHEED Stack PCP - Primary care physician 8 2021-07-04 Jean-Pierre Ferrari PCP - Primary care physician 2022-03-13
--- OUTSIDE RECORDS SUMMARY | 2024-06-24 14:46 | XMS_ITS ---
Author Organization Unknown Address [address] [place] [address] [phone] Phone Care Team Providers Care Laboratory Equipment Cleaner Name Role Phone YECENIA OLIVIA Attending Unavailable [...] em Smoking History Never smoker (Never Smoked) [id number] SNOMED CT Sex Female Medications Medication Start Date End Date Route Frequency Dose Code Code System Medication Instructions Home Meds vilazodone hydrochloride 10MG Oral Tablet 04/30/2022 Unknown ORAL ONCE A DAY 10 MILLIGRAMS 6807658 RxNorm TAKE 10 MILLIGRAMS ORAL ONCE A DAY HumaLOG 100U/1ML Injection Solution 04/30/2022 Unknown INJECT ION 1 unit(s) 488842 RxNorm 1 EACH INJECTION Cozaar 100MG Oral Tablet 04/30/2022 Unknown ORAL ONCE A DAY 100 MILLIGRAMS 882192 RxNorm TAKE 100 MILLIGRAMS ORAL ONCE A DAY Lantus 100U/1ML Subcutaneous Solution 04/30/2022 Unknown SUBCUT ANEOUS AT BEDTIM E 48 unit(s) 665978 RxNorm INJECT INTO 48 EACH SUBCUTANEOUS AT BEDTIME Lipitor 20MG Oral Tablet 04/30/2022 Unknown ORAL ONCE A DAY 20 MILLIGRAMS 972856 RxNorm TAKE 20 MILLIGRAMS ORAL ONCE A DAY Omeprazole 20MG Oral Capsule, Delayed Release 04/30/2022 Unknown ORAL ONCE A DAY 20 MILLIGRAMS 200702 RxNorm TAKE 20 MILLIGRAMS ORAL ONCE A DAY Oxybutynin Chloride 5MG Oral Tablet, Extended Release 04/30/2022 Unknown ORAL ONCE A DAY 5 MILLIGRAMS 328444 RxNorm TAKE 5 MILLIGRAMS ORAL ONCE A DAY ProAir HFA 0.09MG/1Actuatio n Inhalation Suspension 04/30/2022 Unknown INHALA TION NEEDED EVERY 4 HOURS 1 unit(s) 900849 RxNorm 1 EACH INHALATION NEEDED EVERY 4 HOURS Singulair 10MG Oral Tablet 04/30/2022 Unknown ORAL AT BEDTIM E 10 MILLIGRAMS 152300 RxNorm TAKE 10 MILLIGRAMS ORAL AT BEDTIME ZyrTEC 10MG Oral Tablet 04/30/2022 Unknown ORAL ONCE A DAY 10 MILLIGRAMS RxNorm TAKE 10 MILLIGRAMS ORAL ONCE A DAY hydroCHLOROthiaz zulema 12.5MG Oral Tablet 04/30/2022 Unknown ORAL ONCE A DAY 12.5 MILLIGRAMS 667038 RxNorm TAKE 12.5 MILLIGRAMS ORAL ONCE A DAY metFORMIN HCl 500MG Oral Tablet 04/30/2022 Unknown ORAL TWICE A DAY 1000 MILLIGRAMS 365733 RxNorm TAKE 1000 MILLIGRAMS ORAL TWICE A DAY traZODone hydrochloride 150MG Oral Tablet 04/30/2022 Unknown ORAL AT BEDTIM E 150 MILLIGRAMS 698959 RxNorm TAKE 150 MILLIGRAMS ORAL AT BEDTIME [...] Status Code Code System SECONDARY AMENORRHEA active 97447757 SNOMED-CT IRON DEFICIENCY ANEMIA, UNSPECIFIED active 15896498 SNOMED-CT DIARRHEA active 53084296 SNOMED-CT GERD active 029799331 SNOMED-CT ENCOUNTER FOR GYNECOLOGICAL EXAMINATION (GENERAL) (ROUTINE) WITHOUT ABNORMAL FIN active 64323020 SNOMED- CT HIGH RISK HETEROSEXUAL BEHAVIOR active 500165135393723 SNOMED-CT BARIATRIC SURGERY STATUS active 02699 9166 SNOMED-CT Allergies and Adverse Reactions Allergy Substance Reaction Severity Start Date Concern Status Co de Code System MORPHINE Active 7052 RxNorm ADHESIVE Active LATEX Active 5162345 RxNorm HUMALOG Active 528065 RxNorm Plan of Treatment Split Night, CPAP/BIPAP/ASV (14214) EGD/Colonoscopy 04/30/2022 US Pelvis/Transvaginal (81710) 04/06/19 Pharynx Esophagus Cine 04/01/2023 Encounters Encounter Diagnosis Start Date Code Code Sys tem Frequency of micturition 01/06/2024 [facility] Personal Care Team Section Performer Name Performer Role Active Date Inactive SHAHEED Patricia PCP - Primary care physician 8 2021-07-04 Jean-Pierre Ferrari PCP - Primary care physician 2022-03-13
--- OUTSIDE RECORDS SUMMARY | 2024-06-24 14:46 | XMS_ITS ---
Author Organization Unknown Address [address] [place] [address] [phone] Phone Care Team Providers Care Customer Support Professional Name Role Phone PORFIRIO CLARKE Attending Unavailable JOSÉ LUIS DELCID Primary Unavailable Immunization Immunization Date Status Additional Notes Code Code System Influenza, split virus, trivalent, PF 12/09/2014 Completed 140 CVX Influenza, split virus, trivalent, preservative 12/10/2017 Completed 141 CVX COVID-19, mRNA, LNP-S, PF, 3 0 mcg/0.3 mL dose 05/30/2020 Completed 208 CVX Results CBC W/ DIFF - Collect Date/T douglas: 03/16/2023 10:28 [facility] [id number] [place] [address], [phone] LOINC: 94901-5 Test Value Unit Reference Range Code Code System Flag WBC 9.0 10^3uL L=4.8 H=10.8 RBC 4.80 10^6uL L=4.20 H=5.40 HEMOGLOBIN 10.8 g/dL L=12.0 H=16.0 718-7 LOINC L HEMATOCRIT 36.2 VOL% L=37.0 H=47.0 4544-3 LOINC L MCV 75.4 fL L=81.0 H=99.0 L MCH 22.5 pg L=27.0 H=32.0 L MCHC 29.8 g/dL L=32.0 H=36.0 L PLATELETS 404 10^3uL L=100 H=400 50990-7 LOINC H RDW 17.2 % L=11.7 H=15.5 H %GRAN 53.6 % L=40.0 H=70.0 89866-3 LOINC %LYMPH 38.6 % L=20.0 H=45.0 736-9 LOINC %MONO 5.9 % L=2.0 H=10.0 80984-6 LOINC %EOS 1.2 % L=0.0 H=6.0 713-8 LOINC %BASO 0.4 % L=0.0 H=3.0 706-2 LOINC #NEUT 4.8 10^3uL L=1.9 H=7.6 45886-8 LOINC #LYMPH 3.5 10^3uL L=0.9 H=4.9 35289-8 LOINC #MONO 0.5 10^3uL L=0.1 H=0.9 40962-4 LOINC #EOS 0.1 10^3uL L=0.0 H=0.6 712-0 LOINC #BASO 0.04 10^3uL L=0.00 H=0.10 93582-3 LOINC #IM GRANS 0.0 10^3uL L=0.0 H=7.0 77130-0 LOINC %IM GRANS 0.3 % L=0.0 H=5.0 66268-6 LOINC %NRB 0.0 L=0.0 H=0.2 30632-3 LOINC #NRB 0.000 L=0.000 H=0.012 57110-7 LOINC MANUAL DIFF NOT INDICATED RBC MORPH NOT INDICATED COMPREHENSIVE METABOLIC PANE L - Collect Date/Time: 03/16/2023 10:28 [facility] [id number] [address] [place], [place], [phone] LOINC: 60562-0 Test Value Unit Reference Range Code Code [...] 2028-9 LOINC ANION GAP 14 L=10 H=20 32635-8 LOINC OSMOLALITY 292 mOs/kG L=280 H=296 94064-6 LOINC BUN/CREAT 18.3 3097-3 LOINC CALCIUM 9.6 mg/dL L=8.3 H=10.5 50214-3 LOINC AST 25 U/L L=15 H=46 1920-8 LOINC ALT 28 U/L L=9 H=72 1742-6 LOINC ALKALINE PHOS 61 U/L L=38 H=126 6768-6 LOINC TOTAL BILI 0.4 mg/dL L=0.2 H=1.3 1975-2 LOINC ALBUMIN 4.2 G/dL L=3.5 H=5.0 1751-7 LOINC TOTAL PROTEIN 8.1 g/L L=6.3 H=8.2 2885-2 LOINC A/G RATIO 1.1 29340-9 LOINC AGE 37 31945-0 LOINC eGFR NON-AFR 118 ml/min eGFR AFR AMER 143 ml/min Social History Type Status Start Date End Date Code Code Syst em Smoking History Never smoker (Never Smoked) 348945537 SNOMED CT Sex Female Medications Medication Start Date End Date Route Frequency Dose Code Code System Medication Instructions Home Meds vilazodone hydrochloride 10MG Oral Tablet 04/30/2022 Unknown ORAL ONCE A DAY 10 MILLIGRAMS 3263270 RxNorm TAKE 10 MILLIGRAMS ORAL ONCE A DAY HumaLOG 100U/1ML Injection Solution 04/30/2022 Unknown INJECT ION 1 unit(s) 866339 RxNorm 1 EACH INJECTION Cozaar 100MG Oral Tablet 04/30/2022 Unknown ORAL ONCE A DAY 100 MILLIGRAMS 700888 RxNorm TAKE 100 MILLIGRAMS ORAL ONCE A DAY Lantus 100U/1ML Subcutaneous Solution 04/30/2022 Unknown SUBCUT ANEOUS AT BEDTIM E 48 unit(s) 978557 RxNorm INJECT INTO 48 EACH SUBCUTANEOUS AT BEDTIME Lipitor 20MG Oral Tablet 04/30/2022 Unknown ORAL ONCE A DAY 20 MILLIGRAMS 956970 RxNorm TAKE 20 MILLIGRAMS ORAL ONCE A DAY Omeprazole 20MG Oral Capsule, Delayed Release 04/30/2022 Unknown ORAL ONCE A DAY 20 MILLIGRAMS 539662 RxNorm TAKE 20 MILLIGRAMS ORAL ONCE A DAY Oxybutynin Chloride 5MG Oral Tablet, Extended Release 04/30/2022 Unknown ORAL ONCE A DAY 5 MILLIGRAMS 328586 RxNorm TAKE 5 MILLIGRAMS ORAL ONCE A DAY ProAir HFA 0.09MG/1Actuatio n Inhalation Suspension 04/30/2022 Unknown INHALA TION NEEDED EVERY 4 HOURS 1 unit(s) 561905 RxNorm 1 EACH INHALATION NEEDED EVERY 4 HOURS Singulair 10MG Oral Tablet 04/30/2022 Unknown ORAL AT BEDTIM E 10 MILLIGRAMS 568208 RxNorm TAKE 10 MILLIGRAMS ORAL AT BEDTIME ZyrTEC 10MG Oral Tablet 04/30/2022 Unknown ORAL ONCE A DAY 10 MILLIGRAMS RxNorm TAKE 10 MILLIGRAMS ORAL ONCE A DAY hydroCHLOROthiaz zulema 12.5MG Oral Tablet 04/30/2022 Unknown ORAL ONCE A DAY 12.5 MILLIGRAMS 316116 RxNorm TAKE 12.5 MILLIGRAMS ORAL ONCE A DAY metFORMIN HCl 500MG Oral Tablet 04/30/2022 Unknown ORAL TWICE A DAY 1000 MILLIGRAMS 573802 RxNorm TAKE 1000 MILLIGRAMS ORAL TWICE A DAY traZODone hydrochloride 150MG Oral Tablet 04/30/2022 Unknown ORAL AT BEDTIM E 150 MILLIGRAMS 624894 RxNorm TAKE 150 MILLIGRAMS ORAL AT BEDTIME [...] Status Code Code System SECONDARY AMENORRHEA active 72926703 SNOMED-CT IRON DEFICIENCY ANEMIA, UNSPECIFIED active 55525540 SNOMED-CT DIARRHEA active 61222480 SNOMED-CT GERD active 853331175 SNOMED-CT ENCOUNTER FOR GYNECOLOGICAL EXAMINATION (GENERAL) (ROUTINE) WITHOUT ABNORMAL FIN active 95029418 SNOMED- CT HIGH RISK HETEROSEXUAL BEHAVIOR active 756005417880072 SNOMED-CT BARIATRIC SURGERY STATUS active 78208 0506 SNOMED-CT Allergies and Adverse Reactions Allergy Substance Reaction Severity Start Date Concern Status Co de Code System MORPHINE Active 7052 RxNorm ADHESIVE Active LATEX Active 3057960 RxNorm HUMALOG Active 226811 RxNorm Plan of Treatment Split Night, CPAP/BIPAP/ASV (27952) EGD/Colonoscopy 04/30/2022 US Pelvis/Transvaginal (75532) 04/06/19 24 Pharynx Esophagus Cine 04/01/2023 Encounters Encounter Diagnosis Start Date Code Code Sys tem Left lower quadrant pain 03/16/2023 [facility] Personal Care Team Section Performer Name Performer Role Active Date Inactive SHAHEED Patricia PCP - Primary care physician 8 2021-07-04 Jean-Pierre Ferrari PCP - Primary care physician 2022-03-13
--- OUTSIDE RECORDS SUMMARY | 2024-06-24 14:46 | XMS_ITS ---
Author Organization Unknown Address [address] [place] [address] [phone] Phone Care Team Providers Care Refractory Repairer Name Role Phone JOSÉ LUIS DELCID Attending [...] em Smoking History Never smoker (Never Smoked) 944714369 SNOMED CT Sex Female Vital Signs Vital Sign Value Unit [place] Value [place] Unit Date/Time Recent/Initial? Code Code System Body Mass Index 33.48 kg/m2 11/09/2023 13:36 Initial 63130 -5 LOINC Systolic Blood Pressure 111 mm[Hg] 11/09/2023 13:36 Initial 8480- 6 LOINC Diastolic Blood Pressure 73 mm[Hg] 11/09/2023 13:36 Initial 8462- 4 LOINC Body Surface Area 1.95 m2 11/09/2023 13:36 Initial 3140- 1 LOINC Height 160.020 0 cm 63.00 in 11/09/2023 13:36 Initial 8302- 2 LOINC O2 Saturation 95 % 2023 13:36 Initial 66032 -5 LOINC Pulse 68.0 /min 11/09/2023 13:36 Initial 8867- 4 LOINC Respiration 22 /min 11/09/19 13:36 Initial 9279- 1 LOINC Temperature 37.0 Gema 98.6 F 11/09/19 13:36 Initial 8310- 5 [facility] Weight 85.73 kg 189.00 lbs 11/09/2023 13:36 Initial 24612 -7 [facility] Medications Medication Start Date End Date Route Frequency Dose Code Code System Medication Instructions Home Meds vilazodone hydrochloride 10MG Oral Tablet 04/30/2022 Unknown ORAL ONCE A DAY 10 MILLIGRAMS 0357993 RxNorm TAKE 10 MILLIGRAMS ORAL ONCE A DAY HumaLOG 100U/1ML Injection Solution 04/30/2022 Unknown INJECT ION 1 unit(s) 329613 RxNorm 1 EACH INJECTION Cozaar 100MG Oral Tablet 04/30/2022 Unknown ORAL ONCE A DAY 100 MILLIGRAMS 541781 RxNorm TAKE 100 MILLIGRAMS ORAL ONCE A DAY Lantus 100U/1ML Subcutaneous Solution 04/30/2022 Unknown SUBCUT ANEOUS AT BEDTIM E 48 unit(s) 689798 RxNorm INJECT INTO 48 EACH SUBCUTANEOUS AT BEDTIME Lipitor 20MG Oral Tablet 04/30/2022 Unknown ORAL ONCE A DAY 20 MILLIGRAMS 352604 RxNorm TAKE 20 MILLIGRAMS ORAL ONCE A DAY Omeprazole 20MG Oral Capsule, Delayed Release 04/30/2022 Unknown ORAL ONCE A DAY 20 MILLIGRAMS 515954 RxNorm TAKE 20 MILLIGRAMS ORAL ONCE A DAY Oxybutynin Chloride 5MG Oral Tablet, Extended Release 04/30/2022 Unknown ORAL ONCE A DAY 5 MILLIGRAMS 011711 RxNorm TAKE 5 MILLIGRAMS ORAL ONCE A DAY ProAir HFA 0.09MG/1Actuatio n Inhalation Suspension 04/30/2022 Unknown INHALA TION NEEDED EVERY 4 HOURS 1 unit(s) 018420 RxNorm 1 EACH INHALATION NEEDED EVERY 4 HOURS Singulair 10MG Oral Tablet 04/30/2022 Unknown ORAL AT BEDTIM E 10 MILLIGRAMS 901418 RxNorm TAKE 10 MILLIGRAMS ORAL AT BEDTIME ZyrTEC 10MG Oral Tablet 04/30/2022 Unknown ORAL ONCE A DAY 10 MILLIGRAMS RxNorm TAKE 10 MILLIGRAMS ORAL ONCE A DAY hydroCHLOROthiaz zulema 12.5MG Oral Tablet 04/30/2022 Unknown ORAL ONCE A DAY 12.5 MILLIGRAMS 680285 RxNorm TAKE 12.5 MILLIGRAMS ORAL ONCE A DAY metFORMIN HCl 500MG Oral Tablet 04/30/2022 Unknown ORAL TWICE A DAY 1000 MILLIGRAMS 403531 RxNorm TAKE 1000 MILLIGRAMS ORAL TWICE A DAY traZODone hydrochloride 150MG Oral Tablet 04/30/2022 Unknown ORAL AT BEDTIM E 150 MILLIGRAMS 658000 RxNorm TAKE 150 MILLIGRAMS ORAL AT BEDTIME [...] Status Code Code System SECONDARY AMENORRHEA active 99023793 SNOMED-CT IRON DEFICIENCY ANEMIA, UNSPECIFIED active 24711578 SNOMED-CT DIARRHEA active 26259910 SNOMED-CT GERD active 590792254 SNOMED-CT ENCOUNTER FOR GYNECOLOGICAL EXAMINATION (GENERAL) (ROUTINE) WITHOUT ABNORMAL FIN active 70669743 SNOMED- CT HIGH RISK HETEROSEXUAL BEHAVIOR active 976874696836165 SNOMED-CT BARIATRIC SURGERY STATUS active 57568 8006 SNOMED-CT Allergies and Adverse Reactions Allergy Substance Reaction Severity Start Date Concern Status Co de Code System MORPHINE Active 7052 RxNorm ADHESIVE Active LATEX Active 1566007 RxNorm HUMALOG Active 285828 RxNorm Plan of Treatment Split Night, CPAP/BIPAP/ASV (01557) EGD/Colonoscopy 04/30/2022 US Pelvis/Transvaginal (93243) 04/06/19 24 Pharynx Esophagus Cine 04/01/2023 Encounters Encounter Diagnosis Start Date Code Code Sys tem Bariatric surgery status 11/09/2023 [facility] Personal Care Team Section Performer Name Performer Role Active Date Inactive SHAHEED Patricia PCP - Primary care physician 8 2021-07-04 Jean-Pierre Ferrari PCP - Primary care physician 2022-03-13
--- OUTSIDE RECORDS SUMMARY | 2024-06-24 14:46 | XMS_ITS ---
Author Organization Unknown Address [address] [place] [address] [phone] Phone Care Team Providers Care Clinical Analyst Name Role Phone JOSÉ LUIS DELCID Attending Unavailable Immunization Immunization Date Status Additional Notes Code Code System Influenza, split virus, trivalent, PF 12/09/2014 Completed 140 CVX Influenza, split virus, trivalent, preservative 12/10/2017 Completed 141 CVX COVID-19, mRNA, LNP-S, PF, 3 0 mcg/0.3 mL dose 05/30/2020 Completed 208 CVX Results LIPID PANEL - Collect Date/T douglas: 12/30/2023 09:32 [facility] ID: [id number] [place], [place], [phone] LOINC: 44780-6 Test Value Unit Reference Range Code Code System Flag FASTING YES CHOLESTEROL 122 mg/dL L=0 H=200 2093-3 LOINC TRIGLYCERIDE 103 mg/dL L=0 H=150 2571-8 LOINC HDL 41 mg/dL L=40 H=60 2085-9 LOINC LDL 58 mg/dL 2088-1 LOINC COMPREHENSIVE METABOLIC PANE L - Collect Date/Time: 12/30/2023 09:32 [facility] ID: [id number] [place], [id number] LOINC: 31880-5 Test Value Unit Reference Range Code Code [...] 2028-9 LOINC ANION GAP 14 L=10 H=20 76427-4 LOINC OSMOLALITY 285 mOs/kG L=280 H=296 68740-9 LOINC BUN/CREAT 13.3 3097-3 LOINC CALCIUM 10.1 mg/dL L=8.3 H=10.5 13472-0 LOINC AST 27 U/L L=15 H=46 1920-8 LOINC ALT 24 U/L L=9 H=72 1742-6 LOINC ALKALINE PHOS 89 U/L L=38 H=126 6768-6 LOINC TOTAL BILI 0.6 mg/dL L=0.2 H=1.3 1975-2 LOINC ALBUMIN 4.3 G/dL L=3.5 H=5.0 1751-7 LOINC TOTAL PROTEIN 8.2 g/L L=6.3 H=8.2 2885-2 LOINC A/G RATIO 1.1 55513-7 LOINC AGE 38 06990-5 LOINC eGFR NON-AFR 118 ml/min eGFR AFR AMER 143 ml/min HEMOGLOBIN A1C WITH eAG - Co llect Date/Time: 12/30/2023 09:32 [facility] ID: [id number] [place], [place], [id number] LOINC: 4548-4 Test Value Unit Reference Range Code Code System Flag HGBA1C 6.3 % 4548-4 LOINC eAG 134.1 mg/dL 4548-4 LOINC Social History Type Status Start Date End Date Code Code Syst em Smoking History Never smoker (Never Smoked) 657834326 SNOMED CT Sex Female Medications Medication Start Date End Date Route Frequency Dose Code Code System Medication Instructions Home Meds vilazodone hydrochloride 10MG Oral Tablet 04/30/2022 Unknown ORAL ONCE A DAY 10 MILLIGRAMS 4610324 RxNorm TAKE 10 MILLIGRAMS ORAL ONCE A DAY HumaLOG 100U/1ML Injection Solution 04/30/2022 Unknown INJECT ION 1 unit(s) 834778 RxNorm 1 EACH INJECTION Cozaar 100MG Oral Tablet 04/30/2022 Unknown ORAL ONCE A DAY 100 MILLIGRAMS 421016 RxNorm TAKE 100 MILLIGRAMS ORAL ONCE A DAY Lantus 100U/1ML Subcutaneous Solution 04/30/2022 Unknown SUBCUT ANEOUS AT BEDTIM E 48 unit(s) 834044 RxNorm INJECT INTO 48 EACH SUBCUTANEOUS AT BEDTIME Lipitor 20MG Oral Tablet 04/30/2022 Unknown ORAL ONCE A DAY 20 MILLIGRAMS 097008 RxNorm TAKE 20 MILLIGRAMS ORAL ONCE A DAY Omeprazole 20MG Oral Capsule, Delayed Release 04/30/2022 Unknown ORAL ONCE A DAY 20 MILLIGRAMS 334370 RxNorm TAKE 20 MILLIGRAMS ORAL ONCE A DAY Oxybutynin Chloride 5MG Oral Tablet, Extended Release 04/30/2022 Unknown ORAL ONCE A DAY 5 MILLIGRAMS 854656 RxNorm TAKE 5 MILLIGRAMS ORAL ONCE A DAY ProAir HFA 0.09MG/1Actuatio n Inhalation Suspension 04/30/2022 Unknown INHALA TION NEEDED EVERY 4 HOURS 1 unit(s) 380994 RxNorm 1 EACH INHALATION NEEDED EVERY 4 HOURS Singulair 10MG Oral Tablet 04/30/2022 Unknown ORAL AT BEDTIM E 10 MILLIGRAMS 703551 RxNorm TAKE 10 MILLIGRAMS ORAL AT BEDTIME ZyrTEC 10MG Oral Tablet 04/30/2022 Unknown ORAL ONCE A DAY 10 MILLIGRAMS RxNorm TAKE 10 MILLIGRAMS ORAL ONCE A DAY hydroCHLOROthiaz zulema 12.5MG Oral Tablet 04/30/2022 Unknown ORAL ONCE A DAY 12.5 MILLIGRAMS 296215 RxNorm TAKE 12.5 MILLIGRAMS ORAL ONCE A DAY metFORMIN HCl 500MG Oral Tablet 04/30/2022 Unknown ORAL TWICE A DAY 1000 MILLIGRAMS 305078 RxNorm TAKE 1000 MILLIGRAMS ORAL TWICE A DAY traZODone hydrochloride 150MG Oral Tablet 04/30/2022 Unknown ORAL AT BEDTIM E 150 MILLIGRAMS 757331 RxNorm TAKE 150 MILLIGRAMS ORAL AT BEDTIME [...] Status Code Code System SECONDARY AMENORRHEA active 57425753 SNOMED-CT IRON DEFICIENCY ANEMIA, UNSPECIFIED active 24339653 SNOMED-CT DIARRHEA active 36194888 SNOMED-CT GERD active 231332885 SNOMED-CT ENCOUNTER FOR GYNECOLOGICAL EXAMINATION (GENERAL) (ROUTINE) WITHOUT ABNORMAL FIN active 31061120 SNOMED- CT HIGH RISK HETEROSEXUAL BEHAVIOR active 018884419154628 SNOMED-CT BARIATRIC SURGERY STATUS active 15708 8006 SNOMED-CT Allergies and Adverse Reactions Allergy Substance Reaction Severity Start Date Concern Status Co de Code System MORPHINE Active 7052 RxNorm ADHESIVE Active LATEX Active 1380193 RxNorm HUMALOG Active 233569 RxNorm Plan of Treatment Split Night, CPAP/BIPAP/ASV (33575) EGD/Colonoscopy 04/30/2022 US Pelvis/Transvaginal (05640) 04/06/19 24 Pharynx Esophagus Cine 04/01/2023 Encounters Encounter Diagnosis Start Date Code Code Sys tem Type 2 diabetes mellitus without complications 024 SNOMED-CT Personal Care Team Section Performer Name Performer Role Active Date Inactive SHAHEED Patricia PCP - Primary care physician 8 2021-07-04 Jean-Pierre Ferrari PCP - Primary care physician 2022-03-13
--- OUTSIDE RECORDS SUMMARY | 2024-06-24 14:47 | XMS_ITS ---
Author Organization Unknown Address [address] [place] [address] [phone] Phone Care Team Providers Care Mechanical Fitter Name Role Phone RAFAELA Larry Attending Unavailable [...] RSV PCR - Collect Date/Time: 01/11/2023 15:35 [facility] ID: [id number] [address] [place] [address], [id number] LOINC: 10601-6 Test Value Unit Reference Range Code Code System Flag SARS CoV2 PCR NEGATIVE FLU A PCR NEGATIVE FLU B PCR NEGATIVE RSV PCR NEGATIVE SEND TO [facility]? YES A Social History Type Status Start Date End Date Code Code Syst em Smoking History Never smoker (Never Smoked) 789871731 SNOMED CT Sex Female Medications Medication Start Date End Date Route Frequency Dose Code Code System Medication Instructions Home Meds vilazodone hydrochloride 10MG Oral Tablet 04/30/2022 Unknown ORAL ONCE A DAY 10 MILLIGRAMS 1535898 RxNorm TAKE 10 MILLIGRAMS ORAL ONCE A DAY HumaLOG 100U/1ML Injection Solution 04/30/2022 Unknown INJECT ION 1 unit(s) 953592 RxNorm 1 EACH INJECTION Cozaar 100MG Oral Tablet 04/30/2022 Unknown ORAL ONCE A DAY 100 MILLIGRAMS 075847 RxNorm TAKE 100 MILLIGRAMS ORAL ONCE A DAY Lantus 100U/1ML Subcutaneous Solution 04/30/2022 Unknown SUBCUT ANEOUS AT BEDTIM E 48 unit(s) 691616 RxNorm INJECT INTO 48 EACH SUBCUTANEOUS AT BEDTIME Lipitor 20MG Oral Tablet 04/30/2022 Unknown ORAL ONCE A DAY 20 MILLIGRAMS 653794 RxNorm TAKE 20 MILLIGRAMS ORAL ONCE A DAY Omeprazole 20MG Oral Capsule, Delayed Release 04/30/2022 Unknown ORAL ONCE A DAY 20 MILLIGRAMS 260990 RxNorm TAKE 20 MILLIGRAMS ORAL ONCE A DAY Oxybutynin Chloride 5MG Oral Tablet, Extended Release 04/30/2022 Unknown ORAL ONCE A DAY 5 MILLIGRAMS 585958 RxNorm TAKE 5 MILLIGRAMS ORAL ONCE A DAY ProAir HFA 0.09MG/1Actuatio n Inhalation Suspension 04/30/2022 Unknown INHALA TION NEEDED EVERY 4 HOURS 1 unit(s) 538674 RxNorm 1 EACH INHALATION NEEDED EVERY 4 HOURS Singulair 10MG Oral Tablet 04/30/2022 Unknown ORAL AT BEDTIM E 10 MILLIGRAMS 553751 RxNorm TAKE 10 MILLIGRAMS ORAL AT BEDTIME ZyrTEC 10MG Oral Tablet 04/30/2022 Unknown ORAL ONCE A DAY 10 MILLIGRAMS RxNorm TAKE 10 MILLIGRAMS ORAL ONCE A DAY hydroCHLOROthiaz zulema 12.5MG Oral Tablet 04/30/2022 Unknown ORAL ONCE A DAY 12.5 MILLIGRAMS 378832 RxNorm TAKE 12.5 MILLIGRAMS ORAL ONCE A DAY metFORMIN HCl 500MG Oral Tablet 04/30/2022 Unknown ORAL TWICE A DAY 1000 MILLIGRAMS 891236 RxNorm TAKE 1000 MILLIGRAMS ORAL TWICE A DAY traZODone hydrochloride 150MG Oral Tablet 04/30/2022 Unknown ORAL AT BEDTIM E 150 MILLIGRAMS 611269 RxNorm TAKE 150 MILLIGRAMS ORAL AT BEDTIME [...] Status Code Code System SECONDARY AMENORRHEA active 81445833 SNOMED-CT IRON DEFICIENCY ANEMIA, UNSPECIFIED active 85735780 SNOMED-CT DIARRHEA active 71068060 SNOMED-CT GERD active 506758582 SNOMED-CT ENCOUNTER FOR GYNECOLOGICAL EXAMINATION (GENERAL) (ROUTINE) WITHOUT ABNORMAL FIN active 45415834 SNOMED- CT HIGH RISK HETEROSEXUAL BEHAVIOR active 653259036774101 SNOMED-CT BARIATRIC SURGERY STATUS active 47616 8006 SNOMED-CT Allergies and Adverse Reactions Allergy Substance Reaction Severity Start Date Concern Status Co de Code System MORPHINE Active 7052 RxNorm ADHESIVE Active LATEX Active 6903978 RxNorm HUMALOG Active 639834 RxNorm Plan of Treatment Split Night, CPAP/BIPAP/ASV (80458) EGD/Colonoscopy 04/30/2022 US Pelvis/Transvaginal (46660) 04/06/19 24 Pharynx Esophagus Cine 04/01/2023 Encounters Encounter Diagnosis Start Date Code Code Sys tem Allergic rhinitis, unspecified 01/11/2023 SNOMED-CT Personal Care Team Section Performer Name Performer Role Active Date Inactive SHAHEED Patricia PCP - Primary care physician 8 2021-07-04 Jean-Pierre Ferrari PCP - Primary care physician 2022-03-13
--- OUTSIDE RECORDS SUMMARY | 2024-06-24 14:47 | XMS_ITS ---
Author Organization Unknown Address [address] [place] [phone] Phone Care Team Providers Care Commercial Tire Service Technician Name Role Phone LOGAN OLGUIN Attending Unavailable JOSÉ LUIS DELCID Primary Unavailable Immunization Immunization Date Status Additional Notes Code Code System Influenza, split virus, trivalent, PF 12/09/2014 Completed 140 CVX Influenza, split virus, trivalent, preservative 12/10/2017 Completed 141 CVX COVID-19, mRNA, LNP-S, PF, 3 0 mcg/0.3 mL dose 05/30/2020 Completed 208 CVX Results URINALYSIS w/Microscopy/C&S if indicated - Collect Date/Time: 01/26/2024 12:30 [facility] ID: [id number] [address] [place], [place], [phone] LOINC: 25864-5 Test Value Unit Reference Range Code Code System Flag UR SOURCE VOIDED 85081-9 LOINC COLOR YELLOW YELLOW 5778-6 LOINC CLARITY SL CLOUDY CLEAR 92985-0 LOINC SPEC GRAVITY >=1.030 1.000-1.030 5811-5 LOINC A PH 6.0 5.0 - 6.5 5803-2 LOINC LEUK EST NEGATIVE NEGATIVE 5799-2 LOINC NITRATE NEGATIVE NEGATIVE PROTEIN 2+ NEGATIVE 5804-0 LOINC A GLUCOSE 1+ NEGATIVE 25267-2 LOINC KETONES NEGATIVE NEGATIVE 77062-3 LOINC UROBILINOGEN 1.0 NEGATIVE 5818-0 LOINC BILIRUBIN NEGATIVE NEGATIVE 99863-4 LOINC BLOOD TRACE-INT NEGATIVE 45527-8 LOINC WBC 0-2 0 - 2 60970-5 LOINC RBC 2-5 0 - 2 20449-5 LOINC EPITHELIAL OCCASIONA RARE-FEW 87465-5 LOINC BACTERIA NONE SEEN NONE SEEN 48930-9 LOINC MUCUS 1+ NONE SEEN 8247-9 LOINC YEAST NOT PRESENT NOT PRESENT 84198-6 LOINC CASTS NONE SEEN 78397-3 LOINC CRYSTALS SEE BELOW 76324-0 LOINC CULTURE? NO 8251-1 LOINC DIAGNOSIS N/A Social History Type Status Start Date End Date Code Code Syst em Smoking History Never smoker (Never Smoked) 253905793 SNOMED CT Sex Female Medications Medication Start Date End Date Route Frequency Dose Code Code System Medication Instructions Home Meds vilazodone hydrochloride 10MG Oral Tablet 04/30/2022 Unknown ORAL ONCE A DAY 10 MILLIGRAMS 1486094 RxNorm TAKE 10 MILLIGRAMS ORAL ONCE A DAY HumaLOG 100U/1ML Injection Solution 04/30/2022 Unknown INJECT ION 1 unit(s) 311962 RxNorm 1 EACH INJECTION Cozaar 100MG Oral Tablet 04/30/2022 Unknown ORAL ONCE A DAY 100 MILLIGRAMS 125534 RxNorm TAKE 100 MILLIGRAMS ORAL ONCE A DAY Lantus 100U/1ML Subcutaneous Solution 04/30/2022 Unknown SUBCUT ANEOUS AT BEDTIM E 48 unit(s) 422183 RxNorm INJECT INTO 48 EACH SUBCUTANEOUS AT BEDTIME Lipitor 20MG Oral Tablet 04/30/2022 Unknown ORAL ONCE A DAY 20 MILLIGRAMS 082317 RxNorm TAKE 20 MILLIGRAMS ORAL ONCE A DAY Omeprazole 20MG Oral Capsule, Delayed Release 04/30/2022 Unknown ORAL ONCE A DAY 20 MILLIGRAMS 842986 RxNorm TAKE 20 MILLIGRAMS ORAL ONCE A DAY Oxybutynin Chloride 5MG Oral Tablet, Extended Release 04/30/2022 Unknown ORAL ONCE A DAY 5 MILLIGRAMS 883811 RxNorm TAKE 5 MILLIGRAMS ORAL ONCE A DAY ProAir HFA 0.09MG/1Actuatio n Inhalation Suspension 04/30/2022 Unknown INHALA TION NEEDED EVERY 4 HOURS 1 unit(s) 760634 RxNorm 1 EACH INHALATION NEEDED EVERY 4 HOURS Singulair 10MG Oral Tablet 04/30/2022 Unknown ORAL AT BEDTIM E 10 MILLIGRAMS 397077 RxNorm TAKE 10 MILLIGRAMS ORAL AT BEDTIME ZyrTEC 10MG Oral Tablet 04/30/2022 Unknown ORAL ONCE A DAY 10 MILLIGRAMS RxNorm TAKE 10 MILLIGRAMS ORAL ONCE A DAY hydroCHLOROthiaz zulema 12.5MG Oral Tablet 04/30/2022 Unknown ORAL ONCE A DAY 12.5 MILLIGRAMS 079193 RxNorm TAKE 12.5 MILLIGRAMS ORAL ONCE A DAY metFORMIN HCl 500MG Oral Tablet 04/30/2022 Unknown ORAL TWICE A DAY 1000 MILLIGRAMS 771404 RxNorm TAKE 1000 MILLIGRAMS ORAL TWICE A DAY traZODone hydrochloride 150MG Oral Tablet 04/30/2022 Unknown ORAL AT BEDTIM E 150 MILLIGRAMS 082765 RxNorm TAKE 150 MILLIGRAMS ORAL AT BEDTIME [...] Status Code Code System SECONDARY AMENORRHEA active 67030442 SNOMED-CT IRON DEFICIENCY ANEMIA, UNSPECIFIED active 89285148 SNOMED-CT DIARRHEA active 04298722 SNOMED-CT GERD active 251363381 SNOMED-CT ENCOUNTER FOR GYNECOLOGICAL EXAMINATION (GENERAL) (ROUTINE) WITHOUT ABNORMAL FIN active 11157042 SNOMED- CT HIGH RISK HETEROSEXUAL BEHAVIOR active 636077487951976 SNOMED-CT BARIATRIC SURGERY STATUS active 23155 8006 SNOMED-CT Allergies and Adverse Reactions Allergy Substance Reaction Severity Start Date Concern Status Co de Code System MORPHINE Active 7052 RxNorm ADHESIVE Active LATEX Active 7219308 RxNorm HUMALOG Active 247664 RxNorm Plan of Treatment Split Night, CPAP/BIPAP/ASV (75224) EGD/Colonoscopy 04/30/2022 US Pelvis/Transvaginal (96593) 04/06/19 24 Pharynx Esophagus Cine 04/01/2023 Encounters Encounter Diagnosis Start Date Code Code Sys tem Urinary tract infection, site not specified 01/26/2024 SNOMED-CT Personal Care Team Section Performer Name Performer Role Active Date Inactive SHAHEED Patricia PCP - Primary care physician 8 2021-07-04 Jean-Pierre Ferrari PCP - Primary care physician 2022-03-13
--- OUTSIDE RECORDS SUMMARY | 2024-06-24 14:47 | XMS_ITS ---
Author Organization Unknown Address [address] [place] [phone] Phone Care Team Providers Care Retail Presentation Specialist Name Role Phone JOSÉ LUIS DELCID Attending Unavailable Immunization Immunization Date Status Additional Notes Code Code System Influenza, split virus, trivalent, PF 12/09/2014 Completed 140 CVX Influenza, split virus, trivalent, preservative 12/10/2017 Completed 141 CVX COVID-19, mRNA, LNP-S, PF, 3 0 mcg/0.3 mL dose 05/30/2020 Completed 208 CVX Results MICROALBUMIN - Collect Date/ Time: 06/24/2023 10:20 [facility] ID: [id number] [address] [place] [address], [phone] LOINC: 80537-9 Test Value Unit Reference Range Code Code System Flag MICROALBUMIN 368.5 mg/L L=0.0 H=16.7 88486-6 LOINC H UR CREATININE 90.00 mg/dL L=30.00 H=125 2161-8 LOINC MA/CR 409.4 mg/gCR HEMOGLOBIN A1C WITH eAG - Co llect Date/Time: 06/24/2023 10:16 [facility] ID: [id number] [address] [place] [address], [phone] LOINC: 4548-4 Test Value Unit Reference Range Code Code System Flag HGBA1C 6.8 % 4548-4 LOINC eAG 148.5 mg/dL 4548-4 LOINC LIPID PANEL - Collect Date/T douglas: 06/24/2023 10:16 [facility] ID: [id number] [address] [place], [place], [phone] LOINC: 91215-8 Test Value Unit Reference Range Code Code System Flag FASTING NO CHOLESTEROL 102 mg/dL L=0 H=200 3-3 LOINC TRIGLYCERIDE 156 mg/dL L=0 H=150 2571-8 LOINC H HDL 32 mg/dL L=40 H=60 5-9 LOINC L LDL 52 mg/dL 2088- LOINC CBC W/ DIFF - Collect Date/T douglas: 06/24/2023 10:16 [facility] ID: [id number] [address] [place], [place], [phone] LOINC: 43871-3 Test Value Unit Reference Range Code Code System Flag WBC 6.9 10^3uL L=4.8 H=10.8 RBC 5.02 10^6uL L=4.20 H=5.40 HEMOGLOBIN 12.1 g/dL L=12.0 H=16.0 718-7 LOINC HEMATOCRIT 38.9 VOL% L=37.0 H=47.0 4544-3 LOINC MCV 77.5 fL L=81.0 H=99.0 L MCH 24.1 pg L=27.0 H=32.0 L MCHC 31.1 g/dL L=32.0 H=36.0 L PLATELETS 376 10^3uL L=100 H=400 54695-5 LOINC RDW 15.9 % L=11.7 H=15.5 H %GRAN 50.6 % L=40.0 H=70.0 04490-7 LOINC %LYMPH 43.2 % L=20.0 H=45.0 736-9 LOINC %MONO 5.1 % L=2.0 H=10.0 60513-1 LOINC %EOS 0.6 % L=0.0 H=6.0 713-8 LOINC %BASO 0.4 % L=0.0 H=3.0 706-2 LOINC #NEUT 3.5 10^3uL L=1.9 H=7.6 19965-1 LOINC #LYMPH 3.0 10^3uL L=0.9 H=4.9 39444-2 LOINC #MONO 0.4 10^3uL L=0.1 H=0.9 28010-2 LOINC #EOS 0.0 10^3uL L=0.0 H=0.6 712-0 LOINC #BASO 0.03 10^3uL L=0.00 H=0.10 70278-8 LOINC #IM GRANS 0.0 10^3uL L=0.0 H=7.0 10472-1 LOINC %IM GRANS 0.1 % L=0.0 H=5.0 63455-0 LOINC %NRB 0.0 L=0.0 H=0.2 63971-1 LOINC #NRB 0.000 L=0.000 H=0.012 51320-1 LOINC MANUAL DIFF NOT INDICATED RBC MORPH NOT INDICATED COMPREHENSIVE METABOLIC PANE L - Collect Date/Time: 06/24/2023 10:16 [facility] ID: [id number] [address] [place], [place], [phone] LOINC: 37847-0 Test Value Unit Reference Range Code Code System Flag FASTING NO BUN 11 mg/dL L=7 H=20 3094-0 LOINC CREATININE 0.70 mg/dL L=0.52 H=1.04 2160-0 LOINC GLUCOSE 63 mg/dL L=74 H=106 2345-7 LOINC L SODIUM 143 mmol/L L=132 H=144 2951-2 LOINC POTASSIUM 3.6 mmol/L L=3.5 H=5.1 2823-3 LOINC CHLORIDE 103 mmol/L L=98 H=107 2075-0 LOINC CO2 29.0 mmol/L L=22.0 H=30.0 2028-9 LOINC ANION GAP 15 L=10 H=20 08826-2 LOINC OSMOLALITY 293 mOs/kG L=280 H=296 71180-2 LOINC BUN/CREAT 15.7 3097-3 LOINC CALCIUM 10.0 mg/dL L=8.3 H=10.5 78023-5 LOINC AST 40 U/L L=15 H=46 1920-8 LOINC ALT 39 U/L L=9 H=72 1742-6 LOINC ALKALINE PHOS 62 U/L L=38 H=126 6768-6 LOINC TOTAL BILI 0.5 mg/dL L=0.2 H=1.3 1975-2 LOINC ALBUMIN 4.4 G/dL L=3.5 H=5.0 1751-7 LOINC TOTAL PROTEIN 9.0 g/L L=6.3 H=8.2 2885-2 LOINC H A/G RATIO 1.0 11135-5 LOINC AGE 38 19631-5 LOINC eGFR NON-AFR 99 ml/min eGFR AFR AMER 120 ml/min TSH / REFLEX FT4 - Collect D ate/Time: 06/24/2023 10:16 [facility] ID: [id number] [address] [place], [place], [phone] LOINC: Test Value Unit Reference Range Code Code System Flag TSH 1.540 uIU/L L=0.470 H=4.680 88760-2 LOINC Social History Type Status Start Date End Date Code Code Syst em Smoking History Never smoker (Never Smoked) 820871601 SNOMED CT Sex Female Medications Medication Start Date End Date Route Frequency Dose Code Code System Medication Instructions Home Meds vilazodone hydrochloride 10MG Oral Tablet 04/30/2022 Unknown ORAL ONCE A DAY 10 MILLIGRAMS 6560466 RxNorm TAKE 10 MILLIGRAMS ORAL ONCE A DAY HumaLOG 100U/1ML Injection Solution 04/30/2022 Unknown INJECT ION 1 unit(s) 844284 RxNorm 1 EACH INJECTION Cozaar 100MG Oral Tablet 04/30/2022 Unknown ORAL ONCE A DAY 100 MILLIGRAMS 000693 RxNorm TAKE 100 MILLIGRAMS ORAL ONCE A DAY Lantus 100U/1ML Subcutaneous Solution 04/30/2022 Unknown SUBCUT ANEOUS AT BEDTIM E 48 unit(s) 607122 RxNorm INJECT INTO 48 EACH SUBCUTANEOUS AT BEDTIME Lipitor 20MG Oral Tablet 04/30/2022 Unknown ORAL ONCE A DAY 20 MILLIGRAMS 158985 RxNorm TAKE 20 MILLIGRAMS ORAL ONCE A DAY Omeprazole 20MG Oral Capsule, Delayed Release 04/30/2022 Unknown ORAL ONCE A DAY 20 MILLIGRAMS 264457 RxNorm TAKE 20 MILLIGRAMS ORAL ONCE A DAY Oxybutynin Chloride 5MG Oral Tablet, Extended Release 04/30/2022 Unknown ORAL ONCE A DAY 5 MILLIGRAMS 143005 RxNorm TAKE 5 MILLIGRAMS ORAL ONCE A DAY ProAir HFA 0.09MG/1Actuatio n Inhalation Suspension 04/30/2022 Unknown INHALA TION NEEDED EVERY 4 HOURS 1 unit(s) 511516 RxNorm 1 EACH INHALATION NEEDED EVERY 4 HOURS Singulair 10MG Oral Tablet 04/30/2022 Unknown ORAL AT BEDTIM E 10 MILLIGRAMS 328729 RxNorm TAKE 10 MILLIGRAMS ORAL AT BEDTIME ZyrTEC 10MG Oral Tablet 04/30/2022 Unknown ORAL ONCE A DAY 10 MILLIGRAMS RxNorm TAKE 10 MILLIGRAMS ORAL ONCE A DAY hydroCHLOROthiaz zulema 12.5MG Oral Tablet 04/30/2022 Unknown ORAL ONCE A DAY 12.5 MILLIGRAMS 396523 RxNorm TAKE 12.5 MILLIGRAMS ORAL ONCE A DAY metFORMIN HCl 500MG Oral Tablet 04/30/2022 Unknown ORAL TWICE A DAY 1000 MILLIGRAMS 577202 RxNorm TAKE 1000 MILLIGRAMS ORAL TWICE A DAY traZODone hydrochloride 150MG Oral Tablet 04/30/2022 Unknown ORAL AT BEDTIM E 150 MILLIGRAMS 236764 RxNorm TAKE 150 MILLIGRAMS ORAL AT BEDTIME [...] Status Code Code System SECONDARY AMENORRHEA active 85314447 SNOMED-CT IRON DEFICIENCY ANEMIA, UNSPECIFIED active 90984011 SNOMED-CT DIARRHEA active 36014103 SNOMED-CT GERD active 076788574 SNOMED-CT ENCOUNTER FOR GYNECOLOGICAL EXAMINATION (GENERAL) (ROUTINE) WITHOUT ABNORMAL FIN active 92637519 SNOMED- CT HIGH RISK HETEROSEXUAL BEHAVIOR active 770218005748690 SNOMED-CT BARIATRIC SURGERY STATUS active 39485 5116 SNOMED-CT Allergies and Adverse Reactions Allergy Substance Reaction Severity Start Date Concern Status Co de Code System MORPHINE Active 7052 RxNorm ADHESIVE Active LATEX Active 6399520 RxNorm HUMALOG Active 089025 RxNorm Plan of Treatment Split Night, CPAP/BIPAP/ASV (15359) EGD/Colonoscopy 04/30/2022 US Pelvis/Transvaginal (53018) 04/06/19 24 Pharynx Esophagus Cine 04/01/2023 Encounters Encounter Diagnosis Start Date Code Code Sys tem Type 2 diabetes mellitus without complications 024 SNOMED-CT Personal Care Team Section Performer Name Performer Role Active Date Inactive SHAHEED Patricia PCP - Primary care physician 8 2021-07-04 Jean-Pierre Ferrari PCP - Primary care physician 2022-03-13
--- OUTSIDE RECORDS SUMMARY | 2024-06-24 14:48 | XMS_ITS | Encounter Summary ---
Author Organization [facility] Address [address] [place] [address] Care Team Providers Care Cloth Stock Sorter Name Role Phone Jean-Pierre Ferrari DO Primary Care Provider [phone] Encounter Details Date Type Department Care Team (Late st Contact Info) Description 08/20/2018 Abstract [facility] [place] [address] , Generic ConversionMD Social History Tobacco Use Types Packs/Day Years Used Date Smoking Tobacco: Never Assessed Comments Unknown Sex and Gender Information Value Date Recorded Sex Assigned at Female 04/17/2024 1:10 PM FUR TANNER Legal Sex Female 7:17 PM CDT Gender Identity Not on file Sexual Orientation Not on file documented as of this encounter Plan of Treatment Upcoming Encounters Date Type Department Care Team (Late Contact Info) Description 08/14/2024 1:30 PM CDT Office Visit [facility] [address] [address] [place] [address] [place] [phone] documented as of this encounter Visit Diagnoses Not on filedocumented in this encounter Additional Health Concerns Infection Onset Date Last Indicated Resolved Time COVID-19 Rule Out 03/14/2024 03/14/2024 03/14/2024 1:37 PM FUR TANNER documented as of this encounter Care Teams Cloth Stock Sorter Relationship Specialty Start [place] [address] [place] [phone] PCP - General FAMILY PRACTICE 07/06/23 documented as of this encounter
--- OUTSIDE RECORDS SUMMARY | 2024-06-24 14:48 | XMS_ITS | Referral Summary ---
Author Organization [facility] Address [address] [place] [phone] Care Team Providers Care Air Brake Adjuster Name Role Phone Destini Dexter MD Unavailable [phone] Jean-Pierre Ferrari DO Primary Care Provider [phone] Allergies Active Allergy Reactions Criticality Noted Date [...] 17 Active pen needle, diabetic (BD ULTRA-FINE JAVNA PEN NEEDLES) 32 gauge x 5/32 needle [...] 10/04/19 19 Active blood-glucose meter,continuous (DEXCOM G6 LAB SUPPORT TECH) [facility] [...] (04/10/2020): Added automatically from request for surgery [id number] Social History Tobacco Use Types Packs/Day Years [...] on file Legal Sex Female 2:05 PM MANAGER OF CORPORATE Gender Identity Not on file Sexual Orientation Not on file Occupation Industry Job Start Date Job End Date 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 Works at a [employer]. Previously at [employer]. Not on file Not on file Not [...] on file Medical Devices Explanted Type Area Cell Manager Device Identifier Shelf Expiration Date Model / Serial / Lot Bard Inlay Ureteral Stent Implanted:Qty: 1 on 04/12/2020 by Duarte Whiting DO at [facility] Explanted:Qty: 1 on 04/24/2020 by Duarte Whiting DO Left: Ureter [employer] 07/21/2023 [id number] / / [id number] Procedures Procedure Name Priority Date/Time Associated Diagnosis Comments EGFR STAT 10/30/2023 10:37 AM CDT HEMOGLOBIN A1C Routine 07/28/2021 7:31 PM CDT PAP WITH REFLEX TO HIGH RISK HPV Routine 11/06/2019 11:04 AM CDT LIPID PANEL Routine 03/23/2019 2:04 PM MANAGER OF CORPORATE Type 2 diabetes mellitus with hyperglycemia, with [...] ORDERABLE S Final Result Performing Organization Address [facility] Co de Phone Number [facility] ([place]) [address] [facility] [place] [address] * (ABNORMAL) Hemoglobin A1c (07/28/2021 7:31 PM CDT) Hgb A1C 11.4(H) 4.0 - 5.6 % [facility] Estimated Average Glucose 280 mg/dL [facility] ([place]) Comment: The ADA recommends reporting an estimated Average Glucose (eAG) with all Hemoglobin A1c results using the equation derived from a study of 507 normal and diabetic adults. Minority populations were underrepresented and children were not included. (Diabetes Care 31:9296-2689, 2008). The eAG is not equivalent to a fasting glucose. Blood 07/28/2021 7:31 PM CDT 07/28/2021 7:40 PM CDT Meera Smith MD LAB BLOOD ORDERABLES Fin al Result Performing Organization Address [facility] Co de Phone Number [facility] ([place]) [address] [facility] [place] [address] * (ABNORMAL) Pap w/reflex to High Risk HPV if ASCUS and patient 21-29 years old (11/06/2019 11:04 AM CDT) 11/06/2019 11:0 4 AM CDT 11/06/2019 11:04 AM CDT Narrative 11/09/2019 1:31 PM CDT [facility] Department of Pathology [address] [place], [place] [phone] Final Report with Addendum Patient Name: DEEPA SINGLETON Address: [address] [place] [address] Gender: F : 1985 (Age: 34) Service: Laboratory Location: Lab Hospital #: [id number] Patient Type: Ref Lab Taken: 11/06/2019 Received: 11/06/2019 Accessioned:: 11/07/2019 Reported: 11/09/2019 Physician(s): Breann Connors Diagnosis: Source of Specimen: Imaged Thinprep Pap Test plus HPV - Art[employer] Supervisor Cytologic Material Specimen Adequacy: - Satisfactory for [...] Test performed utilizing Gen-Probe Aptima assay. ARACELI Handley([facility]) Report Electronically Reviewed and Signed Out By JEANNIE [facility]) 11/07/2019 16:27:20 Specimen(s) Received: A: Imaged Thinprep Pap Test plus HPV - [employer] Supervisor Cytologic Material Clinical History: Last Menstrual Period: [...] determined by the Surgical Pathology Department at [facility] as part of an ongoing quality assurance specialist program and in compliance with federally mandated [...] characteristics determined by the Surgical Pathology Department [facility]. It has not been cleared or approved by the U. S. Food and Drug Administration. Breann Connors MD LAB CYTOLOGY ORDERABLES Final Result * (ABNORMAL) Lipid panel (03/23/2019 2:04 PM MANAGER OF CORPORATE) Cholesterol 93 30 - 199 mg/dL [facility] [...] ([place]) Blood specimen (specimen) 03/23/2019 2:04 PM MANAGER OF CORPORATE 03/23/2019 5:24 PM MANAGER OF CORPORATE Sara Banuelos MD LAB BLOOD ORDERABLES Final Res ult [facility] ([place]) 1 [facility] Department [place] [address] * DIABETES EYE EXAM (12/17/2017) Diabetic Eye Exam Abnormal Historical Provider HEALTH MAINTENANCE Final Result * DIABETES FOOT EXAM (11/19/2016) Diabetic Foot Exam Unknown Annabella Provider HEALTH MAINTENANCE Final Result from Last 3 Months or Most Recently Relevant to Health Maintenance Insurance [employer] [facility] AETNA BETTER [facility] AETNA BETTER [facility] [place] Advance Directives For more information, please contact: [phone] * Full Code (Latest Code Status on File) Date Activated Date Inactivated Comments 04/14/2020 6:50 PM 04/16/2020 6:08 PM * Full Code Date Activated Date Inactivated Comments 05/09/2017 10:16 AM 05/11/2017 7:36 PM Care Teams Air Brake Adjuster Relationship Specialty Start [place] [address] [place] [address] PCP - General Family Medicine 05/13/22 Destini Dexter MD Consulting Physician Gastroenterology 05/11/17
--- OUTSIDE RECORDS SUMMARY | 2024-06-24 14:48 | XMS_ITS ---
Author Organization Unknown Address [address] [place] [phone] Phone Care Team Providers Care Client Service Representative Name Role Phone RAFAELA Larry Attending Unavailable [...] em Smoking History Never smoker (Never Smoked) 128011162 SNOMED CT Sex Female Medications Medication Start Date End Date Route Frequency Dose Code Code System Medication Instructions Home Meds vilazodone hydrochloride 10MG Oral Tablet 04/30/2022 Unknown ORAL ONCE A DAY 10 MILLIGRAMS 6684508 RxNorm TAKE 10 MILLIGRAMS ORAL ONCE A DAY HumaLOG 100U/1ML Injection Solution 04/30/2022 Unknown INJECT ION 1 unit(s) 954276 RxNorm 1 EACH INJECTION Cozaar 100MG Oral Tablet 04/30/2022 Unknown ORAL ONCE A DAY 100 MILLIGRAMS 968915 RxNorm TAKE 100 MILLIGRAMS ORAL ONCE A DAY Lantus 100U/1ML Subcutaneous Solution 04/30/2022 Unknown SUBCUT ANEOUS AT BEDTIM E 48 unit(s) 046137 RxNorm INJECT INTO 48 EACH SUBCUTANEOUS AT BEDTIME Lipitor 20MG Oral Tablet 04/30/2022 Unknown ORAL ONCE A DAY 20 MILLIGRAMS 694937 RxNorm TAKE 20 MILLIGRAMS ORAL ONCE A DAY Omeprazole 20MG Oral Capsule, Delayed Release 04/30/2022 Unknown ORAL ONCE A DAY 20 MILLIGRAMS 288239 RxNorm TAKE 20 MILLIGRAMS ORAL ONCE A DAY Oxybutynin Chloride 5MG Oral Tablet, Extended Release 04/30/2022 Unknown ORAL ONCE A DAY 5 MILLIGRAMS 989798 RxNorm TAKE 5 MILLIGRAMS ORAL ONCE A DAY ProAir HFA 0.09MG/1Actuatio n Inhalation Suspension 04/30/2022 Unknown INHALA TION NEEDED EVERY 4 HOURS 1 unit(s) 867498 RxNorm 1 EACH INHALATION NEEDED EVERY 4 HOURS Singulair 10MG Oral Tablet 04/30/2022 Unknown ORAL AT BEDTIM E 10 MILLIGRAMS 429418 RxNorm TAKE 10 MILLIGRAMS ORAL AT BEDTIME ZyrTEC 10MG Oral Tablet 04/30/2022 Unknown ORAL ONCE A DAY 10 MILLIGRAMS RxNorm TAKE 10 MILLIGRAMS ORAL ONCE A DAY hydroCHLOROthiaz zulema 12.5MG Oral Tablet 04/30/2022 Unknown ORAL ONCE A DAY 12.5 MILLIGRAMS 475144 RxNorm TAKE 12.5 MILLIGRAMS ORAL ONCE A DAY metFORMIN HCl 500MG Oral Tablet 04/30/2022 Unknown ORAL TWICE A DAY 1000 MILLIGRAMS 660691 RxNorm TAKE 1000 MILLIGRAMS ORAL TWICE A DAY traZODone hydrochloride 150MG Oral Tablet 04/30/2022 Unknown ORAL AT BEDTIM E 150 MILLIGRAMS 218863 RxNorm TAKE 150 MILLIGRAMS ORAL AT BEDTIME [...] Status Code Code System SECONDARY AMENORRHEA active 26305529 SNOMED-CT IRON DEFICIENCY ANEMIA, UNSPECIFIED active 69774615 SNOMED-CT DIARRHEA active 11342862 SNOMED-CT GERD active 004851812 SNOMED-CT ENCOUNTER FOR GYNECOLOGICAL EXAMINATION (GENERAL) (ROUTINE) WITHOUT ABNORMAL FIN active 03323956 SNOMED- CT HIGH RISK HETEROSEXUAL BEHAVIOR active 463363577451509 SNOMED-CT BARIATRIC SURGERY STATUS active 53131 2566 SNOMED-CT Allergies and Adverse Reactions Allergy Substance Reaction Severity Start Date Concern Status Co de Code System MORPHINE Active 7052 RxNorm ADHESIVE Active LATEX Active 4628414 RxNorm HUMALOG Active 259305 RxNorm Plan of Treatment Split Night, CPAP/BIPAP/ASV (16674) EGD/Colonoscopy 04/30/2022 US Pelvis/Transvaginal (07835) 04/06/19 24 Pharynx Esophagus Cine 04/01/2023 Encounters Encounter Diagnosis Start Date Code Code Sys tem Frequency of micturition 09/27/2023 SNO MED-CT Personal Care Team Section Performer Name Performer Role Active Date Inactive SHAHEED Patricia PCP - Primary care physician 8 2021-07-04 Jean-Pierre Ferrari PCP - Primary care physician 2022-03-13
--- OUTSIDE RECORDS SUMMARY | 2024-06-24 14:48 | XMS_ITS ---
Author Organization Unknown Address [address] [place] [phone] Phone Care Team Providers Care Refund Specialist Name Role Phone KATHERYN Raquel FITO Attending Unavailable JOSÉ LUIS DELCID Primary Unavailable Immunization Immunization Date Status Additional Notes Code Code System Influenza, split virus, trivalent, PF 12/09/2014 Completed 140 CVX Influenza, split virus, trivalent, preservative 12/10/2017 Completed 141 CVX COVID-19, mRNA, LNP-S, PF, 3 0 mcg/0.3 mL dose 05/30/2020 Completed 208 CVX Results CBC W/ DIFF - Collect Date/T douglas: 01/10/2024 14:20 [facility] ID: [id number] [place] [address], [phone] LOINC: 34881-8 Test Value Unit Reference Range Code Code System Flag WBC 10.0 10^3uL L=4.8 H=10.8 RBC 4.55 10^6uL L=4.20 H=5.40 HEMOGLOBIN 10.9 g/dL L=12.0 H=16.0 718-7 LOINC L HEMATOCRIT 35.4 VOL% L=37.0 H=47.0 4544-3 LOINC L MCV 77.8 fL L=81.0 H=99.0 L MCH 24.0 pg L=27.0 H=32.0 L MCHC 30.8 g/dL L=32.0 H=36.0 L PLATELETS 398 10^3uL L=100 H=400 01420-3 LOINC RDW 13.6 % L=11.7 H=15.5 %GRAN 63.5 % L=40.0 H=70.0 15119-6 LOINC %LYMPH 31.0 % L=20.0 H=45.0 736-9 LOINC %MONO 4.5 % L=2.0 H=10.0 97435-3 LOINC %EOS 0.4 % L=0.0 H=6.0 713-8 LOINC %BASO 0.3 % L=0.0 H=3.0 706-2 LOINC #NEUT 6.3 10^3uL L=1.9 H=7.6 93103-5 LOINC #LYMPH 3.1 10^3uL L=0.9 H=4.9 65239-2 LOINC #MONO 0.5 10^3uL L=0.1 H=0.9 53596-2 LOINC #EOS 0.0 10^3uL L=0.0 H=0.6 712-0 LOINC #BASO 0.03 10^3uL L=0.00 H=0.10 70283-2 LOINC #IM GRANS 0.0 10^3uL L=0.0 H=7.0 35745-5 LOINC %IM GRANS 0.3 % L=0.0 H=5.0 81329-4 LOINC %NRB 0.0 L=0.0 H=0.2 25349-6 LOINC #NRB 0.000 L=0.000 H=0.012 04939-8 LOINC MANUAL DIFF NOT INDICATED RBC MORPH NOT INDICATED COMPREHENSIVE METABOLIC PANE L - Collect Date/Time: 01/10/2024 14:20 [facility] ID: [id number] [address] [place], [place], [phone] LOINC: 30229-9 Test Value Unit Reference Range Code Code System Flag FASTING UNKNOWN BUN 8 mg/dL L=7 H=20 3094-0 LOINC CREATININE 0.60 mg/dL L=0.52 H=1.04 2160-0 LOINC GLUCOSE 85 mg/dL L=74 H=106 2345-7 LOINC SODIUM 140 mmol/L L=132 H=144 2951-2 LOINC POTASSIUM 3.6 mmol/L L=3.5 H=5.1 2823-3 LOINC CHLORIDE 104 mmol/L L=98 H=107 2075-0 LOINC CO2 24.0 mmol/L L=22.0 H=30.0 2028-9 LOINC ANION GAP 16 L=10 H=20 53639-4 LOINC OSMOLALITY 288 mOs/kG L=280 H=296 66245-7 LOINC BUN/CREAT 13.3 3097-3 LOINC CALCIUM 9.6 mg/dL L=8.3 H=10.5 68335-0 LOINC AST 26 U/L L=15 H=46 1920-8 LOINC ALT 19 U/L L=9 H=72 1742-6 LOINC ALKALINE PHOS 90 U/L L=38 H=126 6768-6 LOINC TOTAL BILI 0.5 mg/dL L=0.2 H=1.3 1975-2 LOINC ALBUMIN 4.6 G/dL L=3.5 H=5.0 1751-7 LOINC TOTAL PROTEIN 8.7 g/L L=6.3 H=8.2 2885-2 LOINC H A/G RATIO 1.1 40318-3 LOINC AGE 38 68777-5 LOINC eGFR NON-AFR 118 ml/min eGFR AFR AMER 143 ml/min LIPASE - Collect Date/Time: 01/10/2024 14:20 [facility] ID: [id number] [place], [place], [phone] LOINC: 3040-3 Test Value Unit Reference Range Code Code System Flag LIPASE 55 U/L L=23 H=300 3040-3 LOINC URINALYSIS w/Microscopy/C&S if indicated - Collect Date/Time: 01/10/2024 13:55 [facility] ID: [id number] [place], [place], [id number] LOINC: 55201-5 Test Value Unit Reference Range Code Code System Flag UR SOURCE VOIDED 22128-2 LOINC COLOR LT YELLOW YELLOW 5778-6 LOINC CLARITY CLEAR CLEAR 30470-6 LOINC SPEC GRAVITY <=1.005 1.000-1.030 5811-5 LOINC PH 7.0 5.0 - 6.5 5803-2 LOINC LEUK EST NEGATIVE NEGATIVE 5799-2 LOINC NITRATE NEGATIVE NEGATIVE PROTEIN NEGATIVE NEGATIVE 5804-0 LOINC GLUCOSE NEGATIVE NEGATIVE 33704-3 LOINC KETONES NEGATIVE NEGATIVE 46171-2 LOINC UROBILINOGEN 0.2 NEGATIVE 5818-0 LOINC BILIRUBIN NEGATIVE NEGATIVE 89813-6 LOINC BLOOD NEGATIVE NEGATIVE 76806-8 LOINC WBC 0-2 0 - 2 82709-6 LOINC RBC 0-2 0 - 2 26435-7 LOINC EPITHELIAL FEW RARE-FEW 54628-8 LOINC BACTERIA FEW NONE SEEN 96576-8 LOINC MUCUS NONE SEEN NONE SEEN 8247-9 LOINC YEAST NOT PRESENT NOT PRESENT 53527-0 LOINC CASTS NONE SEEN 31623-5 LOINC CRYSTALS NONE SEEN 85070-1 LOINC CULTURE? NO 8251-1 LOINC DIAGNOSIS N/A CT ABD/PEL WO CONTRAST - Com pleted: 01/10/2024 14:30 LOINC: 16809-7 EXAM DESCRIPTION: CT ABD/PEL WO CONTRAST REASON [...] Layton Antunez M.D. JA: ARIAS Report ID: [id number] Reading Location: [id number] Social History Type Status Start Date End Date Code Code Syst em Smoking History Never smoker (Never Smoked) 572127853 SNOMED CT Sex Female Medications Medication Start Date End Date Route Frequency Dose Code Code System Medication Instructions Home Meds vilazodone hydrochloride 10MG Oral Tablet 04/30/2022 Unknown ORAL ONCE A DAY 10 MILLIGRAMS 7136621 RxNorm TAKE 10 MILLIGRAMS ORAL ONCE A DAY HumaLOG 100U/1ML Injection Solution 04/30/2022 Unknown INJECT ION 1 unit(s) 413551 RxNorm 1 EACH INJECTION Cozaar 100MG Oral Tablet 04/30/2022 Unknown ORAL ONCE A DAY 100 MILLIGRAMS 596629 RxNorm TAKE 100 MILLIGRAMS ORAL ONCE A DAY Lantus 100U/1ML Subcutaneous Solution 04/30/2022 Unknown SUBCUT ANEOUS AT BEDTIM E 48 unit(s) 443538 RxNorm INJECT INTO 48 EACH SUBCUTANEOUS AT BEDTIME Lipitor 20MG Oral Tablet 04/30/2022 Unknown ORAL ONCE A DAY 20 MILLIGRAMS 264797 RxNorm TAKE 20 MILLIGRAMS ORAL ONCE A DAY Omeprazole 20MG Oral Capsule, Delayed Release 04/30/2022 Unknown ORAL ONCE A DAY 20 MILLIGRAMS 759127 RxNorm TAKE 20 MILLIGRAMS ORAL ONCE A DAY Oxybutynin Chloride 5MG Oral Tablet, Extended Release 04/30/2022 Unknown ORAL ONCE A DAY 5 MILLIGRAMS 868177 RxNorm TAKE 5 MILLIGRAMS ORAL ONCE A DAY ProAir HFA 0.09MG/1Actuatio n Inhalation Suspension 04/30/2022 Unknown INHALA TION NEEDED EVERY 4 HOURS 1 unit(s) 221978 RxNorm 1 EACH INHALATION NEEDED EVERY 4 HOURS Singulair 10MG Oral Tablet 04/30/2022 Unknown ORAL AT BEDTIM E 10 MILLIGRAMS 739753 RxNorm TAKE 10 MILLIGRAMS ORAL AT BEDTIME ZyrTEC 10MG Oral Tablet 04/30/2022 Unknown ORAL ONCE A DAY 10 MILLIGRAMS RxNorm TAKE 10 MILLIGRAMS ORAL ONCE A DAY hydroCHLOROthiaz zulema 12.5MG Oral Tablet 04/30/2022 Unknown ORAL ONCE A DAY 12.5 MILLIGRAMS 252133 RxNorm TAKE 12.5 MILLIGRAMS ORAL ONCE A DAY metFORMIN HCl 500MG Oral Tablet 04/30/2022 Unknown ORAL TWICE A DAY 1000 MILLIGRAMS 883064 RxNorm TAKE 1000 MILLIGRAMS ORAL TWICE A DAY traZODone hydrochloride 150MG Oral Tablet 04/30/2022 Unknown ORAL AT BEDTIM E 150 MILLIGRAMS 577358 RxNorm TAKE 150 MILLIGRAMS ORAL AT BEDTIME [...] Status Code Code System SECONDARY AMENORRHEA active 92105708 SNOMED-CT IRON DEFICIENCY ANEMIA, UNSPECIFIED active 08916308 SNOMED-CT DIARRHEA active 18891179 SNOMED-CT GERD active 132561774 SNOMED-CT ENCOUNTER FOR GYNECOLOGICAL EXAMINATION (GENERAL) (ROUTINE) WITHOUT ABNORMAL FIN active 00454680 SNOMED- CT HIGH RISK HETEROSEXUAL BEHAVIOR active 985500502547453 SNOMED-CT BARIATRIC SURGERY STATUS active 61704 8006 SNOMED-CT Allergies and Adverse Reactions Allergy Substance Reaction Severity Start Date Concern Status Co de Code System MORPHINE Active 7052 RxNorm ADHESIVE Active LATEX Active 4452225 RxNorm HUMALOG Active 723945 RxNorm Plan of Treatment Split Night, CPAP/BIPAP/ASV (29517) EGD/Colonoscopy 04/30/2022 US Pelvis/Transvaginal (00965) 04/06/19 24 Pharynx Esophagus Cine 04/01/2023 Encounters Encounter Diagnosis Start Date Code Code Sys tem Calculus of kidney 01/10/2024 SNOMED-CT Personal Care Team Section Performer Name Performer Role Active Date Inactive SHAHEED Patricia PCP - Primary care physician 8 2021-07-04 Jean-Pierre Ferrari PCP - Primary care physician 2022-03-13 Imaging Narrative Notes
--- OUTSIDE RECORDS SUMMARY | 2024-06-24 14:48 | XMS_ITS | Clinical Summary ---
Author Organization [facility] Address [address] [place] [address] Care Team Providers Care Port Patrol Officer Name Role Phone KarleecelesteJean-Pierre Primary Care Provider [phone] Allergies Active Allergy Reactions Criticality Noted Date [...] 09/06/2023 Anemia 09/06/2023 Type 2 diabetes mellitus ([facility]) 07/06 Hypertension 07/07/2023 Hyperlipidemia 07/07/2023 Proteinuria 07/07/2023 Iron deficiency anemia, unspecified 07/07/2023 Vitamin D deficiency 07/07/2023 Encounters Date Type Department Care Team Description 04/19/2024 Orders Only [facility] [address] [place] [address] Nelson Vivar MD 04/17/2024 2:00 PM CORPORATE TRAINER Office Visit [facility] [place] [address] Nelson Vivar MD Kidney Stones 04/17/2024 1:10 PM CORPORATE TRAINER - 04/17/2024 11:59 PM CORPORATE TRAINER Hospital Encounter [facility] [address] [place] [address] Nelson Vivar MD Discharge Disposition: Home or [...] Sex Assigned at Female 04/17/2024 1:10 PM CORPORATE TRAINER Legal Sex Female 7:17 PM CDT Gender Identity Not on file Sexual Orientation Not on file Last Filed Vital Signs Vital Sign Reading Time Taken Comments Blood Pressure 119/76 04/17/2024 1:49 PM CORPORATE TRAINER Pulse 74 04/17/2024 1:49 PM CORPORATE TRAINER Temperature 36.4 C (97.5 F) 03/14/2024 12:39 PM CORPORATE TRAINER Respiratory Rate 16 03/14/2024 1:36 PM CORPORATE TRAINER Oxygen Saturation 94% 03/14/2024 3:00 PM CORPORATE TRAINER Inhaled Oxygen Concentration - - Weight 82.1 kg (181 lb) 04/17/2024 1:49 PM CORPORATE TRAINER Height 162.6 cm (5' 4 ) 04/17/2024 1:49 PM CORPORATE TRAINER Body Mass Index 31.07 04/17/2024 1:49 PM CORPORATE TRAINER Plan of Treatment Upcoming Encounters Date Type Department Care Team (Late st Contact Info) Description 08/14/2024 1:30 PM CDT Office Visit [facility] [address] [place] [address] Nelson Vivar MD [address] [place] [address] Health Maintenance Due Date Last Done Comments [...] URINALYSIS AUTO W/MICRO Routine 04/17/2024 1:39 PM CORPORATE TRAINER Proteinuria, unspecified type Hypertension, essential CKD (chronic kidney disease) stage 1, GFR 90 ml/min or greater PROTEIN TOTAL URINE RANDOM Routine 04/17/2024 1:39 PM CORPORATE TRAINER Proteinuria, unspecified type Hypertension, essential CKD (chronic kidney disease) stage 1, GFR 90 ml/min or greater CREATININE URINE RANDOM Routine 04/17/2024 1:39 PM CORPORATE TRAINER Proteinuria, unspecified type Hypertension, essential CKD (chronic kidney disease) stage 1, GFR 90 ml/min or greater RENAL FUNCTION PANEL Routine 04/17/2024 1:37 PM CORPORATE TRAINER Proteinuria, unspecified type Hypertension, essential CKD (chronic kidney disease) stage 1, GFR 90 ml/min or greater CBC W/DIFF AUTOMATED Routine 04/17/2024 1:37 PM CORPORATE TRAINER Proteinuria, unspecified type Hypertension, essential CKD (chronic [...] PROTEIN TOTAL URINE RANDOM (04/17/2024 1:39 PM CORPORATE TRAINER) PROTEIN URINE TOTAL RANDOM 245.0(H) <11.9 MG/DL 04/17/2024 1:57 PM CORPORATE TRAINER [facility] URINE SPECIMEN / Unknown 04/17/2024 1:39 PM CORPORATE TRAINER us Nelson Vivar MD URINE ORDERABLES Final Result Performing Organization Address [facility]/ZIP Co de Phone Number [facility] [address] [place] [address], * CREATININE URINE RANDOM (04/17/2024 1:39 PM CORPORATE TRAINER) CREATININE RANDOM (U) 163.6 MG/DL 04/17/2024 1:57 PM CORPORATE TRAINER [facility] Comment:REFERENCE RANGE NOT ESTABLISHED URINE SPECIMEN / Unknown 04/17/2024 1:39 PM CORPORATE TRAINER us Nelson Vivar MD URINE ORDERABLES Final Result Performing Organization Address [facility] Co de Phone Number [facility] [address] [place] [address], * (ABNORMAL) URINALYSIS (04/17/2024 1:39 PM CORPORATE TRAINER) COLOR (U) YELLOW 04/17/2024 1:55 PM CORPORATE TRAINER [facility] TRANSPARENCY SLIGHTLY CLOUDY 04/17/2024 1:55 PM CORPORATE TRAINER [facility] SPECIFIC GRAVITY (U) 1.030(H) 1.000 - 1.025 04/17/2024 1:55 PM CORPORATE TRAINER [facility] Comment:EQUAL TO OR GREATER THAN U PH 7.0 5.0 - 8.0 04/17/2024 1:55 PM CORPORATE TRAINER [facility] LEUKOCYTES (U) 1+(A) NEGATIVE 04/17/2024 1:55 PM CORPORATE TRAINER [facility] NITRITES NEGATIVE NEGATIVE 04/17/2024 1:55 PM CORPORATE TRAINER [facility] PROTEIN RANDOM (U) 3+(A) NEGATIVE 04/17/2024 1:55 PM CORPORATE TRAINER [facility] GLUCOSE (U) TRACE(A) NEGATIVE 04/17/2024 1:55 PM CORPORATE TRAINER [facility] KETONES MG/DL (U) NEGATIVE NEGATIVE 04/17/2024 1:55 PM CORPORATE TRAINER [facility] UROBILINOGEN 0.2 <1.0 EU/DL 04/17/2024 1:55 PM CORPORATE TRAINER [facility] BILIRUBIN (U) NEGATIVE NEGATIVE 04/17/2024 1:55 PM CORPORATE TRAINER [facility] BLOOD (U) 3+(A) NEGATIVE 04/17/2024 1:55 PM CORPORATE TRAINER [facility] WBC/HPF 50-100(A) 0 - 5 /HPF 04/17/2024 1:55 PM CORPORATE TRAINER [facility] RBC/HPF FILLED FIELD(A) 0 - 5 /HPF 04/17/2024 1:55 PM CORPORATE TRAINER [facility] EPI/LPF RARE /LPF 04/17/2024 1:55 PM CORPORATE TRAINER [facility] BACTERIA (U) 3+ /HPF 04/17/2024 1:55 PM CORPORATE TRAINER [facility] MUCUS PRESENT 04/17/2024 1:55 PM CORPORATE TRAINER [facility] URINE SPECIMEN OBTAINED BY CLEAN CATCH PROCEDURE / Unknown 04/17/2024 1:39 PM CORPORATE TRAINER us Nelson Vivar MD URINE ORDERABLES Final Result [facility] [address] [place] [address], * (ABNORMAL) RENAL FUNCTION PANEL (04/17/2024 1:37 PM CORPORATE TRAINER) SODIUM S/P/B 140 136 - 145 MMOL/L 04/17/2024 1:58 PM [facility] POTASSIUM S/P/B 3.9 3.5 - 5.1 MMOL/L 04/17/2024 1:58 PM [facility] CHLORIDE S/P/B 105 98 - 107 MMOL/L 04/17/2024 1:58 PM [facility] CO2 25.2 21.0 - 32.0 MMOL/L 04/17/2024 1:58 PM [facility] GLUCOSE 93 70 - 99 MG/DL 04/17/2024 1:58 PM [facility] Comment: FASTING GLUCOSE 100 TO 125 MG/DL IS CONSISTENT WITH IMPAIRED FASTING GLUCOSE. FASTING GLUCOSE >125 MG/DL IS CONSISTENT WITH DIABETES. RANDOM GLUCOSE >200 MG/DL WITH HYPERGLYCEMIC SYMPTOMS IS CONSISTENT WITH DIABETES. PER ADA GUIDELINES BUN 10 6 - 24 MG/DL 04/17/2024 1:58 PM [facility] CREATININE S/P/B 0.72 0.55 - 1.02 MG/DL 04/17/2024 1:58 PM [facility] CALCIUM S/P/B 8.7 8.4 - 10.5 MG/DL 04/17/2024 1:58 PM [facility] ALBUMIN S/P/B 3.2(L) 3.4 - 5.0 G/DL 04/17/2024 1:58 PM [facility] PHOSPHORUS 3.2 2.6 - 4.7 MG/DL 04/17/2024 1:58 PM [facility] ANION GAP 9.8 5.0 - 15.0 MMOL/L 04/17/2024 1:58 PM [facility] OSMOLALITY (CALC) 289 MOSM/KG 025 1:58 PM [facility] Comment:REFERENCE RANGE NOT ESTABLISHED GFR ESTIMATE >90 >89 ML/MIN/1. 73 M2 04/17/2024 1:58 PM CORPORATE TRAINER [facility] GFR NOTES GFR REFERENCE S: 04/17/2024 1:58 PM CORPORATE TRAINER [facility] Comment: THE ESTIMATED GFR IS CALCULATED [...] FAILURE: <15 ml/min/1.73 m2 04/17/2024 1:37 PM CORPORATE TRAINER us Nelson Vivar MD LABORATORY Final Result [facility] [place] [address], * (ABNORMAL) CBC W/DIFF AUTOMATED (04/17/2024 1:37 PM CORPORATE TRAINER) WBC 8.87 4.00 - 10.80 x10'3/uL 04/17/2024 1:45 PM CORPORATE TRAINER [facility] RBC 4.19 4.10 - 5.40 x10'6/uL 04/17/2024 1:45 PM CORPORATE TRAINER [facility] HGB 9.3(L) 12.0 - 16.0 G/DL 04/17/2024 1:45 PM CORPORATE TRAINER [facility] HCT 30.8(L) 36.0 - 47.0 % 04/17/2024 1:45 PM CORPORATE TRAINER [facility] MCV 73.5(L) 78.0 - 100.0 FL 04/17/2024 1:45 PM CORPORATE TRAINER [facility] MCH 22.2(L) 27.0 - 31.0 PG 04/17/2024 1:45 PM CORPORATE TRAINER [facility] MCHC 30.2(L) 33.0 - 36.0 G/DL 04/17/2024 1:45 PM CORPORATE TRAINER [facility] RDW 16.2(H) 11.5 - 14.5 % 04/17/2024 1:45 PM [facility] PLT 420(H) 150 - 350 x10'3/uL 04/17/2024 1:45 PM [facility] MPV 9.0 7.4 - 10.4 FL 04/17/2024 1:45 PM CORPORATE TRAINER [facility] CBC COMMENT NORMAL REFERENCE RANGE NOT ESTABLISHED FOR THE PROPORTIONAL LEUKOCYTE DIFFERENTIAL. 04/17/2024 1:45 PM CORPORATE TRAINER [facility] NEUTROPHILS % 52.0 % 04/17/2024 1:45 PM [facility] LYMPHOCYTES % 36.8 % 04/17/2024 1:45 PM [facility] MONOCYTES % 8.1 % 04/17/2024 1:45 PM CORPORATE TRAINER [facility] EOSINOPHILS % 2.5 % 04/17/2024 1:45 PM CORPORATE TRAINER [facility] BASOPHILS % 0.5 % 04/17/2024 1:45 PM CORPORATE TRAINER [facility] IMMATURE GRANS % 0.1 % 04/17/19 1:45 PM CORPORATE TRAINER [facility] NRBC % 0.0 % 04/17/2024 1:45 PM CORPORATE TRAINER [facility] ABS. NEUTROPHILS 4.62 1.60 - 8.30 x10'3/uL 04/17/2024 1:45 PM CORPORATE TRAINER [facility] ABS. LYMPHOCYTES 3.26 0.80 - 4.70 x10'3/uL 04/17/2024 1:45 PM CORPORATE TRAINER [facility] ABS. MONOCYTES 0.72 0.00 - 1.50 x10'3/uL 04/17/2024 1:45 PM CORPORATE TRAINER [facility] ABS. EOSINOPHILS 0.22 0.00 - 0.40 x10'3/uL 04/17/2024 1:45 PM CORPORATE TRAINER [facility] ABS. BASOPHILS 0.04 0.00 - 0.20 x10'3/uL 04/17/2024 1:45 PM CORPORATE TRAINER [facility] ABS. IMMATURE GRANULOCYTES 0.01 0.00 - 0.03 x10'3/uL 04/17/2024 1:45 PM CORPORATE TRAINER [facility] ABS. NUCLEATED RBC'S 0.00 0.00 - 0.01 x10'3/uL 04/17/2024 1:45 PM CORPORATE TRAINER [facility] 04/17/2024 1:37 PM CORPORATE TRAINER us Nelson Vivar MD LABORATORY Final Result [facility] [address] [place] [address], * HEPATITIS PANEL,ACUTE (09/13/2023 3:12 PM CDT) HEPATITIS B SURFACE AG NON-REACT DE NON-REACT DE 09/15/2023 12:39 AM CDT [facility] Comment:HBsAg NOT DETECTED. HEP B CORE IGM NON-REACT DE NON-REACT DE 09/15/2023 12:39 AM CDT [facility] Comment: IgM ANTI HBc NOT DETECTED. DOES NOT EXCLUDE THE POSSIBILITY OF EXPOSURE TO OR INFECTION WITH HBV. NO RETEST REQUIRED. HIGH DOSES OF BIOTIN MAY INTERFERE WITH THIS TEST RESULT. CORRELATION TO CLINICAL HISTORY AND PRESENTATION RECOMMENDED. HAV IGM NON-REACT DE NON-REACT DE 09/15/2023 12:39 AM CDT [facility] Comment: IgM ANTI HAV NOT DETECTED. DOES NOT EXCLUDE THE POSSIBILITY OF EXPOSURE TO OR INFECTION WITH HAV. LEVELS OF IgM ANTI HAV MAY BE BELOW THE CUTOFF IN EARLY INFECTION. HEPATITIS C AB NON-REACT DE NON-REACT DE 09/15/2023 12:39 AM CDT [facility] Comment: ANTIBODIES TO HCV NOT DETECTED. DOES NOT EXCLUDE THE POSSIBILITY OF EXPOSURE TO HCV. 09/13/2023 3:12 PM CDT us Nelson Vivar MD LABORATORY Final Result [facility] [address] [place] [address], [place] [phone] * (ABNORMAL) HEMOGLOBIN, GLYCOSYLATED (07/10/2017 7:02 AM CDT) HGB A1C 9.9(H) 4.5 - 6.0 % 07/10/2017 7:18 AM CDT [facility] Comment: ADA GUIDELINES 57651.7 TO 6.4% INCREASED RISK OF DIABETES> OR = 6.5% CONSISTENT WITH DIABETES ESTIMATED AVG GLUCOSE 237(H) 70 - 99 MG/DL 07/10/2017 7:18 AM CDT [facility] 07/10/2017 7:02 AM CDT 07/10/2017 7:04 AM CDT us Generic Conversion Md [facility] Final R esult Performing Organization Address City/[facility]/ZIP Co de Phone Number [facility] [address] [place] [address], [place] [phone] * (ABNORMAL) LIPID PANEL (07/10/2017 7:02 AM CDT) CHOLESTEROL 232(H) <200 MG/DL 07/10/2017 7:25 AM CDT [facility] TRIGLYCERIDES 395(H) <150 MG/DL 07/10/2017 7:25 AM CDT [facility] HDL 42 >40 MG/DL 07/10/2017 7:25 AM CDT [facility] LDL (CALCULATED) TRIGLYCERIDES >200 MG/DL, SEE DIRECT LDL REPORT <130 MG/DL 07/10/2017 7:25 AM CDT [facility] Comment: AN LDL OF <100 IS OPTIMAL; HOWEVER, ELEVATED IS DEFINED >130.BY ATP III GUIDELINES, LDL GOALS ARE DEPENDENT UPON THE PATIENT'S OTHER RISK FACTORS. CHOL/HDL RATIO 5.5(H) 0.0 - 5.0 07/10/2017 7:25 AM CDT [facility] OTHER (type in comments) 07/10/2017 7:02 AM CDT 07/10/2017 7:04 AM CDT Comment:SERUM SPECIMEN~ACELL ULAR BLOOD (SERUM OR PLASMA) SPECIMEN us Generic Conversion Md [facility] Final R esult [facility] [address] [place] [address], from Last 3 Months or Most Recently Relevant to Health Maintenance Insurance [employer] [employer] Care Teams Port Patrol Officer Relationship Specialty Start [place] [address] [place] [address] PCP - General FAMILY PRACTICE 07/06/23
--- OUTSIDE RECORDS SUMMARY | 2024-06-24 14:48 | XMS_ITS ---
Author Organization Unknown Address [address] [place] [address] [phone] Phone Care Team Providers Care Tile Designer Name Role Phone BLU Estrada Attending Unavailable [...] em Smoking History Never smoker (Never Smoked) [id number] SNOMED CT Sex Female Medications Medication Start Date End Date Route Frequency Dose Code Code System Medication Instructions Home Meds vilazodone hydrochloride 10MG Oral Tablet 04/30/2022 Unknown ORAL ONCE A DAY 10 MILLIGRAMS 6558701 RxNorm TAKE 10 MILLIGRAMS ORAL ONCE A DAY HumaLOG 100U/1ML Injection Solution 04/30/2022 Unknown INJECT ION 1 unit(s) 293708 RxNorm 1 EACH INJECTION Cozaar 100MG Oral Tablet 04/30/2022 Unknown ORAL ONCE A DAY 100 MILLIGRAMS 803010 RxNorm TAKE 100 MILLIGRAMS ORAL ONCE A DAY Lantus 100U/1ML Subcutaneous Solution 04/30/2022 Unknown SUBCUT ANEOUS AT BEDTIM E 48 unit(s) 923149 RxNorm INJECT INTO 48 EACH SUBCUTANEOUS AT BEDTIME Lipitor 20MG Oral Tablet 04/30/2022 Unknown ORAL ONCE A DAY 20 MILLIGRAMS 598937 RxNorm TAKE 20 MILLIGRAMS ORAL ONCE A DAY Omeprazole 20MG Oral Capsule, Delayed Release 04/30/2022 Unknown ORAL ONCE A DAY 20 MILLIGRAMS 421956 RxNorm TAKE 20 MILLIGRAMS ORAL ONCE A DAY Oxybutynin Chloride 5MG Oral Tablet, Extended Release 04/30/2022 Unknown ORAL ONCE A DAY 5 MILLIGRAMS 201293 RxNorm TAKE 5 MILLIGRAMS ORAL ONCE A DAY ProAir HFA 0.09MG/1Actuatio n Inhalation Suspension 04/30/2022 Unknown INHALA TION NEEDED EVERY 4 HOURS 1 unit(s) 174084 RxNorm 1 EACH INHALATION NEEDED EVERY 4 HOURS Singulair 10MG Oral Tablet 04/30/2022 Unknown ORAL AT BEDTIM E 10 MILLIGRAMS 219682 RxNorm TAKE 10 MILLIGRAMS ORAL AT BEDTIME ZyrTEC 10MG Oral Tablet 04/30/2022 Unknown ORAL ONCE A DAY 10 MILLIGRAMS RxNorm TAKE 10 MILLIGRAMS ORAL ONCE A DAY hydroCHLOROthiaz zulema 12.5MG Oral Tablet 04/30/2022 Unknown ORAL ONCE A DAY 12.5 MILLIGRAMS 401690 RxNorm TAKE 12.5 MILLIGRAMS ORAL ONCE A DAY metFORMIN HCl 500MG Oral Tablet 04/30/2022 Unknown ORAL TWICE A DAY 1000 MILLIGRAMS 169641 RxNorm TAKE 1000 MILLIGRAMS ORAL TWICE A DAY traZODone hydrochloride 150MG Oral Tablet 04/30/2022 Unknown ORAL AT BEDTIM E 150 MILLIGRAMS 978443 RxNorm TAKE 150 MILLIGRAMS ORAL AT BEDTIME [...] Status Code Code System SECONDARY AMENORRHEA active 49349165 SNOMED-CT IRON DEFICIENCY ANEMIA, UNSPECIFIED active 20634470 SNOMED-CT DIARRHEA active 72215782 SNOMED-CT GERD active 505941822 SNOMED-CT ENCOUNTER FOR GYNECOLOGICAL EXAMINATION (GENERAL) (ROUTINE) WITHOUT ABNORMAL FIN active 69207789 SNOMED- CT HIGH RISK HETEROSEXUAL BEHAVIOR active 550255794049794 SNOMED-CT BARIATRIC SURGERY STATUS active 21222 5516 SNOMED-CT Allergies and Adverse Reactions Allergy Substance Reaction Severity Start Date Concern Status Co de Code System MORPHINE Active 7052 RxNorm ADHESIVE Active LATEX Active 3633857 RxNorm HUMALOG Active 646697 RxNorm Plan of Treatment Split Night, CPAP/BIPAP/ASV (70930) EGD/Colonoscopy 04/30/2022 US Pelvis/Transvaginal (63438) 04/06/19 24 Pharynx Esophagus Cine 04/01/2023 Encounters Encounter Diagnosis Start Date Code Code Sys tem Gastro-esophageal reflux disease without esophagitis 0 06/28/2023 SNOMED-CT Personal Care Team Section Performer Name Performer Role Active Date Inactive SHAHEED Patricia PCP - Primary care physician 8 2021-07-04 Jean-Pierre Ferrari PCP - Primary care physician 2022-03-13
--- OUTSIDE RECORDS SUMMARY | 2024-06-24 14:48 | XMS_ITS | Clinical Summary ---
Author Organization [facility] Address [address] [place] [id number] Care Team Providers Care Program Aide Name Role Phone Destini Dexter MD Unavailable [phone] Jean-Pierre Ferrari DO Primary Care Provider [phone] Allergies Active Allergy Reactions Criticality Noted Date [...] 10/04/19 19 Active blood-glucose meter,continuous (DEXCOM G6 BOOM STORAGE) [facility] Use to test blood glucose 1 each [...] (04/10/2020): Added automatically from request for surgery [id number] Surgical History Surgery Date Site/Laterality Comments ANTERIOR [...] Added automatic ally from request for surgery [id number] Family History * Patient is adopted Medical [...] on file Legal Sex Female 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 Works at a [employer]. Previously at [employer]. Not on file Not on file Not [...] this topic Medical Devices Explanted Type Area Biomedical Service Engineer Device Identifier Shelf Expiration Date Model / Serial / Lot Bard Inlay Ureteral Stent Implanted:Qty: 1 on 04/12/2020 by Duarte Whiting DO at [facility] Explanted:Qty: 1 on 04/24/2020 by Duarte Whiting DO Left: Ureter [facility] 07/21/2023 [id number] / / [id number] Procedures Procedure Name Priority Date/Time Associated Diagnosis Comments EGFR STAT 10/30/2023 10:37 AM CDT HEMOGLOBIN A1C Routine 07/28/2021 7:31 PM CDT PAP WITH REFLEX TO HIGH RISK HPV Routine 11/06/2019 11:04 AM CDT LIPID PANEL Routine 03/23/2019 2:04 PM ROUTE DELIVERY DRIVER Type 2 diabetes mellitus with hyperglycemia, with [...] ORDERABLE S Final Result Performing Organization Address [facility] Co de Phone Number [facility] ([facility]) [address] [place] [address] [place] [address] * (ABNORMAL) Hemoglobin A1c (07/28/2021 7:31 PM CDT) Hgb A1C 11.4(H) 4.0 - 5.6 % [facility] Estimated Average Glucose 280 mg/dL [facility] Comment: The ADA recommends reporting an estimated Average Glucose (eAG) with all Hemoglobin A1c results using the equation derived from a study of 507 normal and diabetic adults. Minority populations were underrepresented and children were not included. (Diabetes Care 31:8122-1172, 2008). The eAG is not equivalent to a fasting glucose. Blood 07/28/2021 7:31 PM CDT 07/28/2021 7:40 PM CDT us Meera Smith MD LAB BLOOD ORDERABLES Fin al Result [facility]) [facility] Department [place] [address] * (ABNORMAL) Pap w/reflex to High Risk HPV if ASCUS and patient 21-29 years old (11/06/2019 11:04 AM CDT) 11/06/2019 11:0 4 AM CDT 11/06/2019 11:04 AM CDT Narrative 11/09/2019 1:31 PM CDT [facility] Department of Pathology [address] [place] [address] Final Report with Addendum Patient Name: DEEPA SINGLETON Address: [address] [place] [address] Gender: F : 1985 (Age: 34) Service: Laboratory Location: Lab Hospital #: [id number] Patient Type: Ref Lab Taken: 11/06/2019 Received: 11/06/2019 Accessioned:: 11/07/2019 Reported: 11/09/2019 Physician(s): Breann Connors Diagnosis: Source of Specimen: Imaged Thinprep Pap Test plus HPV - Pitch Gatherer Cytologic Material Specimen Adequacy: - Satisfactory for [...] Imaged Thinprep Pap Test plus HPV - Pitch Gatherer Cytologic Material Clinical History: Last Menstrual Period: [...] determined by the Surgical Pathology Department at [facility] as part of an ongoing senior quality assurance engineer program and in compliance with federally mandated [...] characteristics determined by the Surgical Pathology Department [facility]. It has not been cleared or approved by the U. S. Food and Drug Administration. Breann Connors MD LAB CYTOLOGY ORDERABLES Final Result * (ABNORMAL) Lipid panel (03/23/2019 2:04 PM ROUTE DELIVERY DRIVER) Cholesterol 93 30 - 199 mg/dL [facility] [...] 2017. Non-HDL Cholesterol 63 mg/dL [facility] ([place]) Comment: Interpretive Data Ages < or = [...] on 2017. Chol/HDL ratio 3 [facility] ([place]) Blood specimen (specimen) 03/23/2019 2:04 PM ROUTE DELIVERY DRIVER 03/23/2019 5:24 PM ROUTE DELIVERY DRIVER Sara Banuelos MD LAB BLOOD ORDERABLES Final Res ult [facility] ([place]) [facility] Department [place] [address] * DIABETES EYE EXAM (12/17/2017) Diabetic Eye Exam Abnormal Historical Provider HEALTH MAINTENANCE Final Result * DIABETES FOOT EXAM (11/19/2016) Diabetic Foot Exam Unknown Historical Provider HEALTH MAINTENANCE Final Result from Last 3 Months or Most Recently Relevant to Health Maintenance Insurance [facility] AETNA [facility] AETNA [facility] Advance Directives For more information, please contact: [phone] * Full Code (Latest Code Status on File) Date Activated Date Inactivated Comments 04/14/2020 6:50 PM 04/16/2020 6:08 PM * Full Code Date Activated Date Inactivated Comments 05/09/2017 10:16 AM 05/11/2017 7:36 PM Care Teams Program Aide Relationship Specialty Start [place] [address] [place] [address] PCP - General Family Medicine 05/13/22 Destini Dexter MD Consulting Physician Gastroenterology 05/11/17
--- OUTSIDE RECORDS SUMMARY | 2024-06-24 14:48 | XMS_ITS ---
Author Organization Unknown Address [address] [place] [address] [phone] Phone Care Team Providers Care Talk Show Host Name Role Phone TERRI BEDOYA Attending Unavailable JOSÉ LUIS DELCID Primary Unavailable Immunization Immunization Date Status Additional Notes Code Code System Influenza, split virus, trivalent, PF 12/09/2014 Completed 140 CVX Influenza, split virus, trivalent, preservative 12/10/2017 Completed 141 CVX COVID-19, mRNA, LNP-S, PF, 3 0 mcg/0.3 mL dose 05/30/2020 Completed 208 CVX Results URINALYSIS w/Microscopy/C&S if indicated - Collect Date/Time: 04/02/2024 09:18 [facility] ID: [id number] [place] [address], [id number] LOINC: 10159-8 Test Value Unit Reference Range Code Code System Flag UR SOURCE VOIDED 28628-4 LOINC COLOR YELLOW YELLOW 5778-6 LOINC CLARITY CLOUDY CLEAR 12402-1 LOINC SPEC GRAVITY 1.025 1.000-1.030 5811-5 LOINC PH 6.5 5.0 - 6.5 5803-2 LOINC LEUK EST NEGATIVE NEGATIVE 5799-2 LOINC NITRATE NEGATIVE NEGATIVE PROTEIN 2+ NEGATIVE 5804-0 LOINC A GLUCOSE NEGATIVE NEGATIVE 12316-8 LOINC KETONES NEGATIVE NEGATIVE 28895-3 LOINC UROBILINOGEN 1.0 0.2 - 1.0 5818-0 LOINC BILIRUBIN NEGATIVE NEGATIVE 46677-7 LOINC BLOOD NEGATIVE NEGATIVE 09204-5 LOINC WBC 0-2 0 - 2 45548-2 LOINC RBC 0-2 0 - 2 13118-0 LOINC SQ EPITHELIAL MODERATE RARE-FEW BACTERIA NONE SEEN NONE SEEN 84088-3 LOINC MUCUS 2+ NONE SEEN 8247-9 LOINC A YEAST NOT PRESENT NOT PRESENT 24405-0 LOINC TRICHOMONAS NOT PRESENT NOT PRESENT 48084-9 LOINC SPERMATOZOA NOT PRESENT NOT PRESENT 53338-1 LOINC CASTS NOT PRESENT 01381-9 LOINC CRYSTALS PRESENT 71519-0 LOINC AMORPH URATE NONE SEEN 37040-1 LOINC AMORPH PHOS NONE SEEN 84680-0 LOINC CA OXALATE 1+ NONE SEEN 46272-7 LOINC TRIPLE PHOS NONE SEEN 91149-6 LOINC URIC ACID NONE SEEN 5817-2 LOINC AMM BIURATE NONE SEEN 5766-1 LOINC CA CARBONATE NONE SEEN 31659-7 LOINC CA PHOSPHATE NONE SEEN 59900-6 LOINC CULTURE? NO 8251-1 LOINC DIAGNOSIS N/A BASIC METABOLIC PANEL - Thanh ect Date/Time: 04/02/2024 09:15 [facility] ID: [id number] [address] [place], [place], [id number] LOINC: 59047-9 Test Value Unit Reference Range Code Code System Flag FASTING YES BUN 6 mg/dL L=7 H=20 3094-0 LOINC L CREATININE 0.60 mg/dL L=0.52 H=1.04 2160-0 LOINC GLUCOSE 120 mg/dL L=74 H=106 2345-7 LOINC H CALCIUM 9.1 mg/dL L=8.3 H=10.5 42829-4 LOINC SODIUM 139 mmol/L L=132 H=144 2951-2 LOINC POTASSIUM 4.0 mmol/L L=3.5 H=5.1 2823-3 LOINC CHLORIDE 103 mmol/L L=98 H=107 2075-0 LOINC CO2 28.0 mmol/L L=22.0 H=30.0 2028-9 LOINC ANION GAP 12 L=10 H=20 68520-2 LOINC BUN/CREAT 10.0 3097-3 LOINC AGE 38 26067-4 LOINC eGFR NON-AFR 118 ml/min eGFR AFR AMER 143 ml/min CBC W/ DIFF - Collect Date/T douglas: 04/02/2024 09:15 [facility] ID: [id number] [address] [place], [place], [id number] LOINC: 39712-4 Test Value Unit Reference Range Code Code System Flag WBC 6.5 10^3uL L=4.8 H=10.8 RBC 4.34 10^6uL L=4.20 H=5.40 HEMOGLOBIN 9.5 g/dL L=12.0 H=16.0 718-7 LOINC L HEMATOCRIT 32.7 VOL% L=37.0 H=47.0 4544-3 LOINC L MCV 75.3 fL L=81.0 H=99.0 L MCH 21.9 pg L=27.0 H=32.0 L MCHC 29.1 g/dL L=32.0 H=36.0 L PLATELETS 376 10^3uL L=100 H=400 92015-8 LOINC RDW 15.7 % L=11.7 H=15.5 H %GRAN L=40.0 H=70.0 66259-8 LOINC %LYMPH L=20.0 H=45.0 736-9 LOINC %MONO L=2.0 H=10.0 81679-2 LOINC %EOS L=0.0 H=6.0 713-8 LOINC %BASO L=0.0 H=3.0 706-2 LOINC #NEUT L=1.9 H=7.6 49533-2 LOINC #LYMPH L=0.9 H=4.9 39558-7 LOINC #MONO L=0.1 H=0.9 22728-4 LOINC #EOS L=0.0 H=0.6 712-0 LOINC #BASO L=0.00 H=0.10 23609-9 LOINC #IM GRANS L=0.0 H=7.0 89842-2 LOINC %IM GRANS L=0.0 H=5.0 74195-0 LOINC %NRB L=0.0 H=0.2 44238-5 LOINC #NRB L=0.000 H=0.012 92449-9 LOINC MANUAL DIFF SEE BELOW A SEG 40 % L=40 H=70 BANDS 0 % L=0 H=6 LYMPH 54 % L=20 H=45 H MONO 4.0 % L=2.0 H=10.0 EOS 2 % L=0 H=6 713-8 LOINC BASO 0 % L=0 H=3 IM GRANS 0 % L=0 H=5 METAS 0 % L=0 H=0 MYELOS 0 % L=0 H=0 PROMYELOS 0 % L=0 H=0 BLASTS L=0 H=0 88959-4 LOINC THAIS LYMPHS 0 % L=0.00 H=5.00 SMUDGE CELLS L=0 H=0 NRBC L=0.0 H=0.0 PLTS APPEAR NORMAL NEUT # 2.6 10^3uL L=1.9 H=7.6 LYMPH # 3.5 10^3uL L=0.9 H=4.9 MONO # 0.3 10^3uL L=0.1 H=0.9 EOS # 0.1 10^3uL L=0.0 H=0.6 712-0 LOINC BASO # 0.0 10^3uL L=0.0 H=0.1 06000-9 LOINC RBC MORPH NOT INDICATED Social History Type Status Start Date End Date Code Code Syst em Smoking History Never smoker (Never Smoked) 188532009 SNOMED CT Sex Female Medications Medication Start Date End Date Route Frequency Dose Code Code System Medication Instructions Home Meds vilazodone hydrochloride 10MG Oral Tablet 04/30/2022 Unknown ORAL ONCE A DAY 10 MILLIGRAMS 8000462 RxNorm TAKE 10 MILLIGRAMS ORAL ONCE A DAY HumaLOG 100U/1ML Injection Solution 04/30/2022 Unknown INJECT ION 1 unit(s) 003420 RxNorm 1 EACH INJECTION Cozaar 100MG Oral Tablet 04/30/2022 Unknown ORAL ONCE A DAY 100 MILLIGRAMS 268834 RxNorm TAKE 100 MILLIGRAMS ORAL ONCE A DAY Lantus 100U/1ML Subcutaneous Solution 04/30/2022 Unknown SUBCUT ANEOUS AT BEDTIM E 48 unit(s) 542751 RxNorm INJECT INTO 48 EACH SUBCUTANEOUS AT BEDTIME Lipitor 20MG Oral Tablet 04/30/2022 Unknown ORAL ONCE A DAY 20 MILLIGRAMS 219482 RxNorm TAKE 20 MILLIGRAMS ORAL ONCE A DAY Omeprazole 20MG Oral Capsule, Delayed Release 04/30/2022 Unknown ORAL ONCE A DAY 20 MILLIGRAMS 842502 RxNorm TAKE 20 MILLIGRAMS ORAL ONCE A DAY Oxybutynin Chloride 5MG Oral Tablet, Extended Release 04/30/2022 Unknown ORAL ONCE A DAY 5 MILLIGRAMS 315396 RxNorm TAKE 5 MILLIGRAMS ORAL ONCE A DAY ProAir HFA 0.09MG/1Actuatio n Inhalation Suspension 04/30/2022 Unknown INHALA TION NEEDED EVERY 4 HOURS 1 unit(s) 139818 RxNorm 1 EACH INHALATION NEEDED EVERY 4 HOURS Singulair 10MG Oral Tablet 04/30/2022 Unknown ORAL AT BEDTIM E 10 MILLIGRAMS 157018 RxNorm TAKE 10 MILLIGRAMS ORAL AT BEDTIME ZyrTEC 10MG Oral Tablet 04/30/2022 Unknown ORAL ONCE A DAY 10 MILLIGRAMS RxNorm TAKE 10 MILLIGRAMS ORAL ONCE A DAY hydroCHLOROthiaz zulema 12.5MG Oral Tablet 04/30/2022 Unknown ORAL ONCE A DAY 12.5 MILLIGRAMS 547824 RxNorm TAKE 12.5 MILLIGRAMS ORAL ONCE A DAY metFORMIN HCl 500MG Oral Tablet 04/30/2022 Unknown ORAL TWICE A DAY 1000 MILLIGRAMS 725957 RxNorm TAKE 1000 MILLIGRAMS ORAL TWICE A DAY traZODone hydrochloride 150MG Oral Tablet 04/30/2022 Unknown ORAL AT BEDTIM E 150 MILLIGRAMS 069701 RxNorm TAKE 150 MILLIGRAMS ORAL AT BEDTIME [...] Status Code Code System SECONDARY AMENORRHEA active 05977113 SNOMED-CT IRON DEFICIENCY ANEMIA, UNSPECIFIED active 88383290 SNOMED-CT DIARRHEA active 20308760 SNOMED-CT GERD active 611238809 SNOMED-CT ENCOUNTER FOR GYNECOLOGICAL EXAMINATION (GENERAL) (ROUTINE) WITHOUT ABNORMAL FIN active 76401274 SNOMED- CT HIGH RISK HETEROSEXUAL BEHAVIOR active 250700122411172 SNOMED-CT BARIATRIC SURGERY STATUS active 99469 8006 SNOMED-CT Allergies and Adverse Reactions Allergy Substance Reaction Severity Start Date Concern Status Co de Code System MORPHINE Active 7052 RxNorm ADHESIVE Active LATEX Active 9467157 RxNorm HUMALOG Active 376639 RxNorm Plan of Treatment Split Night, CPAP/BIPAP/ASV (60051) EGD/Colonoscopy 04/30/2022 US Pelvis/Transvaginal (52882) 04/06/19 24 Pharynx Esophagus Cine 04/01/2023 Encounters Encounter Diagnosis Start Date Code Code Sys tem Essential (primary) hypertension 04/02/2024 SNOMED-CT Personal Care Team Section Performer Name Performer Role Active Date Inactive SHAHEED Patricia PCP - Primary care physician 8 2021-07-04 Jean-Pierre Ferrari PCP - Primary care physician 2022-03-13
--- OUTSIDE RECORDS SUMMARY | 2024-06-24 14:48 | XMS_ITS ---
Author Organization Unknown Address [address] [place] [phone] Phone Care Team Providers Care Neuropsychiatrist Name Role Phone YECENIA OLIVIA Attending Unavailable [...] em Smoking History Never smoker (Never Smoked) 080198206 SNOMED CT Sex Female Medications Medication Start Date End Date Route Frequency Dose Code Code System Medication Instructions Home Meds vilazodone hydrochloride 10MG Oral Tablet 04/30/2022 Unknown ORAL ONCE A DAY 10 MILLIGRAMS 5073235 RxNorm TAKE 10 MILLIGRAMS ORAL ONCE A DAY HumaLOG 100U/1ML Injection Solution 04/30/2022 Unknown INJECT ION 1 unit(s) 548833 RxNorm 1 EACH INJECTION Cozaar 100MG Oral Tablet 04/30/2022 Unknown ORAL ONCE A DAY 100 MILLIGRAMS 632568 RxNorm TAKE 100 MILLIGRAMS ORAL ONCE A DAY Lantus 100U/1ML Subcutaneous Solution 04/30/2022 Unknown SUBCUT ANEOUS AT BEDTIM E 48 unit(s) 846999 RxNorm INJECT INTO 48 EACH SUBCUTANEOUS AT BEDTIME Lipitor 20MG Oral Tablet 04/30/2022 Unknown ORAL ONCE A DAY 20 MILLIGRAMS 908257 RxNorm TAKE 20 MILLIGRAMS ORAL ONCE A DAY Omeprazole 20MG Oral Capsule, Delayed Release 04/30/2022 Unknown ORAL ONCE A DAY 20 MILLIGRAMS 779498 RxNorm TAKE 20 MILLIGRAMS ORAL ONCE A DAY Oxybutynin Chloride 5MG Oral Tablet, Extended Release 04/30/2022 Unknown ORAL ONCE A DAY 5 MILLIGRAMS 178628 RxNorm TAKE 5 MILLIGRAMS ORAL ONCE A DAY ProAir HFA 0.09MG/1Actuatio n Inhalation Suspension 04/30/2022 Unknown INHALA TION NEEDED EVERY 4 HOURS 1 unit(s) 723930 RxNorm 1 EACH INHALATION NEEDED EVERY 4 HOURS Singulair 10MG Oral Tablet 04/30/2022 Unknown ORAL AT BEDTIM E 10 MILLIGRAMS 708756 RxNorm TAKE 10 MILLIGRAMS ORAL AT BEDTIME ZyrTEC 10MG Oral Tablet 04/30/2022 Unknown ORAL ONCE A DAY 10 MILLIGRAMS RxNorm TAKE 10 MILLIGRAMS ORAL ONCE A DAY hydroCHLOROthiaz zulema 12.5MG Oral Tablet 04/30/2022 Unknown ORAL ONCE A DAY 12.5 MILLIGRAMS 797581 RxNorm TAKE 12.5 MILLIGRAMS ORAL ONCE A DAY metFORMIN HCl 500MG Oral Tablet 04/30/2022 Unknown ORAL TWICE A DAY 1000 MILLIGRAMS 894635 RxNorm TAKE 1000 MILLIGRAMS ORAL TWICE A DAY traZODone hydrochloride 150MG Oral Tablet 04/30/2022 Unknown ORAL AT BEDTIM E 150 MILLIGRAMS 033554 RxNorm TAKE 150 MILLIGRAMS ORAL AT BEDTIME [...] Status Code Code System SECONDARY AMENORRHEA active 23660197 SNOMED-CT IRON DEFICIENCY ANEMIA, UNSPECIFIED active 53731604 SNOMED-CT DIARRHEA active 67992773 SNOMED-CT GERD active 218780940 SNOMED-CT ENCOUNTER FOR GYNECOLOGICAL EXAMINATION (GENERAL) (ROUTINE) WITHOUT ABNORMAL FIN active 73457359 SNOMED- CT HIGH RISK HETEROSEXUAL BEHAVIOR active 016323798516916 SNOMED-CT BARIATRIC SURGERY STATUS active 94729 5476 SNOMED-CT Allergies and Adverse Reactions Allergy Substance Reaction Severity Start Date Concern Status Co de Code System MORPHINE Active 7052 RxNorm ADHESIVE Active LATEX Active 4433568 RxNorm HUMALOG Active 622967 RxNorm Plan of Treatment Split Night, CPAP/BIPAP/ASV (85161) EGD/Colonoscopy 04/30/2022 US Pelvis/Transvaginal (63558) 04/06/19 24 Pharynx Esophagus Cine 04/01/2023 Encounters Encounter Diagnosis Start Date Code Code Sys tem Dysuria 01/02/2023 58884664 SNOMED-CT Personal Care Team Section Performer Name Performer Role Active Date Inactive SHAHEED Patricia PCP - Primary care physician 8 2021-07-04 Jean-Pierre Ferrari PCP - Primary care physician 2022-03-13
[2024-06-24 15:49] LABS: Hemoglobin 9.7 g/dL (12.0-15.0); Mean Corpuscular HGB Conc 28.5 g/dL (32-36); Mean Corpuscular Hemoglobin 20.3 pg (27.0-31.0); Mean Corpuscular Volume 71.3 fL (78.0-102.0); Platelet Count Result 550 K/mm3 (150-420); Red Blood Count 4.77 M/mm3 (4.20-5.40); Red Cell Distribution Width 16.3 % (11.6-14.4); White Blood Count 12.8 K/mm3 (4.8-10.8)
[2024-06-24] MEDS: fentaNYL CITRATE INJ (*CRX) 100 MCG/2 ML VIAL 50 MCG IV PUSH (16:00)
[2024-06-24 16:07] LABS: INR 0.9; Partial Thromboplastin Time 21.4 Sec (23.9-30.70); Prothrombin Time 10.5 Seconds (9.50-12.1)
[2024-06-24] MEDS: THIAMINE HCL INJ 100 MG, FOLIC ACID 1 MG, MULTIVITAMINS-12 INJ 10 ML, MAGNESIUM SULFATE... 1013.2 MG IV CONT (16:07)
[2024-06-24 16:10] LABS: Alanine Aminotransferase 28 U/L (14-59); Albumin Level 3.9 g/dL (3.4-5.0); Alkaline Phosphatase 114 U/L (46-116); Anion Gap 9 mmol/L (4-12); Aspartate Amino Transferase 20 U/L (15-37); Bilirubin,Total 0.3 mg/dL (0.00-1.00); Blood Urea Nitrogen 7 mg/dL (7-18); CRP 1.3 mg/dL (0.0-0.9); Calcium 9.4 mg/dL (8.5-10.1); Carbon Dioxide 27 mmol/L (21-32); Chloride 104 mmol/L (98-108); Estimated CRCL calculation 90 ml/min; Estimated Glomerular Filt Rate > 60; Glucose 93 mg/dL (70-99); Magnesium 1.7 mg/dL (1.8-2.4); Osmolality Calculated 288 mOsm/kg (285-295); Potassium 3.9 mmol/L (3.5-5.1); Sodium 140 mmol/L (136-145); Total Protein 9.3 g/dL (6.4-8.2)
[2024-06-24 16:12] LABS: Lactic Acid Reflex 1.5 mmol/L (0.4-2.0)
[2024-06-24 16:58] LABS: Erythrocyte Sedimentation Rate 31 mm/hr (0-15)
[2024-06-24 17:57] VITALS: BP 141/77; PULSE 86; RESP 18; TEMP 36.7; O2SAT 96
--- NOTE | 2024-06-24 18:00 | PC.NURSE ---
On 06/24/24, the student, [AIDAN JACKSON ], provided care and completed [facility] documentation on this patient. I have reviewed the student's documentation and agree with the findings.
== END 2024-06-24 18:04 | disposition home or self-care (01) ==
PROVIDERS: Emergency Provider Emergency Medicine; PCP Registered Nurse
DX: M47.812 Spondylosis without myelopathy or radiculopathy, cervical region (principal); R51.9 Headache, unspecified; E11.9 Type 2 diabetes mellitus without complications; Z98.84 Bariatric surgery status
CPT/HCPCS: 36415; 70450; 72125; 80053; 83605; 83735; 85027; 85055; 85610; 85652; 85730; 86140; 96374; 96375; 99284; J3010; J3411; J3475; J7121

== ENCOUNTER 2025-01-08 19:20 | Emergency (ER) | payer OTHER, SELFPAY ==
--- NOTE | ~2025-01-08 | CT_ITS ---
EXAMINATION: CT abdomen pelvis wo con DATE: 01/08/2025 20:28 INDICATION: Kidney infection TECHNIQUE: Computed tomography (CT) of the abdomen and pelvis was performed without intravenous contrast. Automated exposure control and iterative reconstruction technique were employed. The dose-length product was 498.24 mGy-cm. COMPARISON: 09/03/2023 FINDINGS: Lung bases are clear. Heart size is normal. No pericardial or pleural effusion. Combination gastric bypass and sleeve gastrectomy with suture line along the greater curvature of the stomach at the jejunojejunal anastomosis in the mid abdomen. Liver, gallbladder, spleen, pancreas and bilateral adrenal glands are normal. Bilateral nonobstructing nephrolithiasis with five, < 2 mm stones in the right kidney and single 3 mm stone at a lower pole calyx of the left kidney. No ureteral stones or hydronephrosis. Small amount of gas within the bladder. Normal uterus. There are few phleboliths in the bladder. No bowel obstruction. Normal appendix. No free intraperitoneal gas or fluid. No pathologically enlarg ed abdominal or pelvic lymphadenopathy. Moderate to severe thoracic spondylosis. Unilateral left-sided L5 pars interarticularis defect. IMPRESSION: 1. Bilateral nonobstructing nephrolithiasis. 2. Nonspecific small amount of gas within the bladder. Correlate for recent instrumentation or Herrera catheterization. Reviewed, dictated and finalized at location A. IMPRESSION: 1. Bilateral nonobstructing nephrolithiasis. 2. Nonspecific small amount of gas within the bladder. Correlate for recent ins trumentation or Herrera catheterization.
--- OUTSIDE RECORDS SUMMARY | 2025-01-08 19:22 | XMS_ITS | Encounter Summary ---
Author Organization [facility] Address [address] [place] [address] Care Team Providers Care Apartment Leasing Agent Name Role Phone Jean-Pierre Ferrari DO Primary Care Provider [phone] Encounter Details Date Type Department Care Team (Late st Contact Info) Description 08/20/2018 Abstract [facility] CONVERSION [address] [place] [address] , Generic Conversion, Social History Tobacco Use Types Packs/Day Years Used Date Smoking Tobacco: Never Assessed Comments Unknown Sex and Gender Information Value Date Recorded Sex Assigned at Female 04/17/2024 1:10 PM CDC ASSOCIATE Legal Sex Female 7:17 PM CDT Gender Identity Not on file Sexual Orientation Not on file documented as of this encounter Plan of Treatment Not on file documented as of this encounter Visit Diagnoses Not on filedocumented in this encounter Additional Health Concerns Infection Onset Date Last Indicated Resolved Time COVID-19 Rule Out 03/14/2024 03/14/2024 03/14/2024 1:37 PM CDC ASSOCIATE documented as of this encounter Care Teams Apartment Leasing Agent Relationship Specialty Start [place] [address] [place] [id number] PCP - General FAMILY PRACTICE 07/06/23 documented as of this encounter
--- OUTSIDE RECORDS SUMMARY | 2025-01-08 19:22 | XMS_ITS | Clinical Summary ---
Author Organization [facility] Address [address] [place] [address] Phone Care Team Providers Care Cream Hauler Name Role Phone Joe Tse MD Primary Care Provider Allergies Active Allergy Reactions Criticality Noted Date Comments Latex Rash 01/13/2016 Reaction: Rash, , , Reaction: Rash, Morphine Rash 01/13/2016 Reaction: Rash, Other-Environmental Allergen (Not Found In Search) Rash 11/02/2024 Adhesive tape Dulaglutide Unknown 11/02/2024 Medications vitamin d, ergocalciferol, (ERGOCALCIFEROL ) 44884 units Capsule Take 50,000 Units by mouth once a week. Active busPIRone HCl 7.5 MG Tablet TAKE 1 TABLET BY MOUTH TWICE DAILY NEEDED 08/04/19 24 Active albuterol 108 (90 Base) MCG/ACT Aerosol Solution take 1-2 Puffs by inhalation every 6 hours as needed. 01/13/20 16 Active insulin glargine-yfgn 100 UNIT/ML Solution Pen-injector INJECT 24 UNITS SUBCUTANEOUSLY AT BEDTIME Active HumaLOG KwikPen 200 UNIT/ML Solution Pen-injector INJECT INSULIN WITH MEALS AT AN ICR OF 1:1 FOR BREAKFAST, LUNCH, AND DINNER MAXIMUM DAILY DOSE 120 Active Methylphenidate HCl 36 MG Tablet Controlled Release Take 1 Tablet by mouth daily. 09/15/19 25 Active montelukast (SINGULAIR) 10 MG Tablet Take 10 mg by mouth nightly. Active omeprazole (PriLOSEC) 20 MG CAPSULE DELAYED RELEASE Take 20 mg by mouth 2 times daily. 09/08/19 24 Active ondansetron (ZOFRAN-ODT) 4 MG TABLET DISPERSIBLE Take 4 mg by mouth every 8 hours as needed. 09/04/19 Active prochlorperazin e (COMPAZINE) 10 MG Tablet Take 10 mg by mouth every 6 hours as needed for Nausea - 2nd line. Active sertraline (ZOLOFT) 100 MG Tablet Take 100 mg by mouth daily. Active spironolactone (ALDACTONE) 50 MG Tablet Take 50 mg by mouth 2 times daily. 11/01/19 Active traZODone (DESYREL) 150 MG Tablet Take 150 mg by mouth nightly. 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 11/02/2024 Cobalamin deficiency 10/31/2024 History of bariatric surgery 10/31/2024 Anxiety 09/06/2023 Anemia 04/15/2020 Benign hypertension 07/29/2013 Overview (11/02/2024): BENIGN HYPERTENSION Encounters Date Type Department Care Team Description 12/07/2024 9:00 AM CDT Clinical Support [facility] [address] [place] [address] Pili Mendiola Sloane, PAC 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 Dx); Nausea Discharge Disposition: Discharged to home or Selfcare 12/07/2024 Travel 11/30/2024 10:30 AM CDT Clinical Support [facility] [address] [place] [address] Pili Mendiola August, PAC 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 Dx) Discharge Disposition: Discharged to home or Selfcare 11/30/2024 Travel 11/20/2024 9:00 AM CDT Clinical Support [facility] [address] [place] [address] Pili Mendiola Sloane, PAC 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 Dx) Discharge Disposition: Discharged to home or Selfcare 11/20/2024 Travel 11/15/2024 10:30 AM CDT Clinical Support [facility] [address] [place] [address] Pili Mendiola, PAC 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 Dx) Discharge Disposition: Discharged to home or Selfcare 11/15/2024 Travel 11/02/2024 8:00 AM CDT Clinical Support [facility] [address] [place] [phone] Pili Mendiola, CHARLES Iron deficiency anemia, unspecified iron deficiency anemia type Discharge Disposition: Discharged to home or Selfcare 11/02/2024 7:40 AM CDT Initial Consult [facility] [address] [place] [phone] Pili Mendiola, CHARLES Iron deficiency anemia, unspecified iron deficiency anemia type (Primary Dx) Discharge Disposition: Discharged to home or Selfcare 11/02/2024 Results Follow-Up [facility] [address] [place] [address] Pili Mendiola, PAC FOLIC ACID (FOLATE), FERRITIN, CMP (COMPREHENSIVE METABOLIC PANEL), Additional followed-up results: 7 11/02/2024 Travel from Last 3 Months Family History Medical History Relation Name Comments Diabetes Brother Diabetes Father Heart Disease Father Hypertension Father Diabetes Mother Heart Disease Mother Hypertension Mother Diabetes Sister Hypertension Sister Relation Name Status Comments Brother Father Mother Sister Social History Tobacco Use Types Packs/Day Years Used Date Smoking Tobacco: Never Smokeless Tobacco: Never Tobacco Cessation:Counseling Given: Not Answered Alcohol Use Standard Drinks/Week Comments Not Currently 0 (1 standard drink = 0.6 oz pur e alcohol) Occasionally Comments No Sex and Gender Information Value Date Recorded Sex Assigned at Not on file Legal Sex Female 10:33 PM CDT Gender Identity Not on file Sexual Orientation Not on file Last Filed Vital Signs Vital Sign Reading Time Taken Comments Blood Pressure 123/77 12/07/2024 9:10 AM CDT Pulse 75 12/07/2024 9:10 AM CDT Temperature 36.6 C (97.8 F) 12/07/2024 9:10 AM CDT Respiratory Rate 16 12/07/2024 9:10 AM CDT Oxygen Saturation 100% 12/07/2024 9:10 AM CDT Inhaled Oxygen Concentration - - Weight 73.5 kg (162 lb 1.6 oz) 11/02/2024 7:48 A M CDT Height 160 cm (5' 3) 11/02/2024 7:48 AM CDT Body Mass Index 28.71 11/02/2024 7:48 AM CDT Plan of Treatment Upcoming Encounters Date Type Department Care Team (Late st Contact Info) Description 01/18/2025 1:40 PM 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 Office Visit [facility] [address] [place] [address] Pili Mendiola Sloane, PAC [address] [place] [address] Health Maintenance Due Date Last Done Comments Mammogram 1983 TdaP Immunization 1983 Hepatitis B Immunization (1 of 3 - 19+ 3-dose series) 2002 Pap Smear 2004 Human Papillomavirus (HPV) Immunization (1 - 3-dose SCDM series) 2010 Cervical Cancer Screening (CCS) 2013 HPV/Cotest 2013 Discussion re Starting/Frequency of Mammograms 2023 Influenza Immunization (#1) 11/13/202411/14, 12/09/2014 SARS-COV-2 Immunization ( season) 2024 Respiratory Syncytial Virus (RSV) Immunization (Adult) (1 - 1-dose 75+ series) 2058 Hepatitis C Virus (HCV) Screening Completed 09/13/2023 Meningococcal Immunization (ACWY) Aged Out No longer eligible b ased on patient's age to complete this topic Pneumococcal Immunization Combined Aged Out No longer eligible b ased on patient's age to complete this topic Rotavirus Immunization Aged Out No lo nger eligible based on patient's age to complete this topic Procedures Procedure Name Priority Date/Time Associated Diagnosis Comments CBC WITH AUTO DIFFERENTIAL Routine 11/02/2024 8:50 AM CDT Iron deficiency anemia, unspecified iron deficiency anemia type IRON,TRANSFERN,CALC.TIB C,%SAT Routine 11/02/2024 8:50 AM CDT Iron deficiency anemia, unspecified iron deficiency anemia type IMMUNOFIXATION W/ ELECTROPHORESIS SERUM Routine 11/02/2024 8:50 AM CDT Iron deficiency anemia, unspecified iron deficiency anemia type FREE KAPPA & LAMBDA LIGHT CHAINS SERUM Routine 11/02/2024 8:50 AM CDT Iron deficiency anemia, unspecified iron deficiency anemia type LACTATE DEHYDROGENASE (LD) Routine 11/02/2024 8:50 AM CDT Iron deficiency anemia, unspecified iron deficiency anemia type RETICULOCYTE COUNT (RETIC) Routine 11/02/2024 8:50 AM CDT Iron deficiency anemia, unspecified iron deficiency anemia type VITAMIN B12 Routine 11/02/2024 8:50 AM CDT Iron deficiency anemia, unspecified iron deficiency anemia type COMPLETE BLOOD COUNT (CBC) WITH DIFF Routine 11/02/2024 8:50 AM CDT Iron deficiency anemia, unspecified iron deficiency anemia type CMP (COMPREHENSIVE METABOLIC PANEL) Routine 11/02/2024 8:50 AM CDT Iron deficiency anemia, unspecified iron deficiency anemia type FERRITIN Routine 11/02/2024 8:50 AM CDT Iron deficiency anemia, unspecified iron deficiency anemia type FOLIC ACID (FOLATE) Routine 11/02/2024 8 :50 AM CDT Iron deficiency anemia, unspecified iron deficiency anemia type from Last 3 Months Results * (ABNORMAL) IRON,TRANSFERN,CALC.TIBC,%SAT (11/02/2024 8:50 AM CDT) Pathologist [facility] IRON 44 25 - 156 mcg/dL 11/02/2024 10:30 AM CDT [facility] TRANSFERRIN 332 180 - 382 mg/dL 11/02/2024 10:30 AM CDT [facility] TIBC, CALCULATED 415 265 - 497 mcg/dL 11/02/2024 10:30 AM CDT [facility] % SATURATION * 11(L) 15 - 62 % 11/02/2024 10:30 AM CDT [facility] Blood Venipuncture / Unknown 11/02/2024 8:50 AM CDT 11/02/2024 8:50 AM CDT us Pili Mendiola PAC CHEMISTRY ORDERABLES Helen l Result [facility] [place] [address] * (ABNORMAL) CBC WITH AUTO DIFFERENTIAL (11/02/2024 8:50 AM CDT) Pathologist [facility] WBC 6.36 4.00 - 12.00 10(3)/mcL 11/02/2024 9:02 AM CDT [facility] RBC 4.38 3.80 - 5.30 10(6)/mcL 11/02/2024 9:02 AM CDT [facility] HEMOGLOBIN (HGB) 11.8(L) 12.0 - 15.8 g/dL 11/02/2024 9:02 AM CDT [facility] HEMATOCRIT (HCT) 37.2 36.0 - 47.0 % 11/02/2024 9:02 AM CDT [facility] MCV 84.9 82.0 - 96.0 fL 11/02/2024 9:02 AM CDT [facility] MCH 26.9 26.0 - 34.0 pg 11/02/2024 9:02 AM CDT [facility] MCHC 31.7 31.0 - 36.0 g/dL 11/02/2024 9:02 AM CDT [facility] PLATELET COUNT 386 140 - 440 10(3)/mcL 11/02/2024 9:02 AM CDT [facility] RDW 14.2 11.8 - 15.5 % 11/02/2024 9:02 AM CDT [facility] MPV 8.9(L) 9.7 - 12.4 fL 11/02/2024 9:02 AM CDT [facility] NEUTROPHILS 51.7 47.0 - 73.0 % 11/02/2024 9:02 AM CDT [facility] LYMPHOCYTES 40.4 18.0 - 42.0 % 11/02/2024 9:02 AM CDT [facility] MONOCYTES 6.1 4.0 - 12.0 % 11/02/2024 9:02 AM CDT [facility] EOSINOPHILS 0.9 0.0 - 5.0 % 11/02/2024 9:02 AM CDT [facility] BASOPHILS 0.6 0.0 - 1.0 % 11/02/2024 9:02 AM CDT [facility] ABSOLUTE NEUTROPHILS 3.28 1.60 - 7.70 10(3)/mcL 11/02/2024 9:02 AM CDT [facility] ABSOLUTE LYMPHOCYTES 2.57 1.30 - 3.20 10(3)/[facility] 11/02/2024 9:02 AM CDT [facility] ABSOLUTE MONOCYTES 0.39 0.20 - 1.00 10(3)/mcL 11/02/2024 9:02 AM CDT [facility] ABSOLUTE EOSINOPHIL 0.06 0.00 - 0.40 10(3)/[facility] 11/02/2024 9:02 AM CDT [facility] ABSOLUTE BASOPHILS 0.04 0.00 - 0.10 10(3)/[facility] 11/02/2024 9:02 AM CDT [facility] NRBC PER 100 WBC 0 11/03/19 9:02 AM CDT [facility] Blood Venipuncture / Unknown 11/02/2024 8:50 AM CDT 11/02/2024 8:50 AM CDT [facility] PAC HEMATOLOGY ORDERABLES Fin al Result [facility] [place] [address] * (ABNORMAL) FREE KAPPA & LAMBDA LIGHT CHAINS SERUM (11/02/2024 8:50 AM CDT) Free [place] Lt Chn 29.41(H) 3.30 - 19.40 mg/L 11/03/2024 10:08 AM CDT [facility] Free Lambda Lt Chn 23.91 5.71 - 26.30 mg/L 11/03/2024 10:08 AM CDT [facility] free shannon joyner ratio 1.23 0.26 - 1.65 11/03/2024 10:08 AM CDT [facility] Blood Venipuncture / Unknown 11/02/2024 8:50 AM CDT 11/02/2024 8:50 AM CDT [facility] PAC CHEMISTRY ORDERABLES Helen l Result Performing Organization Address City/[facility]/ZIP Co de Phone Number [facility] [address] [place] [address], [place] * VITAMIN B12 (11/02/2024 8:50 AM CDT) VITAMIN B12 707 213 - 816 pg/mL 11/02/2024 9:53 AM CDT [facility] Blood Venipuncture / Unknown 11/02/2024 8:50 AM CDT 11/02/2024 8:50 AM CDT [facility] PAC CHEMISTRY ORDERABLES Helen l Result Performing Organization Address City/State/[place] Co de Phone Number [facility] [place] [address] * RETICULOCYTE COUNT (RETIC) (11/02/2024 8:50 AM CDT) RETICULOCYTES 1.2 0.5 - 2.0 % 11/02/2024 9:02 AM CDT [facility] Blood Venipuncture / Unknown 11/02/2024 8:50 AM CDT 11/02/2024 8:50 AM CDT [facility] HEMATOLOGY ORDERABLES Fin al Result Performing Organization Address [facility]/[place] Co de Phone Number [facility] [place] [address] * LACTATE DEHYDROGENASE (LD) (11/02/2024 8:50 AM CDT) Pathologist [facility] LDH 154 125 - 220 U/L 11/02/2024 10:30 AM CDT [facility] Blood Venipuncture / Unknown 11/02/2024 8:50 AM CDT 11/02/2024 8:50 AM CDT [facility] CHEMISTRY ORDERABLES Helen l Result Performing Organization Address [facility]/[place] Co de Phone Number [facility] [place] [address] * (ABNORMAL) IMMUNOFIXATION W/ ELECTROPHORESIS SERUM (11/02/2024 8:50 AM CDT) TOTAL PROTEIN 7.7 6.0 - 8.0 g/dL 11/05/2024 12:[address] [facility] % ALBUMIN 48.4(L) 55.8 - 66.7 % 11/05/2024 12:[address] [facility] ALBUMIN SERUM 3.7 2.5 - 5.4 g/dL 11/05/2024 12:05 PM [facility] % ALPHA 1 GLOBULIN 3.2 2.9 - 4.9 % 11/05/2024 12:05 PM [facility] ALPHA 1 0.2 0.2 - 0.4 g/dL 11/05/2024 12:05 PM [facility] % ALPHA 2 GLOBULIN 11.4 7.1 - 11.8 % 11/05/2024 12:05 PM [facility] ALPHA 2 0.9 0.5 - 1.0 g/dL 11/05/2024 12:05 PM [facility] % BETA 14.8(H) 8.4 - 13.1 % 11/05/2024 12:05 PM [facility] BETA-GLOBULIN 1.1 0.5 - 1.1 g/dL 11/05/2024 12:05 PM [facility] % GAMMA GLOBULIN 22.2(H) 11.1 - 18.8 % 11/05/2024 12:05 PM [facility] GAMMA 1.7(H) 0.7 - 1.5 g/dL 11/05/2024 12:05 PM [facility] IMMUNOGLOBULIN G 1,564 552 - 1,631 mg/dL 11/05/2024 12:05 PM [facility] IMMUNOGLOBULIN A 377 65 - 421 mg/dL 11/05/2024 12:05 PM [facility] IMMUNOGLOBULIN M 201 33 - 293 mg/dL 11/05/2024 12:05 PM [facility] INTERPRETATION SERUM No abnormal protein band is detected by serum protein electrophoresis. Serum immunofixation electrophoresis is negative for monoclonal immunoglobulins. Reviewed by Mackenzie Ward, Ph.D. 11/05/2024 12:05 PM [facility] A/G RATIO, SERUM 0.9 11/06/19 12:05 PM [facility] Blood Venipuncture / Unknown 11/02/2024 8:50 AM CDT 11/02/2024 8:[address] [facility] - 11/05/2024 12:05 PM CDT Reviewed by Evelyn Rhoades M.D. [facility] PAC CHEMISTRY ORDERABLES Helen l Result [facility] [address] [place] [address], [place] * FOLIC ACID (FOLATE) (11/02/2024 8:50 AM CDT) FOLATE 10.1 7.0 - 31.4 ng/mL 11/02/2024 9:53 AM CDT [facility] IS THE PATIENT REQUIRED TO BE FASTING? No 11/02/2024 9:53 AM CDT [facility] Blood Venipuncture / Unknown 11/02/2024 8:50 AM CDT 11/02/2024 8:50 AM CDT [facility] PAC CHEMISTRY ORDERABLES Helen l Result Performing Organization Address City/[facility]/ZIP Co de Phone Number [facility] [place] [address] * FERRITIN (11/02/2024 8:50 AM CDT) FERRITIN 7 5 - 204 ng/mL 11/02/2024 10:44 AM CDT [facility] Blood Venipuncture / Unknown 11/02/2024 8:50 AM CDT 11/02/2024 8:50 AM CDT [facility] PAC CHEMISTRY ORDERABLES Helen l Result [facility] [address] [place] [address] * (ABNORMAL) CMP (COMPREHENSIVE METABOLIC PANEL) (11/02/2024 8:50 AM CDT) SODIUM 138 136 - 145 mmol/L 11/02/2024 10:30 AM CDT [facility] POTASSIUM 3.8 3.5 - 5.1 mmol/L 11/02/2024 10:30 AM CDT [facility] CHLORIDE 106 98 - 107 mmol/L 11/02/2024 10:30 AM CDT [facility] CO2, VENOUS 23 22 - 30 mmol/L 11/02/2024 10:30 AM CDT [facility] ANION GAP 12.8 <18.0 mmol/L 11/02/2024 10:30 AM CDT [facility] GLUCOSE 134(H) 70 - 99 mg/dL 11/02/2024 10:30 AM CDT [facility] BUN 10 5 - 18 mg/dL 11/02/2024 10:30 AM T [facility] CREATININE, BLOOD 0.63 0.60 - 1.00 mg/dL 11/02/2024 10:30 AM CDT [facility] BUN/CREATININE RATIO 16 12 - 20 ratio 11/02/2024 10:30 AM T [facility] TOTAL PROTEIN 8.4(H) 6.0 - 8.0 g/dL 11/02/2024 10:30 AM T [facility] ALBUMIN 4.5 3.5 - 5.0 g/dL 11/02/2024 10:[address] [facility] A/G RATIO 1.2 1.0 - 2.2 11/02/2024 10:30 AM CDT [facility] CALCIUM 9.4 8.7 - 10.5 mg/dL 11/02/2024 10:30 AM CDT [facility] T BILI 0.4 0.2 - 1.2 mg/dL 11/02/2024 10:30 AM CDT [facility] SGOT (AST) 20 <43 U/L 11/02/2024 10:30 AM CDT [facility] SGPT (ALT) 17 <56 U/L 11/02/2024 10:30 AM CDT [facility] ALKALINE PHOSPHATASE 69 40 - 150 U/L 11/02/2024 10:30 AM CDT [facility] IS THE PATIENT REQUIRED TO BE FASTING? No 11/02/2024 10:30 AM CDT [facility] GFR, ESTIMATED >60 >=60 11/02/2024 10:30 AM CDT [facility] Comment: Creatinine Clearance is the preferred criteria for selecting drug dose adjustments in renally impaired patients. The GFR is provided as additional pertinent clinical information. GFR is reported in mL/min/1.73 sq m. Calculation based on the 2020 Chronic Kidney Disease Epidemiology Collaboration (CKD-EPI) equation refit without adjustment for race. GFR, EST. >60 >=60 025 10:30 AM CDT [facility] Comment: Creatinine Clearance is the preferred criteria for selecting drug dose adjustments in renally impaired patients. The GFR is provided as additional pertinent clinical information. GFR is reported in mL/min/1.73 sq m. Calculation based on the 2009 Chronic Kidney Disease Epidemiology Collaboration (CKD-EPI). GFR, EST. NONAFRICAN >60 >=60 11/02/2024 10:30 AM CDT [facility] Comment: Creatinine Clearance is the preferred criteria for selecting drug dose adjustments in renally impaired patients. The GFR is provided as additional pertinent clinical information. GFR is reported in mL/min/1.73 sq m. Calculation based on the 2009 Chronic Kidney Disease Epidemiology Collaboration (CKD-EPI). Blood Venipuncture / Unknown 11/02/2024 8:50 AM CDT 11/02/2024 8:50 AM CDT us Pili Sloane Maury PAC CHEMISTRY ORDERABLES Helen l Result [facility] [place] [address] from Last 3 Months Insurance [employer] [facility] Care Teams Cream Hauler Relationship Specialty [place] [address] [place] [address] PCP - General Family Medicine 09/30/22
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
--- OUTSIDE RECORDS SUMMARY | 2025-01-08 19:22 | XMS_ITS | Clinical Summary ---
Author Organization [facility] Address [address] [place] [address] Care Team Providers Care Aquatics Assistant Department Head Name Role Phone VegaJean-Pierre Primary Care Provider [phone] Allergies Active Allergy Reactions Criticality Noted Date [...] (20 mg total) by mouth daily. Active sulfamethoxazole-t rimethoprim (BACTRIM DS) 800-160 MG tablet take 1 [...] needed for Nausea. 12 tablet 4 Active triamcinolone (KENALOG) 0.025 % creamIndications:O nychomycosis Apply topically 2 (two) times daily. 15 g 5 Active terbinafine (LAMISIL) 250 MG tabletIndications: Onychomycosis Take 1 tablet (250 mg total) by mouth daily. 90 tablet 5 Active Active Problems Problem Noted Date Diagnosed [...] 09/06/2023 Anemia 09/06/2023 Type 2 diabetes mellitus 07/07/2023 Hypertension 07/07/2023 Hyperlipidemia 07/07/2023 Proteinuria 07/07/2023 Iron deficiency anemia, unspecified 07/07/2023 Vitamin D deficiency 07/07/2023 Social History Tobacco Use Types Packs/Day Years Used Date Smoking Tobacco: Never Smokeless Tobacco: Never Tobacco Cessation:Counseling Given: Not Answered Alcohol Use Standard Drinks/Week Comments Never 0 (1 standard drink = 0.6 oz pur e alcohol) Comments No Sex and Gender Information Value Date Recorded Sex Assigned at Female 04/17/2024 1:10 PM CAR DUMPER Legal Sex Female 7:17 PM CDT Gender Identity Not on file Sexual Orientation Not on file Last Filed Vital Signs Vital Sign Reading Time Taken Comments Blood Pressure 119/76 04/17/2024 1:49 PM CAR DUMPER Pulse 74 04/17/2024 1:49 PM CAR DUMPER Temperature 36.4 C (97.5 F) 03/14/2024 12:39 PM CAR DUMPER Respiratory Rate 16 03/14/2024 1:36 PM CAR DUMPER Oxygen Saturation 94% 03/14/2024 3:00 PM CAR DUMPER Inhaled Oxygen Concentration - - Weight 82.1 kg (181 lb) 09/21/2024 8:40 AM CDT Height 162.6 cm (5' 4) 09/21/2024 8:40 AM CDT Body Mass Index 31.07 09/21/2024 8:40 AM CDT Plan of Treatment Health Maintenance Due Date Last Done Comments Cervical Cancer Screening Pap Smear (Age 30 to 64) Every 3 Years 1983 Kidney Health Evaluation 1983 Annual Physical 1986 Diabetes: Retinopathy Eye Exam 2001 DTaP, Tdap and Td Vaccines (1 - Tdap) 2002 Hepatitis B Vaccines (1 of 3 - 19+ 3-dose series) 2002 Pneumococcal Vaccine: Pediatrics (0 to 5 Years) and At-Risk Patients (6 to 49 Years) (1 of 2 - PCV) 2002 HPV Vaccines (1 - 3-dose SCDM series) 2010 Cervical Cancer Screening Pap with HPV Testing (Age 30 to 64) Every 5 Years 2013 Cervical Cancer Screening with HPV 2013 Lipid Panel 07/10/2018 07/10/2017, 07/10/2017 Hemoglobin A1C 01/28/2022 07/28/2021, 01/13, 07/10/2017, Additional history exists Mammogram Screening 2023 PHQ-2 (Physician [place]) 03/15/2024 COVID-19 Vaccine (2 - season) 2024 05/30/2020 Influenza Adult (#1) 2024 12/10/2017, 12/10/19 15 Hepatitis C Completed 09/13/2023 Hepatitis A Vaccines Aged Out No long er eligible based on patient's age to complete [...] Procedure Name Priority Date/Time Associated Diagnosis Comments HEPATITIS PANEL,ACUTE Routine 09/13/2023 3:12 PM CDT Primary hypertension Fatigue, unspecified type Proteinuria, unspecified type CKD (chronic kidney disease) stage 1, GFR 90 ml/min or greater LIPID PANEL Routine 07/10/2017 7:02 AM CDT HEMOGLOBIN, GLYCOSYLATED Routine 07/10/2017 7:02 AM CDT from Last 3 Months or Most Recently Relevant to Health Maintenance Results * HEPATITIS PANEL,ACUTE (09/13/2023 3:12 PM CDT) HEPATITIS B SURFACE AG NON-REACT DE NON-REACT DE 09/15/2023 12:39 AM CDT [facility] Comment:HBsAg NOT DETECTED. HEP B CORE IGM NON-REACT DE NON-REACT DE 09/15/2023 12:39 AM CDT [facility] Comment: IgM ANTI HBc NOT DETECTED. DOES NOT EXCLUDE THE POSSIBILITY OF EXPOSURE TO OR INFECTION WITH HBV. NO RETEST REQUIRED. HIGH DOSES OF BIOTIN MAY INTERFERE WITH THIS TEST RESULT. CORRELATION TO CLINICAL HISTORY AND PRESENTATION RECOMMENDED. HAV IGM NON-REACT DE NON-REACT DE 09/15/2023 12:39 AM CDT [facility] Comment: IgM ANTI HAV NOT DETECTED. DOES NOT EXCLUDE THE POSSIBILITY OF EXPOSURE TO OR INFECTION WITH HAV. LEVELS OF IgM ANTI HAV MAY BE BELOW THE CUTOFF IN EARLY INFECTION. HEPATITIS C AB NON-REACT DE NON-REACT DE 09/15/2023 12:39 AM CDT [facility] Comment: ANTIBODIES TO HCV NOT DETECTED. DOES NOT EXCLUDE THE POSSIBILITY OF EXPOSURE TO HCV. 09/13/2023 3:12 PM CDT Nelson Vivar MD LABORATORY Final Result [facility] [address] [place] [address], [place] [phone] [id number] * (ABNORMAL) HEMOGLOBIN, GLYCOSYLATED (07/10/2017 7:02 AM CDT) HGB A1C 9.9(H) 4.5 - 6.0 % 07/10/2017 7:18 AM CDT [facility] Comment: ADA GUIDELINES 43143.7 TO 6.4% INCREASED RISK OF DIABETES> OR = 6.5% CONSISTENT WITH DIABETES ESTIMATED AVG GLUCOSE 237(H) 70 - 99 MG/DL 07/10/2017 7:18 AM CDT [facility] 07/10/2017 7:02 AM CDT 07/10/2017 7:04 AM CDT Generic Lambert Bro MD LABORATORY Final R esult [facility] [address] [place] [address], [place] [phone] * (ABNORMAL) LIPID PANEL (07/10/2017 7:02 AM CDT) CHOLESTEROL 232(H) <200 MG/DL 07/10/2017 7:25 AM CDT [facility] TRIGLYCERIDES 395(H) <150 MG/DL 07/10/2017 7:25 AM CDT [facility] HDL 42 >40 MG/DL 07/10/2017 7:25 AM CDT [facility] LDL (CALCULATED) TRIGLYCERIDES >200 MG/DL, SEE DIRECT LDL REPORT <130 MG/DL 07/10/2017 7:25 AM CDT [facility] Comment: AN LDL OF <100 IS OPTIMAL; HOWEVER, ELEVATED IS DEFINED >130.BY ATP III GUIDELINES, LDL GOALS ARE DEPENDENT UPON THE PATIENT'S OTHER RISK FACTORS. CHOL/HDL RATIO 5.5(H) 0.0 - 5.0 07/10/2017 7:25 AM CDT [facility] OTHER (type in comments) 07/10/2017 7:02 AM CDT 07/10/2017 7:04 AM CDT Comment:SERUM SPECIMEN~ACELL ULAR BLOOD (SERUM OR PLASMA) SPECIMEN us Generic Conversion Md BRO LABORATORY Final R esult [facility] [address] [place] [address], from Last 3 Months or Most Recently [place] [address] [facility] JUDIE WEBER Care Teams Aquatics Assistant Department Head Relationship Specialty Start [place] [address] [place] [address] PCP - General FAMILY PRACTICE 07/06/23
--- OUTSIDE RECORDS SUMMARY | 2025-01-08 19:22 | XMS_ITS | Clinical Summary ---
Author Organization [facility] Address [address] [place] [id number] Care Team Providers Care Textile Dyer Name Role Phone Destini Dexter MD Unavailable [phone] Jean-Pierre Ferrari DO Primary Care Provider [phone] Allergies Active Allergy Reactions Criticality Noted Date [...] every 10 day 9 Device 3 10/04/19 Active blood-glucose meter,continuous (DEXCOM G6 DEPOSITION OPERATOR) misc Use to test blood glucose 1 each [...] the skin daily 15 mL 5 03/27/19 20 Active Apidra SoloStar U-100 Insulin 100 unit/mL [...] or vomiting 20 tablet 10/30/19 24 Active methocarbamoL (ROBAXIN) 500 mg tablet Take 1 tablet (500 mg total) by mouth 2 (two) times a day 20 tablet 09/03/19 25 Active Active Problems Problem Noted Date Diagnosed [...] (04/10/2020): Added automatically from request for surgery [id number] Surgical History Surgery Date Site/Laterality Comments ANTERIOR [...] co stipation now Type 2 diabetes mellitus Night terrors Anxiety PCOS (polycystic ovarian syndrome) Pelvic pain Menstrual cycle problem Left renal stone 04/10/2020 Added automatic ally from request for surgery [id number] Family History * Patient is adopted Medical [...] making you feel afraid or unsafe? 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 [employer] ([employer]) getting a masters in social work. Works at a [employer]. Previously at [employer]. Not on file Not on file Not on file Obstetrics History Para Term AB IAB SAB Ectopic Multiple Livin g Live Births 0 0 0 0 0 0 0 0 0 0 0 Last Filed Vital Signs Vital Sign Reading Time Taken Comments Blood Pressure 145/82 09/02/2024 1:05 PM CDT Pulse 74 09/02/2024 1:05 PM CDT Temperature 36.9 C (98.4 F) 09/02/2024 1:04 PM CDT Respiratory Rate 18 09/02/2024 1:05 PM CDT Oxygen Saturation 100% 09/02/2024 1:05 PM CDT Inhaled Oxygen Concentration - - Weight 71.7 kg (158 lb) 09/02/2024 1:04 PM CDT Height 160 cm (5' 3) 09/02/2024 1:04 PM CDT Body Mass Index 27.99 09/02/2024 1:04 PM CDT Plan of Treatment Health Maintenance Due Date Last Done Comments Albumin Creatinine Ratio, Urine 1983 Breast Cancer Screening-Mammogram 1983 Hepatitis C Screening 1983 DTaP/Tdap/Td Vaccine (1 - Tdap) 1994 Varicella Vaccines (1 of 2 - 13+ 2-dose series) 1996 Hepatitis B Screening 2001 Pneumococcal vaccine <65 (1 of 2 - PCV) 2002 HPV Vaccines (1 - 3-dose SCD M series) 2010 Dilated Eye Exam 12/17/2018 12/17/2017 Foot Exam 08/06/2019 08/05/2018, 11/19/2016 Lipid Panel 03/23/2020 03/23/2019, 07/2017, 12/17/2017, Additional history exists Cervical Cancer Screening 11/05/2020 11/06/2019 Depression Screening 11/05/2020 11/06/2019, 02/07/2018, 02/07/2018, Additional history exists Regular Well Visit/Exam 18-64 11/05/2020 11/06/2019, 02/07/2018 Hemoglobin A1C 01/28/2022 07/28/2021, 01/13, 03/23/2019, Additional history exists Covid-19 Vaccine (2024-2 6 season) 2024 06/20/2020, 05/30/2020 Influenza Vaccine (#1) 2024 12/10/2017, 2014 eGFR 09/02/2025 09/02/2024, 10/13, 05/23/2022, Additional history exists Medical Devices Explanted Type Area Brim Ironer Hand Device Identifier Shelf Expiration Date Model / Serial / Lot Bard Inlay Ureteral Stent Implanted:Qty: 1 on 04/12/2020 by Duarte Whiting DO at [facility] Explanted:Qty: 1 on 04/24/2020 by Duarte Whiting DO Left: Ureter [employer] 07/21/2023 [id number] / / [id number] Procedures Procedure Name Priority Date/Time Associated Diagnosis Comments EGFR STAT 09/02/2024 1:25 PM CDT HEMOGLOBIN A1C Routine 07/28/2021 7:31 PM CDT PAP WITH REFLEX TO HIGH RISK HPV Routine 11/06/2019 11:04 AM CDT LIPID PANEL Routine 03/23/2019 2:04 PM PATTERN DUPLICATOR Type 2 diabetes mellitus with hyperglycemia, with long-term current use of insulin (HCC) DIABETES EYE EXAM Routine 12/17/2017 DIABETES FOOT EXAM Routine 11/19/2016 from Last 3 Months or Most Recently Relevant to Health Maintenance Results * eGFR (09/02/2024 1:25 PM CDT) eGFR >90 >=60 mL/min/1. 73 m2 [...] interpretive data was last reviewed 2021. Blood 09/02/2024 1:25 PM CDT 09/02/2024 1:35 PM CDT us Latia [facility] LAB BLOOD ORDERABLES Final Resu lt [facility] [place] [address] * (ABNORMAL) Hemoglobin A1c (07/28/2021 7:31 PM CDT) Hgb A1C 11.4(H) 4.0 - 5.6 % [facility] Estimated Average Glucose 280 mg/dL [facility] Comment: The ADA recommends reporting an estimated Average Glucose (eAG) with all Hemoglobin A1c results using the equation derived from a study of 507 normal and diabetic adults. Minority populations were underrepresented and children were not included. (Diabetes Care 31:0637-2492, 2008). The eAG is not equivalent to a fasting glucose. Blood 07/28/2021 7:31 PM CDT 07/28/2021 7:40 PM CDT us Meera Smith MD LAB BLOOD ORDERABLES Fin al Result [facility] [place] [address] * (ABNORMAL) Pap w/reflex to High Risk HPV if ASCUS and patient 21-29 years old (11/06/2019 11:04 AM CDT) 11/06/2019 11:0 4 AM CDT 11/06/2019 11:04 AM CDT Narrative 11/09/2019 1:31 PM CDT [facility] Department of Pathology [address] [place] [id number] Final Report with Addendum Patient Name: DEEPA SINGLETON Address: [address] [place] [address] Gender: F : 1985 (Age: 34) Service: Laboratory Location: Lab [facility] #: [id number] Patient Type: Ref Lab Taken: 11/06/2019 Received: 11/06/2019 Accessioned:: 11/07/2019 Reported: 11/09/2019 Physician(s): Breann Cononrs Diagnosis: Source of Specimen: Imaged Thinprep Pap Test plus HPV - Neonatal Intensive Care Nurse Cytologic Material Specimen Adequacy: - Satisfactory for [...] Report Electronically Reviewed and Signed Out By ARACELI Handley(ASCP) 11/07/2019 16:27:20 Specimen(s) Received: A: Imaged Thinprep Pap Test plus HPV - Neonatal Intensive Care Nurse Cytologic Material Clinical History: Last Menstrual Period: [...] determined by the Surgical Pathology Department at [facility] as part of an ongoing it quality assurance analyst program and in compliance with federally mandated [...] characteristics determined by the Surgical Pathology Department [facility]. It has not been cleared or approved by the U. S. Food and Drug Administration. Breann Connors MD LAB CYTOLOGY ORDERABLES Final Result * (ABNORMAL) Lipid panel (03/23/2019 2:04 PM PATTERN DUPLICATOR) Cholesterol 93 30 - 199 mg/dL [facility] [...] Pediatrics 2011;128:S213 2. NCEP Expert Panel. Circulation 2003;110:227 Current Interpretive Data was last revised on 2017. HDL 30(L) >=40 mg/dL [facility] Comment: Interpretive Data Ages < or [...] 2017. LDL, calculated 26 <=129 mg/dL [facility] Comment: Interpretive Data Ages < or [...] 2017. Non-HDL Cholesterol 63 mg/dL [facility] Comment: Interpretive Data Ages < or = [...] on 2017. Chol/HDL ratio 3 [facility]) Blood specimen (specimen) 03/23/2019 2:04 PM PATTERN DUPLICATOR 03/23/2019 5:24 PM PATTERN DUPLICATOR Sara Banuelos MD LAB BLOOD ORDERABLES Final Res ult [facility] [place] [address] * DIABETES EYE EXAM (12/17/2017) Diabetic Eye Exam Abnormal Historical Provider HEALTH MAINTENANCE Final Result * DIABETES FOOT EXAM (11/19/2016) Diabetic Foot Exam Unknown Historical Provider HEALTH MAINTENANCE Final Result from Last 3 Months or Most Recently Relevant to Health Maintenance Insurance AETNA [facility] AETNA [facility] [place] [facility] AETNA [facility] Advance Directives For more information, please contact: [phone] * Full Code (Latest Code Status on File) Date Activated Date Inactivated Comments 04/14/2020 6:50 PM 04/16/2020 6:08 PM * Full Code Date Activated Date Inactivated Comments 05/09/2017 10:16 AM 05/11/2017 7:36 PM Care Teams Textile Dyer Relationship Specialty Start Date End [place] [address] [place] [address] PCP - General Family Medicine 05/13/22 Destini Dexter MD Consulting Physician Gastroenterology 05/11/17
[2025-01-08 19:25] VITALS: BP 141/77; PULSE 93; RESP 18; TEMP 37.5; O2SAT 98
--- NOTE | 2025-01-08 19:39 | ED.BACK ---
HPI - Back Pain/Injury General Chief Complaint: Urogenital-Female Stated Complaint: possible uti Time Seen by Provider: 01/08/25 19:38 Source: patient Mode of arrival: ambulatory Limitations: no limitations History of Present Illness HPI Narrative: Patient is a 39-year-old female with known renal stones in the past and having mid to lower back pain on the right side. She has a little bit of anterior front suprapubic pain as well. No associated nausea or vomiting. No chest pain or shortness of breath. MD elicited complaint: back pain (Right mid to lower back) Pertinent past history: prior back pain and kidney stones Onset (ago): day(s) (2) Timing: constant Severity: moderate Pain scale (0-10): 5 Similar Symptoms Previously: Yes Quality: sharp Location: lumbar spine (Right) and thoracic spine (Right) Radiation: none Exacerbating factors: none Relieving factors: none Context: history of kidney stones Associated symptoms: increased urinary urgency and increased urinary frequency Treatments prior to arrival: other (None) Related Data Home Medications ?Medication ?Instructions ?Recorded ?Confirmed ?Last Taken ?Type cyanocobalamin (vitamin B-12) 1,000 mcg IM WEEKLY 05/12/22 04/06/23 Unknown History 1,000 mcg/mL injection solution insulin glargine 100 unit/mL (3 48 unit subcut HS 05/12/22 04/06/23 Unknown History mL) subcutaneous pen (Lantus Solostar U-100 Insulin) insulin lispro 200 unit/mL (3 mL) See Rx Instructions .Route .COMPLEX 05/12/22 04/06/23 Unknown History subcutaneous pen (Humalog KwikPen U-200 Insulin) metformin 500 mg tablet,extended 1,000 mg PO BID 05/12/22 04/06/23 Unknown History release 24 hr omeprazole 20 mg capsule,delayed 20 mg PO DAILY 05/12/22 04/06/23 Unknown History release prazosin 1 mg capsule 1 mg PO DAILY 05/12/22 04/06/23 Unknown History trazodone 150 mg tablet 150 mg PO HS 05/12/22 04/06/23 Unknown History amlodipine 2.5 mg tablet 2.5 mg PO DAILY 04/06/23 04/06/23 Unknown History atorvastatin 20 mg tablet 20 mg PO DAILY 04/06/23 04/06/23 Unknown History hydrochlorothiazide 12.5 mg capsule 12.5 mg PO DAILY 04/06/23 04/06/23 Unknown History hydroxyzine HCl 10 mg tablet 10 mg PO TID 04/06/23 04/06/23 Unknown History lamotrigine 200 mg tablet 200 mg PO DAILY 04/06/23 04/06/23 Unknown History losartan 100 mg tablet 100 mg PO DAILY 04/06/23 04/06/23 Unknown History lurasidone 20 mg tablet 20 mg PO DAILY 04/06/23 04/06/23 Unknown History montelukast 10 mg tablet 10 mg PO DAILY 04/06/23 04/06/23 Unknown History oxybutynin chloride 10 mg 10 mg PO DAILY 04/06/23 04/06/23 Unknown History tablet,extended release 24 hr vilazodone 40 mg tablet 40 mg PO DAILY 04/06/23 04/06/23 Unknown History Allergies Allergy/AdvReac Type Severity Reaction Status Date / Time topiramate (From Topamax) Allergy Severe Vomiting Verified 01/08/25 19:46 dulaglutide (From Trulicity) Allergy Intermediate Unknown Verified 01/08/25 19:46 adhesive tape Allergy Mild rash Verified 01/08/25 19:46 metoclopramide (From Reglan) Allergy Mild Rash Verified 01/08/25 19:46 latex Allergy Unknown Rash Verified 01/08/25 19:46 morphine Allergy Unknown Rash Verified 01/08/25 19:46 Review of Systems Review of Systems: All systems reviewed & are unremarkable except as noted in HPI and below Constitutional: Constitutional: Reports no additional constitutional complaints Eyes: Eyes: Reports no additional eye complaints ENT: Reports system reviewed and no additional complaints, except as documented Cardiovascular: Cardiovascular: Reports no additional cardiovascular complaints Respiratory: Respiratory: Reports no additional respiratory complaints Gastrointestinal: Gastrointestinal: Reports no additional gastrointestinal complaints Genitourinary: Genitourinary: Reports no additional female genitourinary complaints Musculoskeletal: Musculoskeletal: Reports no additional musculoskeletal complaints Integumentary/Breasts: Skin/Breast: Reports system reviewed and no additional complaints, except as docu Neurologic: Reports system reviewed and no additional complaints, except as documented Psychiatric: Psychiatric: Reports no additional psychiatric complaints Endocrine: Endocrine: Reports no additional endocrine complaints Hematologic/Lymphatic: Hematologic/Lymphatic: Reports no additional hematologic/lymphatic complaints Allergic/Immunologic: Allergic/Immunologic: Reports no additional allergic/immunologic complaints PMFSH Past Medical History Medical History MARY (obstructive sleep apnea) Morbid obesity Anxiety and depression Type 2 diabetes mellitus Surgical History Surgical History H/O knee surgery Exam Const: General: healthy appearing Nutritional Appearance: well nourished Orientation/consciousness: patient oriented x3 HENMT: Head: normal to inspection Ears: external ears normal Face/Nose/Sinus: Normal external nose present Eyes: Conjunctivae: conjunctivae normal Pupils: Equal, round and reactive pupils present EOM: EOMs intact bilaterally Neck: Neck: normal visual inspection Chest: Chest palpation & inspection: normal inspection of the chest Resp: Effort & Inspection: normal respiratory effort and not labored Auscultation: clear to auscultation bilaterally and no crackles Cardio: Rate: regular rate Rhythm: regular rhythm Heart sounds: Murmur heart sound present systolic holo and II/ Other: Known murmur to the patient GI: Inspection: non-distended GI Palp: Yes Soft to palpation, Yes Tenderness to palpation present (GI) (Diffuse), No Guarding due to palpation present (GI), No Rigid due to palpation, No Hernia present, No Palpable mass present and No Rebound tenderness present Auscultation: normal bowel sounds : General: No bladder normal to palpation, Yes Bladder palpation abnormal (Tender), Yes CVA tenderness (On the right) and No no CVA tenderness Back/Spine/Pelvis: Back: No no CVA tenderness and CVA tenderness (On the right) Other: Kidney palpation appears normal without pain Skin: General skin exam: normal color Rashes: no rashes Wounds: no wounds Neuro: General: patient oriented x3, moves all extremities and no meningeal signs Extrem: General: normal to inspection, no clubbing, cyanosis or edema and no pedal edema Psych: Mental Status: mental status grossly normal Affect: normal affect Attitude: cooperative Course Vital Signs Vital signs: Vital Signs Temperature 37.5 C 01/08/25 19:25 Pulse Rate 93 01/08/25 19:25 Respiratory Rate 18 01/08/25 19:25 Blood Pressure 141/77 H 01/08/25 19:25 Pulse Oximetry 98 01/08/25 19:25 Oxygen Delivery Room Air 01/08/25 19:25 Temperature 37.5 C 01/08/25 19:25 Pulse Rate 93 01/08/25 19:25 Respiratory Rate 18 01/08/25 19:25 Blood Pressure 141/77 H 01/08/25 19:25 Pulse Oximetry 98 01/08/25 19:25 Oxygen Delivery Room Air 01/08/25 19:29 MDM - Back Pain/Injury MDM Narrative Medical decision making narrative: Patient is a 39-year-old female with known kidney stones here with lower back pain and urinary changes. Will do urinary and kidney stone workup at this time. Workup is negative. UTI present. Kurt ADAMS. Lab Data Attestation: I reviewed the patient's lab results. 01/08/25 20:29 01/08/25 20:29 Labs: Lab Results 01/08/25 01/08/25 01/08/25 Range/Units 19:33 19:51 20:29 WBC 12.1 H (4.8-10.8) K/mm3 RBC 4.51 (4.20-5.40) M/mm3 Hgb 12.9 (12.0-15.0) g/dL Hct 39.1 (35.0-49.0) % MCV 86.7 (78.0-102.0) fL MCH 28.6 (27.0-31.0) pg MCHC 33.0 (32-36) g/dL RDW 15.3 H (11.6-14.4) % Plt Count 245 (150-420) K/mm3 MPV 8.9 L (9.2-11.8) fl Immature Gran % (Auto) 0.2 H (0.0-0.0) % Neut % (Auto) 76.5 H (50.0-70.0) % Lymph % (Auto) 16.4 L (18.0-42.0) % [place] % (Auto) 6.5 (2.0-11.0) % Eos % (Auto) 0.2 L (1.0-6.0) % Baso % (Auto) 0.2 (0.0-1.0) % Lymph # (Auto) 1.98 (1.10-4.50) K/mm3 [place] # (Auto) 0.78 (0.10-0.90) K/mm3 Eos # (Auto) 0.03 (0.02-0.50) K/mm3 Baso # (Auto) 0.03 (0.00-0.10) K/mm3 Abs Immat Gran (auto) 0.03 H (0.00-0.00) K/mm3 Absolute Neuts (auto) 9.24 H (1.70-7.20) K/mm3 Absolute Nucleated RBC 0.00 (0.00-0.00) K/mm3 Nucleated RBC % 0.0 (0-0.0) % Sodium 139 (137-145) mmol/L Potassium 4.1 (3.4-5.0) mmol/L Chloride 100 (98-107) mmol/L Carbon Dioxide 28 (22-30) mmol/L Anion Gap 11 (4-12) mmol/L BUN 9 (7-17) mg/dL Creatinine 0.62 L (0.7-1.0) mg/dL Estim Creat Clear Calc 99 ml/min Estimated GFR > 60 (59 - ) Glucose 151 H (65-110) mg/dL Calculated Osmolality 289 (285-295) mOsm/kg Calcium 9.6 (8.4-10.2) mg/dL Total Bilirubin 0.4 (0.2-1.3) mg/dL AST 26 (14-36) U/L ALT 19 (6-35) U/L Alkaline Phosphatase 66 (38-126) U/L Total Protein 9.1 H (6.3-8.2) g/dL Albumin 4.4 (3.5-5.1) g/dL Lipase 93 (23-300) U/L Urine Color Light yellow (Yellow) Urine Appearance Clear (Clear) Urine pH 6.0 (5.0-8.0) Ur Specific [place] 1.010 (1.010-1.020) Urine Protein 1+ H (Negative) Urine Glucose (UA) Negative (Negative) Urine Ketones Negative (Negative) Ur Blood (Man) 2+ H (Negative) Urine Nitrate Positive H (Negative) Urine Bilirubin Negative (Negative) Urine Urobilinogen 1.0 (0.2-1.0) mg/dL Leukocyte Esterase Rfl 3+ H (Negative) JARED/UL Urine RBC >75 H (0-2) /hpf Urine WBC >75 H (0-3) /hpf Ur Squamous Epith Cells None seen (Few) /hpf Urine Bacteria 3+ H (None) /hpf Urine Test Negative Imaging Data Attestation: I personally reviewed and interpreted this imaging study as follows: Radiologist's impression: CT scan of the abdomen and pelvis without contrast shows no acute process findings Discharge Plan Discharge Clinical Impression: Acute UTI Patient Disposition: Home Condition: Stable Instructions: Antibiotic Form, Urinary Tract Infection in Women (ED) Patient Language: Faroese Prescriptions: New ciprofloxacin HCl [Cipro] 500 mg tablet 500 mg PO BID 7 Days Qty: 14 0RF No Action prazosin 1 mg capsule 1 mg PO DAILY cyanocobalamin (vitamin B-12) 1,000 mcg/mL solution 1,000 mcg IM WEEKLY trazodone 150 mg tablet 150 mg PO HS omeprazole 20 mg capsule,delayed release(DR/EC) 20 mg PO DAILY metformin 500 mg tablet extended release 24 hr 1,000 mg PO BID insulin glargine [Lantus Solostar U-100 Insulin] 100 unit/mL (3 mL) insulin pen 48 unit SUBCUT HS Humalog KwikPen Insulin 200 unit/mL (3 mL) insulin pen See Rx Instructions .ROUTE .COMPLEX Rx Instructions: take per sliding scale amlodipine 2.5 mg tablet 2.5 mg PO DAILY atorvastatin 20 mg tablet 20 mg PO DAILY lamotrigine 200 mg tablet 200 mg PO DAILY oxybutynin chloride 10 mg tablet extended release 24hr 10 mg PO DAILY hydrochlorothiazide 12.5 mg capsule 12.5 mg PO DAILY montelukast 10 mg tablet 10 mg PO DAILY hydroxyzine HCl 10 mg tablet 10 mg PO TID losartan 100 mg tablet 100 mg PO DAILY vilazodone 40 mg tablet 40 mg PO DAILY lurasidone 20 mg tablet 20 mg PO DAILY promethazine 25 mg tablet 25 mg PO Q6H PRN (Reason: nausea, abdominal pain) Qty: 20 0RF ondansetron 4 mg tablet,disintegrating 4 mg PO Q6H PRN (Reason: nausea and vomiting) Qty: 20 0RF ondansetron 4 mg tablet,disintegrating 4 mg PO Q8H PRN (Reason: nausea and vomiting) Qty: 30 0RF tramadol 50 mg tablet 50 mg PO TID PRN (Reason: pain) Qty: 12 0RF ondansetron HCl 4 mg tablet 4 mg PO Q8H PRN (Reason: nausea and vomiting) 4 Days Qty: 10 0RF Follow-up/Referrals: Miguelito,Bev Pabon NP [Non-Staff, Unknown] Time of Disposition: 21:05
[2025-01-08 19:41] LABS: Add Urine Microscopic? YES; Appearance Urine Clear (Clear); Glucose Urine UA Negative (Negative); Leukocyte Esterase Ur 3+ LEU/UL (Negative); Nitrate Urine Positive (Negative); Specific Grav Ur 1.010 (1.010-1.020)
--- OUTSIDE RECORDS SUMMARY | 2025-01-08 19:49 | XMS_ITS | Clinical Summary ---
Author Organization [facility] Address [address] [place] [id number] Care Team Providers Care Medical Affairs Manager Name Role Phone Destini Dexter MD Unavailable [phone] Jean-Pierre Ferrari DO Primary Care Provider [phone] Allergies Active Allergy Reactions Criticality Noted Date [...] 3 10/04/19 Active blood-glucose meter,continuous (DEXCOM G6 SENIOR LIBRARIAN) misc Use to test blood glucose 1 [...] (04/10/2020): Added automatically from request for surgery [id number] Surgical History Surgery Date Site/Laterality Comments ANTERIOR [...] Added automatic ally from request for surgery [id number] Family History * Patient is adopted Medical [...] on file Legal Sex Female 2:05 PM FIELD NURSE Gender Identity Not on file Sexual Orientation Not on file Occupation Industry Job Start Date Job End Date 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 [employer] ([employer]) getting a masters in social work. Works at a [email or web address]. Previously at [employer]. Not on file Not on file Not [...] history exists Medical Devices Explanted Type Area Vulnerability Researcher Device Identifier Shelf Expiration Date Model / Serial / Lot Bard Inlay Ureteral Stent Implanted:Qty: 1 on 04/12/2020 by Duarte Whiting DO at [facility] Explanted:Qty: 1 on 04/24/2020 by Duarte Whiting DO Left: Ureter [employer] 07/21/2023 [id number] / / [id number] Procedures Procedure Name Priority Date/Time Associated Diagnosis Comments EGFR STAT 09/02/2024 1:25 PM CDT HEMOGLOBIN A1C Routine 07/28/2021 7:31 PM CDT PAP WITH REFLEX TO HIGH RISK HPV Routine 11/06/2019 11:04 AM CDT LIPID PANEL Routine 03/23/2019 2:04 PM FIELD NURSE Type 2 diabetes mellitus with hyperglycemia, with [...] LAB BLOOD ORDERABLES Final Resu lt [facility] Department [place] [address] * (ABNORMAL) Hemoglobin A1c (07/28/2021 7:31 PM CDT) Hgb A1C 11.4(H) 4.0 - 5.6 % [facility] Estimated Average Glucose 280 mg/dL [facility] Comment: The ADA recommends reporting an estimated Average Glucose (eAG) with all Hemoglobin A1c results using the equation derived from a study of 507 normal and diabetic adults. Minority populations were underrepresented and children were not included. (Diabetes Care 31:3800-1011, 2008). The eAG is not equivalent to a fasting glucose. Blood 07/28/2021 7:31 PM CDT 07/28/2021 7:40 PM CDT us Meera Smith MD LAB BLOOD ORDERABLES Fin al Result [facility] ([place] [place] [address] * (ABNORMAL) Pap w/reflex to High Risk HPV if ASCUS and patient 21-29 years old (11/06/2019 11:04 AM CDT) 11/06/2019 11:0 4 AM CDT 11/06/2019 11:04 AM CDT Narrative 11/09/2019 1:31 PM CDT [facility] Department of Pathology [address] [place] [id number] Final Report with Addendum Patient Name: DEEPA SINGLETON Address: [address] [place] [address] Gender: F : 1985 (Age: 34) Service: Laboratory Location: Lab [facility] #: [id number] Patient Type: Ref Lab Taken: 11/06/2019 Received: 11/06/2019 Accessioned:: 11/07/2019 Reported: 11/09/2019 Physician(s): Breann Connors Diagnosis: Source of Specimen: Imaged Thinprep Pap Test plus HPV - Special Service Representative Cytologic Material Specimen Adequacy: - Satisfactory for [...] Imaged Thinprep Pap Test plus HPV - Special Service Representative Cytologic Material Clinical History: Last Menstrual Period: [...] determined by the Surgical Pathology Department at [facility] as part of an ongoing automotive quality manager program and in compliance with federally [...] characteristics determined by the Surgical Pathology Department [facility]. It has not been cleared or approved by the U. S. Food and Drug Administration. Breann Connors MD LAB CYTOLOGY ORDERABLES Final Result * (ABNORMAL) Lipid panel (03/23/2019 2:04 PM FIELD NURSE) Cholesterol 93 30 - 199 mg/dL [facility] [...] 2017. Non-HDL Cholesterol 63 mg/dL [facility] ([place]) Comment: Interpretive Data Ages < or = [...] on 2017. Chol/HDL ratio 3 [facility] ([place]) Blood specimen (specimen) 03/23/2019 2:04 PM FIELD NURSE 03/23/2019 5:24 PM FIELD NURSE Sara Banuelos MD LAB BLOOD ORDERABLES Final Res ult [facility] Department [place] [address] * DIABETES EYE EXAM (12/17/2017) Diabetic Eye Exam Abnormal Historical Provider HEALTH MAINTENANCE Final Result * DIABETES FOOT EXAM (11/19/2016) Diabetic Foot Exam Unknown Historical Provider HEALTH MAINTENANCE Final Result from Last 3 Months or Most Recently Relevant to Health Maintenance Insurance [facility]NA [facility] AETNA [facility] [place] [facility] AETNA [facility] Advance Directives For more information, please contact: [phone] * Full Code (Latest Code Status on File) Date Activated Date Inactivated Comments 04/14/2020 6:50 PM 04/16/2020 6:08 PM * Full Code Date Activated Date Inactivated Comments 05/09/2017 10:16 AM 05/11/2017 7:36 PM Care Teams Medical Affairs Manager Relationship Specialty Start Date [place] [address] [place] [address] PCP - General Family Medicine 05/13/22 Destini Dexter MD Consulting Physician Gastroenterology 05/11/17
--- OUTSIDE RECORDS SUMMARY | 2025-01-08 19:49 | XMS_ITS | Encounter Summary ---
Author Organization [facility] Address [address] [place] [address] Care Team Providers Care Labor Relations Representative Name Role Phone Jean-Pierre Ferrari DO Primary Care Provider [phone] Encounter Details Date Type Department Care Team (Late st Contact Info) Description 08/20/2018 Abstract [facility] CONVERSION [address] [place] [address] , Generic Conversion, Social History Tobacco Use Types Packs/Day Years Used Date Smoking Tobacco: Never Assessed Comments Unknown Sex and Gender Information Value Date Recorded Sex Assigned at Female 04/17/2024 1:10 PM CAMPUS DIRECTOR Legal Sex Female 7:17 PM CDT Gender Identity Not on file Sexual Orientation Not on file documented as of this encounter Plan of Treatment Not on file documented as of this encounter Visit Diagnoses Not on filedocumented in this encounter Additional Health Concerns Infection Onset Date Last Indicated Resolved Time COVID-19 Rule Out 03/14/2024 03/14/2024 03/14/2024 1:37 PM CAMPUS DIRECTOR documented as of this encounter Care Teams Labor Relations Representative Relationship Specialty Start [place] [address] [place] [phone] PCP - General FAMILY PRACTICE 07/06/23 documented as of this encounter
--- OUTSIDE RECORDS SUMMARY | 2025-01-08 19:49 | XMS_ITS | Clinical Summary ---
Author Organization [facility] Address [address] [place] [address] Care Team Providers Care Yarn Dumper Name Role Phone VegaJean-Pierre Primary Care Provider [phone] Allergies Active Allergy Reactions Criticality Noted Date [...] Sex Assigned at Female 04/17/2024 1:10 PM APPRISE COUNSELOR Legal Sex Female 7:17 PM CDT Gender Identity Not on file Sexual Orientation Not on file Last Filed Vital Signs Vital Sign Reading Time Taken Comments Blood Pressure 119/76 04/17/2024 1:49 PM APPRISE COUNSELOR Pulse 74 04/17/2024 1:49 PM APPRISE COUNSELOR Temperature 36.4 C (97.5 F) 03/14/2024 12:39 PM APPRISE COUNSELOR Respiratory Rate 16 03/14/2024 1:36 PM APPRISE COUNSELOR Oxygen Saturation 94% 03/14/2024 3:00 PM APPRISE COUNSELOR Inhaled Oxygen Concentration - - Weight 82.1 [...] history exists Mammogram Screening 2023 PHQ-2 (Physician [place]) 03/15/2024 COVID-19 Vaccine (2 - season) 2024 [...] DE NON-REACT DE 09/15/2023 12:39 AM CDT [facility] Comment:HBsAg NOT DETECTED. HEP B CORE IGM NON-REACT DE NON-REACT DE 09/15/2023 12:39 AM CDT [facility] Comment: IgM ANTI HBc NOT DETECTED. DOES NOT EXCLUDE THE POSSIBILITY OF EXPOSURE TO OR INFECTION WITH HBV. NO RETEST REQUIRED. HIGH DOSES OF BIOTIN MAY INTERFERE WITH THIS TEST RESULT. CORRELATION TO CLINICAL HISTORY AND PRESENTATION RECOMMENDED. HAV IGM NON-REACT DE NON-REACT DE 09/15/2023 12:39 AM CDT [facility] Comment: IgM ANTI HAV NOT DETECTED. DOES NOT EXCLUDE THE POSSIBILITY OF EXPOSURE TO OR INFECTION WITH HAV. LEVELS OF IgM ANTI HAV MAY BE BELOW THE CUTOFF IN EARLY INFECTION. HEPATITIS C AB NON-REACT DE NON-REACT DE 09/15/2023 12:39 AM CDT [facility] Comment: ANTIBODIES TO HCV NOT DETECTED. DOES NOT EXCLUDE THE POSSIBILITY OF EXPOSURE TO HCV. 09/13/2023 3:12 PM CDT Nelson Vivar MD LABORATORY Final Result [facility] [address] [place] [address], [place] [phone] [id number] * (ABNORMAL) HEMOGLOBIN, GLYCOSYLATED (07/10/2017 7:02 AM CDT) HGB A1C 9.9(H) 4.5 - 6.0 % 07/10/2017 7:18 AM CDT [facility] Comment: ADA GUIDELINES 50830.7 TO 6.4% INCREASED RISK OF DIABETES> OR = 6.5% CONSISTENT WITH DIABETES ESTIMATED AVG GLUCOSE 237(H) 70 - 99 MG/DL 07/10/2017 7:18 AM CDT [facility] 07/10/2017 7:02 AM CDT 07/10/2017 7:04 AM CDT Generic Lambert Bro MD LABORATORY Final R esult [facility] [address] [place] [address], [place] [phone] * (ABNORMAL) LIPID PANEL (07/10/2017 7:02 AM CDT) CHOLESTEROL 232(H) <200 MG/DL 07/10/2017 7:25 AM CDT [facility] TRIGLYCERIDES 395(H) <150 MG/DL 07/10/2017 7:25 AM CDT [facility] HDL 42 >40 MG/DL 07/10/2017 7:25 AM CDT [facility] LDL (CALCULATED) TRIGLYCERIDES >200 MG/DL, SEE DIRECT LDL REPORT <130 MG/DL 07/10/2017 7:25 AM CDT [facility] Comment: AN LDL OF <100 IS OPTIMAL; HOWEVER, ELEVATED IS DEFINED >130.BY ATP III GUIDELINES, LDL GOALS ARE DEPENDENT UPON THE PATIENT'S OTHER RISK FACTORS. CHOL/HDL RATIO 5.5(H) 0.0 - 5.0 07/10/2017 7:25 AM CDT [facility] OTHER (type in comments) 07/10/2017 7:02 AM CDT 07/10/2017 7:04 AM CDT Comment:SERUM SPECIMEN~ACELL ULAR BLOOD (SERUM OR PLASMA) SPECIMEN us Generic Conversion Md BRO LABORATORY Final R esult [facility] [address] [place] [address], from Last 3 Months or Most Recently [place] [id number] [facility] JUDIE WEBER Care Teams Yarn Dumper Relationship Specialty Start [place] [address] [place] [address] PCP - General FAMILY PRACTICE 07/06/23
--- OUTSIDE RECORDS SUMMARY | 2025-01-08 19:49 | XMS_ITS | Clinical Summary ---
Author Organization [facility] Address [address] [place] [address] Phone Care Team Providers Care Flumer Name Role Phone Joe Tse MD Primary Care Provider [phone] Allergies Active Allergy Reactions Criticality Noted Date Comments Latex Rash 01/13/2016 Reaction: Rash, , , Reaction: Rash, Morphine Rash 01/13/2016 Reaction: Rash, Other-Environmental Allergen (Not Found In Search) Rash 11/02/2024 Adhesive tape Dulaglutide Unknown 11/02/2024 Medications vitamin d, ergocalciferol, (ERGOCALCIFEROL ) 86594 units Capsule Take 50,000 Units by mouth [...] Description 12/07/2024 9:00 AM CDT Clinical Support [facility] [address] [place] [address] Pili Mendiola Sloane, PAC 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 Dx); Nausea Discharge Disposition: Discharged to home or Selfcare 12/07/2024 Travel 11/30/2024 10:30 AM CDT Clinical Support [facility] [address] [place] [address] Pili Mendiola August, PAC 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 Dx) Discharge Disposition: Discharged to home or Selfcare 11/30/2024 Travel 11/20/2024 9:00 AM CDT Clinical Support [facility] [address] [place] [address] Pili Mendiola Sloane, PAC 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 Dx) Discharge Disposition: Discharged to home or Selfcare 11/20/2024 Travel 11/15/2024 10:30 AM CDT Clinical Support [facility] [address] [place] [address] Pili Mendiola, PAC 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 Dx) Discharge Disposition: Discharged to home or Selfcare 11/15/2024 Travel 11/02/2024 8:00 AM CDT Clinical Support [facility] [address] [place] [phone] Pili Mendiola, CHARLES Iron deficiency anemia, unspecified iron deficiency anemia type Discharge Disposition: Discharged to home or Selfcare 11/02/2024 7:40 AM CDT Initial Consult [facility] [address] [place] [phone] Pili Mendiola, CHARLES Iron deficiency anemia, unspecified iron deficiency anemia type (Primary Dx) Discharge Disposition: Discharged to home or Selfcare 11/02/2024 Results Follow-Up [facility] [address] [place] [address] Pili Mendiola, PAC FOLIC ACID (FOLATE), FERRITIN, [...] st Contact Info) Description 01/18/2025 1:40 PM [employer]FF [employer] Office Visit [facility] [address] [place] [address] Pili Mendiola Sloane, PAC [address] [place] [address] Health Maintenance Due Date Last Done Comments [...] (ABNORMAL) IRON,TRANSFERN,CALC.TIBC,%SAT (11/02/2024 8:50 AM CDT) Pathologist [facility] IRON 44 25 - 156 mcg/dL 11/02/2024 10:30 AM CDT [facility] TRANSFERRIN 332 180 - 382 mg/dL 11/02/2024 10:30 AM CDT [facility] TIBC, CALCULATED 415 265 - 497 mcg/dL 11/02/2024 10:30 AM CDT [facility] % SATURATION * 11(L) 15 - 62 % 11/02/2024 10:30 AM CDT [facility] Blood Venipuncture / Unknown 11/02/2024 8:50 AM CDT 11/02/2024 8:50 AM CDT us Pili Mendiola PAC CHEMISTRY ORDERABLES Helen l Result [facility] [place] [address] * (ABNORMAL) CBC WITH AUTO DIFFERENTIAL (11/02/2024 8:50 AM CDT) Pathologist [facility] WBC 6.36 4.00 - 12.00 10(3)/mcL 11/02/2024 9:02 AM CDT [facility] RBC 4.38 3.80 - 5.30 10(6)/mcL 11/02/2024 9:02 AM CDT [facility] HEMOGLOBIN (HGB) 11.8(L) 12.0 - 15.8 g/dL 11/02/2024 9:02 AM CDT [facility] HEMATOCRIT (HCT) 37.2 36.0 - 47.0 % 11/02/2024 9:02 AM CDT [facility] MCV 84.9 82.0 - 96.0 fL 11/02/2024 9:02 AM CDT [facility] MCH 26.9 26.0 - 34.0 pg 11/02/2024 9:02 AM CDT [facility] MCHC 31.7 31.0 - 36.0 g/dL 11/02/2024 9:02 AM CDT [facility] PLATELET COUNT 386 140 - 440 10(3)/mcL 11/02/2024 9:02 AM CDT [facility] RDW 14.2 11.8 - 15.5 % 11/02/2024 9:02 AM CDT [facility] MPV 8.9(L) 9.7 - 12.4 fL 11/02/2024 9:02 AM CDT [facility] NEUTROPHILS 51.7 47.0 - 73.0 % 11/02/2024 9:02 AM CDT [facility] LYMPHOCYTES 40.4 18.0 - 42.0 % 11/02/2024 9:02 AM CDT [facility] MONOCYTES 6.1 4.0 - 12.0 % 11/02/2024 9:02 AM CDT [facility] EOSINOPHILS 0.9 0.0 - 5.0 % 11/02/2024 9:02 AM CDT [facility] BASOPHILS 0.6 0.0 - 1.0 % 11/02/2024 9:02 AM CDT [facility] ABSOLUTE NEUTROPHILS 3.28 1.60 - 7.70 10(3)/mcL 11/02/2024 9:02 AM CDT [facility] ABSOLUTE LYMPHOCYTES 2.57 1.30 - 3.20 10(3)/[facility] 11/02/2024 9:02 AM CDT [facility] ABSOLUTE MONOCYTES 0.39 0.20 - 1.00 10(3)/mcL 11/02/2024 9:02 AM CDT [facility] ABSOLUTE EOSINOPHIL 0.06 0.00 - 0.40 10(3)/[facility] 11/02/2024 9:02 AM CDT [facility] ABSOLUTE BASOPHILS 0.04 0.00 - 0.10 10(3)/[facility] 11/02/2024 9:02 AM CDT [facility] NRBC PER 100 WBC 0 11/03/19 9:02 AM CDT [facility] Blood Venipuncture / Unknown 11/02/2024 8:50 AM CDT 11/02/2024 8:50 AM CDT [facility] PAC HEMATOLOGY ORDERABLES Fin al Result [facility] [place] [address] * (ABNORMAL) FREE KAPPA & LAMBDA LIGHT CHAINS SERUM (11/02/2024 8:50 AM CDT) Free [place] Lt Chn 29.41(H) 3.30 - 19.40 mg/L 11/03/2024 10:08 AM CDT [facility] Free Lambda Lt Chn 23.91 5.71 - 26.30 mg/L 11/03/2024 10:08 AM CDT [facility] free shannon joyner ratio 1.23 0.26 - 1.65 11/03/2024 10:08 AM CDT [facility] Blood Venipuncture / Unknown 11/02/2024 8:50 AM CDT 11/02/2024 8:50 AM CDT [facility] PAC CHEMISTRY ORDERABLES Helen l Result Performing Organization Address City/[facility]/ZIP Co de Phone Number [facility] [address] [place] [address], [place] * VITAMIN B12 (11/02/2024 8:50 AM CDT) VITAMIN B12 707 213 - 816 pg/mL 11/02/2024 9:53 AM CDT [facility] Blood Venipuncture / Unknown 11/02/2024 8:50 AM CDT 11/02/2024 8:50 AM CDT [facility] PAC CHEMISTRY ORDERABLES Helen l Result Performing Organization Address City/State/[facility] Co de Phone Number [facility] [place] [address] * RETICULOCYTE COUNT (RETIC) (11/02/2024 8:50 AM CDT) RETICULOCYTES 1.2 0.5 - 2.0 % 11/02/2024 9:02 AM CDT [facility] Blood Venipuncture / Unknown 11/02/2024 8:50 AM CDT 11/02/2024 8:50 AM CDT [facility] HEMATOLOGY ORDERABLES Fin al Result Performing Organization Address [facility] Co de Phone Number [facility] [address] [place] [address] * LACTATE DEHYDROGENASE (LD) (11/02/2024 8:50 AM CDT) Pathologist [facility] LDH 154 125 - 220 U/L 11/02/2024 10:30 AM CDT [facility] Blood Venipuncture / Unknown 11/02/2024 8:50 AM CDT 11/02/2024 8:50 AM CDT [facility] CHEMISTRY ORDERABLES Helen l Result Performing Organization Address [facility] Co de Phone Number [facility] [place] [address] * (ABNORMAL) IMMUNOFIXATION W/ ELECTROPHORESIS SERUM (11/02/2024 8:50 AM CDT) TOTAL PROTEIN 7.7 6.0 - 8.0 g/dL 11/05/2024 12:05 PM CDT [facility] % ALBUMIN 48.4(L) 55.8 - 66.7 % 11/05/2024 12:05 PM CDT [facility] ALBUMIN SERUM 3.7 2.5 - 5.4 g/dL 11/05/2024 12:05 PM [facility] % ALPHA 1 GLOBULIN 3.2 2.9 - 4.9 % 11/05/2024 12:05 PM [facility] ALPHA 1 0.2 0.2 - 0.4 g/dL 11/05/2024 12:05 PM [facility] % ALPHA 2 GLOBULIN 11.4 7.1 - 11.8 % 11/05/2024 12:05 PM [facility] ALPHA 2 0.9 0.5 - 1.0 g/dL 11/05/2024 12:05 PM [facility] % BETA 14.8(H) 8.4 - 13.1 % 11/05/2024 12:05 PM [facility] BETA-GLOBULIN 1.1 0.5 - 1.1 g/dL 11/05/2024 12:05 PM [facility] % GAMMA GLOBULIN 22.2(H) 11.1 - 18.8 % 11/05/2024 12:05 PM [facility] GAMMA 1.7(H) 0.7 - 1.5 g/dL 11/05/2024 12:05 PM [facility] IMMUNOGLOBULIN G 1,564 552 - 1,631 mg/dL 11/05/2024 12:05 PM [facility] IMMUNOGLOBULIN A 377 65 - 421 mg/dL 11/05/2024 12:05 PM [facility] IMMUNOGLOBULIN M 201 33 - 293 mg/dL 11/05/2024 12:05 PM [facility] INTERPRETATION SERUM No abnormal protein band is detected by serum protein electrophoresis. Serum immunofixation electrophoresis is negative for monoclonal immunoglobulins. Reviewed by Mackenzie Ward, Ph.D. 11/05/2024 12:05 PM [facility] A/G RATIO, SERUM 0.9 11/06/19 12:05 PM [facility] Blood Venipuncture / Unknown 11/02/2024 8:50 AM CDT 11/02/2024 8:50 AM CDT Narrative [facility] - 11/05/2024 12:05 PM CDT Reviewed by Evelyn Rhoades M.D. [facility] PAC CHEMISTRY ORDERABLES Helen l Result [facility] [address] [place] [address], [place] * FOLIC ACID (FOLATE) (11/02/2024 8:50 AM CDT) FOLATE 10.1 7.0 - 31.4 ng/mL 11/02/2024 9:53 AM CDT [facility] IS THE PATIENT REQUIRED TO BE FASTING? No 11/02/2024 9:53 AM CDT [facility] Blood Venipuncture / Unknown 11/02/2024 8:50 AM CDT 11/02/2024 8:50 AM CDT [facility] PAC CHEMISTRY ORDERABLES Helen l Result Performing Organization Address City/[facility]/ZIP Co de Phone Number [facility] [address] [place] [address] * FERRITIN (11/02/2024 8:50 AM CDT) FERRITIN 7 5 - 204 ng/mL 11/02/2024 10:44 AM CDT [facility] Blood Venipuncture / Unknown 11/02/2024 8:50 AM CDT 11/02/2024 8:50 AM CDT [facility] PAC CHEMISTRY ORDERABLES Helen l Result [facility] [address] [place] [address] * (ABNORMAL) CMP (COMPREHENSIVE METABOLIC PANEL) (11/02/2024 8:50 AM CDT) SODIUM 138 136 - 145 mmol/L 11/02/2024 10:30 AM CDT [facility] POTASSIUM 3.8 3.5 - 5.1 mmol/L 11/02/2024 10:30 AM CDT [facility] CHLORIDE 106 98 - 107 mmol/L 11/02/2024 10:30 AM CDT [facility] CO2, VENOUS 23 22 - 30 mmol/L 11/02/2024 10:30 AM CDT [facility] ANION GAP 12.8 <18.0 mmol/L 11/02/2024 10:30 AM CDT [facility] GLUCOSE 134(H) 70 - 99 mg/dL 11/02/2024 10:30 AM CDT [facility] BUN 10 5 - 18 mg/dL 11/02/2024 10:30 AM T [facility] CREATININE, BLOOD 0.63 0.60 - 1.00 mg/dL 11/02/2024 10:30 AM CDT [facility] BUN/CREATININE RATIO 16 12 - 20 ratio 11/02/2024 10:30 AM T [facility] TOTAL PROTEIN 8.4(H) 6.0 - 8.0 g/dL 11/02/2024 10:30 AM T [facility] ALBUMIN 4.5 3.5 - 5.0 g/dL 11/02/2024 10:30 AM [facility] A/G RATIO 1.2 1.0 - 2.2 11/02/2024 10:30 AM CDT [facility] CALCIUM 9.4 8.7 - 10.5 mg/dL 11/02/2024 10:30 AM CDT [facility] T BILI 0.4 0.2 - 1.2 mg/dL 11/02/2024 10:30 AM CDT [facility] SGOT (AST) 20 <43 U/L 11/02/2024 10:30 AM CDT [facility] SGPT (ALT) 17 <56 U/L 11/02/2024 10:30 AM CDT [facility] ALKALINE PHOSPHATASE 69 40 - 150 U/L 11/02/2024 10:30 AM CDT [facility] IS THE PATIENT REQUIRED TO BE FASTING? No 11/02/2024 10:30 AM CDT [facility] GFR, ESTIMATED >60 >=60 11/02/2024 10:30 AM CDT [facility] Comment: Creatinine Clearance is the preferred criteria for selecting drug dose adjustments in renally impaired patients. The GFR is provided as additional pertinent clinical information. GFR is reported in mL/min/1.73 sq m. Calculation based on the 2020 Chronic Kidney Disease Epidemiology Collaboration (CKD-EPI) equation refit without adjustment for race. GFR, EST. >60 >=60 025 10:30 AM CDT [facility] Comment: Creatinine Clearance is the preferred criteria for selecting drug dose adjustments in renally impaired patients. The GFR is provided as additional pertinent clinical information. GFR is reported in mL/min/1.73 sq m. Calculation based on the 2009 Chronic Kidney Disease Epidemiology Collaboration (CKD-EPI). GFR, EST. NONAFRICAN >60 >=60 11/02/2024 10:30 AM CDT [facility] Comment: Creatinine Clearance is the [...] Maury PAC CHEMISTRY ORDERABLES Helen l Result [facility] [address] [place] [address] from Last 3 Months Insurance [facility] Care Teams Flumer Relationship Specialty [place] [id number] [place] [address] PCP - General Family Medicine 09/30/22
[2025-01-08 19:55] LABS: Pregnancy On Board Control Positive
--- NOTE | 2025-01-08 20:17 | PC.NURSE ---
pt awake and alert, to CT scan via wheelchair per needle grader at this time.
[2025-01-08 20:33] LABS: Hematocrit 39.1 % (35.0-49.0); Hemoglobin 12.9 g/dL (12.0-15.0); Immature Granulocyte Percent A 0.2 % (0.0-0.0); Lymphocytes Absolute Auto 1.98 K/mm3 (1.10-4.50); Mean Corpuscular HGB Conc 33.0 g/dL (32-36); Mean Corpuscular Hemoglobin 28.6 pg (27.0-31.0); Mean Corpuscular Volume 86.7 fL (78.0-102.0); Nucleated Red Blood Cells Absolute Auto 0.00 K/mm3 (0.00-0.00); Nucleated Red Blood Cells Perc 0.0 % (0-0.0); Platelet Count Result 245 K/mm3 (150-420); Red Blood Count 4.51 M/mm3 (4.20-5.40); White Blood Count 12.1 K/mm3 (4.8-10.8)
[2025-01-08 20:46] LABS: Alanine Aminotransferase 19 U/L (6-35); Alkaline Phosphatase 66 U/L (38-126); Anion Gap 11 mmol/L (4-12); Aspartate Amino Transferase 26 U/L (14-36); Bilirubin,Total 0.4 mg/dL (0.2-1.3); Blood Urea Nitrogen 9 mg/dL (7-17); Calcium 9.6 mg/dL (8.4-10.2); Carbon Dioxide 28 mmol/L (22-30); Chloride 100 mmol/L (98-107); Estimated CRCL calculation 99 ml/min; Estimated Glomerular Filt Rate > 60; Glucose 151 mg/dL (65-110); Lipase 93 U/L (23-300); Osmolality Calculated 289 mOsm/kg (285-295); Potassium 4.1 mmol/L (3.4-5.0); Sodium 139 mmol/L (137-145); Total Protein 9.1 g/dL (6.3-8.2)
--- NOTE | 2025-01-08 20:54 | PC.NURSE ---
pt awake and alert without distress, ambulatory to bathroom at this time. awaiting results and plan of care.
[2025-01-08 20:56] LABS: Albumin Level 4.4 g/dL (3.5-5.1)
[2025-01-08 21:30] VITALS: BP 139/69; PULSE 87; RESP 18; TEMP 37.4; O2SAT 98
[2025-01-08] MEDS: cefTRIAXone 1 GM, LIDOCAINE 1% LOCAL INJ 2.1 ML IM (21:32)
--- NOTE | 2025-01-11 12:59 | PC.NURSE ---
preliminary, urine culture, e coli, awaiting final
--- NOTE | 2025-01-12 15:10 | PC.NURSE ---
urine culture, e coli, rx cipro. no change needed per dr reyna
== END 2025-01-08 21:55 | disposition home or self-care (01) ==
PROVIDERS: Emergency Provider Emergency Medicine
DX: N39.0 Urinary tract infection, site not specified (principal); E11.9 Type 2 diabetes mellitus without complications
CPT/HCPCS: 36415; 74176; 80053; 81001; 81025; 83690; 85025; 96372; 99284; J0696; J2003